=== PATIENT | male | born 1960 | race Caucasian/White ===

== ENCOUNTER 2019-06-11 17:33 | Inpatient (IN) | payer MEDICAID ==
[~2019-06-11] VITALS: Ht 170.2 cm; Wt 80.8 kg
[2019-06-11] MEDS ORDERED: QUET300T5 PO (18:08)
[2019-06-11] MEDS ORDERED: CITA-106 PO (18:08)
[2019-06-11 18:16] LABS: BASOPHILS % (AUTO) 1.3 % (0.0-2.0); EOSINOPHILS % (AUTO) 4.3 % (1.0-6.0); HEMATOCRIT 49.6 % (41-53); HEMOGLOBIN 17.2 g/dL (13.5-17.5); LYMPHOCYTES # (AUTO) 2.8 K/uL (1.0-4.8); LYMPHOCYTES % (AUTO) 39.8 % (22.0-44.0); MEAN CORPUSCULAR HEMOGLOBIN 33.8 pg (26.0-34.0); MEAN CORPUSCULAR HGB CONC 34.6 G/dL (31.0-37.0); MEAN CORPUSCULAR VOLUME 98 fL (80-100); MONOCYTES # (AUTO) 1.1 K/uL (0.1-1.0); MONOCYTES % (AUTO) 16.1 % (2.0-9.0); NEUTROPHILS # (AUTO) 2.7 K/uL (1.8-7.7); NEUTROPHILS % (AUTO) 38.5 % (40.0-70.0); RED BLOOD CELL COUNT(AUTO) 5.09 MIL/uL (4.50-5.90); RED CELL DISTRIBUTION WIDTH 14.5 % (11.5-14.5)
[2019-06-11 18:36] LABS: ANION GAP 10 mmol/L (8-16); CALCIUM, TOTAL 9.6 mg/dL (8.8-10.5); CARBON DIOXIDE 29 mmol/L (22-29); CHLORIDE 101 mmol/L (98-107); CREATININE 0.84 mg/dL (0.60-1.30); GLOMERULAR FILTR. RATE CALC > 60 mL/min (>60); GLUCOSE,RANDOM 118 mg/dL (70-110); POTASSIUM 3.7 mmol/L (3.5-5.1); SODIUM SERUM 140 mmol/L (136-145); UREA NITROGEN, BLOOD 9 mg/dL (7-18)
[2019-06-11 18:44] LABS: ALANINE AMINOTRANSFERASE 28 U/L (12-78); ALKALINE PHOSPHATASE 100 U/L (46-116); ASPARTATE AMINOTRANSFERASE 33 U/L (15-37); BILIRUBIN,TOTAL 0.5 mg/dL (0.1-1.0); TOTAL PROTEIN, SERUM 8.2 g/dL (6.4-8.2)
[2019-06-11 18:51] LABS: PLATELET COUNT (AUTO) 277 K/uL (150-450)
[2019-06-11] MEDS ORDERED: HALOPERIDOL 5 MG TABLET PO ONE (19:00)
[2019-06-11] MEDS ORDERED: LORazepam 2 MG TABLET PO ONE (19:00)
[2019-06-11] MEDS ORDERED: DiphenhydrAMINE HCL 50 MG CAPSULE PO ONE (19:00)
[2019-06-11 19:24] LABS: APPEARANCE,URINE CLEAR (CLEAR); BILIRUBIN,URINE NEGATIVE (NEGATIVE); GLUCOSE, URINE (UA) NEGATIVE (NEGATIVE); KETONES,URINE NEGATIVE (NEGATIVE); LEUKOCYTE ESTERASE ,URINE TRACE (NEGATIVE); NITRATE,URINE NEGATIVE (NEGATIVE); OCCULT BLOOD,URINE NEGATIVE (NEGATIVE); PROTEIN,URINE NEGATIVE (NEGATIVE); UROBILINOGEN,URINE 0.2 mg/dL (<=1.0)
[2019-06-11 19:27] LABS: AMPHET/METH SCREEN,URINE NEGATIVE (NEGATIVE); BARBITURATE SCREEN, URINE NEGATIVE (NEGATIVE); BENZODIAZEPINES SCREEN,URINE NEGATIVE (NEGATIVE); CANNABINOID SCREEN,URINE POSITIVE (NEGATIVE); COCAINE SCREEN,URINE NEGATIVE (NEGATIVE); METHADONE SCREEN, URINE NEGATIVE (NEGATIVE); OPIATE SCREEN,URINE NEGATIVE (NEGATIVE)
[2019-06-11 19:31] LABS: PHENCYCLIDINE SCREEN,URINE NEGATIVE (NEGATIVE)
[2019-06-11 19:35] LABS: RBC,URINE None Seen /HPF (0-2)
[2019-06-11 19:36] LABS: BACTERIA,URINE None Seen /HPF (None Seen); SQUAMOUS EPITHELIAL CELL,UR Moderate /LPF (None Seen); TRANSITIONAL EPI CELLS,URINE Rare /LPF (None Seen)
[2019-06-12 03:14] LABS: CHOL/HDL RATIO 2.8 (4.2-7.3)
[2019-06-12] MEDS ORDERED: GuaiFENesin/D-METHORPHAN [SUGAR-FREE] 200-20MG/10 ML SYRUP UDCUP PO PRN (06:15)
[2019-06-12] MEDS ORDERED: ACETAMINOPHEN 325 MG TABLET PO PRN (06:15)
[2019-06-12] MEDS ORDERED: MAGNESIUM HYDROXIDE SUSPENSION 30 ML UDCUP PO PRN (06:15)
[2019-06-12] MEDS ORDERED: ONDANSETRON HCL 4 MG TABLET PO PRN (06:15)
[2019-06-12] MEDS ORDERED: MAG HYDROX/AL HYDROX/SIMETH ES 30 ML SUSPENSION UDCUP PO PRN (06:15)
[2019-06-12] MEDS ORDERED: DOCUSATE SODIUM 100 MG CAPSULE PO PRN (06:15)
[2019-06-12] MEDS ORDERED: CloNIDine HCL 0.1 MG TABLET PO PRN (06:15)
[2019-06-12] MEDS ORDERED: NICOTINE 14 MG/24 HOUR PATCH TD PRN (06:15)
[2019-06-12] MEDS ORDERED: PETROLATUM,WHITE 28 GM JELLY TP PRN (06:15)
[2019-06-12] MEDS ORDERED: ALBUTEROL SULFATE HFA 90 MCG/PUFF 8 GM INHALER IH PRN (06:15)
[2019-06-12] MEDS ORDERED: IBUPROFEN 400 MG TABLET PO PRN (06:15)
[2019-06-12] MEDS: HALOPERIDOL 5 MG TABLET PO PRN ×3 (07:50→17:41)
[2019-06-12] MEDS: LORazepam 2 MG TABLET PO PRN ×3 (07:50→17:41)
[2019-06-12 21:29] VITALS: BP 148/99
[2019-06-13] MEDS: FOLIC ACID 1 MG TABLET PO SCH (08:51)
[2019-06-13] MEDS: THIAMINE HCL 100 MG TABLET PO SCH (08:51)
[2019-06-13] MEDS: ASPIRIN 81 MG CHEWABLE TABLET PO SCH (08:51)
[2019-06-13] MEDS ORDERED: DENTURE ADHESIVE 68 GM CREAM DT PRN (09:30)
[2019-06-13] MEDS: LOPERAMIDE HCL 2 MG CAPSULE PO PRN ×2 (11:00→17:10)
[2019-06-13] MEDS: HALOPERIDOL 5 MG TABLET PO PRN (11:10)
[2019-06-13] MEDS: LORazepam 2 MG TABLET PO SCH (11:10)
[2019-06-13] MEDS ORDERED: LORazepam 2 MG TABLET PO PRN (12:15)
[2019-06-13 12:45] VITALS: BP 139/90
[2019-06-13 12:46] VITALS: BP 139/90
[2019-06-13] MEDS: BuPROPion HCL XL 150 MG ER TABLET PO SCH (13:53)
[2019-06-13 16:45] VITALS: BP 145/87
[2019-06-13] MEDS: OLANZapine 5 MG TABLET PO SCH (17:10)
[2019-06-13 17:12] VITALS: BP 145/87
[2019-06-13] MEDS: ZOLPIDEM TARTRATE 10 MG TABLET PO PRN (20:24)
[2019-06-14] VITALS (8 sets, daily range): BP systolic 124–141; BP diastolic 72–87
[2019-06-14] MEDS: LORazepam 2 MG TABLET PO PRN ×2 (02:55→09:49)
[2019-06-14] MEDS ORDERED: LORazepam 2 MG TABLET PO PRN (07:00)
[2019-06-14] MEDS: BuPROPion HCL XL 150 MG ER TABLET PO SCH (09:48)
[2019-06-14] MEDS: FOLIC ACID 1 MG TABLET PO SCH (09:49)
[2019-06-14] MEDS: THIAMINE HCL 100 MG TABLET PO SCH (09:49)
[2019-06-14] MEDS: OLANZapine 5 MG TABLET PO SCH ×2 (09:50→16:28)
[2019-06-14] MEDS: ASPIRIN 81 MG CHEWABLE TABLET PO SCH (09:50)
[2019-06-14] MEDS: LORazepam 2 MG TABLET PO SCH ×3 (13:15→20:05)
[2019-06-14] MEDS: ZOLPIDEM TARTRATE 10 MG TABLET PO PRN (20:51)
[2019-06-14] MEDS: HALOPERIDOL 5 MG TABLET PO PRN (23:45)
[2019-06-15 00:04] VITALS: BP 146/99
[2019-06-15] MEDS: LORazepam 2 MG TABLET PO SCH ×4 (09:24→20:08)
[2019-06-15] MEDS: OLANZapine 5 MG TABLET PO SCH ×2 (09:25→16:56)
[2019-06-15] MEDS: BuPROPion HCL XL 150 MG ER TABLET PO SCH (09:25)
[2019-06-15] MEDS: ASPIRIN 81 MG CHEWABLE TABLET PO SCH (09:25)
[2019-06-15] MEDS: THIAMINE HCL 100 MG TABLET PO SCH (09:25)
[2019-06-15] MEDS: FOLIC ACID 1 MG TABLET PO SCH (09:25)
[2019-06-15 09:41] VITALS: BP 143/87
[2019-06-15 09:42] VITALS: BP 140/86
[2019-06-15 16:45] VITALS: BP 128/87
[2019-06-15 17:18] VITALS: BP 128/87
[2019-06-15 20:00] VITALS: BP 131/82
[2019-06-15] MEDS ORDERED: QUEtiapine FUMARATE 200 MG TABLET PO SCH (21:00)
[2019-06-16 05:50] VITALS: BP 98/59
[2019-06-16] MEDS ORDERED: LORazepam 1 MG TABLET PO PRN (07:00)
[2019-06-16] MEDS: LORazepam 1 MG TABLET PO SCH ×2 (08:14→12:17)
[2019-06-16] MEDS: ASPIRIN 81 MG CHEWABLE TABLET PO SCH (08:14)
[2019-06-16] MEDS: FOLIC ACID 1 MG TABLET PO SCH (08:14)
[2019-06-16] MEDS: BuPROPion HCL XL 150 MG ER TABLET PO SCH (08:14)
[2019-06-16] MEDS: OLANZapine 5 MG TABLET PO SCH ×2 (08:14→16:06)
[2019-06-16] MEDS: THIAMINE HCL 100 MG TABLET PO SCH (08:15)
[2019-06-16 09:20] VITALS: BP 137/100
[2019-06-16 12:36] VITALS: BP 130/79
[2019-06-16] MEDS ORDERED: QUET200T PO (13:30)
[2019-06-16] MEDS ORDERED: BUPR-93 PO (13:30)
[2019-06-16] MEDS ORDERED: OLAN5TAB2 PO (13:30)
[2019-06-16] MEDS ORDERED: ASPI81 PO (13:32)
[2019-06-17] MEDS ORDERED: LORazepam 1 MG TABLET PO PRN (07:00)
== END 2019-06-16 17:15 | disposition home or self-care (01) | DRG 751 ==
LOC: EMS 17:33 → 3EI 06-12 20:45
PROVIDERS: ADMIT Psychiatry & Neurology Psychiatry; ATTEND Psychiatry & Neurology Psychiatry
DX: F33.3 Major depressive disorder, recurrent, severe with psychotic symptoms (principal); R45.851 Suicidal ideations; E78.5 Hyperlipidemia, unspecified; F10.229 Alcohol dependence with intoxication, unspecified; F12.90 Cannabis use, unspecified, uncomplicated; F17.200 Nicotine dependence, unspecified, uncomplicated; I25.10 Atherosclerotic heart disease of native coronary artery without angina pectoris; Y90.8 Blood alcohol level of 240 mg/100 ml or more; F19.10 Other psychoactive substance abuse, uncomplicated; Z91.5 Personal history of self-harm; Z95.5 Presence of coronary angioplasty implant and graft; Z71.41 Alcohol abuse counseling and surveillance of alcoholic; Z71.51 Drug abuse counseling and surveillance of drug abuser; Z71.6 Tobacco abuse counseling
CPT/HCPCS: G0480

== ENCOUNTER 2019-07-31 16:48 | Inpatient (IN) | payer MEDICAID, OTHER ==
[~2019-07-31] VITALS: Ht 170.2 cm; Wt 79.3 kg
[~2019-07-31 16:48] MED LIST: ASPI81 PO; BUPR-93 PO; OLAN5TAB2 PO; QUET200T PO
[2019-07-31 17:59] LABS: BASOPHILS % (AUTO) 1.1 % (0.0-2.0); EOSINOPHILS % (AUTO) 0.5 % (1.0-6.0); HEMATOCRIT 45.6 % (41-53); HEMOGLOBIN 15.9 g/dL (13.5-17.5); LYMPHOCYTES # (AUTO) 1.7 K/uL (1.0-4.8); LYMPHOCYTES % (AUTO) 26.8 % (22.0-44.0); MEAN CORPUSCULAR HEMOGLOBIN 33.7 pg (26.0-34.0); MEAN CORPUSCULAR HGB CONC 34.8 G/dL (31.0-37.0); MEAN CORPUSCULAR VOLUME 97 fL (80-100); MONOCYTES # (AUTO) 0.8 K/uL (0.1-1.0); NEUTROPHILS # (AUTO) 3.8 K/uL (1.8-7.7); NEUTROPHILS % (AUTO) 59.6 % (40.0-70.0); PLATELET COUNT (AUTO) 219 K/uL (150-450); RED CELL DISTRIBUTION WIDTH 14.1 % (11.5-14.5)
[2019-07-31] MEDS ORDERED: ACETAMINOPHEN 325 MG TABLET PO PRN (18:15)
[2019-07-31] MEDS ORDERED: PROMETHAZINE HCL 25 MG TABLET PO PRN (18:15)
[2019-07-31] MEDS ORDERED: LOPERAMIDE HCL 2 MG CAPSULE PO PRN (18:15)
[2019-07-31] MEDS ORDERED: MAG HYDROX/AL HYDROX/SIMETH ES 30 ML SUSPENSION UDCUP PO PRN (18:15)
[2019-07-31] MEDS ORDERED: MAGNESIUM HYDROXIDE SUSPENSION 30 ML UDCUP PO PRN (18:15)
[2019-07-31] MEDS ORDERED: GuaiFENesin/D-METHORPHAN [SUGAR-FREE] 200-20MG/10 ML SYRUP UDCUP PO PRN (18:15)
[2019-07-31] MEDS ORDERED: HydrOXYzine PAMOATE 50 MG CAPSULE PO PRN (18:15)
[2019-07-31] MEDS ORDERED: OLANZapine 5 MG RAPDIS TABLET PO PRN (18:15)
[2019-07-31] MEDS ORDERED: TUBERCULIN, PURIFIED PROTEIN DERIVATIVE 5 TU/0.1 ML SYRINGE ID ONE (18:15)
[2019-07-31] MEDS ORDERED: CYANOCOBALAMIN 1,000 MCG/ML VIAL IM ONE (18:15)
[2019-07-31 18:27] LABS: ALANINE AMINOTRANSFERASE 24 U/L (12-78); ALBUMIN 4.1 g/dL (3.4-5.0); ALKALINE PHOSPHATASE 94 U/L (46-116); ANION GAP 15 mmol/L (8-16); ASPARTATE AMINOTRANSFERASE 30 U/L (15-37); BILIRUBIN,TOTAL 0.4 mg/dL (0.1-1.0); CALCIUM, TOTAL 8.7 mg/dL (8.8-10.5); CARBON DIOXIDE 25 mmol/L (22-29); CHLORIDE 100 mmol/L (98-107); GLOMERULAR FILTR. RATE CALC > 60 mL/min (>60); GLUCOSE,RANDOM 91 mg/dL (70-110); POTASSIUM 4.2 mmol/L (3.5-5.1); SODIUM SERUM 140 mmol/L (136-145); TOTAL PROTEIN, SERUM 8.3 g/dL (6.4-8.2); UREA NITROGEN, BLOOD 4 mg/dL (7-18)
[2019-07-31 18:39] LABS: AMPHET/METH SCREEN,URINE NEGATIVE (NEGATIVE); BARBITURATE SCREEN, URINE NEGATIVE (NEGATIVE); BENZODIAZEPINES SCREEN,URINE NEGATIVE (NEGATIVE); CANNABINOID SCREEN,URINE NEGATIVE (NEGATIVE); COCAINE SCREEN,URINE NEGATIVE (NEGATIVE); METHADONE SCREEN, URINE NEGATIVE (NEGATIVE); OPIATE SCREEN,URINE NEGATIVE (NEGATIVE)
[2019-07-31 18:40] LABS: PHENCYCLIDINE SCREEN,URINE NEGATIVE (NEGATIVE)
[2019-07-31] MEDS: THIAMINE HCL 100 MG TABLET PO SCH (19:49)
[2019-07-31] MEDS: OLANZapine 10 MG RAPDIS TABLET PO SCH (21:00)
[2019-07-31] MEDS: GABAPENTIN 300 MG CAPSULE PO SCH (21:00)
[2019-07-31 21:50] VITALS: BP 165/96
[2019-07-31 22:00] VITALS: BP 150/95
[2019-07-31] MEDS ORDERED: INFLUENZA VIRUS VACCINE QVS 2019-20 (3YR+)/PF 60 MCG/0.5 ML SYRINGE IM ONE (23:00)
[2019-07-31 23:11] VITALS: BP 149/80
[2019-07-31] MEDS: DIAZEPAM 10 MG TABLET PO PRN (23:52)
[2019-07-31] MEDS: ZOLPIDEM TARTRATE 10 MG TABLET PO PRN (23:52)
[2019-08-01] VITALS (11 sets, daily range): BP systolic 135–160; BP diastolic 76–100
[2019-08-01] MEDS: DIAZEPAM 10 MG TABLET PO PRN (06:41)
[2019-08-01] MEDS ORDERED: DIAZEPAM 10 MG TABLET PO PRN (07:00)
[2019-08-01 08:03] LABS: HEMOGLOBIN A1C 5.3 % (4.5-6.2)
[2019-08-01 08:26] LABS: CHOL/HDL RATIO 1.7 (4.2-7.3); FREE T4 (FREE THYROXINE) 0.62 ng/dL (0.76-1.46); THYROID STIMULATING HORMONE 2.4 uIU/mL (0.36-3.74)
[2019-08-01] MEDS: DIAZEPAM 10 MG TABLET PO SCH ×4 (09:17→20:17)
[2019-08-01] MEDS: THIAMINE HCL 100 MG TABLET PO SCH ×2 (09:17→16:14)
[2019-08-01] MEDS: ASPIRIN 81 MG CHEWABLE TABLET PO SCH (09:17)
[2019-08-01] MEDS: FOLIC ACID 1 MG TABLET PO SCH (09:17)
[2019-08-01] MEDS: MULTIVITAMINS WITH MINERALS, THERAPEUTIC TABLET PO SCH (09:18)
[2019-08-01] MEDS: NALTREXONE HCL 50 MG TABLET PO SCH (09:18)
[2019-08-01] MEDS: FLUoxetine HCL 10 MG CAPSULE PO SCH (09:18)
[2019-08-01] MEDS: GABAPENTIN 300 MG CAPSULE PO SCH ×4 (09:18→20:17)
[2019-08-01] MEDS: OLANZapine 10 MG RAPDIS TABLET PO SCH (20:18)
[2019-08-02] VITALS (7 sets, daily range): BP systolic 129–151; BP diastolic 57–99
[2019-08-02] MEDS: ZOLPIDEM TARTRATE 10 MG TABLET PO PRN ×2 (02:11→21:19)
[2019-08-02] MEDS: FLUoxetine HCL 10 MG CAPSULE PO SCH (09:12)
[2019-08-02] MEDS: DIAZEPAM 10 MG TABLET PO SCH ×4 (09:12→20:11)
[2019-08-02] MEDS: FOLIC ACID 1 MG TABLET PO SCH (09:13)
[2019-08-02] MEDS: GABAPENTIN 300 MG CAPSULE PO SCH ×4 (09:13→20:11)
[2019-08-02] MEDS: NALTREXONE HCL 50 MG TABLET PO SCH (09:13)
[2019-08-02] MEDS: MULTIVITAMINS WITH MINERALS, THERAPEUTIC TABLET PO SCH (09:13)
[2019-08-02] MEDS: ASPIRIN 81 MG CHEWABLE TABLET PO SCH (09:13)
[2019-08-02] MEDS: THIAMINE HCL 100 MG TABLET PO SCH ×2 (09:13→16:51)
[2019-08-02] MEDS ORDERED: DENTURE ADHESIVE 68 GM CREAM DT PRN (11:00)
[2019-08-02] MEDS: QUEtiapine FUMARATE 25 MG TABLET PO SCH (16:51)
[2019-08-02] MEDS: QUEtiapine FUMARATE 200 MG TABLET PO SCH (20:11)
[2019-08-02] MEDS: ATORVASTATIN CALCIUM 10 MG TABLET PO SCH (20:11)
[2019-08-03 05:38] VITALS: BP 126/69
[2019-08-03] MEDS ORDERED: DIAZEPAM 5 MG TABLET PO PRN (07:00)
[2019-08-03] MEDS ORDERED: FLUoxetine HCL 20 MG CAPSULE PO SCH (09:00)
[2019-08-03] MEDS: THIAMINE HCL 100 MG TABLET PO SCH ×2 (09:41→16:57)
[2019-08-03] MEDS: NALTREXONE HCL 50 MG TABLET PO SCH (09:41)
[2019-08-03] MEDS: GABAPENTIN 300 MG CAPSULE PO SCH ×3 (09:41→16:57)
[2019-08-03] MEDS: DIAZEPAM 5 MG TABLET PO SCH ×4 (09:41→20:13)
[2019-08-03] MEDS: MULTIVITAMINS WITH MINERALS, THERAPEUTIC TABLET PO SCH (09:42)
[2019-08-03] MEDS: QUEtiapine FUMARATE 25 MG TABLET PO SCH ×3 (09:42→16:57)
[2019-08-03] MEDS: ASPIRIN 81 MG CHEWABLE TABLET PO SCH (09:42)
[2019-08-03] MEDS: FOLIC ACID 1 MG TABLET PO SCH (09:42)
[2019-08-03 12:00] VITALS: BP 132/86
[2019-08-03 13:35] VITALS: BP 149/91
[2019-08-03 16:00] VITALS: BP 126/86
[2019-08-03 16:55] VITALS: BP 126/86
[2019-08-03] MEDS ORDERED: NALT50TA PO (18:00)
[2019-08-03] MEDS ORDERED: QUET25TA34 PO (18:00)
[2019-08-03] MEDS ORDERED: GABA-533 PO (18:00)
[2019-08-03] MEDS ORDERED: QUET200T29 PO (18:00)
[2019-08-03] MEDS ORDERED: DULO20CA30 PO (18:00)
[2019-08-03] MEDS ORDERED: LOPERAMIDE HCL 2 MG CAPSULE PO PRN (18:15)
[2019-08-03] MEDS: QUEtiapine FUMARATE 200 MG TABLET PO SCH (20:14)
[2019-08-03] MEDS: ATORVASTATIN CALCIUM 10 MG TABLET PO SCH (20:14)
[2019-08-03] MEDS: GABAPENTIN 400 MG CAPSULE PO SCH (20:16)
[2019-08-03] MEDS: ZOLPIDEM TARTRATE 10 MG TABLET PO PRN (23:13)
[2019-08-04 06:12] VITALS: BP 114/73
[2019-08-04] MEDS ORDERED: DIAZEPAM 5 MG TABLET PO PRN (07:00)
[2019-08-04 08:30] VITALS: BP 121/76
[2019-08-04] MEDS ORDERED: DULoxetine HCL 20 MG CAPSULE PO SCH (09:00)
[2019-08-04] MEDS: GABAPENTIN 400 MG CAPSULE PO SCH ×3 (09:32→16:45)
[2019-08-04] MEDS: ASPIRIN 81 MG CHEWABLE TABLET PO SCH (09:32)
[2019-08-04] MEDS: THIAMINE HCL 100 MG TABLET PO SCH ×2 (09:32→16:45)
[2019-08-04] MEDS: QUEtiapine FUMARATE 25 MG TABLET PO SCH ×3 (09:32→16:45)
[2019-08-04] MEDS: MULTIVITAMINS WITH MINERALS, THERAPEUTIC TABLET PO SCH (09:32)
[2019-08-04] MEDS: FOLIC ACID 1 MG TABLET PO SCH (09:33)
[2019-08-04] MEDS: NALTREXONE HCL 50 MG TABLET PO SCH (09:33)
[2019-08-04 13:01] VITALS: BP 103/67
[2019-08-04] MEDS ORDERED: ATOR10TA84 PO (13:14)
== END 2019-08-04 15:00 | disposition home or self-care (01) | DRG 885 ==
LOC: EMS 16:49 → 3EI 18:47
PROVIDERS: ADMIT Psychiatry & Neurology Psychiatry; ATTEND Psychiatry & Neurology Psychiatry
DX: F33.2 Major depressive disorder, recurrent severe without psychotic features (principal); F10.229 Alcohol dependence with intoxication, unspecified; R45.851 Suicidal ideations; F29 Unspecified psychosis not due to a substance or known physiological condition; E78.1 Pure hyperglyceridemia; E78.5 Hyperlipidemia, unspecified; F12.90 Cannabis use, unspecified, uncomplicated; F17.210 Nicotine dependence, cigarettes, uncomplicated; G40.909 Epilepsy, unspecified, not intractable, without status epilepticus; I10 Essential (primary) hypertension; I25.10 Atherosclerotic heart disease of native coronary artery without angina pectoris; Y90.8 Blood alcohol level of 240 mg/100 ml or more; Z82.49 Family history of ischemic heart disease and other diseases of the circulatory system; Z91.19 Patient's noncompliance with other medical treatment and regimen; Z91.5 Personal history of self-harm; Z95.5 Presence of coronary angioplasty implant and graft; Z79.899 Other long term (current) drug therapy; Z28.21 Immunization not carried out because of patient refusal
CPT/HCPCS: 80074; 83036; 84439; 84443; 86592; G0480; J3420

== ENCOUNTER 2019-08-24 19:09 | Inpatient (IN) | payer MEDICAID ==
[~2019-08-24] VITALS: Ht 170.2 cm; Wt 83.6 kg
[~2019-08-24 19:09] MED LIST changes: +ATOR10TA84 PO; -BUPR-93 PO; +DULO20CA30 PO; +GABA-533 PO; +NALT50TA PO; -OLAN5TAB2 PO; -QUET200T PO; +QUET200T29 PO; +QUET25TA34 PO
[2019-08-24 21:50] LABS: BASOPHILS % (AUTO) 1.4 % (0.0-2.0); EOSINOPHILS % (AUTO) 0.9 % (1.0-6.0); HEMATOCRIT 48.1 % (41-53); HEMOGLOBIN 16.6 g/dL (13.5-17.5); LYMPHOCYTES # (AUTO) 2.3 K/uL (1.0-4.8); LYMPHOCYTES % (AUTO) 31.5 % (22.0-44.0); MEAN CORPUSCULAR HEMOGLOBIN 33.1 pg (26.0-34.0); MEAN CORPUSCULAR HGB CONC 34.4 G/dL (31.0-37.0); MEAN CORPUSCULAR VOLUME 96 fL (80-100); MONOCYTES # (AUTO) 0.7 K/uL (0.1-1.0); NEUTROPHILS % (AUTO) 56.2 % (40.0-70.0); PLATELET COUNT (AUTO) 319 K/uL (150-450); RED CELL DISTRIBUTION WIDTH 14.2 % (11.5-14.5)
[2019-08-24 22:01] LABS: ANION GAP 13 mmol/L (8-16); CALCIUM, TOTAL 8.7 mg/dL (8.8-10.5); CARBON DIOXIDE 28 mmol/L (22-29); CHLORIDE 101 mmol/L (98-107); CREATININE 0.88 mg/dL (0.60-1.30); GLOMERULAR FILTR. RATE CALC > 60 mL/min (>60); GLUCOSE,RANDOM 116 mg/dL (70-110); SODIUM SERUM 142 mmol/L (136-145); UREA NITROGEN, BLOOD 5 mg/dL (7-18)
[2019-08-24 22:07] LABS: ALANINE AMINOTRANSFERASE 27 U/L (12-78); ALKALINE PHOSPHATASE 128 U/L (46-116); ASPARTATE AMINOTRANSFERASE 36 U/L (15-37); BILIRUBIN,TOTAL 0.3 mg/dL (0.1-1.0); TOTAL PROTEIN, SERUM 7.9 g/dL (6.4-8.2)
[2019-08-24 22:36] LABS: AMPHET/METH SCREEN,URINE NEGATIVE (NEGATIVE); BARBITURATE SCREEN, URINE NEGATIVE (NEGATIVE); BENZODIAZEPINES SCREEN,URINE POSITIVE (NEGATIVE); CANNABINOID SCREEN,URINE POSITIVE (NEGATIVE); COCAINE SCREEN,URINE NEGATIVE (NEGATIVE); METHADONE SCREEN, URINE NEGATIVE (NEGATIVE); OPIATE SCREEN,URINE NEGATIVE (NEGATIVE)
[2019-08-24 22:39] LABS: PHENCYCLIDINE SCREEN,URINE NEGATIVE (NEGATIVE)
[2019-08-25] VITALS (8 sets, daily range): BP systolic 146–166; BP diastolic 86–92
[2019-08-25] MEDS ORDERED: HALOPERIDOL 5 MG TABLET PO PRN (02:00)
[2019-08-25] MEDS ORDERED: LOPERAMIDE HCL 2 MG CAPSULE PO PRN ×2 (02:00→11:45)
[2019-08-25] MEDS ORDERED: GuaiFENesin/D-METHORPHAN [SUGAR-FREE] 200-20MG/10 ML SYRUP UDCUP PO PRN ×2 (02:00→11:45)
[2019-08-25] MEDS ORDERED: LORazepam 2 MG TABLET PO PRN (02:00)
[2019-08-25] MEDS ORDERED: ZOLPIDEM TARTRATE 10 MG TABLET PO PRN (02:00)
[2019-08-25] MEDS ORDERED: HydrOXYzine PAMOATE 50 MG CAPSULE PO PRN (02:00)
[2019-08-25 02:41] LABS: APPEARANCE,URINE CLOUDY (CLEAR); BILIRUBIN,URINE NEGATIVE (NEGATIVE); GLUCOSE, URINE (UA) NEGATIVE (NEGATIVE); KETONES,URINE NEGATIVE (NEGATIVE); LEUKOCYTE ESTERASE ,URINE NEGATIVE (NEGATIVE); NITRATE,URINE NEGATIVE (NEGATIVE); OCCULT BLOOD,URINE SMALL (NEGATIVE); PH,URINE 5.5 (5.0-8.0); PROTEIN,URINE POS 1+ (NEGATIVE); UROBILINOGEN,URINE 0.2 mg/dL (<=1.0)
[2019-08-25 02:55] LABS: BACTERIA,URINE None Seen /HPF (None Seen); MUCUS,URINE Moderate LPF (None Seen); RBC,URINE 0-2 /HPF (0-2); SQUAMOUS EPITHELIAL CELL,UR Moderate /LPF (None Seen)
[2019-08-25] MEDS ORDERED: CYANOCOBALAMIN 1,000 MCG/ML VIAL IM ONE ×2 (09:00→11:45)
[2019-08-25] MEDS ORDERED: FOLIC ACID 1 MG TABLET PO SCH (09:00)
[2019-08-25] MEDS ORDERED: MULTIVITAMINS WITH MINERALS, THERAPEUTIC TABLET PO SCH (09:00)
[2019-08-25] MEDS ORDERED: THIAMINE HCL 100 MG TABLET PO SCH (09:00)
[2019-08-25] MEDS ORDERED: MAG HYDROX/AL HYDROX/SIMETH ES 30 ML SUSPENSION UDCUP PO PRN (11:45)
[2019-08-25] MEDS ORDERED: MAGNESIUM HYDROXIDE SUSPENSION 30 ML UDCUP PO PRN (11:45)
[2019-08-25] MEDS ORDERED: ACETAMINOPHEN 325 MG TABLET PO PRN ×2 (11:45→12:30)
[2019-08-25] MEDS ORDERED: PROMETHAZINE HCL 25 MG TABLET PO PRN (11:45)
[2019-08-25] MEDS ORDERED: TUBERCULIN, PURIFIED PROTEIN DERIVATIVE 5 TU/0.1 ML SYRINGE ID ONE (11:45)
[2019-08-25] MEDS ORDERED: IBUPROFEN 600 MG TABLET PO PRN (12:30)
[2019-08-25] MEDS: GABAPENTIN 300 MG CAPSULE PO SCH ×3 (13:55→20:53)
[2019-08-25] MEDS: THIAMINE HCL 100 MG TABLET PO SCH (16:58)
[2019-08-25] MEDS: METOPROLOL TARTRATE 50 MG TABLET PO SCH (17:00)
[2019-08-25] MEDS: DIAZEPAM 10 MG TABLET PO PRN ×2 (18:17→20:53)
[2019-08-25] MEDS: QUEtiapine FUMARATE 200 MG TABLET PO SCH (20:53)
[2019-08-25] MEDS: ATORVASTATIN CALCIUM 10 MG TABLET PO SCH (20:53)
[2019-08-26] VITALS (8 sets, daily range): BP systolic 124–147; BP diastolic 75–86
[2019-08-26] MEDS: DIAZEPAM 10 MG TABLET PO PRN (04:42)
[2019-08-26] MEDS ORDERED: DIAZEPAM 10 MG TABLET PO PRN (07:00)
[2019-08-26] MEDS: THIAMINE HCL 100 MG TABLET PO SCH ×2 (09:42→16:10)
[2019-08-26] MEDS: METOPROLOL TARTRATE 50 MG TABLET PO SCH ×2 (09:43→16:10)
[2019-08-26] MEDS: MULTIVITAMINS WITH MINERALS, THERAPEUTIC TABLET PO SCH (09:43)
[2019-08-26] MEDS: ASPIRIN 81 MG CHEWABLE TABLET PO SCH (09:44)
[2019-08-26] MEDS: FOLIC ACID 1 MG TABLET PO SCH (09:44)
[2019-08-26] MEDS: DULoxetine HCL 20 MG CAPSULE PO SCH (09:44)
[2019-08-26] MEDS: GABAPENTIN 300 MG CAPSULE PO SCH ×4 (09:44→20:00)
[2019-08-26] MEDS: NALTREXONE HCL 50 MG TABLET PO SCH (09:45)
[2019-08-26] MEDS: DIAZEPAM 10 MG TABLET PO SCH ×4 (09:47→20:00)
[2019-08-26 13:14] LABS: HEMOGLOBIN A1C 5.6 % (4.5-6.2)
[2019-08-26 14:06] LABS: FREE T4 (FREE THYROXINE) 0.74 ng/dL (0.76-1.46); THYROID STIMULATING HORMONE 2.54 uIU/mL (0.36-3.74)
[2019-08-26] MEDS: ATORVASTATIN CALCIUM 10 MG TABLET PO SCH (20:00)
[2019-08-26] MEDS: QUEtiapine FUMARATE 200 MG TABLET PO SCH (20:01)
[2019-08-27 05:55] VITALS: BP 149/102
[2019-08-27 06:57] VITALS: BP 115/70
[2019-08-27] MEDS: ASPIRIN 81 MG CHEWABLE TABLET PO SCH (10:30)
[2019-08-27] MEDS: GABAPENTIN 300 MG CAPSULE PO SCH ×4 (10:30→20:16)
[2019-08-27] MEDS: THIAMINE HCL 100 MG TABLET PO SCH ×2 (10:30→16:01)
[2019-08-27] MEDS: FOLIC ACID 1 MG TABLET PO SCH (10:30)
[2019-08-27] MEDS: MULTIVITAMINS WITH MINERALS, THERAPEUTIC TABLET PO SCH (10:30)
[2019-08-27] MEDS: NALTREXONE HCL 50 MG TABLET PO SCH (10:30)
[2019-08-27] MEDS: DULoxetine HCL 20 MG CAPSULE PO SCH (10:30)
[2019-08-27] MEDS: DIAZEPAM 10 MG TABLET PO SCH ×4 (10:30→20:22)
[2019-08-27] MEDS: METOPROLOL TARTRATE 50 MG TABLET PO SCH ×2 (10:31→16:01)
[2019-08-27 11:01] VITALS: BP 145/96
[2019-08-27 11:04] VITALS: BP 145/96
[2019-08-27] MEDS ORDERED: DENTURE ADHESIVE 68 GM CREAM DT PRN (19:00)
[2019-08-27 20:10] VITALS: BP 147/83
[2019-08-27 20:11] VITALS: BP 147/83
[2019-08-27] MEDS: ATORVASTATIN CALCIUM 10 MG TABLET PO SCH (20:16)
[2019-08-27] MEDS: QUEtiapine FUMARATE 200 MG TABLET PO SCH (20:16)
[2019-08-28 06:48] VITALS: BP 131/80
[2019-08-28] MEDS ORDERED: DIAZEPAM 5 MG TABLET PO PRN (07:00)
[2019-08-28] MEDS: MULTIVITAMINS WITH MINERALS, THERAPEUTIC TABLET PO SCH (08:26)
[2019-08-28] MEDS: GABAPENTIN 300 MG CAPSULE PO SCH ×3 (08:27→16:17)
[2019-08-28] MEDS: ASPIRIN 81 MG CHEWABLE TABLET PO SCH (08:27)
[2019-08-28] MEDS: DIAZEPAM 5 MG TABLET PO SCH ×4 (08:27→20:45)
[2019-08-28] MEDS: NALTREXONE HCL 50 MG TABLET PO SCH (08:27)
[2019-08-28] MEDS: THIAMINE HCL 100 MG TABLET PO SCH ×2 (08:27→16:17)
[2019-08-28] MEDS: FOLIC ACID 1 MG TABLET PO SCH (08:27)
[2019-08-28] MEDS: METOPROLOL TARTRATE 50 MG TABLET PO SCH ×2 (08:28→16:17)
[2019-08-28 08:50] VITALS: BP 131/96
[2019-08-28 08:52] VITALS: BP 131/96
[2019-08-28] MEDS ORDERED: DULoxetine HCL 60 MG CAPSULE PO SCH (09:00)
[2019-08-28] MEDS ORDERED: LOPERAMIDE HCL 2 MG CAPSULE PO PRN (11:45)
[2019-08-28 17:09] VITALS: BP 118/81
[2019-08-28 17:10] VITALS: BP 118/81
[2019-08-28] MEDS: ATORVASTATIN CALCIUM 10 MG TABLET PO SCH (20:44)
[2019-08-28] MEDS: QUEtiapine FUMARATE 300 MG TABLET PO SCH (20:45)
[2019-08-28] MEDS: GABAPENTIN 400 MG CAPSULE PO SCH (20:45)
[2019-08-29 01:07] VITALS: BP 129/75
[2019-08-29 01:08] VITALS: BP 129/75
[2019-08-29] MEDS ORDERED: DIAZEPAM 5 MG TABLET PO PRN (07:00)
[2019-08-29 08:30] VITALS: BP 120/71
[2019-08-29] MEDS ORDERED: DULoxetine HCL 20 MG CAPSULE PO SCH (09:00)
[2019-08-29] MEDS: FOLIC ACID 1 MG TABLET PO SCH (09:58)
[2019-08-29] MEDS: MULTIVITAMINS WITH MINERALS, THERAPEUTIC TABLET PO SCH (09:58)
[2019-08-29] MEDS: GABAPENTIN 400 MG CAPSULE PO SCH ×4 (09:58→20:01)
[2019-08-29] MEDS: ASPIRIN 81 MG CHEWABLE TABLET PO SCH (09:58)
[2019-08-29] MEDS: METOPROLOL TARTRATE 50 MG TABLET PO SCH ×2 (09:58→16:19)
[2019-08-29] MEDS: NALTREXONE HCL 50 MG TABLET PO SCH (09:59)
[2019-08-29] MEDS: QUEtiapine FUMARATE 25 MG TABLET PO SCH ×3 (09:59→16:19)
[2019-08-29] MEDS: THIAMINE HCL 100 MG TABLET PO SCH ×2 (09:59→16:19)
[2019-08-29 10:30] VITALS: BP 120/71
[2019-08-29] MEDS: HydrOXYzine PAMOATE 50 MG CAPSULE PO PRN (12:39)
[2019-08-29 16:25] VITALS: BP 110/76
[2019-08-29] MEDS: ATORVASTATIN CALCIUM 10 MG TABLET PO SCH (20:01)
[2019-08-29] MEDS: QUEtiapine FUMARATE 300 MG TABLET PO SCH (20:01)
[2019-08-30 08:37] VITALS: BP 124/71
[2019-08-30] MEDS ORDERED: DULoxetine HCL 30 MG CAPSULE PO SCH (09:00)
[2019-08-30] MEDS: NALTREXONE HCL 50 MG TABLET PO SCH (10:12)
[2019-08-30] MEDS: MULTIVITAMINS WITH MINERALS, THERAPEUTIC TABLET PO SCH (10:13)
[2019-08-30] MEDS: METOPROLOL TARTRATE 50 MG TABLET PO SCH ×2 (10:13→16:33)
[2019-08-30] MEDS: ASPIRIN 81 MG CHEWABLE TABLET PO SCH (10:13)
[2019-08-30] MEDS: HydrOXYzine PAMOATE 50 MG CAPSULE PO PRN (10:13)
[2019-08-30] MEDS: QUEtiapine FUMARATE 25 MG TABLET PO SCH ×3 (10:14→16:33)
[2019-08-30] MEDS: THIAMINE HCL 100 MG TABLET PO SCH ×2 (10:14→16:33)
[2019-08-30] MEDS: GABAPENTIN 400 MG CAPSULE PO SCH ×3 (10:14→16:33)
[2019-08-30] MEDS: FOLIC ACID 1 MG TABLET PO SCH (10:14)
[2019-08-30 11:08] VITALS: BP 124/71
[2019-08-30] MEDS ORDERED: DULO30CA2 PO (12:13)
[2019-08-30] MEDS ORDERED: GABA-533 PO (12:14)
[2019-08-30] MEDS ORDERED: QUET300T18 PO (12:14)
[2019-08-30] MEDS ORDERED: QUET25TA34 PO (12:14)
[2019-08-30] MEDS ORDERED: NALT50TA PO (12:14)
[2019-08-30] MEDS ORDERED: ASPI81TA39 PO ×7 (15:31→15:52)
[2019-08-30] MEDS ORDERED: ATOR10TA84 PO ×3 (15:33→15:53)
[2019-08-30] MEDS ORDERED: METO25 PO ×2 (15:50→15:53)
== END 2019-08-30 17:45 | disposition home or self-care (01) | DRG 885 ==
LOC: EMS 19:10 → 3EI 08-25 05:30
PROVIDERS: ADMIT Psychiatry & Neurology Psychiatry; ATTEND Psychiatry & Neurology Psychiatry
DX: F33.3 Major depressive disorder, recurrent, severe with psychotic symptoms (principal); F10.229 Alcohol dependence with intoxication, unspecified; N39.0 Urinary tract infection, site not specified; R45.851 Suicidal ideations; E11.51 Type 2 diabetes mellitus with diabetic peripheral angiopathy without gangrene; E78.5 Hyperlipidemia, unspecified; F12.90 Cannabis use, unspecified, uncomplicated; F17.200 Nicotine dependence, unspecified, uncomplicated; I10 Essential (primary) hypertension; I25.10 Atherosclerotic heart disease of native coronary artery without angina pectoris; Z82.49 Family history of ischemic heart disease and other diseases of the circulatory system; Z91.19 Patient's noncompliance with other medical treatment and regimen; Z95.5 Presence of coronary angioplasty implant and graft
CPT/HCPCS: 83036; 84439; 84443; 86592; 87086; G0480; J3420

== ENCOUNTER 2019-09-13 15:40 | Inpatient (IN) | payer MEDICAID ==
[~2019-09-13] VITALS: Ht 170.2 cm; Wt 84.4 kg
[~2019-09-13 15:40] MED LIST changes: +ASPI-728 PO; -ASPI81 PO; -DULO20CA30 PO; +DULO30CA2 PO; +METO25 PO; -QUET200T29 PO; +QUET300T18 PO
[2019-09-13 18:16] LABS: EOSINOPHILS % (AUTO) 2.4 % (1.0-6.0); HEMATOCRIT 50.8 % (41-53); HEMOGLOBIN 17.2 g/dL (13.5-17.5); LYMPHOCYTES % (AUTO) 24.3 % (22.0-44.0); MEAN CORPUSCULAR HEMOGLOBIN 32.7 pg (26.0-34.0); MEAN CORPUSCULAR HGB CONC 33.8 G/dL (31.0-37.0); MEAN CORPUSCULAR VOLUME 97 fL (80-100); MONOCYTES % (AUTO) 12.4 % (2.0-9.0); NEUTROPHILS # (AUTO) 4.8 K/uL (1.8-7.7); NEUTROPHILS % (AUTO) 58.9 % (40.0-70.0); RED BLOOD CELL COUNT(AUTO) 5.25 MIL/uL (4.50-5.90); RED CELL DISTRIBUTION WIDTH 14.2 % (11.5-14.5)
[2019-09-13 18:26] LABS: ANION GAP 15 mmol/L (8-16); CALCIUM, TOTAL 8.4 mg/dL (8.8-10.5); CARBON DIOXIDE 25 mmol/L (22-29); CHLORIDE 105 mmol/L (98-107); CREATININE 0.92 mg/dL (0.60-1.30); GLOMERULAR FILTR. RATE CALC > 60 mL/min (>60); GLUCOSE,RANDOM 112 mg/dL (70-110); POTASSIUM 3.6 mmol/L (3.5-5.1); SODIUM SERUM 145 mmol/L (136-145); UREA NITROGEN, BLOOD 11 mg/dL (7-18)
[2019-09-13 18:32] LABS: ALANINE AMINOTRANSFERASE 31 U/L (12-78); ALBUMIN 3.5 g/dL (3.4-5.0); ALKALINE PHOSPHATASE 98 U/L (46-116); ASPARTATE AMINOTRANSFERASE 31 U/L (15-37); BILIRUBIN,TOTAL 0.4 mg/dL (0.1-1.0)
[2019-09-13 18:34] LABS: PLATELET COUNT (AUTO) 193 K/uL (150-450); PLATELET MORPHOLOGY COMMENT GIANT PLTS PRESENT
[2019-09-13] MEDS ORDERED: ZOLPIDEM TARTRATE 10 MG TABLET PO PRN (20:15)
[2019-09-13] MEDS ORDERED: LORazepam 2 MG TABLET PO PRN (20:15)
[2019-09-13] MEDS ORDERED: OLANZapine 5 MG RAPDIS TABLET PO PRN (20:15)
[2019-09-14] VITALS (7 sets, daily range): BP systolic 132–156; BP diastolic 75–98
[2019-09-14] MEDS ORDERED: PNEUMOCOCCAL VACCINE POLYVALENT 0.5 ML VIAL [PPSV23] IM ONE (02:00)
[2019-09-14] MEDS ORDERED: INFLUENZA VIRUS VACCINE QVS 2019-20 (3YR+)/PF 60 MCG/0.5 ML SYRINGE IM ONE (02:00)
[2019-09-14 05:13] LABS: APPEARANCE,URINE CLOUDY (CLEAR); BILIRUBIN,URINE NEGATIVE (NEGATIVE); GLUCOSE, URINE (UA) NEGATIVE (NEGATIVE); KETONES,URINE NEGATIVE (NEGATIVE); LEUKOCYTE ESTERASE ,URINE SMALL (NEGATIVE); NITRATE,URINE NEGATIVE (NEGATIVE); OCCULT BLOOD,URINE TRACE (NEGATIVE); PROTEIN,URINE POS 1+ (NEGATIVE); UROBILINOGEN,URINE 0.2 mg/dL (<=1.0)
[2019-09-14 05:19] LABS: AMPHET/METH SCREEN,URINE NEGATIVE (NEGATIVE); BARBITURATE SCREEN, URINE NEGATIVE (NEGATIVE); BENZODIAZEPINES SCREEN,URINE POSITIVE (NEGATIVE); CANNABINOID SCREEN,URINE POSITIVE (NEGATIVE); COCAINE SCREEN,URINE NEGATIVE (NEGATIVE); METHADONE SCREEN, URINE NEGATIVE (NEGATIVE); OPIATE SCREEN,URINE NEGATIVE (NEGATIVE)
[2019-09-14 05:21] LABS: BACTERIA,URINE Rare /HPF (None Seen); CALCIUM OXALATE CRYSTALS,UR Rare /LPF (None Seen); RBC,URINE 0-2 /HPF (0-2); SQUAMOUS EPITHELIAL CELL,UR Few /LPF (None Seen); WBC,URINE 51-100 /HPF (0-5)
[2019-09-14 05:24] LABS: CHOL/HDL RATIO 1.4 (4.2-7.3)
[2019-09-14 05:26] LABS: PHENCYCLIDINE SCREEN,URINE NEGATIVE (NEGATIVE)
[2019-09-14] MEDS ORDERED: LORazepam 2 MG TABLET PO PRN (07:00)
[2019-09-14] MEDS ORDERED: LORazepam 2 MG TABLET PO SCH (09:00)
[2019-09-14] MEDS ORDERED: ACETAMINOPHEN 325 MG TABLET PO PRN (11:00)
[2019-09-14] MEDS ORDERED: CYANOCOBALAMIN 1,000 MCG/ML VIAL IM ONE (11:00)
[2019-09-14] MEDS ORDERED: MAG HYDROX/AL HYDROX/SIMETH ES 30 ML SUSPENSION UDCUP PO PRN (11:00)
[2019-09-14] MEDS ORDERED: OLANZapine 5 MG RAPDIS TABLET PO PRN (11:00)
[2019-09-14] MEDS ORDERED: QUEtiapine FUMARATE 25 MG TABLET PO PRN (11:00)
[2019-09-14] MEDS ORDERED: GuaiFENesin/D-METHORPHAN [SUGAR-FREE] 200-20MG/10 ML SYRUP UDCUP PO PRN (11:00)
[2019-09-14] MEDS ORDERED: HydrOXYzine PAMOATE 50 MG CAPSULE PO PRN (11:00)
[2019-09-14] MEDS ORDERED: PROMETHAZINE HCL 25 MG TABLET PO PRN (11:00)
[2019-09-14] MEDS ORDERED: LOPERAMIDE HCL 2 MG CAPSULE PO PRN ×2 (11:00)
[2019-09-14] MEDS ORDERED: MAGNESIUM HYDROXIDE SUSPENSION 30 ML UDCUP PO PRN (11:00)
[2019-09-14] MEDS: DIAZEPAM 10 MG TABLET PO PRN (12:45)
[2019-09-14] MEDS: QUEtiapine FUMARATE 25 MG TABLET PO SCH ×3 (12:45→21:13)
[2019-09-14] MEDS: GABAPENTIN 300 MG CAPSULE PO SCH ×3 (12:46→21:12)
[2019-09-14] MEDS: THIAMINE HCL 100 MG TABLET PO SCH (16:27)
[2019-09-14] MEDS ORDERED: OLANZapine 10 MG RAPDIS TABLET PO SCH (21:00)
[2019-09-14] MEDS: ATORVASTATIN CALCIUM 10 MG TABLET PO SCH (21:12)
[2019-09-15 05:00] VITALS: BP 152/94
[2019-09-15] MEDS: DIAZEPAM 10 MG TABLET PO PRN (05:08)
[2019-09-15] MEDS ORDERED: DIAZEPAM 10 MG TABLET PO PRN (07:00)
[2019-09-15] MEDS: NALTREXONE HCL 50 MG TABLET PO SCH (08:48)
[2019-09-15] MEDS: ASPIRIN 81 MG CHEWABLE TABLET PO SCH (08:48)
[2019-09-15] MEDS: DIAZEPAM 10 MG TABLET PO SCH ×4 (08:48→20:10)
[2019-09-15] MEDS: METOPROLOL TARTRATE 25 MG TABLET PO SCH ×2 (08:48→16:15)
[2019-09-15] MEDS: QUEtiapine FUMARATE 25 MG TABLET PO SCH ×4 (08:48→20:10)
[2019-09-15] MEDS: FOLIC ACID 1 MG TABLET PO SCH (08:48)
[2019-09-15] MEDS: GABAPENTIN 300 MG CAPSULE PO SCH ×2 (08:48→12:02)
[2019-09-15] MEDS: THIAMINE HCL 100 MG TABLET PO SCH ×2 (08:48→16:14)
[2019-09-15] MEDS: MULTIVITAMINS WITH MINERALS, THERAPEUTIC TABLET PO SCH (08:48)
[2019-09-15] MEDS: LEVOFLOXACIN 500 MG TABLET PO SCH (08:50)
[2019-09-15] MEDS ORDERED: DULoxetine HCL 20 MG CAPSULE PO SCH (09:00)
[2019-09-15 09:42] VITALS: BP 155/84
[2019-09-15 11:00] VITALS: BP 124/84
[2019-09-15] MEDS: GABAPENTIN 400 MG CAPSULE PO SCH ×2 (16:15→20:09)
[2019-09-15 16:17] VITALS: BP 134/83
[2019-09-15 17:00] VITALS: BP 134/83
[2019-09-15] MEDS: ATORVASTATIN CALCIUM 10 MG TABLET PO SCH (20:09)
[2019-09-16 06:42] VITALS: BP 158/96
[2019-09-16] MEDS ORDERED: LORazepam 1 MG TABLET PO PRN (07:00)
[2019-09-16] MEDS ORDERED: LORazepam 1 MG TABLET PO SCH (09:00)
[2019-09-16] MEDS: FOLIC ACID 1 MG TABLET PO SCH (09:24)
[2019-09-16] MEDS: QUEtiapine FUMARATE 25 MG TABLET PO SCH ×4 (09:25→20:40)
[2019-09-16] MEDS: ASPIRIN 81 MG CHEWABLE TABLET PO SCH (09:26)
[2019-09-16] MEDS: METOPROLOL TARTRATE 25 MG TABLET PO SCH ×2 (09:26→16:59)
[2019-09-16] MEDS: DULoxetine HCL 30 MG CAPSULE PO SCH (09:26)
[2019-09-16] MEDS: DIAZEPAM 10 MG TABLET PO SCH ×4 (09:27→20:41)
[2019-09-16] MEDS: LEVOFLOXACIN 500 MG TABLET PO SCH (09:27)
[2019-09-16] MEDS: THIAMINE HCL 100 MG TABLET PO SCH ×2 (09:29→16:00)
[2019-09-16] MEDS: MULTIVITAMINS WITH MINERALS, THERAPEUTIC TABLET PO SCH (09:29)
[2019-09-16] MEDS: GABAPENTIN 400 MG CAPSULE PO SCH ×4 (09:30→20:40)
[2019-09-16] MEDS: NALTREXONE HCL 50 MG TABLET PO SCH (09:30)
[2019-09-16 10:40] VITALS: BP 141/76
[2019-09-16 10:48] VITALS: BP 141/76
[2019-09-16] MEDS ORDERED: DENTURE ADHESIVE 68 GM CREAM DT PRN (15:45)
[2019-09-16 16:57] VITALS: BP 142/84
[2019-09-16 17:00] VITALS: BP 142/84
[2019-09-16] MEDS: ATORVASTATIN CALCIUM 10 MG TABLET PO SCH (20:40)
[2019-09-17 06:42] VITALS: BP_SYST 150; BP_DIAS 76; BP_DIAS 78
[2019-09-17] MEDS ORDERED: DIAZEPAM 5 MG TABLET PO PRN (07:00)
[2019-09-17] MEDS ORDERED: LORazepam 1 MG TABLET PO PRN (07:00)
[2019-09-17 08:00] VITALS: BP 128/81
[2019-09-17] MEDS: DIAZEPAM 5 MG TABLET PO SCH ×4 (08:56→20:33)
[2019-09-17] MEDS: NALTREXONE HCL 50 MG TABLET PO SCH (08:56)
[2019-09-17] MEDS: THIAMINE HCL 100 MG TABLET PO SCH ×2 (08:56→16:36)
[2019-09-17] MEDS: ASPIRIN 81 MG CHEWABLE TABLET PO SCH (08:57)
[2019-09-17] MEDS: DULoxetine HCL 30 MG CAPSULE PO SCH (08:57)
[2019-09-17] MEDS: MULTIVITAMINS WITH MINERALS, THERAPEUTIC TABLET PO SCH (08:57)
[2019-09-17] MEDS: FOLIC ACID 1 MG TABLET PO SCH (08:57)
[2019-09-17] MEDS: GABAPENTIN 400 MG CAPSULE PO SCH ×4 (08:57→20:33)
[2019-09-17] MEDS: METOPROLOL TARTRATE 25 MG TABLET PO SCH ×2 (08:57→17:00)
[2019-09-17] MEDS: QUEtiapine FUMARATE 25 MG TABLET PO SCH ×4 (08:58→20:33)
[2019-09-17] MEDS: LEVOFLOXACIN 500 MG TABLET PO SCH (08:59)
[2019-09-17 09:30] VITALS: BP 128/81
[2019-09-17 16:00] VITALS: BP 103/67
[2019-09-17 17:25] VITALS: BP 103/67
[2019-09-17] MEDS: ATORVASTATIN CALCIUM 10 MG TABLET PO SCH (20:33)
[2019-09-18 06:17] VITALS: BP 117/71
[2019-09-18 08:00] VITALS: BP 131/72
[2019-09-18] MEDS: MULTIVITAMINS WITH MINERALS, THERAPEUTIC TABLET PO SCH (09:04)
[2019-09-18] MEDS: NALTREXONE HCL 50 MG TABLET PO SCH (09:05)
[2019-09-18] MEDS: DULoxetine HCL 30 MG CAPSULE PO SCH (09:05)
[2019-09-18] MEDS: THIAMINE HCL 100 MG TABLET PO SCH ×2 (09:05→16:36)
[2019-09-18] MEDS: GABAPENTIN 400 MG CAPSULE PO SCH ×2 (09:05→13:12)
[2019-09-18] MEDS: ASPIRIN 81 MG CHEWABLE TABLET PO SCH (09:06)
[2019-09-18] MEDS: METOPROLOL TARTRATE 25 MG TABLET PO SCH ×2 (09:06→16:35)
[2019-09-18] MEDS: QUEtiapine FUMARATE 25 MG TABLET PO SCH ×4 (09:06→20:54)
[2019-09-18] MEDS: FOLIC ACID 1 MG TABLET PO SCH (09:07)
[2019-09-18] MEDS: DIAZEPAM 5 MG TABLET PO PRN (16:32)
[2019-09-18 17:11] VITALS: BP 114/72
[2019-09-18 17:17] VITALS: BP 114/72
[2019-09-18] MEDS: GABAPENTIN 300 MG CAPSULE PO SCH ×2 (18:51→20:58)
[2019-09-18] MEDS ORDERED: QUEtiapine FUMARATE 100 MG TABLET PO PRN (19:00)
[2019-09-18] MEDS: ATORVASTATIN CALCIUM 10 MG TABLET PO SCH (20:53)
[2019-09-19] MEDS: DIAZEPAM 5 MG TABLET PO PRN ×3 (06:35→16:22)
[2019-09-19 08:46] VITALS: BP 143/69
[2019-09-19] MEDS ORDERED: DULoxetine HCL 20 MG CAPSULE PO SCH (09:00)
[2019-09-19] MEDS: METOPROLOL TARTRATE 25 MG TABLET PO SCH ×2 (09:51→16:20)
[2019-09-19] MEDS: MULTIVITAMINS WITH MINERALS, THERAPEUTIC TABLET PO SCH (09:51)
[2019-09-19] MEDS: NALTREXONE HCL 50 MG TABLET PO SCH (09:51)
[2019-09-19] MEDS: FOLIC ACID 1 MG TABLET PO SCH (09:51)
[2019-09-19] MEDS: THIAMINE HCL 100 MG TABLET PO SCH ×2 (09:51→16:19)
[2019-09-19] MEDS: GABAPENTIN 300 MG CAPSULE PO SCH ×2 (09:52→12:42)
[2019-09-19] MEDS: ASPIRIN 81 MG CHEWABLE TABLET PO SCH (09:52)
[2019-09-19] MEDS: QUEtiapine FUMARATE 25 MG TABLET PO SCH ×3 (09:56→16:24)
[2019-09-19] MEDS: GABAPENTIN 400 MG CAPSULE PO SCH ×2 (16:24→20:03)
[2019-09-19 17:06] VITALS: BP 110/72
[2019-09-19] MEDS: ATORVASTATIN CALCIUM 10 MG TABLET PO SCH (20:02)
[2019-09-19] MEDS ORDERED: QUEtiapine FUMARATE 100 MG TABLET PO SCH (21:00)
[2019-09-20 05:00] VITALS: BP 121/76
[2019-09-20 07:00] VITALS: BP 133/85
[2019-09-20] MEDS: DIAZEPAM 5 MG TABLET PO PRN ×2 (07:04→12:57)
[2019-09-20] MEDS: ASPIRIN 81 MG CHEWABLE TABLET PO SCH (08:49)
[2019-09-20] MEDS: FOLIC ACID 1 MG TABLET PO SCH (08:49)
[2019-09-20] MEDS: DULoxetine HCL 60 MG CAPSULE PO SCH (08:49)
[2019-09-20] MEDS: THIAMINE HCL 100 MG TABLET PO SCH ×2 (08:50→16:34)
[2019-09-20] MEDS: GABAPENTIN 400 MG CAPSULE PO SCH ×4 (08:50→20:33)
[2019-09-20] MEDS: METOPROLOL TARTRATE 25 MG TABLET PO SCH ×2 (08:50→16:34)
[2019-09-20] MEDS: QUEtiapine FUMARATE 25 MG TABLET PO SCH ×3 (08:50→16:36)
[2019-09-20] MEDS: MULTIVITAMINS WITH MINERALS, THERAPEUTIC TABLET PO SCH (08:50)
[2019-09-20] MEDS: NALTREXONE HCL 50 MG TABLET PO SCH (08:50)
[2019-09-20 10:26] VITALS: BP 124/67
[2019-09-20 20:11] VITALS: BP 116/60
[2019-09-20] MEDS: QUEtiapine FUMARATE 200 MG TABLET PO SCH (20:33)
[2019-09-20] MEDS: ATORVASTATIN CALCIUM 10 MG TABLET PO SCH (20:33)
[2019-09-21 06:18] VITALS: BP 122/72
[2019-09-21] MEDS: DIAZEPAM 5 MG TABLET PO PRN ×2 (06:20→12:09)
[2019-09-21] MEDS: FOLIC ACID 1 MG TABLET PO SCH (08:01)
[2019-09-21] MEDS: ASPIRIN 81 MG CHEWABLE TABLET PO SCH (08:01)
[2019-09-21] MEDS: METOPROLOL TARTRATE 25 MG TABLET PO SCH ×2 (08:01→17:00)
[2019-09-21] MEDS: GABAPENTIN 400 MG CAPSULE PO SCH ×4 (08:01→21:30)
[2019-09-21] MEDS: DULoxetine HCL 60 MG CAPSULE PO SCH (08:01)
[2019-09-21] MEDS: MULTIVITAMINS WITH MINERALS, THERAPEUTIC TABLET PO SCH (08:02)
[2019-09-21] MEDS: NALTREXONE HCL 50 MG TABLET PO SCH (08:02)
[2019-09-21] MEDS: QUEtiapine FUMARATE 25 MG TABLET PO SCH ×3 (08:02→17:01)
[2019-09-21] MEDS: THIAMINE HCL 100 MG TABLET PO SCH ×2 (08:02→17:00)
[2019-09-21 10:42] VITALS: BP 106/78
[2019-09-21 17:18] VITALS: BP 106/70
[2019-09-21] MEDS: ATORVASTATIN CALCIUM 10 MG TABLET PO SCH (21:30)
[2019-09-21] MEDS: QUEtiapine FUMARATE 200 MG TABLET PO SCH (21:30)
[2019-09-22 04:44] VITALS: BP 113/65
[2019-09-22 08:33] VITALS: BP 108/64
[2019-09-22] MEDS: ASPIRIN 81 MG CHEWABLE TABLET PO SCH (08:54)
[2019-09-22] MEDS: MULTIVITAMINS WITH MINERALS, THERAPEUTIC TABLET PO SCH (08:54)
[2019-09-22] MEDS: THIAMINE HCL 100 MG TABLET PO SCH ×2 (08:55→16:23)
[2019-09-22] MEDS: QUEtiapine FUMARATE 25 MG TABLET PO SCH ×3 (08:55→16:23)
[2019-09-22] MEDS: FOLIC ACID 1 MG TABLET PO SCH (08:55)
[2019-09-22] MEDS: GABAPENTIN 400 MG CAPSULE PO SCH ×4 (08:55→20:06)
[2019-09-22] MEDS: METOPROLOL TARTRATE 25 MG TABLET PO SCH ×2 (08:57→16:23)
[2019-09-22] MEDS: NALTREXONE HCL 50 MG TABLET PO SCH (08:57)
[2019-09-22] MEDS ORDERED: DULoxetine HCL 20 MG CAPSULE PO SCH (09:00)
[2019-09-22] MEDS: DIAZEPAM 5 MG TABLET PO PRN ×2 (09:13→16:23)
[2019-09-22 17:26] VITALS: BP 104/69
[2019-09-22] MEDS: ATORVASTATIN CALCIUM 10 MG TABLET PO SCH (20:06)
[2019-09-22] MEDS: QUEtiapine FUMARATE 300 MG TABLET PO SCH (20:06)
[2019-09-23 05:37] VITALS: BP 126/74
[2019-09-23] MEDS: DULoxetine HCL 30 MG CAPSULE PO SCH (08:09)
[2019-09-23] MEDS: THIAMINE HCL 100 MG TABLET PO SCH ×2 (08:09→16:36)
[2019-09-23] MEDS: MULTIVITAMINS WITH MINERALS, THERAPEUTIC TABLET PO SCH (08:10)
[2019-09-23] MEDS: NALTREXONE HCL 50 MG TABLET PO SCH (08:11)
[2019-09-23] MEDS: QUEtiapine FUMARATE 25 MG TABLET PO SCH ×3 (08:11→16:36)
[2019-09-23] MEDS: FOLIC ACID 1 MG TABLET PO SCH (08:11)
[2019-09-23] MEDS: ASPIRIN 81 MG CHEWABLE TABLET PO SCH (08:11)
[2019-09-23] MEDS: GABAPENTIN 400 MG CAPSULE PO SCH ×4 (08:11→21:02)
[2019-09-23] MEDS: METOPROLOL TARTRATE 25 MG TABLET PO SCH ×2 (08:11→16:36)
[2019-09-23] MEDS: DIAZEPAM 5 MG TABLET PO PRN ×3 (08:14→19:06)
[2019-09-23 08:48] VITALS: BP 100/68
[2019-09-23 17:09] VITALS: BP 103/68
[2019-09-23] MEDS: ATORVASTATIN CALCIUM 10 MG TABLET PO SCH (21:02)
[2019-09-23] MEDS: QUEtiapine FUMARATE 300 MG TABLET PO SCH (21:02)
[2019-09-24 04:56] VITALS: BP 94/70
[2019-09-24] MEDS: DULoxetine HCL 30 MG CAPSULE PO SCH (08:08)
[2019-09-24] MEDS: QUEtiapine FUMARATE 25 MG TABLET PO SCH ×3 (08:08→16:53)
[2019-09-24] MEDS: METOPROLOL TARTRATE 25 MG TABLET PO SCH ×2 (08:09→16:52)
[2019-09-24] MEDS: ASPIRIN 81 MG CHEWABLE TABLET PO SCH (08:09)
[2019-09-24] MEDS: NALTREXONE HCL 50 MG TABLET PO SCH (08:09)
[2019-09-24] MEDS: MULTIVITAMINS WITH MINERALS, THERAPEUTIC TABLET PO SCH (08:09)
[2019-09-24] MEDS: THIAMINE HCL 100 MG TABLET PO SCH (08:09)
[2019-09-24] MEDS: GABAPENTIN 400 MG CAPSULE PO SCH ×4 (08:09→20:31)
[2019-09-24] MEDS: FOLIC ACID 1 MG TABLET PO SCH (08:09)
[2019-09-24] MEDS: DIAZEPAM 5 MG TABLET PO PRN ×2 (08:18→16:52)
[2019-09-24 08:52] VITALS: BP 118/74
[2019-09-24 18:45] VITALS: BP 121/76
[2019-09-24] MEDS: QUEtiapine FUMARATE 300 MG TABLET PO SCH (20:31)
[2019-09-24] MEDS: ATORVASTATIN CALCIUM 10 MG TABLET PO SCH (20:31)
[2019-09-25 06:00] VITALS: BP 122/73
[2019-09-25] MEDS: DIAZEPAM 5 MG TABLET PO PRN ×2 (06:08→16:32)
[2019-09-25 08:00] VITALS: BP 111/63
[2019-09-25] MEDS: DULoxetine HCL 30 MG CAPSULE PO SCH (09:57)
[2019-09-25] MEDS: NALTREXONE HCL 50 MG TABLET PO SCH (09:57)
[2019-09-25] MEDS: ASPIRIN 81 MG CHEWABLE TABLET PO SCH (09:57)
[2019-09-25] MEDS: QUEtiapine FUMARATE 25 MG TABLET PO SCH ×3 (09:57→16:28)
[2019-09-25] MEDS: GABAPENTIN 400 MG CAPSULE PO SCH ×4 (09:57→20:30)
[2019-09-25] MEDS: METOPROLOL TARTRATE 25 MG TABLET PO SCH ×2 (09:58→16:27)
[2019-09-25] MEDS: MULTIVITAMINS WITH MINERALS, THERAPEUTIC TABLET PO SCH (09:58)
[2019-09-25 17:11] VITALS: BP 107/67
[2019-09-25] MEDS: ATORVASTATIN CALCIUM 10 MG TABLET PO SCH (20:30)
[2019-09-25] MEDS ORDERED: QUEtiapine FUMARATE 200 MG TABLET PO SCH (21:00)
[2019-09-26 08:49] VITALS: BP 118/73
[2019-09-26] MEDS ORDERED: DULoxetine HCL 60 MG CAPSULE PO SCH (09:00)
[2019-09-26] MEDS: METOPROLOL TARTRATE 25 MG TABLET PO SCH (09:07)
[2019-09-26] MEDS: ASPIRIN 81 MG CHEWABLE TABLET PO SCH (09:07)
[2019-09-26] MEDS: MULTIVITAMINS WITH MINERALS, THERAPEUTIC TABLET PO SCH (09:08)
[2019-09-26] MEDS: GABAPENTIN 400 MG CAPSULE PO SCH ×2 (09:08→13:14)
[2019-09-26] MEDS: NALTREXONE HCL 50 MG TABLET PO SCH (09:08)
[2019-09-26] MEDS: QUEtiapine FUMARATE 25 MG TABLET PO SCH ×2 (09:09→13:14)
[2019-09-26] MEDS: DIAZEPAM 5 MG TABLET PO PRN (09:10)
[2019-09-26] MEDS ORDERED: DULO60CA44 PO (13:24)
[2019-09-26] MEDS ORDERED: GABA-533 PO (13:24)
[2019-09-26] MEDS ORDERED: QUET25TA34 PO (13:24)
[2019-09-26] MEDS ORDERED: NALT50TA PO (13:24)
[2019-09-26] MEDS ORDERED: QUET200T29 PO (13:24)
[2019-09-26] MEDS ORDERED: ASPI-556 PO (13:56)
[2019-09-26] MEDS ORDERED: ATOR10TA84 PO (13:58)
[2019-09-26] MEDS ORDERED: METO25 PO (13:58)
[2019-09-26] MEDS ORDERED: MULT-1203 PO (13:59)
== END 2019-09-26 16:15 | disposition home or self-care (01) | DRG 885 ==
LOC: EMS 15:49 → 3EI 21:00
PROVIDERS: ADMIT Psychiatry & Neurology Psychiatry; ATTEND Psychiatry & Neurology Psychiatry
DX: F33.3 Major depressive disorder, recurrent, severe with psychotic symptoms (principal); R45.851 Suicidal ideations; E78.5 Hyperlipidemia, unspecified; F12.90 Cannabis use, unspecified, uncomplicated; F17.200 Nicotine dependence, unspecified, uncomplicated; G40.909 Epilepsy, unspecified, not intractable, without status epilepticus; I10 Essential (primary) hypertension; I25.10 Atherosclerotic heart disease of native coronary artery without angina pectoris; I73.9 Peripheral vascular disease, unspecified; Z91.19 Patient's noncompliance with other medical treatment and regimen; Z82.49 Family history of ischemic heart disease and other diseases of the circulatory system; Z79.82 Long term (current) use of aspirin; Z28.21 Immunization not carried out because of patient refusal
CPT/HCPCS: 80307; 87081; 87086; G0480; J3420

== ENCOUNTER 2019-10-29 09:27 | Inpatient (IN) | payer MEDICAID ==
[~2019-10-29] VITALS: Ht 170.2 cm; Wt 89.8 kg
[~2019-10-29 09:27] MED LIST changes: -DULO30CA2 PO; +DULO60CA44 PO; +MULT-1203 PO; +QUET200T29 PO; -QUET300T18 PO
[2019-10-29 10:02] LABS: BASOPHILS % (AUTO) 0.8 % (0.0-2.0); EOSINOPHILS % (AUTO) 0.5 % (1.0-6.0); LYMPHOCYTES # (AUTO) 1.5 K/uL (1.0-4.8); LYMPHOCYTES % (AUTO) 13.6 % (22.0-44.0); MEAN CORPUSCULAR HEMOGLOBIN 32.8 pg (26.0-34.0); MEAN CORPUSCULAR HGB CONC 33.9 G/dL (31.0-37.0); MEAN CORPUSCULAR VOLUME 97 fL (80-100); MONOCYTES # (AUTO) 1.1 K/uL (0.1-1.0); MONOCYTES % (AUTO) 9.7 % (2.0-9.0); NEUTROPHILS # (AUTO) 8.2 K/uL (1.8-7.7); NEUTROPHILS % (AUTO) 75.4 % (40.0-70.0); PLATELET COUNT (AUTO) 247 K/uL (150-450); RED BLOOD CELL COUNT(AUTO) 5.18 MIL/uL (4.50-5.90); RED CELL DISTRIBUTION WIDTH 15.1 % (11.5-14.5)
[2019-10-29 10:12] LABS: ANION GAP 12 mmol/L (8-16); CALCIUM, TOTAL 9.4 mg/dL (8.8-10.5); CARBON DIOXIDE 24 mmol/L (22-29); CHLORIDE 103 mmol/L (98-107); CREATININE 0.99 mg/dL (0.60-1.30); GLOMERULAR FILTR. RATE CALC > 60 mL/min (>60); GLUCOSE,RANDOM 101 mg/dL (70-110); POTASSIUM 3.9 mmol/L (3.5-5.1); SODIUM SERUM 139 mmol/L (136-145); UREA NITROGEN, BLOOD 11 mg/dL (7-18)
[2019-10-29] MEDS ORDERED: PB/HYOSCY/ATR/SCOP/LIDO/MAALOX 55 ML BOTTLE PO ONE (10:15)
[2019-10-29] MEDS ORDERED: LORazepam 1 MG TABLET PO ONE (10:15)
[2019-10-29 10:17] LABS: ALANINE AMINOTRANSFERASE 24 U/L (12-78); ALBUMIN 4.3 g/dL (3.4-5.0); ALKALINE PHOSPHATASE 109 U/L (46-116); ASPARTATE AMINOTRANSFERASE 32 U/L (15-37); LIPASE 83 U/L (73-393); TOTAL PROTEIN, SERUM 8.3 g/dL (6.4-8.2)
[2019-10-29 11:24] LABS: AMPHET/METH SCREEN,URINE NEGATIVE (NEGATIVE); BARBITURATE SCREEN, URINE NEGATIVE (NEGATIVE); BENZODIAZEPINES SCREEN,URINE POSITIVE (NEGATIVE); CANNABINOID SCREEN,URINE POSITIVE (NEGATIVE); COCAINE SCREEN,URINE NEGATIVE (NEGATIVE); METHADONE SCREEN, URINE NEGATIVE (NEGATIVE); OPIATE SCREEN,URINE NEGATIVE (NEGATIVE)
[2019-10-29 11:32] LABS: PHENCYCLIDINE SCREEN,URINE NEGATIVE (NEGATIVE)
[2019-10-29] MEDS ORDERED: MAGNESIUM OXIDE 400 MG TABLET PO ONE (11:45)
[2019-10-29] MEDS ORDERED: HALOPERIDOL 5 MG TABLET PO PRN (15:00)
[2019-10-29] MEDS ORDERED: ZOLPIDEM TARTRATE 10 MG TABLET PO PRN (15:00)
[2019-10-29] MEDS ORDERED: LORazepam 2 MG TABLET PO PRN (15:00)
[2019-10-29 20:03] VITALS: BP 163/92
[2019-10-29 20:33] VITALS: BP 163/92
[2019-10-29] MEDS: LORazepam 2 MG TABLET PO PRN (20:40)
[2019-10-29 20:48] VITALS: BP 163/92
[2019-10-29] MEDS ORDERED: INFLUENZA VIRUS VACCINE QVS 2019-20 (3YR+)/PF 60 MCG/0.5 ML SYRINGE IM ONE (23:15)
[2019-10-29 23:45] VITALS: BP 140/86
[2019-10-30] VITALS (14 sets, daily range): BP systolic 121–152; BP diastolic 70–109
[2019-10-30] MEDS: LORazepam 2 MG TABLET PO PRN (02:34)
[2019-10-30] MEDS ORDERED: LORazepam 2 MG TABLET PO PRN (07:00)
[2019-10-30] MEDS: ASPIRIN 81 MG CHEWABLE TABLET PO SCH (09:45)
[2019-10-30] MEDS: METOPROLOL TARTRATE 25 MG TABLET PO SCH ×2 (09:45→16:22)
[2019-10-30] MEDS: LORazepam 2 MG TABLET PO SCH ×3 (09:45→16:07)
[2019-10-30] MEDS ORDERED: DIAZEPAM 10 MG TABLET PO ONE (17:15)
[2019-10-30] MEDS ORDERED: LOPERAMIDE HCL 2 MG CAPSULE PO PRN (17:15)
[2019-10-30] MEDS ORDERED: GABAPENTIN 400 MG CAPSULE PO ONE (17:15)
[2019-10-30] MEDS ORDERED: HydrOXYzine PAMOATE 50 MG CAPSULE PO PRN (17:15)
[2019-10-30] MEDS ORDERED: PROMETHAZINE HCL 25 MG TABLET PO PRN (17:15)
[2019-10-30] MEDS ORDERED: ACETAMINOPHEN 325 MG TABLET PO PRN ×2 (17:15→20:15)
[2019-10-30] MEDS ORDERED: GuaiFENesin/D-METHORPHAN [SUGAR-FREE] 200-20MG/10 ML SYRUP UDCUP PO PRN (17:15)
[2019-10-30] MEDS ORDERED: MAG HYDROX/AL HYDROX/SIMETH ES 30 ML SUSPENSION UDCUP PO PRN (17:15)
[2019-10-30] MEDS ORDERED: QUEtiapine FUMARATE 100 MG TABLET PO PRN (17:15)
[2019-10-30] MEDS ORDERED: DIAZEPAM 10 MG TABLET PO PRN (17:15)
[2019-10-30] MEDS ORDERED: CYANOCOBALAMIN 1,000 MCG/ML VIAL IM ONE (17:15)
[2019-10-30] MEDS ORDERED: MAGNESIUM HYDROXIDE SUSPENSION 30 ML UDCUP PO PRN (17:15)
[2019-10-30] MEDS ORDERED: CloNIDine HCL 0.1 MG TABLET PO PRN (20:15)
[2019-10-30] MEDS ORDERED: IBUPROFEN 600 MG TABLET PO PRN (20:15)
[2019-10-30] MEDS ORDERED: CALCIUM CARBONATE 500 MG CHEWABLE TABLET CHEW PRN (20:15)
[2019-10-30] MEDS: ATORVASTATIN CALCIUM 10 MG TABLET PO SCH (20:46)
[2019-10-30] MEDS ORDERED: QUEtiapine FUMARATE 200 MG TABLET PO SCH (21:00)
[2019-10-31] VITALS (8 sets, daily range): BP systolic 108–150; BP diastolic 68–96
[2019-10-31 00:24] LABS: GLUCOMETER DEV NAME(LOC) 3E.I 2; GLUCOSE,POINT OF CARE 106 MG/DL (70-110)
[2019-10-31] MEDS ORDERED: DIAZEPAM 10 MG TABLET PO PRN (07:00)
[2019-10-31] MEDS: NALTREXONE HCL 50 MG TABLET PO SCH (08:38)
[2019-10-31] MEDS: DIAZEPAM 10 MG TABLET PO SCH ×4 (08:38→20:27)
[2019-10-31] MEDS: FOLIC ACID 1 MG TABLET PO SCH (08:38)
[2019-10-31] MEDS: GABAPENTIN 300 MG CAPSULE PO SCH ×3 (08:38→16:55)
[2019-10-31] MEDS: THIAMINE HCL 100 MG TABLET PO SCH ×2 (08:38→16:55)
[2019-10-31] MEDS: MULTIVITAMINS WITH MINERALS, THERAPEUTIC TABLET PO SCH (08:38)
[2019-10-31] MEDS: METOPROLOL TARTRATE 25 MG TABLET PO SCH ×2 (08:39→17:12)
[2019-10-31] MEDS: ASPIRIN 81 MG CHEWABLE TABLET PO SCH (08:39)
[2019-10-31] MEDS ORDERED: DULoxetine HCL 20 MG CAPSULE PO SCH (09:00)
[2019-10-31] MEDS ORDERED: MORPHINE SULFATE 4 MG/ML SYRINGE ONE (10:39)
[2019-10-31] MEDS: ATORVASTATIN CALCIUM 10 MG TABLET PO SCH (20:27)
[2019-10-31] MEDS: QUEtiapine FUMARATE 300 MG TABLET PO SCH (20:27)
[2019-11-01] MEDS ORDERED: LORazepam 1 MG TABLET PO PRN (07:00)
[2019-11-01] MEDS: MULTIVITAMINS WITH MINERALS, THERAPEUTIC TABLET PO SCH (08:18)
[2019-11-01] MEDS: GABAPENTIN 400 MG CAPSULE PO SCH ×2 (08:19→12:49)
[2019-11-01] MEDS: DIAZEPAM 10 MG TABLET PO SCH ×4 (08:19→20:20)
[2019-11-01] MEDS: FOLIC ACID 1 MG TABLET PO SCH (08:19)
[2019-11-01] MEDS: METOPROLOL TARTRATE 25 MG TABLET PO SCH ×2 (08:19→16:16)
[2019-11-01] MEDS: ASPIRIN 81 MG CHEWABLE TABLET PO SCH (08:19)
[2019-11-01] MEDS: NALTREXONE HCL 50 MG TABLET PO SCH (08:19)
[2019-11-01] MEDS: THIAMINE HCL 100 MG TABLET PO SCH ×2 (08:19→16:17)
[2019-11-01 08:30] VITALS: BP 119/71
[2019-11-01] MEDS ORDERED: DULoxetine HCL 30 MG CAPSULE PO SCH (09:00)
[2019-11-01] MEDS ORDERED: LORazepam 1 MG TABLET PO SCH (09:00)
[2019-11-01] MEDS: GABAPENTIN 300 MG CAPSULE PO SCH (16:16)
[2019-11-01] MEDS: QUEtiapine FUMARATE 25 MG TABLET PO SCH (16:17)
[2019-11-01 16:20] VITALS: BP 137/82
[2019-11-01 16:21] VITALS: BP 137/82
[2019-11-01] MEDS: QUEtiapine FUMARATE 300 MG TABLET PO SCH (20:20)
[2019-11-01] MEDS: ATORVASTATIN CALCIUM 10 MG TABLET PO SCH (20:21)
[2019-11-02] MEDS ORDERED: LORazepam 1 MG TABLET PO PRN (07:00)
[2019-11-02] MEDS ORDERED: DIAZEPAM 5 MG TABLET PO PRN (07:00)
[2019-11-02] MEDS: METOPROLOL TARTRATE 25 MG TABLET PO SCH ×2 (08:31→16:35)
[2019-11-02] MEDS: MULTIVITAMINS WITH MINERALS, THERAPEUTIC TABLET PO SCH (08:31)
[2019-11-02] MEDS: THIAMINE HCL 100 MG TABLET PO SCH ×2 (08:32→16:35)
[2019-11-02] MEDS: ASPIRIN 81 MG CHEWABLE TABLET PO SCH (08:32)
[2019-11-02] MEDS: FOLIC ACID 1 MG TABLET PO SCH (08:32)
[2019-11-02] MEDS: NALTREXONE HCL 50 MG TABLET PO SCH (08:32)
[2019-11-02] MEDS: QUEtiapine FUMARATE 25 MG TABLET PO SCH ×3 (08:32→16:35)
[2019-11-02] MEDS: GABAPENTIN 300 MG CAPSULE PO SCH ×3 (08:33→16:35)
[2019-11-02] MEDS: DIAZEPAM 5 MG TABLET PO SCH ×4 (08:36→20:30)
[2019-11-02] MEDS ORDERED: DULoxetine HCL 20 MG CAPSULE PO SCH (09:00)
[2019-11-02 13:23] VITALS: BP 129/69
[2019-11-02 13:26] VITALS: BP 136/88
[2019-11-02 16:00] VITALS: BP 137/76
[2019-11-02] MEDS ORDERED: NALT50TA PO (16:46)
[2019-11-02] MEDS ORDERED: DULO60CA44 PO (16:46)
[2019-11-02] MEDS ORDERED: QUET200T29 PO (16:46)
[2019-11-02] MEDS ORDERED: GABA-533 PO (16:46)
[2019-11-02] MEDS ORDERED: QUET25TA34 PO (16:46)
[2019-11-02] MEDS ORDERED: GABAPENTIN 400 MG CAPSULE PO SCH (17:00)
[2019-11-02] MEDS ORDERED: LOPERAMIDE HCL 2 MG CAPSULE PO PRN (17:15)
[2019-11-02] MEDS: ATORVASTATIN CALCIUM 10 MG TABLET PO SCH (20:30)
[2019-11-02] MEDS ORDERED: QUEtiapine FUMARATE 200 MG TABLET PO SCH (21:00)
[2019-11-03] MEDS ORDERED: DIAZEPAM 5 MG TABLET PO PRN (07:00)
[2019-11-03] MEDS: GABAPENTIN 400 MG CAPSULE PO SCH ×2 (08:02→11:43)
[2019-11-03] MEDS: METOPROLOL TARTRATE 25 MG TABLET PO SCH (08:03)
[2019-11-03] MEDS: ASPIRIN 81 MG CHEWABLE TABLET PO SCH (08:03)
[2019-11-03] MEDS: NALTREXONE HCL 50 MG TABLET PO SCH (08:03)
[2019-11-03] MEDS: MULTIVITAMINS WITH MINERALS, THERAPEUTIC TABLET PO SCH (08:03)
[2019-11-03] MEDS: QUEtiapine FUMARATE 25 MG TABLET PO SCH ×2 (08:03→11:42)
[2019-11-03] MEDS: FOLIC ACID 1 MG TABLET PO SCH (08:03)
[2019-11-03] MEDS: THIAMINE HCL 100 MG TABLET PO SCH (08:04)
[2019-11-03 08:35] VITALS: BP 120/75
[2019-11-03 08:36] VITALS: BP 120/75
[2019-11-03] MEDS ORDERED: DULoxetine HCL 60 MG CAPSULE PO SCH (09:00)
== END 2019-11-03 12:30 | disposition home or self-care (01) | DRG 885 ==
LOC: EMS 09:29 → 3EI 17:49 → 3EC 10-31 12:16
PROVIDERS: ADMIT Psychiatry & Neurology Psychiatry; ATTEND Psychiatry & Neurology Psychiatry
DX: F33.3 Major depressive disorder, recurrent, severe with psychotic symptoms (principal); R45.851 Suicidal ideations; E78.5 Hyperlipidemia, unspecified; F12.90 Cannabis use, unspecified, uncomplicated; F17.210 Nicotine dependence, cigarettes, uncomplicated; G40.909 Epilepsy, unspecified, not intractable, without status epilepticus; I10 Essential (primary) hypertension; I25.10 Atherosclerotic heart disease of native coronary artery without angina pectoris; Z88.8 Allergy status to other drugs, medicaments and biological substances; Z91.19 Patient's noncompliance with other medical treatment and regimen; Z82.49 Family history of ischemic heart disease and other diseases of the circulatory system
CPT/HCPCS: 83735; 93005; G0480; J2270; J3420

== ENCOUNTER 2019-11-12 12:28 | Inpatient (IN) | payer MEDICAID ==
[~2019-11-12] VITALS: Ht 170.2 cm; Wt 91.0 kg
[~2019-11-12 12:28] MED LIST changes: -MULT-1203 PO
[2019-11-12 14:54] LABS: APPEARANCE,URINE CLEAR (CLEAR); BILIRUBIN,URINE NEGATIVE (NEGATIVE); GLUCOSE, URINE (UA) NEGATIVE (NEGATIVE); KETONES,URINE NEGATIVE (NEGATIVE); LEUKOCYTE ESTERASE ,URINE TRACE (NEGATIVE); NITRATE,URINE NEGATIVE (NEGATIVE); OCCULT BLOOD,URINE NEGATIVE (NEGATIVE); PROTEIN,URINE NEGATIVE (NEGATIVE); UROBILINOGEN,URINE 0.2 mg/dL (<=1.0)
[2019-11-12 14:59] LABS: AMPHET/METH SCREEN,URINE NEGATIVE (NEGATIVE); BARBITURATE SCREEN, URINE NEGATIVE (NEGATIVE); BENZODIAZEPINES SCREEN,URINE POSITIVE (NEGATIVE); CANNABINOID SCREEN,URINE NEGATIVE (NEGATIVE); COCAINE SCREEN,URINE NEGATIVE (NEGATIVE); METHADONE SCREEN, URINE NEGATIVE (NEGATIVE); OPIATE SCREEN,URINE NEGATIVE (NEGATIVE)
[2019-11-12 15:00] LABS: PHENCYCLIDINE SCREEN,URINE NEGATIVE (NEGATIVE)
[2019-11-12 15:11] LABS: RBC,URINE None Seen /HPF (0-2)
[2019-11-12 15:12] LABS: EOSINOPHILS % (AUTO) 3.1 % (1.0-6.0); HEMATOCRIT 48.8 % (41-53); HEMOGLOBIN 16.4 g/dL (13.5-17.5); LYMPHOCYTES # (AUTO) 2.6 K/uL (1.0-4.8); LYMPHOCYTES % (AUTO) 33.8 % (22.0-44.0); MEAN CORPUSCULAR HEMOGLOBIN 32.7 pg (26.0-34.0); MEAN CORPUSCULAR HGB CONC 33.6 G/dL (31.0-37.0); MEAN CORPUSCULAR VOLUME 98 fL (80-100); MONOCYTES # (AUTO) 0.8 K/uL (0.1-1.0); MONOCYTES % (AUTO) 10.4 % (2.0-9.0); NEUTROPHILS % (AUTO) 51.7 % (40.0-70.0); PLATELET COUNT (AUTO) 232 K/uL (150-450); RED BLOOD CELL COUNT(AUTO) 5.01 MIL/uL (4.50-5.90)
[2019-11-12 15:12] LABS: BACTERIA,URINE None Seen /HPF (None Seen); SQUAMOUS EPITHELIAL CELL,UR Moderate /LPF (None Seen)
[2019-11-12 15:22] LABS: ANION GAP 14 mmol/L (8-16); CALCIUM, TOTAL 8.5 mg/dL (8.8-10.5); CARBON DIOXIDE 25 mmol/L (22-29); CHLORIDE 104 mmol/L (98-107); CREATININE 0.93 mg/dL (0.60-1.30); GLOMERULAR FILTR. RATE CALC > 60 mL/min (>60); GLUCOSE,RANDOM 90 mg/dL (70-110); POTASSIUM 4.4 mmol/L (3.5-5.1); SODIUM SERUM 143 mmol/L (136-145); UREA NITROGEN, BLOOD 8 mg/dL (7-18)
[2019-11-12 15:30] LABS: ALANINE AMINOTRANSFERASE 33 U/L (12-78); ALBUMIN 3.8 g/dL (3.4-5.0); ALKALINE PHOSPHATASE 127 U/L (46-116); ASPARTATE AMINOTRANSFERASE 39 U/L (15-37); BILIRUBIN,TOTAL 0.6 mg/dL (0.1-1.0); TOTAL PROTEIN, SERUM 7.7 g/dL (6.4-8.2)
[2019-11-12] MEDS ORDERED: HALOPERIDOL 5 MG TABLET PO PRN ×2 (20:00→20:30)
[2019-11-12] MEDS ORDERED: LORazepam 2 MG TABLET PO PRN (20:00)
[2019-11-12] MEDS ORDERED: ZOLPIDEM TARTRATE 10 MG TABLET PO PRN (20:00)
[2019-11-12 23:45] VITALS: BP 138/72
[2019-11-13] VITALS (10 sets, daily range): BP systolic 120–143; BP diastolic 61–83
[2019-11-13] MEDS: LORazepam 2 MG TABLET PO PRN ×3 (00:01→16:46)
[2019-11-13] MEDS: ZOLPIDEM TARTRATE 10 MG TABLET PO PRN (00:01)
[2019-11-13] MEDS ORDERED: INFLUENZA VIRUS VACCINE QVS 2019-20 (3YR+)/PF 60 MCG/0.5 ML SYRINGE IM ONE (01:00)
[2019-11-13] MEDS ORDERED: PNEUMOCOCCAL VACCINE POLYVALENT 0.5 ML VIAL [PPSV23] IM ONE (01:00)
[2019-11-13 07:55] LABS: CHOL/HDL RATIO 3.2 (4.2-7.3)
[2019-11-13] MEDS: METOPROLOL TARTRATE 25 MG TABLET PO SCH ×2 (09:27→16:45)
[2019-11-13] MEDS: ASPIRIN 81 MG CHEWABLE TABLET PO SCH (09:27)
[2019-11-13] MEDS ORDERED: ACETAMINOPHEN 325 MG TABLET PO PRN (09:45)
[2019-11-13] MEDS ORDERED: IBUPROFEN 600 MG TABLET PO PRN (09:45)
[2019-11-13] MEDS: GABAPENTIN 400 MG CAPSULE PO SCH ×2 (13:03→16:45)
[2019-11-13] MEDS: QUEtiapine FUMARATE 25 MG TABLET PO SCH ×2 (13:03→16:45)
[2019-11-13] MEDS ORDERED: LORazepam 2 MG TABLET PO PRN (14:30)
[2019-11-13] MEDS: QUEtiapine FUMARATE 200 MG TABLET PO SCH (20:35)
[2019-11-13] MEDS: ATORVASTATIN CALCIUM 10 MG TABLET PO SCH (20:35)
[2019-11-14] VITALS (9 sets, daily range): BP systolic 104–138; BP diastolic 67–79
[2019-11-14] MEDS ORDERED: LORazepam 2 MG TABLET PO PRN (07:00)
[2019-11-14] MEDS: METOPROLOL TARTRATE 25 MG TABLET PO SCH ×2 (09:00→16:55)
[2019-11-14] MEDS: GABAPENTIN 400 MG CAPSULE PO SCH ×3 (09:00→16:56)
[2019-11-14] MEDS: QUEtiapine FUMARATE 25 MG TABLET PO SCH ×3 (09:00→16:55)
[2019-11-14] MEDS: DULoxetine HCL 60 MG CAPSULE PO SCH (09:00)
[2019-11-14] MEDS: LORazepam 2 MG TABLET PO SCH ×4 (09:00→21:36)
[2019-11-14] MEDS: ASPIRIN 81 MG CHEWABLE TABLET PO SCH (09:01)
[2019-11-14] MEDS: DENTURE ADHESIVE 68 GM CREAM DT PRN (21:35)
[2019-11-14] MEDS: ATORVASTATIN CALCIUM 10 MG TABLET PO SCH (21:36)
[2019-11-14] MEDS: QUEtiapine FUMARATE 200 MG TABLET PO SCH (21:36)
[2019-11-15] VITALS (11 sets, daily range): BP systolic 101–131; BP diastolic 63–77
[2019-11-15] MEDS: DULoxetine HCL 60 MG CAPSULE PO SCH (08:42)
[2019-11-15] MEDS: ASPIRIN 81 MG CHEWABLE TABLET PO SCH (08:42)
[2019-11-15] MEDS: LORazepam 2 MG TABLET PO SCH ×4 (08:42→20:09)
[2019-11-15] MEDS: METOPROLOL TARTRATE 25 MG TABLET PO SCH ×2 (08:42→16:47)
[2019-11-15] MEDS: GABAPENTIN 400 MG CAPSULE PO SCH ×3 (08:43→16:46)
[2019-11-15] MEDS: QUEtiapine FUMARATE 25 MG TABLET PO SCH ×3 (08:43→16:46)
[2019-11-15] MEDS: QUEtiapine FUMARATE 200 MG TABLET PO SCH (20:09)
[2019-11-15] MEDS: ATORVASTATIN CALCIUM 10 MG TABLET PO SCH (20:09)
[2019-11-16] MEDS: LORazepam 2 MG TABLET PO PRN (03:16)
[2019-11-16] MEDS ORDERED: LORazepam 1 MG TABLET PO PRN (07:00)
[2019-11-16 07:03] VITALS: BP 121/78
[2019-11-16 08:44] VITALS: BP 102/65
[2019-11-16] MEDS: GABAPENTIN 400 MG CAPSULE PO SCH ×3 (09:17→17:02)
[2019-11-16] MEDS: QUEtiapine FUMARATE 25 MG TABLET PO SCH ×3 (09:17→17:02)
[2019-11-16] MEDS: ASPIRIN 81 MG CHEWABLE TABLET PO SCH (09:17)
[2019-11-16] MEDS: DULoxetine HCL 60 MG CAPSULE PO SCH (09:17)
[2019-11-16] MEDS: METOPROLOL TARTRATE 25 MG TABLET PO SCH ×2 (09:17→17:02)
[2019-11-16] MEDS: LORazepam 1 MG TABLET PO SCH ×4 (09:18→20:33)
[2019-11-16 16:00] VITALS: BP 112/67
[2019-11-16] MEDS: ATORVASTATIN CALCIUM 10 MG TABLET PO SCH (20:32)
[2019-11-16] MEDS: QUEtiapine FUMARATE 200 MG TABLET PO SCH (20:32)
[2019-11-17] MEDS ORDERED: LORazepam 1 MG TABLET PO PRN (07:00)
[2019-11-17] MEDS: GABAPENTIN 400 MG CAPSULE PO SCH ×3 (09:50→16:36)
[2019-11-17] MEDS: QUEtiapine FUMARATE 25 MG TABLET PO SCH ×3 (09:50→16:36)
[2019-11-17] MEDS: METOPROLOL TARTRATE 25 MG TABLET PO SCH ×2 (09:50→16:36)
[2019-11-17] MEDS: DULoxetine HCL 60 MG CAPSULE PO SCH (09:50)
[2019-11-17] MEDS: ASPIRIN 81 MG CHEWABLE TABLET PO SCH (09:50)
[2019-11-17 10:29] VITALS: BP 113/71
[2019-11-17 16:00] VITALS: BP 121/69
[2019-11-17] MEDS: LORazepam 2 MG TABLET PO PRN (16:36)
[2019-11-17] MEDS: QUEtiapine FUMARATE 200 MG TABLET PO SCH (21:17)
[2019-11-17] MEDS: ATORVASTATIN CALCIUM 10 MG TABLET PO SCH (21:17)
[2019-11-18 05:48] VITALS: BP 115/71
[2019-11-18 08:43] VITALS: BP 107/69
[2019-11-18] MEDS: GABAPENTIN 400 MG CAPSULE PO SCH ×3 (08:49→16:45)
[2019-11-18] MEDS: METOPROLOL TARTRATE 25 MG TABLET PO SCH ×2 (08:50→16:45)
[2019-11-18] MEDS: FOLIC ACID 1 MG TABLET PO SCH (08:50)
[2019-11-18] MEDS: THIAMINE HCL 100 MG TABLET PO SCH (08:50)
[2019-11-18] MEDS: MULTIVITAMINS WITH MINERALS, THERAPEUTIC TABLET PO SCH (08:50)
[2019-11-18] MEDS: ASPIRIN 81 MG CHEWABLE TABLET PO SCH (08:50)
[2019-11-18] MEDS: DULoxetine HCL 60 MG CAPSULE PO SCH (08:50)
[2019-11-18] MEDS: QUEtiapine FUMARATE 25 MG TABLET PO SCH ×3 (08:50→16:45)
[2019-11-18] MEDS: LORazepam 2 MG TABLET PO PRN (14:41)
[2019-11-18 16:24] VITALS: BP 111/70
[2019-11-18 16:27] VITALS: BP 113/70
[2019-11-18] MEDS: QUEtiapine FUMARATE 200 MG TABLET PO SCH (20:09)
[2019-11-18] MEDS: ATORVASTATIN CALCIUM 10 MG TABLET PO SCH (20:09)
[2019-11-18] MEDS: ZOLPIDEM TARTRATE 10 MG TABLET PO PRN (20:45)
[2019-11-19 05:19] VITALS: BP 100/67
[2019-11-19 05:26] VITALS: BP 100/67
[2019-11-19 08:08] VITALS: BP 116/65
[2019-11-19] MEDS: ASPIRIN 81 MG CHEWABLE TABLET PO SCH (08:56)
[2019-11-19] MEDS: METOPROLOL TARTRATE 25 MG TABLET PO SCH ×2 (08:56→16:40)
[2019-11-19] MEDS: THIAMINE HCL 100 MG TABLET PO SCH (08:56)
[2019-11-19] MEDS: MULTIVITAMINS WITH MINERALS, THERAPEUTIC TABLET PO SCH (08:56)
[2019-11-19] MEDS: FOLIC ACID 1 MG TABLET PO SCH (08:56)
[2019-11-19] MEDS: QUEtiapine FUMARATE 25 MG TABLET PO SCH ×3 (08:56→16:40)
[2019-11-19] MEDS: GABAPENTIN 400 MG CAPSULE PO SCH ×3 (08:56→16:40)
[2019-11-19] MEDS: DULoxetine HCL 60 MG CAPSULE PO SCH (08:56)
[2019-11-19] MEDS: LORazepam 2 MG TABLET PO PRN ×2 (10:46→16:45)
[2019-11-19 16:20] VITALS: BP 119/75
[2019-11-19] MEDS: ATORVASTATIN CALCIUM 10 MG TABLET PO SCH (20:22)
[2019-11-19] MEDS: QUEtiapine FUMARATE 200 MG TABLET PO SCH (20:22)
[2019-11-19] MEDS: ZOLPIDEM TARTRATE 10 MG TABLET PO PRN (20:56)
[2019-11-20 06:51] VITALS: BP 118/68
[2019-11-20] MEDS: METOPROLOL TARTRATE 25 MG TABLET PO SCH ×2 (09:04→17:22)
[2019-11-20] MEDS: THIAMINE HCL 100 MG TABLET PO SCH (09:04)
[2019-11-20] MEDS: DULoxetine HCL 60 MG CAPSULE PO SCH (09:04)
[2019-11-20] MEDS: FOLIC ACID 1 MG TABLET PO SCH (09:04)
[2019-11-20] MEDS: MULTIVITAMINS WITH MINERALS, THERAPEUTIC TABLET PO SCH (09:04)
[2019-11-20] MEDS: ASPIRIN 81 MG CHEWABLE TABLET PO SCH (09:04)
[2019-11-20] MEDS: GABAPENTIN 400 MG CAPSULE PO SCH ×3 (09:05→17:22)
[2019-11-20] MEDS: QUEtiapine FUMARATE 25 MG TABLET PO SCH ×3 (09:09→17:22)
[2019-11-20] MEDS: LORazepam 2 MG TABLET PO PRN ×2 (10:01→17:21)
[2019-11-20 12:13] VITALS: BP 139/70
[2019-11-20 16:23] VITALS: BP 107/70
[2019-11-20] MEDS: QUEtiapine FUMARATE 200 MG TABLET PO SCH (20:08)
[2019-11-20] MEDS: ATORVASTATIN CALCIUM 10 MG TABLET PO SCH (20:08)
[2019-11-21] MEDS: DENTURE ADHESIVE 68 GM CREAM DT PRN (05:51)
[2019-11-21 06:01] VITALS: BP 108/60
[2019-11-21 08:08] VITALS: BP 121/60
[2019-11-21] MEDS: DULoxetine HCL 60 MG CAPSULE PO SCH (08:12)
[2019-11-21] MEDS: LORazepam 2 MG TABLET PO PRN ×4 (08:12→22:19)
[2019-11-21] MEDS: QUEtiapine FUMARATE 25 MG TABLET PO SCH ×3 (08:12→16:15)
[2019-11-21] MEDS: ASPIRIN 81 MG CHEWABLE TABLET PO SCH (08:12)
[2019-11-21] MEDS: METOPROLOL TARTRATE 25 MG TABLET PO SCH ×2 (08:12→16:15)
[2019-11-21] MEDS: FOLIC ACID 1 MG TABLET PO SCH (08:12)
[2019-11-21] MEDS: MULTIVITAMINS WITH MINERALS, THERAPEUTIC TABLET PO SCH (08:12)
[2019-11-21] MEDS: THIAMINE HCL 100 MG TABLET PO SCH (08:12)
[2019-11-21] MEDS: GABAPENTIN 400 MG CAPSULE PO SCH ×3 (08:12→16:15)
[2019-11-21 16:10] VITALS: BP 130/83
[2019-11-21] MEDS: ATORVASTATIN CALCIUM 10 MG TABLET PO SCH (20:14)
[2019-11-21] MEDS: QUEtiapine FUMARATE 200 MG TABLET PO SCH (20:14)
[2019-11-21] MEDS: ZOLPIDEM TARTRATE 10 MG TABLET PO PRN (22:19)
[2019-11-22 00:23] VITALS: BP 106/68
[2019-11-22 08:41] VITALS: BP 103/63
[2019-11-22] MEDS: DULoxetine HCL 60 MG CAPSULE PO SCH (08:42)
[2019-11-22] MEDS: GABAPENTIN 400 MG CAPSULE PO SCH ×2 (08:42→12:45)
[2019-11-22] MEDS: ASPIRIN 81 MG CHEWABLE TABLET PO SCH (08:42)
[2019-11-22] MEDS: FOLIC ACID 1 MG TABLET PO SCH (08:42)
[2019-11-22] MEDS: QUEtiapine FUMARATE 25 MG TABLET PO SCH ×2 (08:42→12:44)
[2019-11-22] MEDS: THIAMINE HCL 100 MG TABLET PO SCH (08:42)
[2019-11-22] MEDS: MULTIVITAMINS WITH MINERALS, THERAPEUTIC TABLET PO SCH (08:42)
[2019-11-22] MEDS: METOPROLOL TARTRATE 25 MG TABLET PO SCH (08:43)
[2019-11-22] MEDS ORDERED: NALT50TA PO (09:59)
[2019-11-22] MEDS ORDERED: QUET25TA34 PO (09:59)
[2019-11-22] MEDS ORDERED: DULO60CA44 PO (09:59)
[2019-11-22] MEDS ORDERED: GABA-533 PO (09:59)
[2019-11-22] MEDS ORDERED: QUET200T29 PO (09:59)
== END 2019-11-22 13:47 | disposition home or self-care (01) | DRG 751 ==
LOC: EMS 12:28 → B3A 20:53 → UNDOADMIN 21:04 → B2S 11-18 14:15
PROVIDERS: ADMIT Psychiatry & Neurology Psychiatry; ATTEND Psychiatry & Neurology Psychiatry
DX: F33.2 Major depressive disorder, recurrent severe without psychotic features (principal); R45.851 Suicidal ideations; E78.5 Hyperlipidemia, unspecified; F12.90 Cannabis use, unspecified, uncomplicated; F17.200 Nicotine dependence, unspecified, uncomplicated; I10 Essential (primary) hypertension; I25.10 Atherosclerotic heart disease of native coronary artery without angina pectoris; I73.9 Peripheral vascular disease, unspecified; Z79.899 Other long term (current) drug therapy; Z82.49 Family history of ischemic heart disease and other diseases of the circulatory system; Z95.5 Presence of coronary angioplasty implant and graft; Z91.5 Personal history of self-harm; F10.20 Alcohol dependence, uncomplicated; Z28.21 Immunization not carried out because of patient refusal
CPT/HCPCS: 70450; 87081; G0480

== ENCOUNTER 2019-12-09 22:54 | Inpatient (IN) | payer MEDICAID ==
[~2019-12-09] VITALS: Ht 170.2 cm; Wt 89.9 kg
[2019-12-09 23:44] LABS: BASOPHILS % (AUTO) 0.9 % (0.0-2.0); EOSINOPHILS % (AUTO) 0.6 % (1.0-6.0); HEMATOCRIT 43.9 % (41-53); HEMOGLOBIN 15.1 g/dL (13.5-17.5); LYMPHOCYTES # (AUTO) 1.5 K/uL (1.0-4.8); MEAN CORPUSCULAR HEMOGLOBIN 32.9 pg (26.0-34.0); MEAN CORPUSCULAR HGB CONC 34.3 G/dL (31.0-37.0); MEAN CORPUSCULAR VOLUME 96 fL (80-100); MONOCYTES # (AUTO) 1.4 K/uL (0.1-1.0); MONOCYTES % (AUTO) 13.2 % (2.0-9.0); NEUTROPHILS # (AUTO) 7.9 K/uL (1.8-7.7); NEUTROPHILS % (AUTO) 71.3 % (40.0-70.0); PLATELET COUNT (AUTO) 239 K/uL (150-450); RED BLOOD CELL COUNT(AUTO) 4.58 MIL/uL (4.50-5.90); RED CELL DISTRIBUTION WIDTH 14.6 % (11.5-14.5)
[2019-12-09 23:55] LABS: AMPHET/METH SCREEN,URINE NEGATIVE (NEGATIVE); BARBITURATE SCREEN, URINE NEGATIVE (NEGATIVE); BENZODIAZEPINES SCREEN,URINE POSITIVE (NEGATIVE); CANNABINOID SCREEN,URINE NEGATIVE (NEGATIVE); COCAINE SCREEN,URINE NEGATIVE (NEGATIVE); METHADONE SCREEN, URINE NEGATIVE (NEGATIVE); OPIATE SCREEN,URINE NEGATIVE (NEGATIVE); PHENCYCLIDINE SCREEN,URINE NEGATIVE (NEGATIVE)
[2019-12-10] VITALS (7 sets, daily range): BP systolic 125–150; BP diastolic 70–87
[2019-12-10 00:05] LABS: ANION GAP 11 mmol/L (8-16); CALCIUM, TOTAL 9.3 mg/dL (8.8-10.5); CARBON DIOXIDE 27 mmol/L (22-29); CHLORIDE 101 mmol/L (98-107); CREATININE 0.77 mg/dL (0.60-1.30); GLOMERULAR FILTR. RATE CALC > 60 mL/min (>60); GLUCOSE,RANDOM 115 mg/dL (70-110); POTASSIUM 3.9 mmol/L (3.5-5.1); SODIUM SERUM 139 mmol/L (136-145); UREA NITROGEN, BLOOD 13 mg/dL (7-18)
[2019-12-10 00:11] LABS: ALANINE AMINOTRANSFERASE 31 U/L (12-78); ALBUMIN 4.3 g/dL (3.4-5.0); ALKALINE PHOSPHATASE 94 U/L (46-116); ASPARTATE AMINOTRANSFERASE 38 U/L (15-37); BILIRUBIN,TOTAL 0.7 mg/dL (0.1-1.0)
[2019-12-10] MEDS ORDERED: OLANZapine 5 MG RAPDIS TABLET PO PRN (01:00)
[2019-12-10] MEDS ORDERED: QUEtiapine FUMARATE 100 MG TABLET PO ONE (01:00)
[2019-12-10] MEDS ORDERED: ZOLPIDEM TARTRATE 10 MG TABLET PO PRN (01:00)
[2019-12-10] MEDS ORDERED: LORazepam 2 MG TABLET PO ONE (01:00)
[2019-12-10] MEDS: LORazepam 2 MG TABLET PO PRN ×2 (10:57→15:03)
[2019-12-10] MEDS ORDERED: HydrOXYzine PAMOATE 50 MG CAPSULE PO PRN (20:30)
[2019-12-10] MEDS ORDERED: GuaiFENesin/D-METHORPHAN [SUGAR-FREE] 200-20MG/10 ML SYRUP UDCUP PO PRN (20:30)
[2019-12-10] MEDS ORDERED: ACETAMINOPHEN 325 MG TABLET PO PRN (20:30)
[2019-12-10] MEDS ORDERED: MAG HYDROX/AL HYDROX/SIMETH ES 30 ML SUSPENSION UDCUP PO PRN (20:30)
[2019-12-10] MEDS ORDERED: PROMETHAZINE HCL 25 MG TABLET PO PRN (20:30)
[2019-12-10] MEDS ORDERED: MAGNESIUM HYDROXIDE SUSPENSION 30 ML UDCUP PO PRN (20:30)
[2019-12-10] MEDS ORDERED: LOPERAMIDE HCL 2 MG CAPSULE PO PRN (20:30)
[2019-12-10] MEDS ORDERED: CYANOCOBALAMIN 1,000 MCG/ML VIAL IM ONE (20:30)
[2019-12-10] MEDS ORDERED: PALIPERIDONE PALMITATE 234 MG/1.5 ML SYRINGE IM ONE (20:30)
[2019-12-10] MEDS ORDERED: QUEtiapine FUMARATE 100 MG TABLET PO PRN (20:30)
[2019-12-10] MEDS: QUEtiapine FUMARATE 200 MG TABLET PO SCH (20:49)
[2019-12-11] VITALS (8 sets, daily range): BP systolic 113–160; BP diastolic 64–90
[2019-12-11 08:05] LABS: CHOL/HDL RATIO 3.2 (4.2-7.3)
[2019-12-11] MEDS ORDERED: DULoxetine HCL 20 MG CAPSULE PO SCH (09:00)
[2019-12-11] MEDS: PREGABALIN 25 MG CAPSULE PO SCH ×3 (09:25→16:37)
[2019-12-11] MEDS: NALTREXONE HCL 50 MG TABLET PO SCH (09:25)
[2019-12-11] MEDS: MULTIVITAMINS WITH MINERALS, THERAPEUTIC TABLET PO SCH (09:26)
[2019-12-11] MEDS: FOLIC ACID 1 MG TABLET PO SCH (09:26)
[2019-12-11] MEDS: THIAMINE HCL 100 MG TABLET PO SCH ×2 (09:27→16:37)
[2019-12-11] MEDS: QUEtiapine FUMARATE 200 MG TABLET PO SCH (20:21)
[2019-12-12 05:53] VITALS: BP 134/75
[2019-12-12 06:20] VITALS: BP 134/75
[2019-12-12 08:01] VITALS: BP 158/89
[2019-12-12] MEDS: PARoxetine HCL 10 MG TABLET PO SCH (08:42)
[2019-12-12] MEDS: THIAMINE HCL 100 MG TABLET PO SCH ×2 (08:42→17:00)
[2019-12-12] MEDS: NALTREXONE HCL 50 MG TABLET PO SCH (08:42)
[2019-12-12] MEDS: LamoTRIgine 25 MG TABLET PO SCH (08:42)
[2019-12-12] MEDS: PREGABALIN 25 MG CAPSULE PO SCH ×3 (08:42→16:04)
[2019-12-12] MEDS: FOLIC ACID 1 MG TABLET PO SCH (08:42)
[2019-12-12] MEDS: QUEtiapine FUMARATE 25 MG TABLET PO SCH ×3 (08:42→16:04)
[2019-12-12] MEDS: MULTIVITAMINS WITH MINERALS, THERAPEUTIC TABLET PO SCH (08:42)
[2019-12-12 16:26] VITALS: BP 132/96
[2019-12-12] MEDS: QUEtiapine FUMARATE 200 MG TABLET PO SCH (20:09)
[2019-12-12 20:21] VITALS: BP 132/96
[2019-12-13 03:02] VITALS: BP 153/91
[2019-12-13 08:00] VITALS: BP 152/75
[2019-12-13 09:00] VITALS: BP 152/75
[2019-12-13] MEDS: PREGABALIN 25 MG CAPSULE PO SCH ×2 (09:15→12:47)
[2019-12-13] MEDS: FOLIC ACID 1 MG TABLET PO SCH (09:15)
[2019-12-13] MEDS: PARoxetine HCL 10 MG TABLET PO SCH (09:15)
[2019-12-13] MEDS: QUEtiapine FUMARATE 25 MG TABLET PO SCH ×2 (09:15→12:46)
[2019-12-13] MEDS: NALTREXONE HCL 50 MG TABLET PO SCH (09:15)
[2019-12-13] MEDS: THIAMINE HCL 100 MG TABLET PO SCH ×2 (09:15→17:44)
[2019-12-13] MEDS: MULTIVITAMINS WITH MINERALS, THERAPEUTIC TABLET PO SCH (09:15)
[2019-12-13] MEDS: LamoTRIgine 25 MG TABLET PO SCH (09:15)
[2019-12-13] MEDS ORDERED: DENTURE ADHESIVE 68 GM CREAM DT PRN (11:30)
[2019-12-13] MEDS ORDERED: PARoxetine HCL 10 MG TABLET PO SCH (17:00)
[2019-12-13] MEDS ORDERED: QUEtiapine FUMARATE 25 MG TABLET PO SCH (17:00)
[2019-12-13] MEDS: PREGABALIN 50 MG CAPSULE PO SCH (17:44)
[2019-12-13 18:56] VITALS: BP 100/60
[2019-12-13 18:57] VITALS: BP 100/60
[2019-12-13] MEDS: QUEtiapine FUMARATE 200 MG TABLET PO SCH (20:21)
[2019-12-13] MEDS ORDERED: LOPERAMIDE HCL 2 MG CAPSULE PO PRN (20:30)
[2019-12-13] MEDS ORDERED: QUEtiapine FUMARATE 300 MG TABLET PO SCH (21:00)
[2019-12-14 06:06] VITALS: BP 106/50
[2019-12-14] MEDS: QUEtiapine FUMARATE 25 MG TABLET PO SCH ×2 (08:42→12:23)
[2019-12-14] MEDS: PREGABALIN 50 MG CAPSULE PO SCH ×2 (08:42→12:22)
[2019-12-14] MEDS: LamoTRIgine 25 MG TABLET PO SCH (08:43)
[2019-12-14] MEDS: FOLIC ACID 1 MG TABLET PO SCH (08:43)
[2019-12-14] MEDS: MULTIVITAMINS WITH MINERALS, THERAPEUTIC TABLET PO SCH (08:43)
[2019-12-14] MEDS: NALTREXONE HCL 50 MG TABLET PO SCH (08:43)
[2019-12-14] MEDS: THIAMINE HCL 100 MG TABLET PO SCH ×2 (08:43→16:40)
[2019-12-14] MEDS ORDERED: PALIPERIDONE PALMITATE 156 MG/ML SYRINGE IM ONE (09:00)
[2019-12-14 09:33] VITALS: BP 138/69
[2019-12-14 09:36] VITALS: BP 138/69
[2019-12-14] MEDS ORDERED: NALT50TA PO (16:22)
[2019-12-14] MEDS ORDERED: QUET25TA34 PO (16:22)
[2019-12-14] MEDS ORDERED: LAMO25TA66 PO (16:22)
[2019-12-14] MEDS ORDERED: PREG50 PO (16:22)
[2019-12-14] MEDS ORDERED: QUET200T29 PO (16:22)
[2019-12-14] MEDS: PREGABALIN 75 MG CAPSULE PO SCH (16:41)
[2019-12-14] MEDS: QUEtiapine FUMARATE 100 MG TABLET PO SCH (16:41)
[2019-12-14 18:23] VITALS: BP 133/80
[2019-12-14 18:26] VITALS: BP 133/80
[2019-12-14] MEDS: QUEtiapine FUMARATE 200 MG TABLET PO SCH (21:19)
[2019-12-15 06:07] VITALS: BP 132/63
[2019-12-15] MEDS: NALTREXONE HCL 50 MG TABLET PO SCH (09:35)
[2019-12-15] MEDS: PREGABALIN 75 MG CAPSULE PO SCH ×2 (09:35→12:05)
[2019-12-15] MEDS: FOLIC ACID 1 MG TABLET PO SCH (09:36)
[2019-12-15] MEDS: MULTIVITAMINS WITH MINERALS, THERAPEUTIC TABLET PO SCH (09:36)
[2019-12-15] MEDS: THIAMINE HCL 100 MG TABLET PO SCH (09:36)
[2019-12-15] MEDS: QUEtiapine FUMARATE 100 MG TABLET PO SCH ×2 (09:36→12:05)
[2019-12-15] MEDS: LamoTRIgine 25 MG TABLET PO SCH (09:36)
== END 2019-12-15 14:45 | disposition home or self-care (01) | DRG 885 ==
LOC: EMS 23:03 → 3EI 12-10 02:00
PROVIDERS: ADMIT Psychiatry & Neurology Psychiatry; ATTEND Psychiatry & Neurology Psychiatry
DX: F25.1 Schizoaffective disorder, depressive type (principal); R45.851 Suicidal ideations; I10 Essential (primary) hypertension; I73.9 Peripheral vascular disease, unspecified; E78.5 Hyperlipidemia, unspecified; I25.10 Atherosclerotic heart disease of native coronary artery without angina pectoris; K21.9 Gastro-esophageal reflux disease without esophagitis; R41.843 Psychomotor deficit; F17.210 Nicotine dependence, cigarettes, uncomplicated; F10.20 Alcohol dependence, uncomplicated; G62.9 Polyneuropathy, unspecified; Z91.14 Patient's other noncompliance with medication regimen; Z59.0 Homelessness; Z91.19 Patient's noncompliance with other medical treatment and regimen; Z88.8 Allergy status to other drugs, medicaments and biological substances
CPT/HCPCS: 87081; G0480; J3420

== ENCOUNTER 2020-01-09 09:36 | Inpatient (IN) | payer MEDICAID ==
[~2020-01-09] VITALS: Ht 170.2 cm; Wt 96.7 kg
[~2020-01-09 09:36] MED LIST changes: -ASPI-728 PO; -ATOR10TA84 PO; -DULO60CA44 PO; -GABA-533 PO; +LAMO25TA66 PO; -METO25 PO; +PREG50 PO
[2020-01-09 10:14] LABS: BASOPHILS % (AUTO) 0.7 % (0.0-2.0); EOSINOPHILS % (AUTO) 0.1 % (1.0-6.0); HEMATOCRIT 45.1 % (41-53); HEMOGLOBIN 15.7 g/dL (13.5-17.5); LYMPHOCYTES # (AUTO) 0.8 K/uL (1.0-4.8); LYMPHOCYTES % (AUTO) 7.6 % (22.0-44.0); MEAN CORPUSCULAR HEMOGLOBIN 33.9 pg (26.0-34.0); MEAN CORPUSCULAR HGB CONC 34.8 G/dL (31.0-37.0); MEAN CORPUSCULAR VOLUME 97 fL (80-100); MONOCYTES # (AUTO) 1.1 K/uL (0.1-1.0); MONOCYTES % (AUTO) 10.9 % (2.0-9.0); NEUTROPHILS # (AUTO) 8.5 K/uL (1.8-7.7); NEUTROPHILS % (AUTO) 80.7 % (40.0-70.0); PLATELET COUNT (AUTO) 196 K/uL (150-450); RED BLOOD CELL COUNT(AUTO) 4.63 MIL/uL (4.50-5.90); RED CELL DISTRIBUTION WIDTH 15.5 % (11.5-14.5)
[2020-01-09 10:22] LABS: ANION GAP 20 mmol/L (8-16); CALCIUM, TOTAL 8.8 mg/dL (8.8-10.5); CARBON DIOXIDE 19 mmol/L (22-29); CHLORIDE 92 mmol/L (98-107); CREATININE 0.96 mg/dL (0.60-1.30); GLOMERULAR FILTR. RATE CALC > 60 mL/min (>60); GLUCOSE,RANDOM 100 mg/dL (70-110); POTASSIUM 3.6 mmol/L (3.5-5.1); SODIUM SERUM 131 mmol/L (136-145); UREA NITROGEN, BLOOD 10 mg/dL (7-18)
[2020-01-09 10:28] LABS: ALANINE AMINOTRANSFERASE 33 U/L (12-78); ALKALINE PHOSPHATASE 104 U/L (46-116); ASPARTATE AMINOTRANSFERASE 44 U/L (15-37); TOTAL PROTEIN, SERUM 7.8 g/dL (6.4-8.2)
[2020-01-09] MEDS ORDERED: MAGNESIUM HYDROXIDE SUSPENSION 30 ML UDCUP PO PRN (11:00)
[2020-01-09] MEDS ORDERED: GuaiFENesin/D-METHORPHAN [SUGAR-FREE] 200-20MG/10 ML SYRUP UDCUP PO PRN (11:00)
[2020-01-09] MEDS ORDERED: MAG HYDROX/AL HYDROX/SIMETH ES 30 ML SUSPENSION UDCUP PO PRN (11:00)
[2020-01-09] MEDS ORDERED: LORazepam 2 MG TABLET PO PRN (11:00)
[2020-01-09] MEDS ORDERED: PROMETHAZINE HCL 25 MG TABLET PO PRN (11:00)
[2020-01-09] MEDS ORDERED: ZOLPIDEM TARTRATE 10 MG TABLET PO PRN (11:00)
[2020-01-09] MEDS ORDERED: QUEtiapine FUMARATE 100 MG TABLET PO PRN (11:00)
[2020-01-09] MEDS ORDERED: HydrOXYzine PAMOATE 50 MG CAPSULE PO PRN (11:00)
[2020-01-09] MEDS ORDERED: LOPERAMIDE HCL 2 MG CAPSULE PO PRN ×2 (11:00)
[2020-01-09] MEDS ORDERED: CYANOCOBALAMIN 1,000 MCG/ML VIAL IM ONE (11:00)
[2020-01-09] MEDS ORDERED: PREG75 PO (11:08)
[2020-01-09] MEDS ORDERED: QUET100T PO (11:08)
[2020-01-09] MEDS: DIAZEPAM 10 MG TABLET PO PRN ×3 (11:42→20:01)
[2020-01-09 11:50] LABS: AMPHET/METH SCREEN,URINE NEGATIVE (NEGATIVE); BARBITURATE SCREEN, URINE NEGATIVE (NEGATIVE); BENZODIAZEPINES SCREEN,URINE NEGATIVE (NEGATIVE); CANNABINOID SCREEN,URINE POSITIVE (NEGATIVE); COCAINE SCREEN,URINE NEGATIVE (NEGATIVE); METHADONE SCREEN, URINE NEGATIVE (NEGATIVE); OPIATE SCREEN,URINE NEGATIVE (NEGATIVE)
[2020-01-09 11:53] LABS: PHENCYCLIDINE SCREEN,URINE NEGATIVE (NEGATIVE)
[2020-01-09] MEDS: QUEtiapine FUMARATE 25 MG TABLET PO SCH ×2 (13:16→16:38)
[2020-01-09] MEDS: PREGABALIN 25 MG CAPSULE PO SCH ×2 (13:16→16:29)
[2020-01-09] MEDS: ACETAMINOPHEN 325 MG TABLET PO PRN (13:54)
[2020-01-09 16:00] VITALS: BP 126/82
[2020-01-09 16:21] VITALS: BP 126/82
[2020-01-09] MEDS: THIAMINE 100 MG TABLET PO SCH (16:28)
[2020-01-09] MEDS ORDERED: PNEUMOCOCCAL VACCINE POLYVALENT 0.5 ML VIAL [PPSV23] IM ONE (16:30)
[2020-01-09 17:00] VITALS: BP 129/76
[2020-01-09 18:00] VITALS: BP 153/83
[2020-01-09 19:00] VITALS: BP 150/90
[2020-01-09] MEDS ORDERED: QUEtiapine FUMARATE 100 MG TABLET PO SCH (21:00)
[2020-01-09 23:00] VITALS: BP 145/92
[2020-01-10] VITALS (11 sets, daily range): BP systolic 119–157; BP diastolic 78–97
[2020-01-10] MEDS: DIAZEPAM 10 MG TABLET PO PRN ×2 (00:48→06:50)
[2020-01-10] MEDS: ACETAMINOPHEN 325 MG TABLET PO PRN ×2 (00:49→06:50)
[2020-01-10] MEDS ORDERED: LORazepam 2 MG TABLET PO PRN (07:00)
[2020-01-10] MEDS ORDERED: DIAZEPAM 10 MG TABLET PO PRN (07:00)
[2020-01-10] MEDS: THIAMINE 100 MG TABLET PO SCH ×2 (08:53→16:03)
[2020-01-10] MEDS: FOLIC ACID 1 MG TABLET PO SCH (08:53)
[2020-01-10] MEDS: MULTIVITAMINS WITH MINERALS, THERAPEUTIC TABLET PO SCH (08:53)
[2020-01-10] MEDS: CloNIDine HCL 0.1 MG TABLET PO SCH ×2 (08:53→16:03)
[2020-01-10] MEDS: LamoTRIgine 25 MG TABLET PO SCH (08:53)
[2020-01-10] MEDS: PREGABALIN 25 MG CAPSULE PO SCH ×3 (08:53→16:02)
[2020-01-10] MEDS: DIAZEPAM 10 MG TABLET PO SCH ×4 (08:53→20:06)
[2020-01-10] MEDS: NALTREXONE HCL 50 MG TABLET PO SCH (08:53)
[2020-01-10] MEDS: QUEtiapine FUMARATE 25 MG TABLET PO SCH ×3 (08:53→16:03)
[2020-01-10 08:56] LABS: ANION GAP 13 mmol/L (8-16); CALCIUM, TOTAL 9.4 mg/dL (8.8-10.5); CARBON DIOXIDE 28 mmol/L (22-29); CHLORIDE 101 mmol/L (98-107); CHOL/HDL RATIO 2.3 (4.2-7.3); CHOLESTEROL 201 mg/dL (131-200); CREATININE 0.81 mg/dL (0.60-1.30); GLOMERULAR FILTR. RATE CALC > 60 mL/min (>60); GLUCOSE,RANDOM 81 mg/dL (70-110); HDL CHOLESTEROL 86 mg/dL (40-60); LDL CHOL (CALC.) 95 mg/dL (0-130); POTASSIUM 3.2 mmol/L (3.5-5.1); SODIUM SERUM 142 mmol/L (136-145); TRIGLYCERIDES 100 mg/dL (15-150); UREA NITROGEN, BLOOD 8 mg/dL (7-18)
[2020-01-10] MEDS ORDERED: LORazepam 2 MG TABLET PO SCH (09:00)
[2020-01-10] MEDS ORDERED: QUEtiapine FUMARATE 200 MG TABLET PO SCH (21:00)
[2020-01-11 00:43] VITALS: BP 104/68
[2020-01-11 06:21] VITALS: BP 129/83
[2020-01-11] MEDS: ACETAMINOPHEN 325 MG TABLET PO PRN ×2 (06:34→16:21)
[2020-01-11 08:02] VITALS: BP 107/62
[2020-01-11 08:40] VITALS: BP 113/85
[2020-01-11] MEDS: DIAZEPAM 10 MG TABLET PO SCH ×4 (08:43→20:16)
[2020-01-11] MEDS: LamoTRIgine 25 MG TABLET PO SCH (08:43)
[2020-01-11] MEDS: NALTREXONE HCL 50 MG TABLET PO SCH (08:43)
[2020-01-11] MEDS: FOLIC ACID 1 MG TABLET PO SCH (08:43)
[2020-01-11] MEDS: QUEtiapine FUMARATE 25 MG TABLET PO SCH ×3 (08:43→16:20)
[2020-01-11] MEDS: CloNIDine HCL 0.1 MG TABLET PO SCH ×2 (08:44→16:20)
[2020-01-11] MEDS: PREGABALIN 25 MG CAPSULE PO SCH ×3 (08:44→16:21)
[2020-01-11] MEDS: THIAMINE 100 MG TABLET PO SCH ×2 (08:44→16:20)
[2020-01-11] MEDS: MULTIVITAMINS WITH MINERALS, THERAPEUTIC TABLET PO SCH (08:44)
[2020-01-11] MEDS ORDERED: POTASSIUM CHLORIDE 20 MEQ ER TABLET PO ONE ×2 (10:00→17:00)
[2020-01-11 16:02] VITALS: BP 130/83
[2020-01-11 16:04] VITALS: BP 130/83
[2020-01-11] MEDS: QUEtiapine FUMARATE 300 MG TABLET PO SCH (20:16)
[2020-01-12] VITALS: BP 116/68
[2020-01-12] MEDS ORDERED: LORazepam 1 MG TABLET PO PRN (07:00)
[2020-01-12] MEDS ORDERED: DIAZEPAM 5 MG TABLET PO PRN (07:00)
[2020-01-12] MEDS: NALTREXONE HCL 50 MG TABLET PO SCH (08:00)
[2020-01-12] MEDS: QUEtiapine FUMARATE 25 MG TABLET PO SCH ×3 (08:00→16:17)
[2020-01-12] MEDS: THIAMINE 100 MG TABLET PO SCH ×2 (08:00→16:17)
[2020-01-12] MEDS: FOLIC ACID 1 MG TABLET PO SCH (08:00)
[2020-01-12] MEDS: CloNIDine HCL 0.1 MG TABLET PO SCH ×2 (08:00→16:17)
[2020-01-12] MEDS: PREGABALIN 25 MG CAPSULE PO SCH ×3 (08:00→16:17)
[2020-01-12] MEDS: MULTIVITAMINS WITH MINERALS, THERAPEUTIC TABLET PO SCH (08:00)
[2020-01-12] MEDS: DIAZEPAM 5 MG TABLET PO SCH ×4 (08:00→20:03)
[2020-01-12] MEDS: LamoTRIgine 25 MG TABLET PO SCH (08:00)
[2020-01-12 08:01] VITALS: BP 137/76
[2020-01-12] MEDS ORDERED: LORazepam 1 MG TABLET PO SCH (09:00)
[2020-01-12 18:00] VITALS: BP 142/90
[2020-01-12] MEDS: QUEtiapine FUMARATE 300 MG TABLET PO SCH (20:03)
[2020-01-13 05:53] VITALS: BP 134/86
[2020-01-13 06:36] VITALS: BP 134/86
[2020-01-13] MEDS ORDERED: LORazepam 1 MG TABLET PO PRN (07:00)
[2020-01-13] MEDS ORDERED: DIAZEPAM 5 MG TABLET PO PRN (07:00)
[2020-01-13 08:11] VITALS: BP 128/77
[2020-01-13] MEDS: FOLIC ACID 1 MG TABLET PO SCH (08:26)
[2020-01-13] MEDS: MULTIVITAMINS WITH MINERALS, THERAPEUTIC TABLET PO SCH (08:26)
[2020-01-13] MEDS: THIAMINE 100 MG TABLET PO SCH ×2 (08:26→16:06)
[2020-01-13] MEDS: NALTREXONE HCL 50 MG TABLET PO SCH (08:26)
[2020-01-13] MEDS: PREGABALIN 25 MG CAPSULE PO SCH ×3 (08:26→16:06)
[2020-01-13] MEDS: LamoTRIgine 25 MG TABLET PO SCH (08:26)
[2020-01-13] MEDS: CloNIDine HCL 0.1 MG TABLET PO SCH ×2 (08:26→16:06)
[2020-01-13] MEDS: QUEtiapine FUMARATE 25 MG TABLET PO SCH ×3 (08:26→16:06)
[2020-01-13 16:05] VITALS: BP 128/84
[2020-01-13] MEDS: QUEtiapine FUMARATE 300 MG TABLET PO SCH (20:04)
[2020-01-14 02:00] VITALS: BP 129/82
[2020-01-14 02:25] VITALS: BP 129/82
[2020-01-14] MEDS: ACETAMINOPHEN 325 MG TABLET PO PRN (02:26)
[2020-01-14 08:00] VITALS: BP 138/66
[2020-01-14] MEDS: LamoTRIgine 25 MG TABLET PO SCH (08:11)
[2020-01-14] MEDS: MULTIVITAMINS WITH MINERALS, THERAPEUTIC TABLET PO SCH (08:11)
[2020-01-14] MEDS: QUEtiapine FUMARATE 25 MG TABLET PO SCH ×3 (08:11→16:39)
[2020-01-14] MEDS: THIAMINE 100 MG TABLET PO SCH ×2 (08:11→16:39)
[2020-01-14] MEDS: FOLIC ACID 1 MG TABLET PO SCH (08:11)
[2020-01-14] MEDS: CloNIDine HCL 0.1 MG TABLET PO SCH ×2 (08:11→16:39)
[2020-01-14] MEDS: PREGABALIN 25 MG CAPSULE PO SCH ×3 (08:11→16:39)
[2020-01-14] MEDS: NALTREXONE HCL 50 MG TABLET PO SCH (08:11)
[2020-01-14 16:16] VITALS: BP 113/81
[2020-01-14] MEDS: QUEtiapine FUMARATE 300 MG TABLET PO SCH (20:03)
[2020-01-15 00:44] VITALS: BP 128/79
[2020-01-15] MEDS: LamoTRIgine 25 MG TABLET PO SCH (08:14)
[2020-01-15] MEDS: FOLIC ACID 1 MG TABLET PO SCH (08:14)
[2020-01-15] MEDS: CloNIDine HCL 0.1 MG TABLET PO SCH ×2 (08:14→16:21)
[2020-01-15] MEDS: NALTREXONE HCL 50 MG TABLET PO SCH (08:14)
[2020-01-15] MEDS: PREGABALIN 25 MG CAPSULE PO SCH ×3 (08:14→16:21)
[2020-01-15] MEDS: MULTIVITAMINS WITH MINERALS, THERAPEUTIC TABLET PO SCH (08:15)
[2020-01-15] MEDS: THIAMINE 100 MG TABLET PO SCH ×2 (08:15→16:21)
[2020-01-15] MEDS: QUEtiapine FUMARATE 25 MG TABLET PO SCH ×3 (08:21→16:21)
[2020-01-15 08:50] VITALS: BP 117/78
[2020-01-15 16:21] VITALS: BP 121/80
[2020-01-15] MEDS: ACETAMINOPHEN 325 MG TABLET PO PRN (16:22)
[2020-01-15] MEDS: IBUPROFEN 600 MG TABLET PO SCH (18:34)
[2020-01-15] MEDS: QUEtiapine FUMARATE 200 MG TABLET PO SCH (20:20)
[2020-01-16] MEDS: IBUPROFEN 600 MG TABLET PO SCH ×4 (00:11→17:29)
[2020-01-16 00:35] VITALS: BP 144/72
[2020-01-16] MEDS: MULTIVITAMINS WITH MINERALS, THERAPEUTIC TABLET PO SCH (07:58)
[2020-01-16] MEDS: THIAMINE 100 MG TABLET PO SCH ×2 (07:59→16:42)
[2020-01-16] MEDS: CloNIDine HCL 0.1 MG TABLET PO SCH ×2 (07:59→16:42)
[2020-01-16] MEDS: LamoTRIgine 25 MG TABLET PO SCH (07:59)
[2020-01-16] MEDS: FOLIC ACID 1 MG TABLET PO SCH (07:59)
[2020-01-16] MEDS: NALTREXONE HCL 50 MG TABLET PO SCH (07:59)
[2020-01-16] MEDS: PREGABALIN 25 MG CAPSULE PO SCH ×3 (08:00→16:42)
[2020-01-16] MEDS: QUEtiapine FUMARATE 25 MG TABLET PO SCH ×4 (08:01→20:33)
[2020-01-16 08:41] VITALS: BP 128/78
[2020-01-16 11:18] VITALS: BP 106/65
[2020-01-16 16:11] VITALS: BP 110/72
[2020-01-16] MEDS: QUEtiapine FUMARATE 100 MG TABLET PO SCH (20:32)
[2020-01-16] MEDS: QUEtiapine FUMARATE 200 MG TABLET PO SCH (20:32)
[2020-01-17] MEDS: IBUPROFEN 600 MG TABLET PO SCH ×4 (00:25→18:05)
[2020-01-17 00:36] VITALS: BP 100/56
[2020-01-17] MEDS: LamoTRIgine 25 MG TABLET PO SCH (08:12)
[2020-01-17] MEDS: MULTIVITAMINS WITH MINERALS, THERAPEUTIC TABLET PO SCH (08:12)
[2020-01-17] MEDS: THIAMINE 100 MG TABLET PO SCH ×2 (08:12→16:53)
[2020-01-17] MEDS: CloNIDine HCL 0.1 MG TABLET PO SCH ×2 (08:12→16:53)
[2020-01-17] MEDS: QUEtiapine FUMARATE 25 MG TABLET PO SCH ×4 (08:12→20:29)
[2020-01-17] MEDS: NALTREXONE HCL 50 MG TABLET PO SCH (08:12)
[2020-01-17] MEDS: FOLIC ACID 1 MG TABLET PO SCH (08:12)
[2020-01-17] MEDS: PREGABALIN 25 MG CAPSULE PO SCH ×3 (08:12→16:53)
[2020-01-17 08:13] VITALS: BP 127/78
[2020-01-17 16:00] VITALS: BP 133/79
[2020-01-17] MEDS: QUEtiapine FUMARATE 100 MG TABLET PO SCH (20:29)
[2020-01-17] MEDS: QUEtiapine FUMARATE 200 MG TABLET PO SCH (20:29)
[2020-01-18] MEDS: IBUPROFEN 600 MG TABLET PO SCH ×5 (00:33→23:54)
[2020-01-18 01:00] VITALS: BP 116/73
[2020-01-18] MEDS: NALTREXONE HCL 50 MG TABLET PO SCH (08:12)
[2020-01-18] MEDS: PREGABALIN 25 MG CAPSULE PO SCH ×3 (08:12→16:43)
[2020-01-18] MEDS: LamoTRIgine 25 MG TABLET PO SCH (08:12)
[2020-01-18] MEDS: THIAMINE 100 MG TABLET PO SCH ×2 (08:12→16:43)
[2020-01-18] MEDS: QUEtiapine FUMARATE 25 MG TABLET PO SCH ×4 (08:12→20:24)
[2020-01-18] MEDS: MULTIVITAMINS WITH MINERALS, THERAPEUTIC TABLET PO SCH (08:12)
[2020-01-18] MEDS: CloNIDine HCL 0.1 MG TABLET PO SCH ×2 (08:12→16:43)
[2020-01-18] MEDS: FOLIC ACID 1 MG TABLET PO SCH (08:12)
[2020-01-18 08:18] VITALS: BP 124/74
[2020-01-18 16:03] VITALS: BP 132/80
[2020-01-18] MEDS: QUEtiapine FUMARATE 200 MG TABLET PO SCH (20:24)
[2020-01-18] MEDS: QUEtiapine FUMARATE 100 MG TABLET PO SCH (20:24)
[2020-01-19 00:42] VITALS: BP 127/78
[2020-01-19] MEDS: IBUPROFEN 600 MG TABLET PO SCH ×3 (05:37→18:21)
[2020-01-19 08:16] VITALS: BP 120/79
[2020-01-19] MEDS: PREGABALIN 25 MG CAPSULE PO SCH (08:16)
[2020-01-19] MEDS: FOLIC ACID 1 MG TABLET PO SCH (08:16)
[2020-01-19] MEDS: MULTIVITAMINS WITH MINERALS, THERAPEUTIC TABLET PO SCH (08:16)
[2020-01-19] MEDS: NALTREXONE HCL 50 MG TABLET PO SCH (08:16)
[2020-01-19] MEDS: LamoTRIgine 25 MG TABLET PO SCH (08:16)
[2020-01-19] MEDS: CloNIDine HCL 0.1 MG TABLET PO SCH ×2 (08:16→16:30)
[2020-01-19] MEDS: QUEtiapine FUMARATE 25 MG TABLET PO SCH ×4 (08:16→20:06)
[2020-01-19] MEDS: THIAMINE 100 MG TABLET PO SCH (08:16)
[2020-01-19] MEDS ORDERED: DENTURE ADHESIVE 68 GM CREAM DT PRN (08:45)
[2020-01-19] MEDS: PREGABALIN 75 MG CAPSULE PO SCH ×2 (12:55→16:31)
[2020-01-19 16:00] VITALS: BP 131/73
[2020-01-19] MEDS: QUEtiapine FUMARATE 200 MG TABLET PO SCH (20:06)
[2020-01-19] MEDS: QUEtiapine FUMARATE 100 MG TABLET PO SCH (20:06)
[2020-01-20] MEDS: IBUPROFEN 600 MG TABLET PO SCH ×4 (05:04→18:06)
[2020-01-20 05:16] VITALS: BP 123/81
[2020-01-20] MEDS: QUEtiapine FUMARATE 25 MG TABLET PO SCH ×4 (08:41→20:15)
[2020-01-20] MEDS: PREGABALIN 75 MG CAPSULE PO SCH ×3 (08:41→16:31)
[2020-01-20] MEDS: MULTIVITAMINS WITH MINERALS, THERAPEUTIC TABLET PO SCH (08:41)
[2020-01-20] MEDS: CloNIDine HCL 0.1 MG TABLET PO SCH ×2 (08:41→16:31)
[2020-01-20] MEDS: NALTREXONE HCL 50 MG TABLET PO SCH (08:41)
[2020-01-20] MEDS: LamoTRIgine 25 MG TABLET PO SCH (08:41)
[2020-01-20 09:29] VITALS: BP 144/76
[2020-01-20 16:40] VITALS: BP 132/77
[2020-01-20] MEDS: QUEtiapine FUMARATE 200 MG TABLET PO SCH (20:15)
[2020-01-20] MEDS: QUEtiapine FUMARATE 100 MG TABLET PO SCH (20:15)
[2020-01-21 00:29] VITALS: BP 103/59
[2020-01-21] MEDS: IBUPROFEN 600 MG TABLET PO SCH ×4 (05:33→17:41)
[2020-01-21 09:07] VITALS: BP 122/83
[2020-01-21] MEDS: CloNIDine HCL 0.1 MG TABLET PO SCH ×2 (09:13→16:19)
[2020-01-21] MEDS: PREGABALIN 75 MG CAPSULE PO SCH ×3 (09:13→16:19)
[2020-01-21] MEDS: MULTIVITAMINS WITH MINERALS, THERAPEUTIC TABLET PO SCH (09:13)
[2020-01-21] MEDS: LamoTRIgine 25 MG TABLET PO SCH (09:13)
[2020-01-21] MEDS: NALTREXONE HCL 50 MG TABLET PO SCH (09:13)
[2020-01-21] MEDS: QUEtiapine FUMARATE 25 MG TABLET PO SCH ×4 (09:13→20:00)
[2020-01-21 16:08] VITALS: BP 130/84
[2020-01-21] MEDS: QUEtiapine FUMARATE 100 MG TABLET PO SCH (20:00)
[2020-01-21] MEDS: QUEtiapine FUMARATE 200 MG TABLET PO SCH (20:00)
[2020-01-22] MEDS: IBUPROFEN 600 MG TABLET PO SCH ×4 (06:02→17:40)
[2020-01-22 06:18] VITALS: BP 113/72
[2020-01-22] MEDS: LamoTRIgine 25 MG TABLET PO SCH (08:18)
[2020-01-22] MEDS: QUEtiapine FUMARATE 25 MG TABLET PO SCH ×4 (08:18→21:01)
[2020-01-22] MEDS: MULTIVITAMINS WITH MINERALS, THERAPEUTIC TABLET PO SCH (08:18)
[2020-01-22] MEDS: CloNIDine HCL 0.1 MG TABLET PO SCH ×2 (08:19→17:04)
[2020-01-22] MEDS: PREGABALIN 75 MG CAPSULE PO SCH ×3 (08:19→17:04)
[2020-01-22] MEDS: NALTREXONE HCL 50 MG TABLET PO SCH (08:19)
[2020-01-22 08:26] VITALS: BP 125/75
[2020-01-22 16:02] VITALS: BP 121/67
[2020-01-22] MEDS: QUEtiapine FUMARATE 100 MG TABLET PO SCH (21:00)
[2020-01-22] MEDS: QUEtiapine FUMARATE 200 MG TABLET PO SCH (21:01)
[2020-01-23 03:35] VITALS: BP 122/78
[2020-01-23] MEDS: IBUPROFEN 600 MG TABLET PO SCH ×4 (06:13→16:12)
[2020-01-23 08:10] VITALS: BP 129/83
[2020-01-23] MEDS: MULTIVITAMINS WITH MINERALS, THERAPEUTIC TABLET PO SCH (08:26)
[2020-01-23] MEDS: NALTREXONE HCL 50 MG TABLET PO SCH (08:26)
[2020-01-23] MEDS: CloNIDine HCL 0.1 MG TABLET PO SCH ×2 (08:26→16:13)
[2020-01-23] MEDS: QUEtiapine FUMARATE 25 MG TABLET PO SCH ×4 (08:26→20:42)
[2020-01-23] MEDS: PREGABALIN 75 MG CAPSULE PO SCH ×3 (08:26→16:14)
[2020-01-23] MEDS: LamoTRIgine 25 MG TABLET PO SCH (08:26)
[2020-01-23 16:17] VITALS: BP 111/73
[2020-01-23] MEDS: QUEtiapine FUMARATE 200 MG TABLET PO SCH (20:41)
[2020-01-23] MEDS: QUEtiapine FUMARATE 100 MG TABLET PO SCH (20:42)
[2020-01-24 01:56] VITALS: BP 106/67
[2020-01-24] MEDS: IBUPROFEN 600 MG TABLET PO SCH ×4 (06:00→18:05)
[2020-01-24] MEDS: LamoTRIgine 25 MG TABLET PO SCH (08:11)
[2020-01-24] MEDS: NALTREXONE HCL 50 MG TABLET PO SCH (08:11)
[2020-01-24] MEDS: CloNIDine HCL 0.1 MG TABLET PO SCH ×2 (08:12→16:20)
[2020-01-24] MEDS: QUEtiapine FUMARATE 25 MG TABLET PO SCH ×4 (08:12→20:19)
[2020-01-24] MEDS: PREGABALIN 75 MG CAPSULE PO SCH ×3 (08:12→16:20)
[2020-01-24] MEDS: MULTIVITAMINS WITH MINERALS, THERAPEUTIC TABLET PO SCH (08:12)
[2020-01-24 08:59] VITALS: BP 129/76
[2020-01-24 16:23] VITALS: BP 128/64
[2020-01-24] MEDS: QUEtiapine FUMARATE 100 MG TABLET PO SCH (20:19)
[2020-01-24] MEDS: QUEtiapine FUMARATE 200 MG TABLET PO SCH (20:19)
[2020-01-24] MEDS ORDERED: NALT50TA PO (20:36)
[2020-01-24] MEDS ORDERED: LAMO25TA66 PO (20:36)
[2020-01-24] MEDS ORDERED: QUET200T29 PO (20:36)
[2020-01-24] MEDS ORDERED: QUET25TA34 PO ×2 (20:36)
[2020-01-24] MEDS ORDERED: PREG75 PO (20:36)
[2020-01-25 06:17] VITALS: BP 122/83
[2020-01-25] MEDS: IBUPROFEN 600 MG TABLET PO SCH ×2 (06:26)
[2020-01-25 08:02] VITALS: BP 102/75
[2020-01-25] MEDS ORDERED: CLON0.1T83 PO (08:10)
[2020-01-25] MEDS ORDERED: IBUP-2070 PO (08:10)
[2020-01-25] MEDS: MULTIVITAMINS WITH MINERALS, THERAPEUTIC TABLET PO SCH (08:24)
[2020-01-25] MEDS: LamoTRIgine 25 MG TABLET PO SCH (08:24)
[2020-01-25] MEDS: NALTREXONE HCL 50 MG TABLET PO SCH (08:25)
[2020-01-25] MEDS: PREGABALIN 75 MG CAPSULE PO SCH (08:25)
[2020-01-25] MEDS: CloNIDine HCL 0.1 MG TABLET PO SCH (08:26)
[2020-01-25] MEDS: QUEtiapine FUMARATE 25 MG TABLET PO SCH (08:30)
== END 2020-01-25 11:20 | disposition home or self-care (01) | DRG 751 ==
LOC: EMS 09:43 → B2S 12:39
PROVIDERS: ADMIT Psychiatry & Neurology Psychiatry; ATTEND Psychiatry & Neurology Psychiatry
PROC: 3E0234Z Introduction of Serum, Toxoid and Vaccine into Muscle, Percutaneous Approach (ICD-10-PCS; principal; 2020-01-09)
DX: F33.3 Major depressive disorder, recurrent, severe with psychotic symptoms (principal); R45.851 Suicidal ideations; G40.909 Epilepsy, unspecified, not intractable, without status epilepticus; E78.5 Hyperlipidemia, unspecified; I25.10 Atherosclerotic heart disease of native coronary artery without angina pectoris; I10 Essential (primary) hypertension; K21.9 Gastro-esophageal reflux disease without esophagitis; I73.9 Peripheral vascular disease, unspecified; F17.210 Nicotine dependence, cigarettes, uncomplicated; F10.229 Alcohol dependence with intoxication, unspecified; S86.911A Strain of unspecified muscle(s) and tendon(s) at lower leg level, right leg, initial encounter; E66.9 Obesity, unspecified; Z59.0 Homelessness; Z91.19 Patient's noncompliance with other medical treatment and regimen; Z91.5 Personal history of self-harm; Z88.8 Allergy status to other drugs, medicaments and biological substances; Z03.818 Encounter for observation for suspected exposure to other biological agents ruled out; Z68.33 Body mass index [BMI] 33.0-33.9, adult; Z23 Encounter for immunization
CPT/HCPCS: 83036; 84132; 87081; 90732; G0480; J3420

== ENCOUNTER 2020-03-13 06:00 | Inpatient (IN) | payer MEDICAID ==
[~2020-03-13] VITALS: Ht 170.2 cm; Wt 88.1 kg
[~2020-03-13 06:00] MED LIST changes: +CLON0.1T83 PO; +IBUP-2070 PO; -PREG50 PO; +PREG75 PO
[2020-03-13] MEDS ORDERED: TRAZ-252 PO (06:18)
[2020-03-13] MEDS ORDERED: BUSP10TA23 PO (06:18)
[2020-03-13] MEDS ORDERED: PRAZ2CAP2 PO (06:18)
[2020-03-13] MEDS ORDERED: FOLI-130 PO (06:18)
[2020-03-13] MEDS ORDERED: ATOR40TA71 PO (06:18)
[2020-03-13] MEDS ORDERED: HYD50 PO (06:18)
[2020-03-13] MEDS ORDERED: ASPI-1198 PO (06:18)
[2020-03-13] MEDS ORDERED: PANT40TA25 PO (06:18)
[2020-03-13] MEDS ORDERED: CARV12.530 PO (06:18)
[2020-03-13] MEDS ORDERED: ESCI10TA61 PO (06:18)
[2020-03-13 06:42] LABS: BASOPHILS % (AUTO) 0.8 % (0.0-2.0); EOSINOPHILS % (AUTO) 0.9 % (1.0-6.0); HEMATOCRIT 42.6 % (41-53); HEMOGLOBIN 14.8 g/dL (13.5-17.5); LYMPHOCYTES # (AUTO) 1.7 K/uL (1.0-4.8); LYMPHOCYTES % (AUTO) 15.5 % (22.0-44.0); MEAN CORPUSCULAR HEMOGLOBIN 33.1 pg (26.0-34.0); MEAN CORPUSCULAR HGB CONC 34.7 G/dL (31.0-37.0); MEAN CORPUSCULAR VOLUME 96 fL (80-100); MONOCYTES # (AUTO) 1.2 K/uL (0.1-1.0); MONOCYTES % (AUTO) 11.1 % (2.0-9.0); NEUTROPHILS # (AUTO) 7.9 K/uL (1.8-7.7); NEUTROPHILS % (AUTO) 71.7 % (40.0-70.0); PLATELET COUNT (AUTO) 331 K/uL (150-450); RED BLOOD CELL COUNT(AUTO) 4.46 MIL/uL (4.50-5.90); RED CELL DISTRIBUTION WIDTH 13.4 % (11.5-14.5)
[2020-03-13 06:58] LABS: ANION GAP 9 mmol/L (8-16); CARBON DIOXIDE 31 mmol/L (22-29); CHLORIDE 98 mmol/L (98-107); CREATININE 1.21 mg/dL (0.60-1.30); GLOMERULAR FILTR. RATE CALC > 60 mL/min (>60); GLUCOSE,RANDOM 109 mg/dL (70-110); POTASSIUM 3.4 mmol/L (3.5-5.1); SODIUM SERUM 138 mmol/L (136-145); UREA NITROGEN, BLOOD 20 mg/dL (7-18)
[2020-03-13 07:04] LABS: ALANINE AMINOTRANSFERASE 33 U/L (12-78); ALBUMIN 3.9 g/dL (3.4-5.0); ALKALINE PHOSPHATASE 105 U/L (46-116); ASPARTATE AMINOTRANSFERASE 47 U/L (15-37); BILIRUBIN,TOTAL 1.2 mg/dL (0.1-1.0); TOTAL PROTEIN, SERUM 8.3 g/dL (6.4-8.2)
[2020-03-13 07:05] LABS: AMPHET/METH SCREEN,URINE NEGATIVE (NEGATIVE); BARBITURATE SCREEN, URINE NEGATIVE (NEGATIVE); BENZODIAZEPINES SCREEN,URINE NEGATIVE (NEGATIVE); CANNABINOID SCREEN,URINE NEGATIVE (NEGATIVE); COCAINE SCREEN,URINE NEGATIVE (NEGATIVE); METHADONE SCREEN, URINE NEGATIVE (NEGATIVE); OPIATE SCREEN,URINE NEGATIVE (NEGATIVE)
[2020-03-13 07:06] LABS: PHENCYCLIDINE SCREEN,URINE NEGATIVE (NEGATIVE)
[2020-03-13] MEDS ORDERED: MAG HYDROX/AL HYDROX/SIMETH ES 30 ML SUSPENSION UDCUP PO PRN (09:30)
[2020-03-13] MEDS ORDERED: PROMETHAZINE HCL 25 MG TABLET PO PRN (09:30)
[2020-03-13] MEDS ORDERED: HydrOXYzine PAMOATE 50 MG CAPSULE PO PRN (09:30)
[2020-03-13] MEDS ORDERED: ACETAMINOPHEN 325 MG TABLET PO PRN (09:30)
[2020-03-13] MEDS ORDERED: GuaiFENesin/D-METHORPHAN [SUGAR-FREE] 200-20MG/10 ML SYRUP UDCUP PO PRN (09:30)
[2020-03-13] MEDS ORDERED: ZOLPIDEM TARTRATE 10 MG TABLET PO PRN (09:30)
[2020-03-13] MEDS ORDERED: MAGNESIUM HYDROXIDE SUSPENSION 30 ML UDCUP PO PRN (09:30)
[2020-03-13] MEDS ORDERED: QUEtiapine FUMARATE 100 MG TABLET PO PRN (09:30)
[2020-03-13] MEDS ORDERED: LOPERAMIDE HCL 2 MG CAPSULE PO PRN (09:30)
[2020-03-13] MEDS: PREGABALIN 25 MG CAPSULE PO SCH ×2 (13:19→17:05)
[2020-03-13] MEDS: QUEtiapine FUMARATE 25 MG TABLET PO SCH ×2 (13:19→17:05)
[2020-03-13 13:24] VITALS: BP 133/74
[2020-03-13 16:24] VITALS: BP 135/71
[2020-03-13] MEDS: THIAMINE 100 MG TABLET PO SCH (17:05)
[2020-03-13] MEDS ORDERED: POTASSIUM CHLORIDE 20 MEQ ER TABLET PO ONE (17:30)
[2020-03-13] MEDS: QUEtiapine FUMARATE 200 MG TABLET PO SCH (20:15)
[2020-03-14 00:23] VITALS: BP 136/75
[2020-03-14] MEDS: FOLIC ACID 1 MG TABLET PO SCH (08:14)
[2020-03-14] MEDS: QUEtiapine FUMARATE 25 MG TABLET PO SCH ×3 (08:14→16:35)
[2020-03-14] MEDS: THIAMINE 100 MG TABLET PO SCH ×2 (08:14→16:35)
[2020-03-14] MEDS: MULTIVITAMINS WITH MINERALS, THERAPEUTIC TABLET PO SCH (08:14)
[2020-03-14] MEDS: PREGABALIN 25 MG CAPSULE PO SCH ×3 (08:14→16:35)
[2020-03-14] MEDS: LamoTRIgine 25 MG TABLET PO SCH (08:14)
[2020-03-14] MEDS: NALTREXONE HCL 50 MG TABLET PO SCH (08:14)
[2020-03-14 08:29] LABS: BASOPHILS % (AUTO) 1.4 % (0.0-2.0); EOSINOPHILS % (AUTO) 3.1 % (1.0-6.0); HEMATOCRIT 41.7 % (41-53); HEMOGLOBIN 14.4 g/dL (13.5-17.5); MEAN CORPUSCULAR HEMOGLOBIN 33.4 pg (26.0-34.0); MEAN CORPUSCULAR HGB CONC 34.6 G/dL (31.0-37.0); MEAN CORPUSCULAR VOLUME 96 fL (80-100); MONOCYTES # (AUTO) 0.9 K/uL (0.1-1.0); MONOCYTES % (AUTO) 11.8 % (2.0-9.0); NEUTROPHILS % (AUTO) 55.7 % (40.0-70.0); PLATELET COUNT (AUTO) 331 K/uL (150-450); RED BLOOD CELL COUNT(AUTO) 4.33 MIL/uL (4.50-5.90)
[2020-03-14 08:34] VITALS: BP 133/80
[2020-03-14 08:47] LABS: CHOL/HDL RATIO 3.2 (4.2-7.3); POTASSIUM 3.3 mmol/L (3.5-5.1)
[2020-03-14 09:11] LABS: HEMOGLOBIN A1C 5.4 % (3.8-5.6)
[2020-03-14 16:12] VITALS: BP 116/84
[2020-03-14] MEDS: QUEtiapine FUMARATE 200 MG TABLET PO SCH (20:29)
[2020-03-15 06:13] VITALS: BP 140/84
[2020-03-15] MEDS: FOLIC ACID 1 MG TABLET PO SCH (08:35)
[2020-03-15] MEDS: THIAMINE 100 MG TABLET PO SCH ×2 (08:36→16:23)
[2020-03-15] MEDS: MULTIVITAMINS WITH MINERALS, THERAPEUTIC TABLET PO SCH (08:36)
[2020-03-15] MEDS: PREGABALIN 25 MG CAPSULE PO SCH ×3 (08:36→16:23)
[2020-03-15] MEDS: QUEtiapine FUMARATE 25 MG TABLET PO SCH ×3 (08:36→16:23)
[2020-03-15] MEDS: LamoTRIgine 25 MG TABLET PO SCH (08:36)
[2020-03-15] MEDS: NALTREXONE HCL 50 MG TABLET PO SCH (08:36)
[2020-03-15 08:45] VITALS: BP 115/68
[2020-03-15] MEDS ORDERED: POTASSIUM CHLORIDE 20 MEQ ER TABLET PO ONE (08:45)
[2020-03-15 16:00] VITALS: BP 121/72
[2020-03-15] MEDS: QUEtiapine FUMARATE 200 MG TABLET PO SCH (20:10)
[2020-03-16 06:10] VITALS: BP 118/68
[2020-03-16] MEDS: THIAMINE 100 MG TABLET PO SCH ×2 (08:13→16:37)
[2020-03-16] MEDS: PREGABALIN 25 MG CAPSULE PO SCH ×3 (08:13→16:36)
[2020-03-16] MEDS: FOLIC ACID 1 MG TABLET PO SCH (08:13)
[2020-03-16] MEDS: LamoTRIgine 25 MG TABLET PO SCH (08:13)
[2020-03-16] MEDS: QUEtiapine FUMARATE 25 MG TABLET PO SCH ×3 (08:13→16:37)
[2020-03-16] MEDS: NALTREXONE HCL 50 MG TABLET PO SCH (08:13)
[2020-03-16] MEDS: MULTIVITAMINS WITH MINERALS, THERAPEUTIC TABLET PO SCH (08:13)
[2020-03-16 08:53] VITALS: BP 101/40
[2020-03-16 16:40] VITALS: BP 142/83
[2020-03-16] MEDS: LORazepam 2 MG TABLET PO PRN (17:52)
[2020-03-16] MEDS: QUEtiapine FUMARATE 200 MG TABLET PO SCH (20:52)
[2020-03-17 00:58] VITALS: BP 119/73
[2020-03-17] MEDS: MULTIVITAMINS WITH MINERALS, THERAPEUTIC TABLET PO SCH (08:19)
[2020-03-17] MEDS: FOLIC ACID 1 MG TABLET PO SCH (08:19)
[2020-03-17] MEDS: PREGABALIN 25 MG CAPSULE PO SCH ×3 (08:19→16:21)
[2020-03-17] MEDS: NALTREXONE HCL 50 MG TABLET PO SCH (08:19)
[2020-03-17] MEDS: QUEtiapine FUMARATE 25 MG TABLET PO SCH ×3 (08:20→16:22)
[2020-03-17] MEDS: LamoTRIgine 25 MG TABLET PO SCH (08:20)
[2020-03-17] MEDS: THIAMINE 100 MG TABLET PO SCH ×2 (08:20→16:22)
[2020-03-17 08:26] VITALS: BP 125/73
[2020-03-17] MEDS: LORazepam 2 MG TABLET PO PRN ×3 (09:15→18:38)
[2020-03-17 16:08] VITALS: BP 111/61
[2020-03-17] MEDS: QUEtiapine FUMARATE 200 MG TABLET PO SCH (20:35)
[2020-03-18 09:29] VITALS: BP 113/70
[2020-03-18] MEDS: NALTREXONE HCL 50 MG TABLET PO SCH (09:48)
[2020-03-18] MEDS: THIAMINE 100 MG TABLET PO SCH ×2 (09:49→16:33)
[2020-03-18] MEDS: FOLIC ACID 1 MG TABLET PO SCH (09:49)
[2020-03-18] MEDS: PREGABALIN 25 MG CAPSULE PO SCH ×3 (09:49→16:33)
[2020-03-18] MEDS: MULTIVITAMINS WITH MINERALS, THERAPEUTIC TABLET PO SCH (09:49)
[2020-03-18] MEDS: LamoTRIgine 25 MG TABLET PO SCH (09:49)
[2020-03-18] MEDS: LORazepam 2 MG TABLET PO PRN ×3 (09:49→21:06)
[2020-03-18] MEDS: QUEtiapine FUMARATE 25 MG TABLET PO SCH ×3 (10:25→16:33)
[2020-03-18 16:04] VITALS: BP 128/85
[2020-03-18] MEDS: QUEtiapine FUMARATE 200 MG TABLET PO SCH (20:36)
[2020-03-19 05:49] VITALS: BP 115/78
[2020-03-19 08:57] VITALS: BP 120/75
[2020-03-19] MEDS: NALTREXONE HCL 50 MG TABLET PO SCH (09:19)
[2020-03-19] MEDS: THIAMINE 100 MG TABLET PO SCH ×2 (09:19→16:24)
[2020-03-19] MEDS: LamoTRIgine 25 MG TABLET PO SCH (09:19)
[2020-03-19] MEDS: QUEtiapine FUMARATE 25 MG TABLET PO SCH ×3 (09:19→16:28)
[2020-03-19] MEDS: PREGABALIN 25 MG CAPSULE PO SCH ×4 (09:19→15:14)
[2020-03-19] MEDS: MULTIVITAMINS WITH MINERALS, THERAPEUTIC TABLET PO SCH (09:19)
[2020-03-19] MEDS: FOLIC ACID 1 MG TABLET PO SCH (09:19)
[2020-03-19] MEDS: LORazepam 2 MG TABLET PO PRN ×2 (11:29→17:57)
[2020-03-19 16:01] VITALS: BP 124/83
[2020-03-19] MEDS: PREGABALIN 50 MG CAPSULE PO SCH (16:40)
[2020-03-19] MEDS: QUEtiapine FUMARATE 200 MG TABLET PO SCH (19:57)
[2020-03-20 02:22] VITALS: BP 115/70
[2020-03-20 08:16] VITALS: BP 114/67
[2020-03-20] MEDS: LamoTRIgine 25 MG TABLET PO SCH (08:25)
[2020-03-20] MEDS: PREGABALIN 50 MG CAPSULE PO SCH ×3 (08:25→16:16)
[2020-03-20] MEDS: THIAMINE 100 MG TABLET PO SCH ×2 (08:25→16:16)
[2020-03-20] MEDS: QUEtiapine FUMARATE 25 MG TABLET PO SCH ×3 (08:25→16:17)
[2020-03-20] MEDS: MULTIVITAMINS WITH MINERALS, THERAPEUTIC TABLET PO SCH (08:25)
[2020-03-20] MEDS: NALTREXONE HCL 50 MG TABLET PO SCH (08:25)
[2020-03-20] MEDS: FOLIC ACID 1 MG TABLET PO SCH (08:26)
[2020-03-20] MEDS: LORazepam 2 MG TABLET PO PRN ×2 (09:08→17:22)
[2020-03-20 16:00] VITALS: BP 129/73
[2020-03-20] MEDS: QUEtiapine FUMARATE 200 MG TABLET PO SCH (20:10)
[2020-03-21 01:04] VITALS: BP 130/75
[2020-03-21] MEDS: MULTIVITAMINS WITH MINERALS, THERAPEUTIC TABLET PO SCH (08:49)
[2020-03-21] MEDS: QUEtiapine FUMARATE 25 MG TABLET PO SCH ×3 (08:49→16:31)
[2020-03-21] MEDS: THIAMINE 100 MG TABLET PO SCH ×2 (08:49→16:31)
[2020-03-21] MEDS: LamoTRIgine 25 MG TABLET PO SCH (08:49)
[2020-03-21] MEDS: FOLIC ACID 1 MG TABLET PO SCH (08:49)
[2020-03-21] MEDS: NALTREXONE HCL 50 MG TABLET PO SCH (08:49)
[2020-03-21] MEDS: PREGABALIN 50 MG CAPSULE PO SCH ×3 (08:49→16:31)
[2020-03-21 09:23] VITALS: BP 141/80
[2020-03-21] MEDS: LORazepam 2 MG TABLET PO PRN ×2 (14:18→18:32)
[2020-03-21 16:04] VITALS: BP 110/73
[2020-03-21] MEDS: QUEtiapine FUMARATE 200 MG TABLET PO SCH (20:08)
[2020-03-22 06:03] VITALS: BP 121/83
[2020-03-22 08:06] VITALS: BP 138/84
[2020-03-22] MEDS: QUEtiapine FUMARATE 25 MG TABLET PO SCH ×3 (08:18→16:14)
[2020-03-22] MEDS: FOLIC ACID 1 MG TABLET PO SCH (08:18)
[2020-03-22] MEDS: THIAMINE 100 MG TABLET PO SCH ×2 (08:18→16:14)
[2020-03-22] MEDS: NALTREXONE HCL 50 MG TABLET PO SCH (08:18)
[2020-03-22] MEDS: PREGABALIN 50 MG CAPSULE PO SCH ×3 (08:18→16:14)
[2020-03-22] MEDS: MULTIVITAMINS WITH MINERALS, THERAPEUTIC TABLET PO SCH (08:18)
[2020-03-22] MEDS: LamoTRIgine 25 MG TABLET PO SCH (08:18)
[2020-03-22] MEDS: LORazepam 2 MG TABLET PO PRN ×2 (10:41→17:04)
[2020-03-22 16:05] VITALS: BP_SYST 108; BP_SYST 138; BP_DIAS 73; BP_DIAS 84
[2020-03-22] MEDS: QUEtiapine FUMARATE 200 MG TABLET PO SCH (20:12)
[2020-03-23 01:07] VITALS: BP 100/60
[2020-03-23] MEDS: NALTREXONE HCL 50 MG TABLET PO SCH (08:05)
[2020-03-23] MEDS: PREGABALIN 50 MG CAPSULE PO SCH ×3 (08:05→16:10)
[2020-03-23] MEDS: LamoTRIgine 25 MG TABLET PO SCH (08:05)
[2020-03-23] MEDS: FOLIC ACID 1 MG TABLET PO SCH (08:06)
[2020-03-23] MEDS: QUEtiapine FUMARATE 25 MG TABLET PO SCH ×3 (08:06→16:10)
[2020-03-23] MEDS: MULTIVITAMINS WITH MINERALS, THERAPEUTIC TABLET PO SCH (08:06)
[2020-03-23 08:08] VITALS: BP 128/78
[2020-03-23] MEDS: LORazepam 2 MG TABLET PO PRN ×2 (10:43→15:00)
[2020-03-23 16:49] VITALS: BP 121/61
[2020-03-23] MEDS: QUEtiapine FUMARATE 200 MG TABLET PO SCH (20:19)
[2020-03-24 02:01] VITALS: BP 124/67
[2020-03-24] MEDS: QUEtiapine FUMARATE 25 MG TABLET PO SCH ×3 (08:38→16:29)
[2020-03-24] MEDS: MULTIVITAMINS WITH MINERALS, THERAPEUTIC TABLET PO SCH (08:38)
[2020-03-24] MEDS: LamoTRIgine 25 MG TABLET PO SCH (08:38)
[2020-03-24] MEDS: NALTREXONE HCL 50 MG TABLET PO SCH (08:38)
[2020-03-24] MEDS: PREGABALIN 50 MG CAPSULE PO SCH ×3 (08:38→16:29)
[2020-03-24 08:57] VITALS: BP 101/57
[2020-03-24 10:15] VITALS: BP 111/68
[2020-03-24] MEDS: LORazepam 2 MG TABLET PO PRN ×2 (10:19→15:03)
[2020-03-24 16:21] VITALS: BP 99/65
[2020-03-24] MEDS: QUEtiapine FUMARATE 200 MG TABLET PO SCH (20:05)
[2020-03-25] MEDS ORDERED: LAMO25TA25 PO (00:07)
[2020-03-25] MEDS ORDERED: NALT50TA6 PO (00:07)
[2020-03-25] MEDS ORDERED: QUET25TA PO (00:08)
[2020-03-25] MEDS ORDERED: QUET200T PO (00:08)
[2020-03-25] MEDS ORDERED: MULT-1203 PO (00:10)
[2020-03-25] MEDS ORDERED: PREG25 PO (00:10)
[2020-03-25 06:17] VITALS: BP 116/60
== END 2020-03-25 07:30 | disposition home or self-care (01) | DRG 885 ==
LOC: EMS 06:00 → B2S 11:03
PROVIDERS: ADMIT Psychiatry & Neurology Psychiatry; ATTEND Psychiatry & Neurology Psychiatry
DX: F25.0 Schizoaffective disorder, bipolar type (principal); R45.851 Suicidal ideations; I73.9 Peripheral vascular disease, unspecified; I25.10 Atherosclerotic heart disease of native coronary artery without angina pectoris; I10 Essential (primary) hypertension; E78.5 Hyperlipidemia, unspecified; F10.20 Alcohol dependence, uncomplicated; F17.210 Nicotine dependence, cigarettes, uncomplicated; Z20.828 Contact with and (suspected) exposure to other viral communicable diseases; G40.409 Other generalized epilepsy and epileptic syndromes, not intractable, without status epilepticus; Z79.899 Other long term (current) drug therapy; Z91.14 Patient's other noncompliance with medication regimen; Z91.19 Patient's noncompliance with other medical treatment and regimen; Z91.5 Personal history of self-harm
CPT/HCPCS: 83036; 84132; G0480

== ENCOUNTER 2020-05-02 13:49 | Emergency (ER) | payer MEDICAID ==
[~2020-05-02] VITALS: Ht 170.2 cm; Wt 86.4 kg
[~2020-05-02 13:49] MED LIST changes: -CLON0.1T83 PO; -IBUP-2070 PO; +LAMO25TA25 PO; -LAMO25TA66 PO; +MULT-1203 PO; -NALT50TA PO; +NALT50TA6 PO; +PREG25 PO; -PREG75 PO; +QUET200T PO; -QUET200T29 PO; +QUET25TA PO; -QUET25TA34 PO
[2020-05-02] MEDS ORDERED: LORazepam 2 MG TABLET PO ONE (15:00)
[2020-05-02 16:24] LABS: BASOPHILS % (AUTO) 0.4 % (0.0-2.0); EOSINOPHILS % (AUTO) 0.6 % (1.0-6.0); HEMOGLOBIN 16.3 g/dL (13.5-17.5); LYMPHOCYTES # (AUTO) 2.1 K/uL (1.0-4.8); LYMPHOCYTES % (AUTO) 29.3 % (22.0-44.0); MEAN CORPUSCULAR HEMOGLOBIN 32.2 pg (26.0-34.0); MEAN CORPUSCULAR HGB CONC 33.9 G/dL (31.0-37.0); MEAN CORPUSCULAR VOLUME 95 fL (80-100); MONOCYTES # (AUTO) 0.7 K/uL (0.1-1.0); MONOCYTES % (AUTO) 9.5 % (2.0-9.0); NEUTROPHILS # (AUTO) 4.3 K/uL (1.8-7.7); NEUTROPHILS % (AUTO) 60.2 % (40.0-70.0); PLATELET COUNT (AUTO) 168 K/uL (150-450); RED BLOOD CELL COUNT(AUTO) 5.06 MIL/uL (4.50-5.90); RED CELL DISTRIBUTION WIDTH 13.3 % (11.5-14.5)
[2020-05-02 16:40] LABS: ALANINE AMINOTRANSFERASE 186 U/L (12-78); ALKALINE PHOSPHATASE 115 U/L (46-116); ANION GAP 14 mmol/L (8-16); ASPARTATE AMINOTRANSFERASE 130 U/L (15-37); BILIRUBIN,TOTAL 1.4 mg/dL (0.1-1.0); CALCIUM, TOTAL 8.1 mg/dL (8.8-10.5); CARBON DIOXIDE 23 mmol/L (22-29); CHLORIDE 97 mmol/L (98-107); GLUCOSE,RANDOM 150 mg/dL (70-110); POTASSIUM 3.5 mmol/L (3.5-5.1); SODIUM SERUM 134 mmol/L (136-145); TOTAL PROTEIN, SERUM 7.8 g/dL (6.4-8.2); UREA NITROGEN, BLOOD 11 mg/dL (7-18)
[2020-05-02 16:51] LABS: CREATININE 0.87 mg/dL (0.60-1.30); GLOMERULAR FILTR. RATE CALC > 60 mL/min (>60)
[2020-05-02 19:30] VITALS: BP 172/96
[2020-05-02] MEDS ORDERED: LORazepam 1 MG TABLET PO ONE (19:30)
[2020-05-02] MEDS ORDERED: FAMOTIDINE 20 MG TABLET PO ONE (19:45)
== END 2020-05-02 21:19 | disposition home or self-care (01) ==
LOC: EMS 13:50
DX: F33.9 Major depressive disorder, recurrent, unspecified (principal); Z20.828 Contact with and (suspected) exposure to other viral communicable diseases; F10.129 Alcohol abuse with intoxication, unspecified; R79.89 Other specified abnormal findings of blood chemistry; Y90.8 Blood alcohol level of 240 mg/100 ml or more
CPT/HCPCS: 36415; 80053; 85025; 87426; 99284; G0480

== ENCOUNTER 2021-12-03 16:23 | Inpatient (IN) | payer MEDICAID ==
[~2021-12-03] VITALS: Ht 170.2 cm; Wt 83.3 kg
[~2021-12-03 16:23] MED LIST changes: -LAMO25TA25 PO; -MULT-1203 PO; -PREG25 PO
[2021-12-03] MEDS ORDERED: CHOL25TA4 PO (16:43)
[2021-12-03] MEDS ORDERED: ASPI-1450 PO (16:43)
[2021-12-03] MEDS ORDERED: ATOR40TA71 PO (16:43)
[2021-12-03] MEDS ORDERED: THIA100T80 PO (16:43)
[2021-12-03 17:26] LABS: BASOPHILS % (AUTO) 1.1 % (0.0-2.0); EOSINOPHILS % (AUTO) 3.8 % (1.0-6.0); HEMATOCRIT 45.7 % (41-53); HEMOGLOBIN 15.7 g/dL (13.5-17.5); LYMPHOCYTES # (AUTO) 1.4 K/uL (1.0-4.8); LYMPHOCYTES % (AUTO) 30.8 % (22.0-44.0); MEAN CORPUSCULAR HGB CONC 34.4 G/dL (31.0-37.0); MEAN CORPUSCULAR VOLUME 102 fL (80-100); MONOCYTES # (AUTO) 0.7 K/uL (0.1-1.0); MONOCYTES % (AUTO) 14.4 % (2.0-9.0); NEUTROPHILS # (AUTO) 2.3 K/uL (1.8-7.7); NEUTROPHILS % (AUTO) 49.9 % (40.0-70.0); PLATELET COUNT (AUTO) 225 K/uL (150-450); RED CELL DISTRIBUTION WIDTH 14.8 % (11.5-14.5)
[2021-12-03 17:28] LABS: ANION GAP 14 mmol/L (8-16); CALCIUM, TOTAL 9.3 mg/dL (8.8-10.5); CARBON DIOXIDE 23 mmol/L (22-29); CHLORIDE 98 mmol/L (98-107); CREATININE 1.18 mg/dL (0.60-1.30); GLOMERULAR FILTR. RATE CALC > 60 mL/min (>60); GLUCOSE,RANDOM 100 mg/dL (70-110); POTASSIUM 3.8 mmol/L (3.5-5.1); SODIUM SERUM 135 mmol/L (136-145); UREA NITROGEN, BLOOD 6 mg/dL (7-18)
[2021-12-03 17:34] LABS: ALANINE AMINOTRANSFERASE 30 U/L (12-78); ALBUMIN 3.2 g/dL (3.4-5.0); ALKALINE PHOSPHATASE 152 U/L (46-116); ASPARTATE AMINOTRANSFERASE 46 U/L (15-37); BILIRUBIN,TOTAL 0.5 mg/dL (0.1-1.0); LIPASE 258 U/L (73-393); TOTAL PROTEIN, SERUM 7.7 g/dL (6.4-8.2)
[2021-12-03 18:32] LABS: APPEARANCE,URINE CLEAR (CLEAR); BILIRUBIN,URINE NEGATIVE (NEGATIVE); GLUCOSE, URINE (UA) NEGATIVE (NEGATIVE); KETONES,URINE NEGATIVE (NEGATIVE); LEUKOCYTE ESTERASE ,URINE NEGATIVE (NEGATIVE); NITRATE,URINE NEGATIVE (NEGATIVE); OCCULT BLOOD,URINE MODERATE (NEGATIVE); PH,URINE 5.5 (5.0-8.0); PROTEIN,URINE NEGATIVE (NEGATIVE); SPECIFIC GRAVITIY, URINE 1.004 (1.003-1.030); UROBILINOGEN,URINE <=1.0 mg/dL (<=1.0)
[2021-12-03 18:38] LABS: AMPHET/METH SCREEN,URINE NEGATIVE (NEGATIVE); BARBITURATE SCREEN, URINE NEGATIVE (NEGATIVE); BENZODIAZEPINES SCREEN,URINE NEGATIVE (NEGATIVE); CANNABINOID SCREEN,URINE POSITIVE (NEGATIVE); COCAINE SCREEN,URINE NEGATIVE (NEGATIVE); METHADONE SCREEN, URINE NEGATIVE (NEGATIVE); OPIATE SCREEN,URINE NEGATIVE (NEGATIVE); PHENCYCLIDINE SCREEN,URINE NEGATIVE (NEGATIVE)
[2021-12-03] MEDS ORDERED: MAGNESIUM SULFATE 2 GM, MVI, ADULT NO.1 WITH VIT K 10 ML, THIAMINE 100 MG, FOLIC ACID 1... IV ONE ×5 (18:45)
[2021-12-03 18:55] LABS: BACTERIA,URINE Rare /HPF (None Seen); SQUAMOUS EPITHELIAL CELL,UR Rare /LPF (None Seen); WBC,URINE 0-2 /HPF (0-5)
[2021-12-03 19:34] LABS: COVID AG,FIA SOURCE NASOPHARYNGEAL
[2021-12-03] MEDS ORDERED: LORazepam 2 MG TABLET PO PRN (20:30)
[2021-12-03] MEDS ORDERED: ONDANSETRON HCL 4 MG/2 ML VIAL IVP PRN (20:30)
[2021-12-03] MEDS ORDERED: ACETAMINOPHEN 325 MG TABLET PO PRN (20:30)
[2021-12-03 21:00] VITALS: BP 139/75
[2021-12-03 21:19] VITALS: BP 139/75
[2021-12-03 23:32] VITALS: BP 118/67
[2021-12-04] VITALS (7 sets, daily range): BP systolic 98–118; BP diastolic 64–86
[2021-12-04] MEDS ORDERED: QUEtiapine FUMARATE 100 MG TABLET PO ONE (00:30)
[2021-12-04] MEDS: HEPARIN SODIUM,PORCINE 5,000 UNITS/ML VIAL SQ SCH ×4 (00:40→22:51)
[2021-12-04] MEDS: 1: MAGNESIUM SULFATE 2 GM, MVI, ADULT NO.1 WITH VIT K 10 ML, THIAMINE 100 MG, FOLIC ACID IV SCH ×15 (04:45→22:50)
[2021-12-04] MEDS ORDERED: LORazepam 2 MG TABLET PO PRN (07:00)
[2021-12-04] MEDS: LORazepam 2 MG TABLET PO SCH ×4 (08:45→21:20)
[2021-12-04] MEDS: MULTIVITAMINS, THERAPEUTIC 15 ML UDCUP PO SCH (08:45)
[2021-12-04] MEDS ORDERED: QUEtiapine FUMARATE 100 MG TABLET PO SCH (21:00)
[2021-12-04] MEDS ORDERED: QUEtiapine FUMARATE 300 MG TABLET PO SCH (21:00)
[2021-12-04] MEDS ORDERED: SODIUM CHLORIDE 0.9% 1,000 ML ONE (22:47)
[2021-12-05 00:02] VITALS: BP 107/69
[2021-12-05 04:00] VITALS: BP 129/90
[2021-12-05 07:40] VITALS: BP 145/67
[2021-12-05] MEDS: HEPARIN SODIUM,PORCINE 5,000 UNITS/ML VIAL SQ SCH ×2 (08:20→16:48)
[2021-12-05] MEDS: MULTIVITAMINS, THERAPEUTIC 15 ML UDCUP PO SCH (08:21)
[2021-12-05] MEDS: LORazepam 2 MG TABLET PO SCH ×3 (08:21→16:48)
[2021-12-05 12:17] VITALS: BP 123/74
[2021-12-05 12:35] VITALS: BP 118/66
[2021-12-05 16:11] VITALS: BP 112/62
[2021-12-06] MEDS ORDERED: LORazepam 1 MG TABLET PO PRN (07:00)
[2021-12-06] MEDS ORDERED: LORazepam 1 MG TABLET PO SCH (09:00)
[2021-12-07] MEDS ORDERED: LORazepam 1 MG TABLET PO PRN (07:00)
== END 2021-12-05 19:10 | disposition home or self-care (01) | DRG 204 ==
LOC: EMS 16:24 → 5N 20:22
PROVIDERS: ADMIT Internal Medicine; ATTEND Internal Medicine
DX: R55 Syncope and collapse (principal); K70.30 Alcoholic cirrhosis of liver without ascites; F10.239 Alcohol dependence with withdrawal, unspecified; I10 Essential (primary) hypertension; F32.A Depression, unspecified; I73.9 Peripheral vascular disease, unspecified; F17.210 Nicotine dependence, cigarettes, uncomplicated; Z20.822 Contact with and (suspected) exposure to COVID-19; F99 Mental disorder, not otherwise specified; F41.9 Anxiety disorder, unspecified; S00.83XA Contusion of other part of head, initial encounter; W18.39XA Other fall on same level, initial encounter; Y93.89 Activity, other specified; Z82.49 Family history of ischemic heart disease and other diseases of the circulatory system; Z88.8 Allergy status to other drugs, medicaments and biological substances; Y92.89 Other specified places as the place of occurrence of the external cause; Y99.8 Other external cause status
CPT/HCPCS: 70450; 71045; 80053; 81001; 83690; 83735; 84484; 85025; 93005; 93306; 93880; 97116; 97161; 99285; G0480; J1644; J3411; J3475; J3490; J7030; 36415-L1; 36415-TC

== ENCOUNTER 2021-12-13 17:57 | Inpatient (IN) | payer MEDICAID ==
[~2021-12-13] VITALS: Ht 170.2 cm; Wt 78.5 kg
[~2021-12-13 17:57] MED LIST changes: +ASPI-1450 PO; +ATOR40TA71 PO; +CHOL25TA4 PO; -NALT50TA6 PO; -QUET25TA PO; +THIA100T80 PO
[2021-12-13 18:29] LABS: COVID AG,FIA SOURCE NASAL SWAB
[2021-12-13 18:50] LABS: BASOPHILS % (AUTO) 0.7 % (0.0-2.0); EOSINOPHILS % (AUTO) 0.3 % (1.0-6.0); HEMATOCRIT 43.8 % (41-53); HEMOGLOBIN 15.1 g/dL (13.5-17.5); LYMPHOCYTES # (AUTO) 0.7 K/uL (1.0-4.8); LYMPHOCYTES % (AUTO) 9.9 % (22.0-44.0); MEAN CORPUSCULAR HEMOGLOBIN 34.7 pg (26.0-34.0); MEAN CORPUSCULAR HGB CONC 34.5 G/dL (31.0-37.0); MEAN CORPUSCULAR VOLUME 101 fL (80-100); MONOCYTES # (AUTO) 0.4 K/uL (0.1-1.0); MONOCYTES % (AUTO) 6.2 % (2.0-9.0); NEUTROPHILS # (AUTO) 5.8 K/uL (1.8-7.7); NEUTROPHILS % (AUTO) 82.9 % (40.0-70.0); PLATELET COUNT (AUTO) 241 K/uL (150-450); RED BLOOD CELL COUNT(AUTO) 4.35 MIL/uL (4.50-5.90); RED CELL DISTRIBUTION WIDTH 14.3 % (11.5-14.5)
[2021-12-13 18:53] LABS: CALCIUM, TOTAL 9.5 mg/dL (8.8-10.5); CREATININE 1.33 mg/dL (0.60-1.30); POTASSIUM 4.6 mmol/L (3.5-5.1)
[2021-12-13 18:59] LABS: ALBUMIN 3.5 g/dL (3.4-5.0); BILIRUBIN,TOTAL 0.5 mg/dL (0.1-1.0); TOTAL PROTEIN, SERUM 8.2 g/dL (6.4-8.2)
[2021-12-13] MEDS ORDERED: ZOLPIDEM TARTRATE 10 MG TABLET PO PRN (21:00)
[2021-12-13] MEDS ORDERED: HALOPERIDOL 5 MG TABLET PO PRN (21:00)
[2021-12-14] MEDS: LORazepam 2 MG TABLET PO PRN ×2 (10:15→18:32)
[2021-12-14 13:06] VITALS: BP 133/77
[2021-12-14] MEDS ORDERED: -PHARMACY VACCINE NOTE- MISC ONE (13:45)
[2021-12-14 14:00] VITALS: BP 104/73
[2021-12-14 15:04] VITALS: BP 130/68
[2021-12-14 16:19] VITALS: BP 128/72
[2021-12-14 20:22] VITALS: BP 101/77
[2021-12-15] VITALS (8 sets, daily range): BP systolic 121–138; BP diastolic 67–83
[2021-12-15 08:02] LABS: HEMOGLOBIN A1C 5.8 % (3.8-5.6)
[2021-12-15 08:20] LABS: FREE T4 (FREE THYROXINE) 0.66 ng/dL (0.76-1.46); THYROID STIMULATING HORMONE 4.22 uIU/mL (0.36-3.74)
[2021-12-15] MEDS: LORazepam 2 MG TABLET PO PRN (08:21)
[2021-12-15] MEDS: NALTREXONE HCL 50 MG TABLET PO SCH (11:04)
[2021-12-15] MEDS: ESCITALOPRAM OXALATE 10 MG TABLET PO SCH (11:04)
[2021-12-15] MEDS ORDERED: LOPERAMIDE HCL 2 MG CAPSULE PO PRN (12:45)
[2021-12-15] MEDS ORDERED: CloNIDine HCL 0.1 MG TABLET PO PRN (12:45)
[2021-12-15] MEDS ORDERED: GuaiFENesin/D-METHORPHAN [SUGAR-FREE] 200-20MG/10 ML SYRUP UDCUP PO PRN (12:45)
[2021-12-15] MEDS ORDERED: ACETAMINOPHEN 325 MG TABLET PO PRN (12:45)
[2021-12-15] MEDS ORDERED: NICOTINE 14 MG/24 HOUR PATCH TD PRN (12:45)
[2021-12-15] MEDS ORDERED: ALBUTEROL SULFATE HFA 90 MCG/PUFF 8 GM INHALER IH PRN (12:45)
[2021-12-15] MEDS ORDERED: IBUPROFEN 400 MG TABLET PO PRN (12:45)
[2021-12-15] MEDS ORDERED: PETROLATUM,WHITE 28 GM JELLY TP PRN (12:45)
[2021-12-15] MEDS ORDERED: MAGNESIUM HYDROXIDE SUSPENSION 30 ML UDCUP PO PRN (12:45)
[2021-12-15] MEDS ORDERED: DOCUSATE SODIUM 100 MG CAPSULE PO PRN (12:45)
[2021-12-15] MEDS ORDERED: ONDANSETRON HCL 4 MG TABLET PO PRN (12:45)
[2021-12-15] MEDS ORDERED: MAG HYDROX/AL HYDROX/SIMETH ES 30 ML SUSPENSION UDCUP PO PRN (12:45)
[2021-12-15] MEDS: QUEtiapine FUMARATE 200 MG TABLET PO SCH (20:33)
[2021-12-15] MEDS: ATORVASTATIN CALCIUM 40 MG TABLET PO SCH (20:33)
[2021-12-16 00:16] VITALS: BP 116/74
[2021-12-16 02:39] VITALS: BP 116/74
[2021-12-16 07:23] LABS: CHOL/HDL RATIO 2.2 (4.2-7.3)
[2021-12-16 08:01] VITALS: BP 140/90
[2021-12-16] MEDS: ASPIRIN 81 MG CHEWABLE TABLET PO SCH (08:06)
[2021-12-16] MEDS: THIAMINE 100 MG TABLET PO SCH (08:06)
[2021-12-16] MEDS: ESCITALOPRAM OXALATE 10 MG TABLET PO SCH (08:06)
[2021-12-16] MEDS: CHOLECALCIFEROL (VIT D3) 1,000 UNITS [25 MCG] TABLET PO SCH (08:07)
[2021-12-16] MEDS: NALTREXONE HCL 50 MG TABLET PO SCH (08:07)
[2021-12-16 08:17] VITALS: BP 140/90
[2021-12-16 16:02] VITALS: BP 116/76
[2021-12-16] MEDS: LORazepam 2 MG TABLET PO PRN (16:29)
[2021-12-16 16:38] VITALS: BP 116/76
[2021-12-16] MEDS: QUEtiapine FUMARATE 200 MG TABLET PO SCH (20:46)
[2021-12-16] MEDS: ATORVASTATIN CALCIUM 40 MG TABLET PO SCH (20:46)
[2021-12-17 01:40] VITALS: BP 120/74
[2021-12-17 06:47] VITALS: BP 118/70
[2021-12-17 08:18] VITALS: BP 116/71
[2021-12-17] MEDS: ASPIRIN 81 MG CHEWABLE TABLET PO SCH (08:25)
[2021-12-17] MEDS: THIAMINE 100 MG TABLET PO SCH (08:25)
[2021-12-17] MEDS: CHOLECALCIFEROL (VIT D3) 1,000 UNITS [25 MCG] TABLET PO SCH (08:25)
[2021-12-17] MEDS: ESCITALOPRAM OXALATE 10 MG TABLET PO SCH (08:26)
[2021-12-17] MEDS: NALTREXONE HCL 50 MG TABLET PO SCH (08:26)
[2021-12-17 10:11] VITALS: BP 116/71
[2021-12-17 16:16] VITALS: BP 132/81
[2021-12-17 20:18] VITALS: BP 132/81
[2021-12-17] MEDS: ATORVASTATIN CALCIUM 40 MG TABLET PO SCH (20:54)
[2021-12-17] MEDS: QUEtiapine FUMARATE 200 MG TABLET PO SCH (20:54)
[2021-12-18] VITALS (7 sets, daily range): BP systolic 100–140; BP diastolic 63–78
[2021-12-18] MEDS: NALTREXONE HCL 50 MG TABLET PO SCH (09:12)
[2021-12-18] MEDS: THIAMINE 100 MG TABLET PO SCH (09:12)
[2021-12-18] MEDS: CHOLECALCIFEROL (VIT D3) 1,000 UNITS [25 MCG] TABLET PO SCH (09:12)
[2021-12-18] MEDS: ASPIRIN 81 MG CHEWABLE TABLET PO SCH (09:12)
[2021-12-18] MEDS: ESCITALOPRAM OXALATE 10 MG TABLET PO SCH (09:12)
[2021-12-18] MEDS: ATORVASTATIN CALCIUM 40 MG TABLET PO SCH (21:08)
[2021-12-18] MEDS: QUEtiapine FUMARATE 200 MG TABLET PO SCH (21:08)
[2021-12-19] MEDS: ESCITALOPRAM OXALATE 10 MG TABLET PO SCH (08:08)
[2021-12-19] MEDS: CHOLECALCIFEROL (VIT D3) 1,000 UNITS [25 MCG] TABLET PO SCH (08:08)
[2021-12-19] MEDS: THIAMINE 100 MG TABLET PO SCH (08:08)
[2021-12-19] MEDS: ASPIRIN 81 MG CHEWABLE TABLET PO SCH (08:08)
[2021-12-19] MEDS: NALTREXONE HCL 50 MG TABLET PO SCH (08:08)
[2021-12-19 08:15] VITALS: BP 102/59
[2021-12-19 16:19] VITALS: BP 121/85
[2021-12-19] MEDS: QUEtiapine FUMARATE 200 MG TABLET PO SCH (20:46)
[2021-12-19] MEDS: ATORVASTATIN CALCIUM 40 MG TABLET PO SCH (20:46)
[2021-12-20 01:07] VITALS: BP 116/75
[2021-12-20] MEDS: FOLIC ACID 1 MG TABLET PO SCH (08:20)
[2021-12-20] MEDS: NALTREXONE HCL 50 MG TABLET PO SCH (08:20)
[2021-12-20] MEDS: ESCITALOPRAM OXALATE 10 MG TABLET PO SCH (08:20)
[2021-12-20] MEDS: CHOLECALCIFEROL (VIT D3) 1,000 UNITS [25 MCG] TABLET PO SCH (08:20)
[2021-12-20] MEDS: MULTIVITAMINS WITH MINERALS, THERAPEUTIC TABLET PO SCH (08:20)
[2021-12-20] MEDS: THIAMINE 100 MG TABLET PO SCH (08:20)
[2021-12-20] MEDS: ASPIRIN 81 MG CHEWABLE TABLET PO SCH (08:20)
[2021-12-20 08:32] VITALS: BP 112/71
[2021-12-20 16:15] VITALS: BP 100/69
[2021-12-20] MEDS: QUEtiapine FUMARATE 200 MG TABLET PO SCH (20:50)
[2021-12-20] MEDS: ATORVASTATIN CALCIUM 40 MG TABLET PO SCH (20:50)
[2021-12-21 00:15] VITALS: BP 116/70
[2021-12-21] MEDS: CHOLECALCIFEROL (VIT D3) 1,000 UNITS [25 MCG] TABLET PO SCH (08:45)
[2021-12-21] MEDS: NALTREXONE HCL 50 MG TABLET PO SCH (08:45)
[2021-12-21] MEDS: ESCITALOPRAM OXALATE 10 MG TABLET PO SCH (08:45)
[2021-12-21] MEDS: FOLIC ACID 1 MG TABLET PO SCH (08:45)
[2021-12-21] MEDS: THIAMINE 100 MG TABLET PO SCH (08:45)
[2021-12-21] MEDS: MULTIVITAMINS WITH MINERALS, THERAPEUTIC TABLET PO SCH (08:45)
[2021-12-21] MEDS: ASPIRIN 81 MG CHEWABLE TABLET PO SCH (08:46)
[2021-12-21 09:36] VITALS: BP 98/62
[2021-12-21 16:27] VITALS: BP 117/76
[2021-12-21] MEDS: QUEtiapine FUMARATE 200 MG TABLET PO SCH (20:46)
[2021-12-21] MEDS: ATORVASTATIN CALCIUM 40 MG TABLET PO SCH (20:46)
[2021-12-22 00:59] VITALS: BP 119/79
[2021-12-22 08:15] VITALS: BP 109/66
[2021-12-22] MEDS: FOLIC ACID 1 MG TABLET PO SCH (08:56)
[2021-12-22] MEDS: ASPIRIN 81 MG CHEWABLE TABLET PO SCH (08:56)
[2021-12-22] MEDS: ESCITALOPRAM OXALATE 10 MG TABLET PO SCH (08:56)
[2021-12-22] MEDS: THIAMINE 100 MG TABLET PO SCH (08:56)
[2021-12-22] MEDS: NALTREXONE HCL 50 MG TABLET PO SCH (08:56)
[2021-12-22] MEDS: CHOLECALCIFEROL (VIT D3) 1,000 UNITS [25 MCG] TABLET PO SCH (08:56)
[2021-12-22] MEDS: MULTIVITAMINS WITH MINERALS, THERAPEUTIC TABLET PO SCH (08:56)
[2021-12-22] MEDS ORDERED: ESCITALOPRAM OXALATE 10 MG TABLET PO ONE (10:00)
[2021-12-22 16:32] VITALS: BP 114/74
[2021-12-22] MEDS: QUEtiapine FUMARATE 200 MG TABLET PO SCH (20:31)
[2021-12-22] MEDS: ATORVASTATIN CALCIUM 40 MG TABLET PO SCH (20:31)
[2021-12-23 00:28] VITALS: BP 116/68
[2021-12-23 08:26] LABS: GLUCOMETER DEV NAME(LOC) POC.BV
[2021-12-23 08:38] VITALS: BP 102/59
[2021-12-23] MEDS ORDERED: ESCITALOPRAM OXALATE 10 MG TABLET PO SCH (09:00)
[2021-12-23] MEDS: MULTIVITAMINS WITH MINERALS, THERAPEUTIC TABLET PO SCH (09:52)
[2021-12-23] MEDS: CHOLECALCIFEROL (VIT D3) 1,000 UNITS [25 MCG] TABLET PO SCH (09:52)
[2021-12-23] MEDS: ASPIRIN 81 MG CHEWABLE TABLET PO SCH (09:52)
[2021-12-23] MEDS: THIAMINE 100 MG TABLET PO SCH (09:53)
[2021-12-23] MEDS: FOLIC ACID 1 MG TABLET PO SCH (09:53)
[2021-12-23] MEDS: NALTREXONE HCL 50 MG TABLET PO SCH (09:53)
[2021-12-23] MEDS ORDERED: NALT50TA PO (11:34)
[2021-12-23] MEDS ORDERED: ESCI10 PO (11:34)
[2021-12-23] MEDS ORDERED: QUET200T30 PO (11:34)
[2021-12-23 16:25] VITALS: BP 121/68
== END 2021-12-23 17:15 | disposition home or self-care (01) | DRG 750 ==
LOC: EMS 18:01 → B2S 12-14 11:21
PROVIDERS: ADMIT Psychiatry & Neurology Child & Adolescent Psychiatry; ATTEND Psychiatry & Neurology Child & Adolescent Psychiatry
DX: F25.1 Schizoaffective disorder, depressive type (principal); R45.851 Suicidal ideations; E55.9 Vitamin D deficiency, unspecified; E78.5 Hyperlipidemia, unspecified; F17.200 Nicotine dependence, unspecified, uncomplicated; I10 Essential (primary) hypertension; I25.10 Atherosclerotic heart disease of native coronary artery without angina pectoris; I73.9 Peripheral vascular disease, unspecified; Y90.6 Blood alcohol level of 120-199 mg/100 ml; F10.20 Alcohol dependence, uncomplicated; F41.9 Anxiety disorder, unspecified; Z20.822 Contact with and (suspected) exposure to COVID-19; Z91.048 Other nonmedicinal substance allergy status; Z90.49 Acquired absence of other specified parts of digestive tract; Z71.41 Alcohol abuse counseling and surveillance of alcoholic; Z71.6 Tobacco abuse counseling
CPT/HCPCS: 80053; 80061; 83036; 84439; 84443; 85025; 99285; G0480

== ENCOUNTER 2022-02-03 13:48 | Inpatient (IN) | payer MEDICAID ==
[~2022-02-03] VITALS: Ht 170.2 cm; Wt 83.0 kg
[~2022-02-03 13:48] MED LIST changes: -CHOL25TA4 PO; +ESCI10 PO; +NALT50TA PO; +QUET200T30 PO; -THIA100T80 PO
[2022-02-03 14:33] LABS: BASOPHILS % (AUTO) 0.9 % (0.0-2.0); EOSINOPHILS % (AUTO) 2.3 % (1.0-6.0); HEMATOCRIT 40.5 % (41-53); HEMOGLOBIN 13.8 g/dL (13.5-17.5); LYMPHOCYTES # (AUTO) 1.3 K/uL (1.0-4.8); LYMPHOCYTES % (AUTO) 19.8 % (22.0-44.0); MEAN CORPUSCULAR HEMOGLOBIN 33.6 pg (26.0-34.0); MEAN CORPUSCULAR HGB CONC 33.9 G/dL (31.0-37.0); MEAN CORPUSCULAR VOLUME 99 fL (80-100); MONOCYTES # (AUTO) 1.4 K/uL (0.1-1.0); MONOCYTES % (AUTO) 21.3 % (2.0-9.0); NEUTROPHILS # (AUTO) 3.8 K/uL (1.8-7.7); NEUTROPHILS % (AUTO) 55.7 % (40.0-70.0); PLATELET COUNT (AUTO) 252 K/uL (150-450); RED BLOOD CELL COUNT(AUTO) 4.09 MIL/uL (4.50-5.90)
[2022-02-03 14:51] LABS: ANION GAP 12 mmol/L (8-16); CALCIUM, TOTAL 9.3 mg/dL (8.8-10.5); CARBON DIOXIDE 23 mmol/L (22-29); CHLORIDE 98 mmol/L (98-107); CREATININE 0.88 mg/dL (0.60-1.30); GLOMERULAR FILTR. RATE CALC > 60 mL/min (>60); GLUCOSE,RANDOM 100 mg/dL (70-110); POTASSIUM 4.2 mmol/L (3.5-5.1); SODIUM SERUM 133 mmol/L (136-145); UREA NITROGEN, BLOOD 16 mg/dL (7-18)
[2022-02-03 14:58] LABS: ALANINE AMINOTRANSFERASE 157 U/L (12-78); ALBUMIN 3.1 g/dL (3.4-5.0); ALKALINE PHOSPHATASE 84 U/L (46-116); ASPARTATE AMINOTRANSFERASE 140 U/L (15-37); BILIRUBIN,TOTAL 0.3 mg/dL (0.1-1.0); TOTAL PROTEIN, SERUM 6.7 g/dL (6.4-8.2)
[2022-02-03 14:59] LABS: ACETAMINOPHEN < 2 mcg/mL (10-30)
[2022-02-03 15:04] LABS: COVID AG,FIA SOURCE NASOPHARYNGEAL
[2022-02-03 15:12] LABS: SALICYLATE 3.1 mg/dL (2.8-20.0)
[2022-02-03 15:12] LABS: APPEARANCE,URINE CLEAR (CLEAR); BILIRUBIN,URINE NEGATIVE (NEGATIVE); GLUCOSE, URINE (UA) NEGATIVE (NEGATIVE); KETONES,URINE NEGATIVE (NEGATIVE); LEUKOCYTE ESTERASE ,URINE NEGATIVE (NEGATIVE); NITRATE,URINE NEGATIVE (NEGATIVE); OCCULT BLOOD,URINE SMALL (NEGATIVE); PROTEIN,URINE NEGATIVE (NEGATIVE); SPECIFIC GRAVITIY, URINE 1.008 (1.003-1.030); UROBILINOGEN,URINE <=1.0 mg/dL (<=1.0)
[2022-02-03 15:19] LABS: AMPHET/METH SCREEN,URINE NEGATIVE (NEGATIVE); BARBITURATE SCREEN, URINE POSITIVE (NEGATIVE); BENZODIAZEPINES SCREEN,URINE NEGATIVE (NEGATIVE); CANNABINOID SCREEN,URINE NEGATIVE (NEGATIVE); COCAINE SCREEN,URINE NEGATIVE (NEGATIVE); METHADONE SCREEN, URINE NEGATIVE (NEGATIVE); OPIATE SCREEN,URINE NEGATIVE (NEGATIVE)
[2022-02-03 15:22] LABS: PHENCYCLIDINE SCREEN,URINE NEGATIVE (NEGATIVE)
[2022-02-03 15:24] LABS: BACTERIA,URINE Rare /HPF (None Seen); SQUAMOUS EPITHELIAL CELL,UR Rare /LPF (None Seen); WBC,URINE 0-2 /HPF (0-5)
[2022-02-03] MEDS ORDERED: LORazepam 1 MG TABLET PO ONE (19:00)
[2022-02-03] MEDS ORDERED: HALOPERIDOL 5 MG TABLET PO PRN (19:15)
[2022-02-03 21:17] VITALS: BP 131/65
[2022-02-03] MEDS ORDERED: NICOTINE 14 MG/24 HOUR PATCH TD PRN (23:15)
[2022-02-04 08:00] VITALS: BP 144/100
[2022-02-04] MEDS ORDERED: DOCUSATE SODIUM 100 MG CAPSULE PO PRN (09:45)
[2022-02-04] MEDS ORDERED: IBUPROFEN 400 MG TABLET PO PRN (09:45)
[2022-02-04] MEDS ORDERED: ONDANSETRON HCL 4 MG TABLET PO PRN (09:45)
[2022-02-04] MEDS ORDERED: ALBUTEROL SULFATE HFA 90 MCG/PUFF 8 GM INHALER IH PRN (09:45)
[2022-02-04] MEDS ORDERED: MAGNESIUM HYDROXIDE SUSPENSION 30 ML UDCUP PO PRN (09:45)
[2022-02-04] MEDS ORDERED: MAG HYDROX/AL HYDROX/SIMETH ES 30 ML SUSPENSION UDCUP PO PRN (09:45)
[2022-02-04] MEDS ORDERED: GuaiFENesin/D-METHORPHAN [SUGAR-FREE] 200-20MG/10 ML SYRUP UDCUP PO PRN (09:45)
[2022-02-04] MEDS ORDERED: ACETAMINOPHEN 325 MG TABLET PO PRN (09:45)
[2022-02-04] MEDS ORDERED: NICOTINE 14 MG/24 HOUR PATCH TD PRN (09:45)
[2022-02-04] MEDS ORDERED: PETROLATUM,WHITE 28 GM JELLY TP PRN (09:45)
[2022-02-04] MEDS ORDERED: CloNIDine HCL 0.1 MG TABLET PO PRN (09:45)
[2022-02-04] MEDS ORDERED: LOPERAMIDE HCL 2 MG CAPSULE PO PRN (09:45)
[2022-02-04] MEDS: LORazepam 2 MG TABLET PO PRN (13:38)
[2022-02-04 16:00] VITALS: BP 113/69
[2022-02-04] MEDS: ATORVASTATIN CALCIUM 40 MG TABLET PO SCH (20:22)
[2022-02-04] MEDS: ESCITALOPRAM OXALATE 10 MG TABLET PO SCH (20:22)
[2022-02-04] MEDS: QUEtiapine FUMARATE 300 MG TABLET PO SCH (20:23)
[2022-02-05] MEDS: FOLIC ACID 1 MG TABLET PO SCH (08:35)
[2022-02-05] MEDS: MULTIVITAMINS WITH MINERALS, THERAPEUTIC TABLET PO SCH (08:35)
[2022-02-05] MEDS: ASPIRIN 81 MG CHEWABLE TABLET PO SCH (08:35)
[2022-02-05] MEDS: THIAMINE 100 MG TABLET PO SCH (08:35)
[2022-02-05 09:27] VITALS: BP 103/65
[2022-02-05 13:02] VITALS: BP 112/82
[2022-02-05] MEDS: QUEtiapine FUMARATE 300 MG TABLET PO SCH (20:13)
[2022-02-05] MEDS: ATORVASTATIN CALCIUM 40 MG TABLET PO SCH (20:13)
[2022-02-05] MEDS: ESCITALOPRAM OXALATE 10 MG TABLET PO SCH (20:13)
[2022-02-06 08:00] VITALS: BP 92/73
[2022-02-06] MEDS: MULTIVITAMINS WITH MINERALS, THERAPEUTIC TABLET PO SCH (08:14)
[2022-02-06] MEDS: FOLIC ACID 1 MG TABLET PO SCH (08:14)
[2022-02-06] MEDS: THIAMINE 100 MG TABLET PO SCH (08:14)
[2022-02-06] MEDS: ASPIRIN 81 MG CHEWABLE TABLET PO SCH (08:15)
[2022-02-06 16:06] VITALS: BP 110/79
[2022-02-06] MEDS: ESCITALOPRAM OXALATE 10 MG TABLET PO SCH (20:30)
[2022-02-06] MEDS: QUEtiapine FUMARATE 300 MG TABLET PO SCH (20:30)
[2022-02-06] MEDS: ATORVASTATIN CALCIUM 40 MG TABLET PO SCH (20:30)
[2022-02-07 08:00] VITALS: BP 101/60
[2022-02-07] MEDS: ASPIRIN 81 MG CHEWABLE TABLET PO SCH (08:19)
[2022-02-07] MEDS: THIAMINE 100 MG TABLET PO SCH (08:19)
[2022-02-07] MEDS: MULTIVITAMINS WITH MINERALS, THERAPEUTIC TABLET PO SCH (08:20)
[2022-02-07] MEDS: FOLIC ACID 1 MG TABLET PO SCH (08:20)
[2022-02-07 16:13] VITALS: BP 120/87
[2022-02-07] MEDS: LORazepam 2 MG TABLET PO PRN (16:13)
[2022-02-07 16:18] VITALS: BP 120/70
[2022-02-07] MEDS: QUEtiapine FUMARATE 300 MG TABLET PO SCH (20:22)
[2022-02-07] MEDS: ATORVASTATIN CALCIUM 40 MG TABLET PO SCH (20:22)
[2022-02-07] MEDS: ESCITALOPRAM OXALATE 10 MG TABLET PO SCH (20:22)
[2022-02-08 08:00] VITALS: BP 135/99
[2022-02-08] MEDS: THIAMINE 100 MG TABLET PO SCH (08:36)
[2022-02-08] MEDS: FOLIC ACID 1 MG TABLET PO SCH (08:36)
[2022-02-08] MEDS: MULTIVITAMINS WITH MINERALS, THERAPEUTIC TABLET PO SCH (08:36)
[2022-02-08] MEDS: ASPIRIN 81 MG CHEWABLE TABLET PO SCH (08:36)
[2022-02-08 16:16] VITALS: BP 132/69
[2022-02-08] MEDS: LORazepam 2 MG TABLET PO PRN (18:25)
[2022-02-08] MEDS: ESCITALOPRAM OXALATE 10 MG TABLET PO SCH (20:33)
[2022-02-08] MEDS: QUEtiapine FUMARATE 300 MG TABLET PO SCH (20:33)
[2022-02-08] MEDS: ATORVASTATIN CALCIUM 40 MG TABLET PO SCH (20:33)
[2022-02-09] MEDS: ASPIRIN 81 MG CHEWABLE TABLET PO SCH (08:39)
[2022-02-09] MEDS: MULTIVITAMINS WITH MINERALS, THERAPEUTIC TABLET PO SCH (08:40)
[2022-02-09] MEDS: FOLIC ACID 1 MG TABLET PO SCH (09:05)
[2022-02-09] MEDS: THIAMINE 100 MG TABLET PO SCH (09:05)
[2022-02-09 09:18] VITALS: BP 155/81
[2022-02-09 10:10] LABS: COVID AG,FIA SOURCE NASOPHARYNGEAL
[2022-02-09] MEDS: DIVALPROEX SODIUM 500 MG ER TABLET PO SCH (11:30)
[2022-02-09 16:40] VITALS: BP 121/69
[2022-02-09] MEDS: ESCITALOPRAM OXALATE 10 MG TABLET PO SCH (20:18)
[2022-02-09] MEDS: QUEtiapine FUMARATE 300 MG TABLET PO SCH (20:18)
[2022-02-09] MEDS: ATORVASTATIN CALCIUM 40 MG TABLET PO SCH (20:19)
[2022-02-10] MEDS: MULTIVITAMINS WITH MINERALS, THERAPEUTIC TABLET PO SCH (08:15)
[2022-02-10] MEDS: DIVALPROEX SODIUM 500 MG ER TABLET PO SCH (08:15)
[2022-02-10] MEDS: ASPIRIN 81 MG CHEWABLE TABLET PO SCH (08:15)
[2022-02-10] MEDS: FOLIC ACID 1 MG TABLET PO SCH (08:15)
[2022-02-10] MEDS: THIAMINE 100 MG TABLET PO SCH (08:15)
[2022-02-10 09:40] VITALS: BP 94/58
[2022-02-10 16:00] VITALS: BP 105/64
[2022-02-10] MEDS: ATORVASTATIN CALCIUM 40 MG TABLET PO SCH (20:01)
[2022-02-10] MEDS: ESCITALOPRAM OXALATE 10 MG TABLET PO SCH (20:01)
[2022-02-10] MEDS: QUEtiapine FUMARATE 300 MG TABLET PO SCH (20:01)
[2022-02-11] MEDS: DIVALPROEX SODIUM 500 MG ER TABLET PO SCH (08:18)
[2022-02-11] MEDS: THIAMINE 100 MG TABLET PO SCH (08:19)
[2022-02-11] MEDS: FOLIC ACID 1 MG TABLET PO SCH (08:19)
[2022-02-11] MEDS: ASPIRIN 81 MG CHEWABLE TABLET PO SCH (08:19)
[2022-02-11] MEDS: MULTIVITAMINS WITH MINERALS, THERAPEUTIC TABLET PO SCH (08:19)
[2022-02-11 08:39] VITALS: BP 117/61
[2022-02-11 16:49] VITALS: BP 144/73
[2022-02-11] MEDS: ESCITALOPRAM OXALATE 10 MG TABLET PO SCH (20:22)
[2022-02-11] MEDS: QUEtiapine FUMARATE 300 MG TABLET PO SCH (20:23)
[2022-02-11] MEDS: ATORVASTATIN CALCIUM 40 MG TABLET PO SCH (20:23)
[2022-02-12 08:30] VITALS: BP 122/77
[2022-02-12] MEDS: ASPIRIN 81 MG CHEWABLE TABLET PO SCH (09:04)
[2022-02-12] MEDS: THIAMINE 100 MG TABLET PO SCH (09:05)
[2022-02-12] MEDS: DIVALPROEX SODIUM 500 MG ER TABLET PO SCH (09:05)
[2022-02-12] MEDS: MULTIVITAMINS WITH MINERALS, THERAPEUTIC TABLET PO SCH (09:05)
[2022-02-12] MEDS: FOLIC ACID 1 MG TABLET PO SCH (09:06)
[2022-02-12 16:00] VITALS: BP 117/68
[2022-02-12] MEDS: ESCITALOPRAM OXALATE 10 MG TABLET PO SCH (20:15)
[2022-02-12] MEDS: ATORVASTATIN CALCIUM 40 MG TABLET PO SCH (20:15)
[2022-02-12] MEDS: QUEtiapine FUMARATE 300 MG TABLET PO SCH (20:16)
[2022-02-13 08:16] VITALS: BP 118/67
[2022-02-13] MEDS: ASPIRIN 81 MG CHEWABLE TABLET PO SCH (08:28)
[2022-02-13] MEDS: FOLIC ACID 1 MG TABLET PO SCH (08:28)
[2022-02-13] MEDS: MULTIVITAMINS WITH MINERALS, THERAPEUTIC TABLET PO SCH (08:28)
[2022-02-13] MEDS: DIVALPROEX SODIUM 500 MG ER TABLET PO SCH (08:28)
[2022-02-13] MEDS: THIAMINE 100 MG TABLET PO SCH (08:28)
[2022-02-13 16:34] VITALS: BP 116/69
[2022-02-13] MEDS: QUEtiapine FUMARATE 300 MG TABLET PO SCH (20:12)
[2022-02-13] MEDS: ATORVASTATIN CALCIUM 40 MG TABLET PO SCH (20:12)
[2022-02-13] MEDS: ESCITALOPRAM OXALATE 10 MG TABLET PO SCH (20:12)
[2022-02-14] MEDS: FOLIC ACID 1 MG TABLET PO SCH (08:34)
[2022-02-14] MEDS: THIAMINE 100 MG TABLET PO SCH (08:34)
[2022-02-14] MEDS: DIVALPROEX SODIUM 500 MG ER TABLET PO SCH (08:34)
[2022-02-14] MEDS: MULTIVITAMINS WITH MINERALS, THERAPEUTIC TABLET PO SCH (08:34)
[2022-02-14] MEDS: ASPIRIN 81 MG CHEWABLE TABLET PO SCH (08:35)
[2022-02-14 09:00] VITALS: BP 97/61
[2022-02-14 16:28] VITALS: BP 142/77
[2022-02-14] MEDS: QUEtiapine FUMARATE 300 MG TABLET PO SCH (20:02)
[2022-02-14] MEDS: ATORVASTATIN CALCIUM 40 MG TABLET PO SCH (20:02)
[2022-02-14] MEDS: ESCITALOPRAM OXALATE 10 MG TABLET PO SCH (20:02)
[2022-02-15 08:00] VITALS: BP 107/60
[2022-02-15] MEDS: ASPIRIN 81 MG CHEWABLE TABLET PO SCH (09:54)
[2022-02-15] MEDS: DIVALPROEX SODIUM 500 MG ER TABLET PO SCH (09:54)
[2022-02-15] MEDS: FOLIC ACID 1 MG TABLET PO SCH (09:54)
[2022-02-15] MEDS: THIAMINE 100 MG TABLET PO SCH (09:54)
[2022-02-15] MEDS: MULTIVITAMINS WITH MINERALS, THERAPEUTIC TABLET PO SCH (09:54)
[2022-02-15 16:19] VITALS: BP 109/61
[2022-02-15] MEDS: QUEtiapine FUMARATE 300 MG TABLET PO SCH (20:16)
[2022-02-15] MEDS: ESCITALOPRAM OXALATE 10 MG TABLET PO SCH (20:16)
[2022-02-15] MEDS: ATORVASTATIN CALCIUM 40 MG TABLET PO SCH (20:16)
[2022-02-16 05:08] VITALS: BP 121/65
[2022-02-16] MEDS: THIAMINE 100 MG TABLET PO SCH (08:24)
[2022-02-16] MEDS: DIVALPROEX SODIUM 500 MG ER TABLET PO SCH (08:24)
[2022-02-16] MEDS: ASPIRIN 81 MG CHEWABLE TABLET PO SCH (08:24)
[2022-02-16] MEDS: FOLIC ACID 1 MG TABLET PO SCH (08:24)
[2022-02-16] MEDS: MULTIVITAMINS WITH MINERALS, THERAPEUTIC TABLET PO SCH (08:24)
[2022-02-16 09:32] VITALS: BP 99/60
[2022-02-16 10:30] LABS: COVID AG,FIA SOURCE NASAL SWAB
[2022-02-16 16:46] VITALS: BP 117/79
[2022-02-16] MEDS: QUEtiapine FUMARATE 300 MG TABLET PO SCH (20:06)
[2022-02-16] MEDS: ATORVASTATIN CALCIUM 40 MG TABLET PO SCH (20:06)
[2022-02-16] MEDS: ESCITALOPRAM OXALATE 10 MG TABLET PO SCH (20:06)
[2022-02-17 08:14] VITALS: BP 124/75
[2022-02-17] MEDS: THIAMINE 100 MG TABLET PO SCH (08:38)
[2022-02-17] MEDS: DIVALPROEX SODIUM 500 MG ER TABLET PO SCH (08:38)
[2022-02-17] MEDS: MULTIVITAMINS WITH MINERALS, THERAPEUTIC TABLET PO SCH (08:38)
[2022-02-17] MEDS: FOLIC ACID 1 MG TABLET PO SCH (08:38)
[2022-02-17] MEDS: ASPIRIN 81 MG CHEWABLE TABLET PO SCH (08:38)
[2022-02-17] MEDS: QUEtiapine FUMARATE 300 MG TABLET PO SCH (20:05)
[2022-02-17] MEDS: ESCITALOPRAM OXALATE 10 MG TABLET PO SCH (20:05)
[2022-02-17] MEDS: ATORVASTATIN CALCIUM 40 MG TABLET PO SCH (20:05)
[2022-02-17 20:25] VITALS: BP 130/81
[2022-02-18 08:37] VITALS: BP 98/60
[2022-02-18] MEDS: DIVALPROEX SODIUM 500 MG ER TABLET PO SCH (09:19)
[2022-02-18] MEDS: ASPIRIN 81 MG CHEWABLE TABLET PO SCH (09:20)
[2022-02-18] MEDS: MULTIVITAMINS WITH MINERALS, THERAPEUTIC TABLET PO SCH (09:20)
[2022-02-18] MEDS: FOLIC ACID 1 MG TABLET PO SCH (09:20)
[2022-02-18] MEDS: THIAMINE 100 MG TABLET PO SCH (09:20)
[2022-02-18 16:04] VITALS: BP 118/71
[2022-02-18] MEDS: ATORVASTATIN CALCIUM 40 MG TABLET PO SCH (20:54)
[2022-02-18] MEDS: ESCITALOPRAM OXALATE 10 MG TABLET PO SCH (20:54)
[2022-02-18] MEDS: QUEtiapine FUMARATE 300 MG TABLET PO SCH (20:54)
[2022-02-19 09:00] VITALS: BP 117/78
[2022-02-19] MEDS: THIAMINE 100 MG TABLET PO SCH (09:35)
[2022-02-19] MEDS: DIVALPROEX SODIUM 500 MG ER TABLET PO SCH (09:35)
[2022-02-19] MEDS: FOLIC ACID 1 MG TABLET PO SCH (09:36)
[2022-02-19] MEDS: ASPIRIN 81 MG CHEWABLE TABLET PO SCH (09:36)
[2022-02-19] MEDS: MULTIVITAMINS WITH MINERALS, THERAPEUTIC TABLET PO SCH (09:36)
[2022-02-19 16:00] VITALS: BP 130/84
[2022-02-19] MEDS: ATORVASTATIN CALCIUM 40 MG TABLET PO SCH (22:17)
[2022-02-19] MEDS: QUEtiapine FUMARATE 300 MG TABLET PO SCH (22:17)
[2022-02-19] MEDS: ESCITALOPRAM OXALATE 10 MG TABLET PO SCH (22:22)
[2022-02-20 08:51] VITALS: BP 98/64
[2022-02-20] MEDS: MULTIVITAMINS WITH MINERALS, THERAPEUTIC TABLET PO SCH (09:12)
[2022-02-20] MEDS: DIVALPROEX SODIUM 500 MG ER TABLET PO SCH (09:12)
[2022-02-20] MEDS: FOLIC ACID 1 MG TABLET PO SCH (09:12)
[2022-02-20] MEDS: ASPIRIN 81 MG CHEWABLE TABLET PO SCH (09:12)
[2022-02-20] MEDS: THIAMINE 100 MG TABLET PO SCH (09:13)
[2022-02-20 16:55] VITALS: BP 117/71
[2022-02-20] MEDS: QUEtiapine FUMARATE 300 MG TABLET PO SCH (20:01)
[2022-02-20] MEDS: ESCITALOPRAM OXALATE 10 MG TABLET PO SCH (20:02)
[2022-02-20] MEDS: ATORVASTATIN CALCIUM 40 MG TABLET PO SCH (20:02)
[2022-02-20] MEDS: ZOLPIDEM TARTRATE 10 MG TABLET PO PRN (21:52)
[2022-02-21] MEDS: THIAMINE 100 MG TABLET PO SCH (08:43)
[2022-02-21] MEDS: MULTIVITAMINS WITH MINERALS, THERAPEUTIC TABLET PO SCH (08:43)
[2022-02-21] MEDS: FOLIC ACID 1 MG TABLET PO SCH (08:43)
[2022-02-21] MEDS: ASPIRIN 81 MG CHEWABLE TABLET PO SCH (08:43)
[2022-02-21] MEDS: DIVALPROEX SODIUM 500 MG ER TABLET PO SCH (08:43)
[2022-02-21 08:52] VITALS: BP 125/72
[2022-02-21 16:14] VITALS: BP 116/71
[2022-02-21] MEDS: ATORVASTATIN CALCIUM 40 MG TABLET PO SCH (20:22)
[2022-02-21] MEDS: QUEtiapine FUMARATE 300 MG TABLET PO SCH (20:22)
[2022-02-21] MEDS: ESCITALOPRAM OXALATE 10 MG TABLET PO SCH (20:22)
[2022-02-21] MEDS: ZOLPIDEM TARTRATE 10 MG TABLET PO PRN (20:51)
[2022-02-22] MEDS: THIAMINE 100 MG TABLET PO SCH (08:47)
[2022-02-22] MEDS: ASPIRIN 81 MG CHEWABLE TABLET PO SCH (08:48)
[2022-02-22] MEDS: FOLIC ACID 1 MG TABLET PO SCH (08:48)
[2022-02-22] MEDS: MULTIVITAMINS WITH MINERALS, THERAPEUTIC TABLET PO SCH (08:48)
[2022-02-22] MEDS: DIVALPROEX SODIUM 500 MG ER TABLET PO SCH (08:48)
[2022-02-22 09:29] VITALS: BP 105/65
[2022-02-22 16:36] VITALS: BP 112/69
[2022-02-22] MEDS: ATORVASTATIN CALCIUM 40 MG TABLET PO SCH (20:11)
[2022-02-22] MEDS: QUEtiapine FUMARATE 300 MG TABLET PO SCH (20:11)
[2022-02-22] MEDS: ESCITALOPRAM OXALATE 10 MG TABLET PO SCH (20:11)
[2022-02-22] MEDS: ZOLPIDEM TARTRATE 10 MG TABLET PO PRN (20:46)
[2022-02-23 07:08] LABS: COVID AG,FIA SOURCE NASAL SWAB
[2022-02-23 08:00] VITALS: BP 117/79
[2022-02-23] MEDS: ASPIRIN 81 MG CHEWABLE TABLET PO SCH (08:49)
[2022-02-23] MEDS: MULTIVITAMINS WITH MINERALS, THERAPEUTIC TABLET PO SCH (08:49)
[2022-02-23] MEDS: DIVALPROEX SODIUM 500 MG ER TABLET PO SCH (08:49)
[2022-02-23] MEDS: THIAMINE 100 MG TABLET PO SCH (09:12)
[2022-02-23] MEDS: FOLIC ACID 1 MG TABLET PO SCH (09:12)
[2022-02-23 16:07] VITALS: BP 127/70
[2022-02-23] MEDS: ATORVASTATIN CALCIUM 40 MG TABLET PO SCH (20:43)
[2022-02-23] MEDS: ESCITALOPRAM OXALATE 10 MG TABLET PO SCH (20:43)
[2022-02-23] MEDS: QUEtiapine FUMARATE 300 MG TABLET PO SCH (20:43)
[2022-02-23] MEDS: ZOLPIDEM TARTRATE 10 MG TABLET PO PRN (21:24)
[2022-02-24 08:00] VITALS: BP 100/66
[2022-02-24] MEDS: THIAMINE 100 MG TABLET PO SCH (08:18)
[2022-02-24] MEDS: DIVALPROEX SODIUM 500 MG ER TABLET PO SCH (08:19)
[2022-02-24] MEDS: MULTIVITAMINS WITH MINERALS, THERAPEUTIC TABLET PO SCH (08:19)
[2022-02-24] MEDS: ASPIRIN 81 MG CHEWABLE TABLET PO SCH (08:19)
[2022-02-24] MEDS: FOLIC ACID 1 MG TABLET PO SCH (08:19)
[2022-02-24 16:00] VITALS: BP 127/81
[2022-02-24] MEDS: ESCITALOPRAM OXALATE 10 MG TABLET PO SCH (21:00)
[2022-02-24] MEDS: ATORVASTATIN CALCIUM 40 MG TABLET PO SCH (21:00)
[2022-02-24] MEDS: QUEtiapine FUMARATE 300 MG TABLET PO SCH (21:01)
[2022-02-24] MEDS: ZOLPIDEM TARTRATE 10 MG TABLET PO PRN (23:36)
[2022-02-25 08:30] VITALS: BP 102/62
[2022-02-25] MEDS: MULTIVITAMINS WITH MINERALS, THERAPEUTIC TABLET PO SCH (08:32)
[2022-02-25] MEDS: THIAMINE 100 MG TABLET PO SCH (08:32)
[2022-02-25] MEDS: ASPIRIN 81 MG CHEWABLE TABLET PO SCH (08:32)
[2022-02-25] MEDS: DIVALPROEX SODIUM 500 MG ER TABLET PO SCH (08:32)
[2022-02-25] MEDS: FOLIC ACID 1 MG TABLET PO SCH (08:33)
[2022-02-25] MEDS ORDERED: DIVA-80 PO (10:40)
[2022-02-25] MEDS ORDERED: ESCI10 PO (10:40)
[2022-02-25] MEDS ORDERED: QUET300T19 PO (10:40)
[2022-02-25] MEDS ORDERED: ATOR40TA28 PO (11:13)
[2022-02-25] MEDS ORDERED: ASPI81 PO (11:13)
== END 2022-02-25 12:30 | disposition home or self-care (01) | DRG 750 ==
LOC: EMS 13:48 → 3EI 19:54
PROVIDERS: ADMIT Psychiatry & Neurology Child & Adolescent Psychiatry; ATTEND Psychiatry & Neurology Child & Adolescent Psychiatry
DX: F25.1 Schizoaffective disorder, depressive type (principal); E87.1 Hypo-osmolality and hyponatremia; G40.909 Epilepsy, unspecified, not intractable, without status epilepticus; E55.9 Vitamin D deficiency, unspecified; E78.5 Hyperlipidemia, unspecified; I10 Essential (primary) hypertension; Z20.822 Contact with and (suspected) exposure to COVID-19; I25.10 Atherosclerotic heart disease of native coronary artery without angina pectoris; Z88.8 Allergy status to other drugs, medicaments and biological substances
CPT/HCPCS: 80053; 81001; 85025; 87081; 99285; G0480; G0481

== ENCOUNTER 2022-04-17 16:55 | Inpatient (IN) | payer MEDICAID ==
[~2022-04-17] VITALS: Ht 170.2 cm; Wt 87.5 kg
[~2022-04-17 16:55] MED LIST changes: +ASPI81 PO; +ATOR40TA28 PO; +DIVA-80 PO; -NALT50TA PO; -QUET200T PO; -QUET200T30 PO; +QUET300T19 PO
[2022-04-17] MEDS ORDERED: ZOLPIDEM TARTRATE 10 MG TABLET PO PRN (18:45)
[2022-04-17 18:58] LABS: EOSINOPHILS % (AUTO) 0.9 % (1.0-6.0); LYMPHOCYTES # (AUTO) 2.2 K/uL (1.0-4.8); MONOCYTES # (AUTO) 0.8 K/uL (0.1-1.0)
[2022-04-17 19:05] LABS: BASOPHILS % (AUTO) 0.6 % (0.0-2.0); HEMATOCRIT 42.2 % (41-53); HEMOGLOBIN 14.7 g/dL (13.5-17.5); LYMPHOCYTES % (AUTO) 28.3 % (22.0-44.0); MEAN CORPUSCULAR HEMOGLOBIN 33.6 pg (26.0-34.0); MEAN CORPUSCULAR HGB CONC 34.8 G/dL (31.0-37.0); MEAN CORPUSCULAR VOLUME 97 fL (80-100); MONOCYTES % (AUTO) 10.9 % (2.0-9.0); NEUTROPHILS # (AUTO) 4.5 K/uL (1.8-7.7); NEUTROPHILS % (AUTO) 59.3 % (40.0-70.0); PLATELET COUNT (AUTO) 267 K/uL (150-450); RED BLOOD CELL COUNT(AUTO) 4.37 MIL/uL (4.50-5.90); RED CELL DISTRIBUTION WIDTH 14.2 % (11.5-14.5)
[2022-04-17 19:18] LABS: ANION GAP 10 mmol/L (8-16); CALCIUM, TOTAL 8.6 mg/dL (8.8-10.5); CARBON DIOXIDE 30 mmol/L (22-29); CHLORIDE 100 mmol/L (98-107); CREATININE 1.08 mg/dL (0.60-1.30); GLOMERULAR FILTR. RATE CALC > 60 mL/min (>60); GLUCOSE,RANDOM 128 mg/dL (70-110); POTASSIUM 3.5 mmol/L (3.5-5.1); SODIUM SERUM 140 mmol/L (136-145); UREA NITROGEN, BLOOD 10 mg/dL (7-18)
[2022-04-17 19:24] LABS: ALANINE AMINOTRANSFERASE 27 U/L (12-78); ALBUMIN 3.6 g/dL (3.4-5.0); ALKALINE PHOSPHATASE 100 U/L (46-116); ASPARTATE AMINOTRANSFERASE 35 U/L (15-37); BILIRUBIN,TOTAL 0.4 mg/dL (0.1-1.0); TOTAL PROTEIN, SERUM 7.5 g/dL (6.4-8.2)
[2022-04-17] MEDS ORDERED: LORazepam 2 MG TABLET PO ONE (20:45)
[2022-04-17] MEDS ORDERED: DiphenhydrAMINE HCL 25 MG CAPSULE PO ONE (20:45)
[2022-04-17 22:02] LABS: COVID AG,FIA SOURCE NASOPHARYNGEAL
[2022-04-17 22:18] LABS: APPEARANCE,URINE CLEAR (CLEAR); BILIRUBIN,URINE NEGATIVE (NEGATIVE); GLUCOSE, URINE (UA) NEGATIVE (NEGATIVE); KETONES,URINE NEGATIVE (NEGATIVE); LEUKOCYTE ESTERASE ,URINE NEGATIVE (NEGATIVE); NITRATE,URINE NEGATIVE (NEGATIVE); OCCULT BLOOD,URINE MODERATE (NEGATIVE); PROTEIN,URINE TRACE mg/dL (NEGATIVE); SPECIFIC GRAVITIY, URINE 1.011 (1.003-1.030); UROBILINOGEN,URINE <=1.0 mg/dL (<=1.0)
[2022-04-17 22:24] LABS: AMPHET/METH SCREEN,URINE NEGATIVE (NEGATIVE); BARBITURATE SCREEN, URINE NEGATIVE (NEGATIVE); BENZODIAZEPINES SCREEN,URINE NEGATIVE (NEGATIVE); CANNABINOID SCREEN,URINE NEGATIVE (NEGATIVE); COCAINE SCREEN,URINE NEGATIVE (NEGATIVE); METHADONE SCREEN, URINE NEGATIVE (NEGATIVE); OPIATE SCREEN,URINE NEGATIVE (NEGATIVE)
[2022-04-17 22:25] LABS: PHENCYCLIDINE SCREEN,URINE NEGATIVE (NEGATIVE)
[2022-04-17 23:02] LABS: BACTERIA,URINE None Seen /HPF (None Seen); RBC,URINE 0-2 /HPF (0-2); WBC,URINE None Seen /HPF (0-5)
[2022-04-18] VITALS (10 sets, daily range): BP systolic 112–188; BP diastolic 76–99
[2022-04-18] MEDS: LORazepam 2 MG TABLET PO PRN ×3 (02:10→14:18)
[2022-04-18] MEDS ORDERED: GuaiFENesin/D-METHORPHAN [SUGAR-FREE] 200-20MG/10 ML SYRUP UDCUP PO PRN (08:00)
[2022-04-18] MEDS ORDERED: PETROLATUM,WHITE 28 GM JELLY TP PRN (08:00)
[2022-04-18] MEDS ORDERED: DOCUSATE SODIUM 100 MG CAPSULE PO PRN (08:00)
[2022-04-18] MEDS ORDERED: MAG HYDROX/AL HYDROX/SIMETH ES 30 ML SUSPENSION UDCUP PO PRN (08:00)
[2022-04-18] MEDS ORDERED: MAGNESIUM HYDROXIDE SUSPENSION 30 ML UDCUP PO PRN (08:00)
[2022-04-18] MEDS ORDERED: CloNIDine HCL 0.1 MG TABLET PO PRN (08:00)
[2022-04-18] MEDS ORDERED: LOPERAMIDE HCL 2 MG CAPSULE PO PRN (08:00)
[2022-04-18] MEDS ORDERED: ACETAMINOPHEN 325 MG TABLET PO PRN (08:00)
[2022-04-18] MEDS ORDERED: ONDANSETRON HCL 4 MG TABLET PO PRN (08:00)
[2022-04-18] MEDS ORDERED: ALBUTEROL SULFATE HFA 90 MCG/PUFF 8 GM INHALER IH PRN (08:00)
[2022-04-18] MEDS ORDERED: IBUPROFEN 400 MG TABLET PO PRN (08:00)
[2022-04-18] MEDS ORDERED: NICOTINE 14 MG/24 HOUR PATCH TD PRN (08:00)
[2022-04-18] MEDS ORDERED: ASPIRIN 81 MG CHEWABLE TABLET PO SCH (09:00)
[2022-04-18] MEDS: ASPIRIN 81 MG CHEWABLE TABLET PO SCH (09:34)
[2022-04-18] MEDS: ATORVASTATIN CALCIUM 40 MG TABLET PO SCH (09:34)
[2022-04-18] MEDS: HALOPERIDOL 5 MG TABLET PO PRN (09:34)
[2022-04-18] MEDS ORDERED: CYANOCOBALAMIN 1,000 MCG/ML VIAL IM ONE (10:45)
[2022-04-18] MEDS ORDERED: ESCI20TA87 PO (10:51)
[2022-04-18] MEDS: FOLIC ACID 1 MG TABLET PO SCH (11:12)
[2022-04-18] MEDS: THIAMINE 100 MG TABLET PO SCH ×2 (11:12→16:24)
[2022-04-18] MEDS: MULTIVITAMINS WITH MINERALS, THERAPEUTIC TABLET PO SCH (11:12)
[2022-04-18] MEDS: QUEtiapine FUMARATE 300 MG TABLET PO SCH (20:48)
[2022-04-18] MEDS: ESCITALOPRAM OXALATE 10 MG TABLET PO SCH (20:48)
[2022-04-18] MEDS: DIVALPROEX SODIUM 500 MG ER TABLET PO SCH (20:48)
[2022-04-18] MEDS ORDERED: ATORVASTATIN CALCIUM 40 MG TABLET PO SCH (21:00)
[2022-04-19] MEDS: LORazepam 2 MG TABLET PO PRN ×2 (06:10→11:18)
[2022-04-19] MEDS: MULTIVITAMINS WITH MINERALS, THERAPEUTIC TABLET PO SCH (09:05)
[2022-04-19] MEDS: THIAMINE 100 MG TABLET PO SCH ×2 (09:06→16:38)
[2022-04-19] MEDS: LORazepam 2 MG TABLET PO SCH ×4 (09:06→20:37)
[2022-04-19] MEDS: ASPIRIN 81 MG CHEWABLE TABLET PO SCH (09:06)
[2022-04-19] MEDS: FOLIC ACID 1 MG TABLET PO SCH (09:06)
[2022-04-19] MEDS: ATORVASTATIN CALCIUM 40 MG TABLET PO SCH (09:06)
[2022-04-19 10:41] VITALS: BP 134/82
[2022-04-19 14:41] VITALS: BP 140/78
[2022-04-19 16:10] VITALS: BP 140/89
[2022-04-19] MEDS: ESCITALOPRAM OXALATE 10 MG TABLET PO SCH (20:36)
[2022-04-19] MEDS: DIVALPROEX SODIUM 500 MG ER TABLET PO SCH (20:36)
[2022-04-19] MEDS: QUEtiapine FUMARATE 300 MG TABLET PO SCH (20:36)
[2022-04-19 22:59] VITALS: BP 126/66
[2022-04-20] MEDS: LORazepam 2 MG TABLET PO PRN (00:18)
[2022-04-20] MEDS: LORazepam 2 MG TABLET PO SCH ×4 (08:28→20:18)
[2022-04-20] MEDS: THIAMINE 100 MG TABLET PO SCH ×2 (08:28→17:06)
[2022-04-20] MEDS: ATORVASTATIN CALCIUM 40 MG TABLET PO SCH (08:28)
[2022-04-20] MEDS: MULTIVITAMINS WITH MINERALS, THERAPEUTIC TABLET PO SCH (08:28)
[2022-04-20] MEDS: ASPIRIN 81 MG CHEWABLE TABLET PO SCH (08:28)
[2022-04-20] MEDS: FOLIC ACID 1 MG TABLET PO SCH (08:28)
[2022-04-20 12:56] VITALS: BP 150/86
[2022-04-20 16:37] VITALS: BP 150/81
[2022-04-20] MEDS: QUEtiapine FUMARATE 300 MG TABLET PO SCH (20:18)
[2022-04-20] MEDS: DIVALPROEX SODIUM 500 MG ER TABLET PO SCH (20:18)
[2022-04-20] MEDS: ESCITALOPRAM OXALATE 10 MG TABLET PO SCH (20:18)
[2022-04-21] MEDS ORDERED: LORazepam 1 MG TABLET PO PRN (07:00)
[2022-04-21 08:30] VITALS: BP 122/75
[2022-04-21] MEDS: FOLIC ACID 1 MG TABLET PO SCH (08:46)
[2022-04-21] MEDS: ATORVASTATIN CALCIUM 40 MG TABLET PO SCH (08:46)
[2022-04-21] MEDS: LORazepam 1 MG TABLET PO SCH ×4 (08:46→20:35)
[2022-04-21] MEDS: THIAMINE 100 MG TABLET PO SCH ×2 (08:46→16:53)
[2022-04-21] MEDS: ASPIRIN 81 MG CHEWABLE TABLET PO SCH (08:46)
[2022-04-21] MEDS: MULTIVITAMINS WITH MINERALS, THERAPEUTIC TABLET PO SCH (08:46)
[2022-04-21 16:35] VITALS: BP 100/65
[2022-04-21 16:50] VITALS: BP 134/82
[2022-04-21] MEDS: QUEtiapine FUMARATE 300 MG TABLET PO SCH (20:35)
[2022-04-21] MEDS: ESCITALOPRAM OXALATE 10 MG TABLET PO SCH (20:35)
[2022-04-21] MEDS: DIVALPROEX SODIUM 500 MG ER TABLET PO SCH (20:35)
[2022-04-22 08:30] VITALS: BP 104/60
[2022-04-22] MEDS: ATORVASTATIN CALCIUM 40 MG TABLET PO SCH (08:34)
[2022-04-22] MEDS: THIAMINE 100 MG TABLET PO SCH ×2 (08:35→15:58)
[2022-04-22] MEDS: MULTIVITAMINS WITH MINERALS, THERAPEUTIC TABLET PO SCH (08:35)
[2022-04-22] MEDS: ASPIRIN 81 MG CHEWABLE TABLET PO SCH (08:35)
[2022-04-22] MEDS: FOLIC ACID 1 MG TABLET PO SCH (08:35)
[2022-04-22] MEDS: LORazepam 1 MG TABLET PO PRN ×2 (12:01→15:58)
[2022-04-22 16:37] VITALS: BP 130/76
[2022-04-22] MEDS: QUEtiapine FUMARATE 300 MG TABLET PO SCH (20:42)
[2022-04-22] MEDS: DIVALPROEX SODIUM 500 MG ER TABLET PO SCH (20:42)
[2022-04-22] MEDS: ESCITALOPRAM OXALATE 10 MG TABLET PO SCH (20:43)
[2022-04-23 07:46] LABS: COVID AG,FIA SOURCE NASAL SWAB
[2022-04-23 08:00] VITALS: BP 124/74
[2022-04-23] MEDS: FOLIC ACID 1 MG TABLET PO SCH (08:37)
[2022-04-23] MEDS: ATORVASTATIN CALCIUM 40 MG TABLET PO SCH (08:37)
[2022-04-23] MEDS: THIAMINE 100 MG TABLET PO SCH ×2 (08:37→16:13)
[2022-04-23] MEDS: ASPIRIN 81 MG CHEWABLE TABLET PO SCH (08:37)
[2022-04-23] MEDS: MULTIVITAMINS WITH MINERALS, THERAPEUTIC TABLET PO SCH (08:38)
[2022-04-23 16:01] VITALS: BP 125/81
[2022-04-23] MEDS: HydrOXYzine PAMOATE 25 MG CAPSULE PO PRN (16:33)
[2022-04-23] MEDS: ESCITALOPRAM OXALATE 10 MG TABLET PO SCH (20:22)
[2022-04-23] MEDS: DIVALPROEX SODIUM 500 MG ER TABLET PO SCH (20:22)
[2022-04-23] MEDS: QUEtiapine FUMARATE 300 MG TABLET PO SCH (20:23)
[2022-04-23] MEDS: TraZODone HCL 50 MG TABLET PO PRN (20:25)
[2022-04-24 08:48] VITALS: BP 114/72
[2022-04-24] MEDS: MULTIVITAMINS WITH MINERALS, THERAPEUTIC TABLET PO SCH (08:56)
[2022-04-24] MEDS: THIAMINE 100 MG TABLET PO SCH ×2 (08:56→17:26)
[2022-04-24] MEDS: FOLIC ACID 1 MG TABLET PO SCH (08:56)
[2022-04-24] MEDS: ATORVASTATIN CALCIUM 40 MG TABLET PO SCH (08:56)
[2022-04-24] MEDS: ASPIRIN 81 MG CHEWABLE TABLET PO SCH (08:56)
[2022-04-24] MEDS: HALOPERIDOL 5 MG TABLET PO PRN (11:15)
[2022-04-24] MEDS: HydrOXYzine PAMOATE 25 MG CAPSULE PO PRN ×2 (11:15→19:39)
[2022-04-24 16:13] VITALS: BP 112/66
[2022-04-24] MEDS: DIVALPROEX SODIUM 500 MG ER TABLET PO SCH (20:31)
[2022-04-24] MEDS: QUEtiapine FUMARATE 300 MG TABLET PO SCH (20:31)
[2022-04-24] MEDS: ESCITALOPRAM OXALATE 10 MG TABLET PO SCH (20:31)
[2022-04-25 08:33] VITALS: BP 110/59
[2022-04-25] MEDS: FOLIC ACID 1 MG TABLET PO SCH (08:45)
[2022-04-25] MEDS: MULTIVITAMINS WITH MINERALS, THERAPEUTIC TABLET PO SCH (08:45)
[2022-04-25] MEDS: ATORVASTATIN CALCIUM 40 MG TABLET PO SCH (08:45)
[2022-04-25] MEDS: THIAMINE 100 MG TABLET PO SCH ×2 (08:45→17:05)
[2022-04-25] MEDS: ASPIRIN 81 MG CHEWABLE TABLET PO SCH (08:45)
[2022-04-25 16:44] VITALS: BP 125/67
[2022-04-25] MEDS: QUEtiapine FUMARATE 300 MG TABLET PO SCH (20:01)
[2022-04-25] MEDS: ESCITALOPRAM OXALATE 10 MG TABLET PO SCH (20:01)
[2022-04-25] MEDS: DIVALPROEX SODIUM 500 MG ER TABLET PO SCH (20:01)
[2022-04-25] MEDS: TraZODone HCL 50 MG TABLET PO PRN (20:01)
[2022-04-26 08:30] VITALS: BP 122/71
[2022-04-26] MEDS: ATORVASTATIN CALCIUM 40 MG TABLET PO SCH (09:11)
[2022-04-26] MEDS: FOLIC ACID 1 MG TABLET PO SCH (09:11)
[2022-04-26] MEDS: ASPIRIN 81 MG CHEWABLE TABLET PO SCH (09:11)
[2022-04-26] MEDS: MULTIVITAMINS WITH MINERALS, THERAPEUTIC TABLET PO SCH (09:11)
[2022-04-26] MEDS: THIAMINE 100 MG TABLET PO SCH ×2 (09:11→16:31)
[2022-04-26 16:56] VITALS: BP 137/75
[2022-04-26] MEDS: QUEtiapine FUMARATE 300 MG TABLET PO SCH (20:12)
[2022-04-26] MEDS: DIVALPROEX SODIUM 500 MG ER TABLET PO SCH (20:12)
[2022-04-26] MEDS: ESCITALOPRAM OXALATE 10 MG TABLET PO SCH (20:12)
[2022-04-26] MEDS: TraZODone HCL 50 MG TABLET PO PRN (20:12)
[2022-04-27 09:34] VITALS: BP 127/81
[2022-04-27] MEDS: THIAMINE 100 MG TABLET PO SCH ×2 (09:37→16:15)
[2022-04-27] MEDS: ATORVASTATIN CALCIUM 40 MG TABLET PO SCH (09:37)
[2022-04-27] MEDS: ASPIRIN 81 MG CHEWABLE TABLET PO SCH (09:37)
[2022-04-27] MEDS: MULTIVITAMINS WITH MINERALS, THERAPEUTIC TABLET PO SCH (09:37)
[2022-04-27] MEDS: FOLIC ACID 1 MG TABLET PO SCH (09:37)
[2022-04-27 16:00] VITALS: BP 136/82
[2022-04-27] MEDS: QUEtiapine FUMARATE 300 MG TABLET PO SCH (20:10)
[2022-04-27] MEDS: DIVALPROEX SODIUM 500 MG ER TABLET PO SCH (20:10)
[2022-04-27] MEDS: ESCITALOPRAM OXALATE 10 MG TABLET PO SCH (20:10)
[2022-04-27] MEDS: TraZODone HCL 50 MG TABLET PO PRN (20:54)
[2022-04-28 08:52] VITALS: BP 118/77
[2022-04-28] MEDS: ATORVASTATIN CALCIUM 40 MG TABLET PO SCH (08:53)
[2022-04-28] MEDS: ASPIRIN 81 MG CHEWABLE TABLET PO SCH (08:53)
[2022-04-28] MEDS: MULTIVITAMINS WITH MINERALS, THERAPEUTIC TABLET PO SCH (08:53)
[2022-04-28 16:13] VITALS: BP 140/80
[2022-04-28] MEDS: DIVALPROEX SODIUM 500 MG ER TABLET PO SCH (21:23)
[2022-04-28] MEDS: ESCITALOPRAM OXALATE 10 MG TABLET PO SCH (21:23)
[2022-04-28] MEDS: QUEtiapine FUMARATE 300 MG TABLET PO SCH (21:23)
[2022-04-28 22:44] VITALS: BP 128/81
[2022-04-29 08:00] VITALS: BP 109/62
[2022-04-29] MEDS: MULTIVITAMINS WITH MINERALS, THERAPEUTIC TABLET PO SCH (09:13)
[2022-04-29] MEDS: ASPIRIN 81 MG CHEWABLE TABLET PO SCH (09:13)
[2022-04-29] MEDS: ATORVASTATIN CALCIUM 40 MG TABLET PO SCH (09:13)
[2022-04-29 16:00] VITALS: BP 115/70
[2022-04-29] MEDS: QUEtiapine FUMARATE 300 MG TABLET PO SCH (21:43)
[2022-04-29] MEDS: ESCITALOPRAM OXALATE 10 MG TABLET PO SCH (21:43)
[2022-04-29] MEDS: DIVALPROEX SODIUM 500 MG ER TABLET PO SCH (21:43)
[2022-04-30] MEDS: ASPIRIN 81 MG CHEWABLE TABLET PO SCH (08:56)
[2022-04-30] MEDS: ATORVASTATIN CALCIUM 40 MG TABLET PO SCH (08:56)
[2022-04-30] MEDS: MULTIVITAMINS WITH MINERALS, THERAPEUTIC TABLET PO SCH (08:56)
[2022-04-30 09:59] VITALS: BP 107/63
[2022-04-30 16:05] VITALS: BP 140/81
[2022-04-30] MEDS: QUEtiapine FUMARATE 300 MG TABLET PO SCH (20:42)
[2022-04-30] MEDS: DIVALPROEX SODIUM 500 MG ER TABLET PO SCH (20:42)
[2022-04-30] MEDS: ESCITALOPRAM OXALATE 10 MG TABLET PO SCH (20:50)
[2022-05-01 06:24] LABS: COVID AG,FIA SOURCE NASAL SWAB
[2022-05-01 08:00] VITALS: BP 147/82
[2022-05-01] MEDS: ASPIRIN 81 MG CHEWABLE TABLET PO SCH (09:12)
[2022-05-01] MEDS: MULTIVITAMINS WITH MINERALS, THERAPEUTIC TABLET PO SCH (09:12)
[2022-05-01] MEDS: ATORVASTATIN CALCIUM 40 MG TABLET PO SCH (09:12)
[2022-05-01 16:00] VITALS: BP 118/70
[2022-05-01] MEDS: ESCITALOPRAM OXALATE 10 MG TABLET PO SCH (21:06)
[2022-05-01] MEDS: DIVALPROEX SODIUM 500 MG ER TABLET PO SCH (21:06)
[2022-05-01] MEDS: QUEtiapine FUMARATE 300 MG TABLET PO SCH (21:06)
[2022-05-02] MEDS: ATORVASTATIN CALCIUM 40 MG TABLET PO SCH (09:14)
[2022-05-02] MEDS: ASPIRIN 81 MG CHEWABLE TABLET PO SCH (09:14)
[2022-05-02] MEDS: MULTIVITAMINS WITH MINERALS, THERAPEUTIC TABLET PO SCH (09:14)
[2022-05-02 09:17] VITALS: BP 120/76
[2022-05-02 16:18] VITALS: BP 130/69
[2022-05-02] MEDS: DIVALPROEX SODIUM 500 MG ER TABLET PO SCH (21:20)
[2022-05-02] MEDS: QUEtiapine FUMARATE 300 MG TABLET PO SCH (21:20)
[2022-05-02] MEDS: ESCITALOPRAM OXALATE 10 MG TABLET PO SCH (21:20)
[2022-05-03 09:00] VITALS: BP 117/66
[2022-05-03] MEDS: ASPIRIN 81 MG CHEWABLE TABLET PO SCH (09:23)
[2022-05-03] MEDS: ATORVASTATIN CALCIUM 40 MG TABLET PO SCH (09:23)
[2022-05-03] MEDS: MULTIVITAMINS WITH MINERALS, THERAPEUTIC TABLET PO SCH (09:23)
[2022-05-03 16:11] VITALS: BP 127/74
[2022-05-03] MEDS: DIVALPROEX SODIUM 500 MG ER TABLET PO SCH (20:01)
[2022-05-03] MEDS: ESCITALOPRAM OXALATE 10 MG TABLET PO SCH (20:01)
[2022-05-03] MEDS: QUEtiapine FUMARATE 300 MG TABLET PO SCH (20:02)
[2022-05-04 09:17] VITALS: BP 121/77
[2022-05-04] MEDS: ASPIRIN 81 MG CHEWABLE TABLET PO SCH (09:38)
[2022-05-04] MEDS: MULTIVITAMINS WITH MINERALS, THERAPEUTIC TABLET PO SCH (09:38)
[2022-05-04] MEDS: ATORVASTATIN CALCIUM 40 MG TABLET PO SCH (09:38)
[2022-05-04] MEDS ORDERED: ESCI20TA87 PO (11:15)
[2022-05-04] MEDS ORDERED: ASPI81 PO (11:15)
[2022-05-04] MEDS ORDERED: ATOR40TA28 PO (11:15)
[2022-05-04] MEDS ORDERED: QUET300T19 PO (11:15)
[2022-05-04] MEDS ORDERED: DIVA-80 PO (11:15)
== END 2022-05-04 12:15 | disposition home or self-care (01) | DRG 750 ==
LOC: EMS 16:55 → 3EI 04-18 01:20
PROVIDERS: ADMIT Psychiatry & Neurology Psychiatry; ATTEND Psychiatry & Neurology Psychiatry
DX: F25.1 Schizoaffective disorder, depressive type (principal); G40.909 Epilepsy, unspecified, not intractable, without status epilepticus; R45.851 Suicidal ideations; E78.5 Hyperlipidemia, unspecified; F31.9 Bipolar disorder, unspecified; I10 Essential (primary) hypertension; I25.10 Atherosclerotic heart disease of native coronary artery without angina pectoris; F17.200 Nicotine dependence, unspecified, uncomplicated; F41.9 Anxiety disorder, unspecified; Z20.822 Contact with and (suspected) exposure to COVID-19; F10.129 Alcohol abuse with intoxication, unspecified; I73.9 Peripheral vascular disease, unspecified; Z59.00 Homelessness unspecified; Z79.899 Other long term (current) drug therapy; Z91.51 Personal history of suicidal behavior; Z95.5 Presence of coronary angioplasty implant and graft; Z79.82 Long term (current) use of aspirin
CPT/HCPCS: 80053; 81001; 85025; 87081; 99285; G0480; J3420

== ENCOUNTER 2022-06-12 18:24 | Inpatient (IN) | payer MEDICAID ==
[~2022-06-12] VITALS: Ht 170.2 cm; Wt 88.5 kg
[~2022-06-12 18:24] MED LIST changes: -ASPI-1450 PO; -ATOR40TA71 PO; -ESCI10 PO; +ESCI20TA87 PO
[2022-06-12 19:39] LABS: BASOPHILS % (AUTO) 1.5 % (0.0-2.0); EOSINOPHILS % (AUTO) 2.9 % (1.0-6.0); HEMATOCRIT 44.8 % (41-53); HEMOGLOBIN 14.7 g/dL (13.5-17.5); LYMPHOCYTES # (AUTO) 1.4 K/uL (1.0-4.8); MEAN CORPUSCULAR HEMOGLOBIN 32.8 pg (26.0-34.0); MEAN CORPUSCULAR HGB CONC 32.9 G/dL (31.0-37.0); MEAN CORPUSCULAR VOLUME 100 fL (80-100); MONOCYTES % (AUTO) 17.1 % (2.0-9.0); NEUTROPHILS # (AUTO) 3.1 K/uL (1.8-7.7); NEUTROPHILS % (AUTO) 53.5 % (40.0-70.0); PLATELET COUNT (AUTO) 257 K/uL (150-450); RED CELL DISTRIBUTION WIDTH 14.5 % (11.5-14.5)
[2022-06-12 19:49] LABS: CREATININE 1.25 mg/dL (0.60-1.30)
[2022-06-12 19:54] LABS: ALBUMIN 3.6 g/dL (3.4-5.0); BILIRUBIN,TOTAL 0.3 mg/dL (0.1-1.0); TOTAL PROTEIN, SERUM 7.6 g/dL (6.4-8.2)
[2022-06-12 20:29] LABS: AMPHET/METH SCREEN,URINE NEGATIVE (NEGATIVE); BARBITURATE SCREEN, URINE NEGATIVE (NEGATIVE); BENZODIAZEPINES SCREEN,URINE NEGATIVE (NEGATIVE); CANNABINOID SCREEN,URINE POSITIVE (NEGATIVE); COCAINE SCREEN,URINE NEGATIVE (NEGATIVE); METHADONE SCREEN, URINE NEGATIVE (NEGATIVE); OPIATE SCREEN,URINE NEGATIVE (NEGATIVE)
[2022-06-12 20:30] LABS: PHENCYCLIDINE SCREEN,URINE NEGATIVE (NEGATIVE)
[2022-06-12 20:44] LABS: COVID AG,FIA SOURCE NASAL SWAB
[2022-06-12] MEDS ORDERED: LORazepam 2 MG TABLET PO ONE (21:15)
[2022-06-12] MEDS ORDERED: ZOLPIDEM TARTRATE 10 MG TABLET PO PRN (21:30)
[2022-06-12] MEDS ORDERED: HALOPERIDOL 5 MG TABLET PO PRN (21:30)
[2022-06-12 21:53] LABS: APPEARANCE,URINE CLEAR (CLEAR); BILIRUBIN,URINE NEGATIVE (NEGATIVE); GLUCOSE, URINE (UA) NEGATIVE (NEGATIVE); KETONES,URINE TRACE mg/dL (NEGATIVE); LEUKOCYTE ESTERASE ,URINE NEGATIVE (NEGATIVE); NITRATE,URINE NEGATIVE (NEGATIVE); OCCULT BLOOD,URINE LARGE (NEGATIVE); PH,URINE 5.5 (5.0-8.0); PROTEIN,URINE 30-70 mg/dL (NEGATIVE); SPECIFIC GRAVITIY, URINE 1.009 (1.003-1.030); UROBILINOGEN,URINE <=1.0 mg/dL (<=1.0)
[2022-06-12 22:06] LABS: BACTERIA,URINE None Seen /HPF (None Seen); RBC,URINE 0-2 /HPF (0-2); SQUAMOUS EPITHELIAL CELL,UR Rare /LPF (None Seen); WBC,URINE None Seen /HPF (0-5)
[2022-06-13 02:47] VITALS: BP 146/85
[2022-06-13] MEDS ORDERED: INFLUENZA VIRUS VACCINE QVS 2022-23 (6MO+)/PF 60 MCG/0.5 ML SYRINGE IM. ONE (03:45)
[2022-06-13 08:10] VITALS: BP 120/63
[2022-06-13] MEDS: ATORVASTATIN CALCIUM 40 MG TABLET PO SCH (08:19)
[2022-06-13] MEDS: ASPIRIN 81 MG CHEWABLE TABLET PO SCH (08:19)
[2022-06-13] MEDS: LORazepam 2 MG TABLET PO PRN (08:22)
[2022-06-13] MEDS: DIVALPROEX SODIUM 500 MG DR TABLET PO SCH (12:43)
[2022-06-13] MEDS: FLUoxetine HCL 20 MG CAPSULE PO SCH (12:43)
[2022-06-13 20:30] VITALS: BP 140/89
[2022-06-13] MEDS: QUEtiapine FUMARATE 300 MG TABLET PO SCH (20:43)
[2022-06-14 08:34] VITALS: BP 142/62
[2022-06-14] MEDS: FLUoxetine HCL 20 MG CAPSULE PO SCH (08:35)
[2022-06-14] MEDS: ASPIRIN 81 MG CHEWABLE TABLET PO SCH (08:35)
[2022-06-14] MEDS: ATORVASTATIN CALCIUM 40 MG TABLET PO SCH (08:35)
[2022-06-14] MEDS: DIVALPROEX SODIUM 500 MG DR TABLET PO SCH (08:35)
[2022-06-14] MEDS: LORazepam 2 MG TABLET PO PRN (08:38)
[2022-06-14] MEDS: QUEtiapine FUMARATE 300 MG TABLET PO SCH (22:13)
[2022-06-15 06:56] VITALS: BP 140/88
[2022-06-15] MEDS: FLUoxetine HCL 20 MG CAPSULE PO SCH (08:13)
[2022-06-15] MEDS: ASPIRIN 81 MG CHEWABLE TABLET PO SCH (08:13)
[2022-06-15] MEDS: DIVALPROEX SODIUM 500 MG DR TABLET PO SCH (08:13)
[2022-06-15] MEDS: ATORVASTATIN CALCIUM 40 MG TABLET PO SCH (08:13)
[2022-06-15 08:40] VITALS: BP 105/60
[2022-06-15] MEDS: QUEtiapine FUMARATE 300 MG TABLET PO SCH (20:34)
[2022-06-16] MEDS: FLUoxetine HCL 20 MG CAPSULE PO SCH (08:22)
[2022-06-16] MEDS: ASPIRIN 81 MG CHEWABLE TABLET PO SCH (08:22)
[2022-06-16] MEDS: ATORVASTATIN CALCIUM 40 MG TABLET PO SCH (08:22)
[2022-06-16] MEDS: DIVALPROEX SODIUM 500 MG DR TABLET PO SCH (08:22)
[2022-06-16 08:50] VITALS: BP 119/55
[2022-06-16] MEDS: QUEtiapine FUMARATE 300 MG TABLET PO SCH (20:08)
[2022-06-16 20:18] VITALS: BP 142/80
[2022-06-17 08:40] VITALS: BP 164/90
[2022-06-17] MEDS: DIVALPROEX SODIUM 500 MG DR TABLET PO SCH (08:57)
[2022-06-17] MEDS: FLUoxetine HCL 20 MG CAPSULE PO SCH (08:57)
[2022-06-17] MEDS: ATORVASTATIN CALCIUM 40 MG TABLET PO SCH (08:57)
[2022-06-17] MEDS: ASPIRIN 81 MG CHEWABLE TABLET PO SCH (08:57)
[2022-06-17 20:22] VITALS: BP 142/82
[2022-06-17] MEDS: QUEtiapine FUMARATE 300 MG TABLET PO SCH (20:59)
[2022-06-18 08:29] VITALS: BP 124/73
[2022-06-18] MEDS: FLUoxetine HCL 20 MG CAPSULE PO SCH (10:21)
[2022-06-18] MEDS: ATORVASTATIN CALCIUM 40 MG TABLET PO SCH (10:21)
[2022-06-18] MEDS: ASPIRIN 81 MG CHEWABLE TABLET PO SCH (10:21)
[2022-06-18] MEDS: DIVALPROEX SODIUM 500 MG DR TABLET PO SCH (10:21)
[2022-06-18] MEDS: LORazepam 2 MG TABLET PO PRN (16:49)
[2022-06-18] MEDS: QUEtiapine FUMARATE 300 MG TABLET PO SCH (20:42)
[2022-06-18 21:36] VITALS: BP 124/76
[2022-06-19] MEDS ORDERED: FLUO20CA36 PO (08:48)
[2022-06-19] MEDS: ASPIRIN 81 MG CHEWABLE TABLET PO SCH (09:13)
[2022-06-19] MEDS: FLUoxetine HCL 20 MG CAPSULE PO SCH (09:13)
[2022-06-19] MEDS: DIVALPROEX SODIUM 500 MG DR TABLET PO SCH (09:14)
[2022-06-19] MEDS: ATORVASTATIN CALCIUM 40 MG TABLET PO SCH (09:14)
[2022-06-19 09:26] LABS: GLUCOMETER DEV NAME(LOC) POC.BV
[2022-06-19 09:37] VITALS: BP 123/62
[2022-06-19] MEDS ORDERED: DIVA-112 PO (13:17)
[2022-06-19] MEDS ORDERED: ATOR40TA71 PO (13:17)
[2022-06-19] MEDS ORDERED: PROZ20 PO (13:17)
[2022-06-19] MEDS ORDERED: QUET300T19 PO (13:17)
== END 2022-06-19 13:45 | disposition home or self-care (01) | DRG 750 ==
LOC: EMS 18:25 → B3A 06-13 00:50 → B2S 06-17 23:28
PROVIDERS: ADMIT Psychiatry & Neurology Child & Adolescent Psychiatry; ATTEND Psychiatry & Neurology Child & Adolescent Psychiatry
DX: F25.1 Schizoaffective disorder, depressive type (principal); G40.909 Epilepsy, unspecified, not intractable, without status epilepticus; R45.851 Suicidal ideations; E78.5 Hyperlipidemia, unspecified; Z20.822 Contact with and (suspected) exposure to COVID-19; F10.10 Alcohol abuse, uncomplicated; F12.10 Cannabis abuse, uncomplicated; F17.200 Nicotine dependence, unspecified, uncomplicated; F31.9 Bipolar disorder, unspecified; F41.1 Generalized anxiety disorder; I10 Essential (primary) hypertension; I25.10 Atherosclerotic heart disease of native coronary artery without angina pectoris; F19.10 Other psychoactive substance abuse, uncomplicated; I73.9 Peripheral vascular disease, unspecified; J44.9 Chronic obstructive pulmonary disease, unspecified; Z59.00 Homelessness unspecified; Z91.199 Patient's noncompliance with other medical treatment and regimen due to unspecified reason; Z95.5 Presence of coronary angioplasty implant and graft; Z79.899 Other long term (current) drug therapy; Z88.8 Allergy status to other drugs, medicaments and biological substances
CPT/HCPCS: 80053; 81001; 85025; 99285; G0480

== ENCOUNTER 2022-06-24 12:48 | Emergency (ER) | payer MEDICAID ==
[~2022-06-24] VITALS: Ht 170.2 cm; Wt 86.4 kg
[~2022-06-24 12:48] MED LIST changes: +ATOR40TA71 PO; +DIVA-112 PO; -ESCI20TA87 PO; +FLUO20CA36 PO; +PROZ20 PO
[2022-06-24 13:50] LABS: BASOPHILS % (AUTO) 1.4 % (0.0-2.0); EOSINOPHILS % (AUTO) 0.5 % (1.0-6.0); HEMATOCRIT 45.9 % (41-53); HEMOGLOBIN 15.4 g/dL (13.5-17.5); LYMPHOCYTES # (AUTO) 1.6 K/uL (1.0-4.8); MEAN CORPUSCULAR HGB CONC 33.6 G/dL (31.0-37.0); MEAN CORPUSCULAR VOLUME 98 fL (80-100); MONOCYTES # (AUTO) 1.4 K/uL (0.1-1.0); MONOCYTES % (AUTO) 14.9 % (2.0-9.0); NEUTROPHILS # (AUTO) 6.3 K/uL (1.8-7.7); NEUTROPHILS % (AUTO) 66.2 % (40.0-70.0); PLATELET COUNT (AUTO) 279 K/uL (150-450); RED BLOOD CELL COUNT(AUTO) 4.68 MIL/uL (4.50-5.90)
[2022-06-24 13:55] LABS: COVID AG,FIA SOURCE NASOPHARYNGEAL
[2022-06-24 14:00] LABS: CALCIUM, TOTAL 9.4 mg/dL (8.8-10.5); CREATININE 1.24 mg/dL (0.60-1.30); POTASSIUM 3.9 mmol/L (3.5-5.1)
[2022-06-24 14:06] LABS: ALBUMIN 3.7 g/dL (3.4-5.0); BILIRUBIN,TOTAL 0.5 mg/dL (0.1-1.0); TOTAL PROTEIN, SERUM 7.7 g/dL (6.4-8.2)
[2022-06-24 15:50] LABS: AMPHET/METH SCREEN,URINE NEGATIVE (NEGATIVE); BARBITURATE SCREEN, URINE NEGATIVE (NEGATIVE); BENZODIAZEPINES SCREEN,URINE NEGATIVE (NEGATIVE); CANNABINOID SCREEN,URINE POSITIVE (NEGATIVE); COCAINE SCREEN,URINE NEGATIVE (NEGATIVE); METHADONE SCREEN, URINE NEGATIVE (NEGATIVE); OPIATE SCREEN,URINE NEGATIVE (NEGATIVE); PHENCYCLIDINE SCREEN,URINE NEGATIVE (NEGATIVE)
[2022-06-24 16:35] VITALS: BP 150/82
== END 2022-06-24 19:02 | disposition home or self-care (01) ==
LOC: EMS 12:54
DX: R45.851 Suicidal ideations (principal); F17.210 Nicotine dependence, cigarettes, uncomplicated; Z91.048 Other nonmedicinal substance allergy status; Z79.899 Other long term (current) drug therapy; Z20.822 Contact with and (suspected) exposure to COVID-19
CPT/HCPCS: 99284; 87426; 80053; 85025; 36415; 80307; G0480

== ENCOUNTER 2022-08-19 15:39 | Inpatient (IN) | payer MEDICAID ==
[~2022-08-19] VITALS: Ht 172.7 cm; Wt 58.1 kg
[2022-08-19 17:22] LABS: BASOPHILS % (AUTO) 0.6 % (0.0-2.0); EOSINOPHILS % (AUTO) 5.1 % (1.0-6.0); HEMATOCRIT 40.5 % (41-53); LYMPHOCYTES # (AUTO) 2.3 K/uL (1.0-4.8); LYMPHOCYTES % (AUTO) 33.7 % (22.0-44.0); MEAN CORPUSCULAR HEMOGLOBIN 30.5 pg (26.0-34.0); MEAN CORPUSCULAR HGB CONC 32.2 G/dL (31.0-37.0); MEAN CORPUSCULAR VOLUME 95 fL (80-100); MONOCYTES # (AUTO) 0.8 K/uL (0.1-1.0); MONOCYTES % (AUTO) 10.8 % (2.0-9.0); NEUTROPHILS # (AUTO) 3.5 K/uL (1.8-7.7); NEUTROPHILS % (AUTO) 49.8 % (40.0-70.0); PLATELET COUNT (AUTO) 324 K/uL (150-450); RED BLOOD CELL COUNT(AUTO) 4.28 MIL/uL (4.50-5.90); RED CELL DISTRIBUTION WIDTH 14.6 % (11.5-14.5)
[2022-08-19 17:28] LABS: CALCIUM, TOTAL 9.6 mg/dL (8.8-10.5); CREATININE 1.23 mg/dL (0.60-1.30); POTASSIUM 4.3 mmol/L (3.5-5.1)
[2022-08-19 17:33] LABS: ALBUMIN 3.8 g/dL (3.4-5.0); BILIRUBIN,TOTAL 0.1 mg/dL (0.1-1.0); TOTAL PROTEIN, SERUM 8.3 g/dL (6.4-8.2)
[2022-08-19 17:53] LABS: PLATELET MORPHOLOGY COMMENT LARGE PLTS PRESENT
[2022-08-19 18:20] LABS: AMPHET/METH SCREEN,URINE NEGATIVE (NEGATIVE); BARBITURATE SCREEN, URINE NEGATIVE (NEGATIVE); BENZODIAZEPINES SCREEN,URINE POSITIVE (NEGATIVE); CANNABINOID SCREEN,URINE NEGATIVE (NEGATIVE); COCAINE SCREEN,URINE NEGATIVE (NEGATIVE); METHADONE SCREEN, URINE NEGATIVE (NEGATIVE); OPIATE SCREEN,URINE NEGATIVE (NEGATIVE)
[2022-08-19 18:27] LABS: PHENCYCLIDINE SCREEN,URINE NEGATIVE (NEGATIVE)
[2022-08-19 18:36] LABS: COVID AG,FIA SOURCE NASAL SWAB
[2022-08-19] MEDS ORDERED: HALOPERIDOL 5 MG TABLET PO PRN (21:15)
[2022-08-19] MEDS ORDERED: LORazepam 2 MG TABLET PO PRN (21:15)
[2022-08-20] VITALS (11 sets, daily range): BP systolic 111–152; BP diastolic 61–90
[2022-08-20] MEDS: ZOLPIDEM TARTRATE 10 MG TABLET PO PRN ×2 (01:59→22:12)
[2022-08-20] MEDS ORDERED: ONDANSETRON HCL 4 MG TABLET PO PRN (05:30)
[2022-08-20] MEDS ORDERED: LOPERAMIDE HCL 2 MG CAPSULE PO PRN (05:30)
[2022-08-20] MEDS ORDERED: BACITRACIN 28 GM OINTMENT TP PRN (05:30)
[2022-08-20] MEDS ORDERED: DOCUSATE SODIUM 100 MG CAPSULE PO PRN (05:30)
[2022-08-20] MEDS ORDERED: IBUPROFEN 600 MG TABLET PO PRN (05:30)
[2022-08-20] MEDS ORDERED: ACETAMINOPHEN 325 MG TABLET PO PRN (05:30)
[2022-08-20] MEDS ORDERED: ALBUTEROL SULFATE HFA 90 MCG/PUFF 8 GM INHALER IH PRN (05:30)
[2022-08-20] MEDS ORDERED: CloNIDine HCL 0.1 MG TABLET PO PRN (05:30)
[2022-08-20] MEDS ORDERED: OMEPRAZOLE 20 MG CAPSULE PO PRN (05:30)
[2022-08-20] MEDS ORDERED: BENZOCAINE/MENTHOL LOZENGE PO PRN (05:30)
[2022-08-20] MEDS ORDERED: MAGNESIUM HYDROXIDE SUSPENSION 30 ML UDCUP PO PRN (05:30)
[2022-08-20] MEDS ORDERED: MAG HYDROX/AL HYDROX/SIMETH ES 30 ML SUSPENSION UDCUP PO PRN (05:30)
[2022-08-20] MEDS ORDERED: PETROLATUM,WHITE 28 GM JELLY TP PRN (05:30)
[2022-08-20] MEDS: LEVOTHYROXINE SODIUM 25 MCG TABLET PO SCH (06:34)
[2022-08-20] MEDS: FINASTERIDE 5 MG TABLET PO SCH (08:40)
[2022-08-20] MEDS: APIXABAN 5 MG TABLET PO SCH ×2 (08:40→17:01)
[2022-08-20] MEDS: ATORVASTATIN CALCIUM 40 MG TABLET PO SCH (08:40)
[2022-08-20] MEDS: DIVALPROEX SODIUM 500 MG DR TABLET PO SCH (08:40)
[2022-08-20] MEDS ORDERED: ATORVASTATIN CALCIUM 40 MG TABLET PO SCH (09:00)
[2022-08-20] MEDS ORDERED: ASPIRIN 81 MG CHEWABLE TABLET PO SCH (09:00)
[2022-08-20] MEDS ORDERED: DIVALPROEX SODIUM 500 MG ER TABLET PO SCH (21:00)
[2022-08-21 01:45] VITALS: BP 139/90
[2022-08-21 02:29] VITALS: BP 139/90
[2022-08-21 05:45] VITALS: BP 135/82
[2022-08-21] MEDS: LEVOTHYROXINE SODIUM 25 MCG TABLET PO SCH (06:39)
[2022-08-21 08:18] VITALS: BP 119/83
[2022-08-21] MEDS: ATORVASTATIN CALCIUM 40 MG TABLET PO SCH (08:19)
[2022-08-21] MEDS: DIVALPROEX SODIUM 500 MG DR TABLET PO SCH (08:19)
[2022-08-21] MEDS: APIXABAN 5 MG TABLET PO SCH ×2 (08:19→17:04)
[2022-08-21] MEDS: FINASTERIDE 5 MG TABLET PO SCH (08:19)
[2022-08-21 13:37] VITALS: BP 144/83
[2022-08-21 20:07] VITALS: BP 148/83
[2022-08-21] MEDS: ZOLPIDEM TARTRATE 10 MG TABLET PO PRN (21:41)
[2022-08-22 01:45] VITALS: BP 138/87
[2022-08-22] MEDS: LEVOTHYROXINE SODIUM 25 MCG TABLET PO SCH (06:49)
[2022-08-22 08:11] VITALS: BP 130/87
[2022-08-22] MEDS: DIVALPROEX SODIUM 500 MG DR TABLET PO SCH ×2 (08:20→16:07)
[2022-08-22] MEDS: APIXABAN 5 MG TABLET PO SCH ×2 (08:20→16:07)
[2022-08-22] MEDS: FINASTERIDE 5 MG TABLET PO SCH (08:20)
[2022-08-22] MEDS: THIAMINE 100 MG TABLET PO SCH (08:20)
[2022-08-22] MEDS: ATORVASTATIN CALCIUM 40 MG TABLET PO SCH (08:20)
[2022-08-22] MEDS: FOLIC ACID 1 MG TABLET PO SCH (08:20)
[2022-08-22 20:03] VITALS: BP 148/80
[2022-08-22] MEDS: QUEtiapine FUMARATE 300 MG TABLET PO SCH (21:05)
[2022-08-23 06:07] VITALS: BP 104/65
[2022-08-23] MEDS: LEVOTHYROXINE SODIUM 25 MCG TABLET PO SCH (06:42)
[2022-08-23 08:07] VITALS: BP 141/79
[2022-08-23 08:08] VITALS: BP 141/79
[2022-08-23] MEDS: THIAMINE 100 MG TABLET PO SCH (08:33)
[2022-08-23] MEDS: ATORVASTATIN CALCIUM 40 MG TABLET PO SCH (08:33)
[2022-08-23] MEDS: FINASTERIDE 5 MG TABLET PO SCH (08:33)
[2022-08-23] MEDS: DIVALPROEX SODIUM 500 MG DR TABLET PO SCH ×2 (08:35→16:31)
[2022-08-23] MEDS: APIXABAN 5 MG TABLET PO SCH ×2 (08:35→16:31)
[2022-08-23] MEDS: FOLIC ACID 1 MG TABLET PO SCH (08:35)
[2022-08-23 20:09] VITALS: BP 136/77
[2022-08-23] MEDS: QUEtiapine FUMARATE 300 MG TABLET PO SCH (20:37)
[2022-08-24] MEDS: LEVOTHYROXINE SODIUM 25 MCG TABLET PO SCH (06:35)
[2022-08-24 08:09] VITALS: BP 110/58
[2022-08-24 08:41] LABS: GLUCOMETER DEV NAME(LOC) POC.BV
[2022-08-24] MEDS: FOLIC ACID 1 MG TABLET PO SCH (08:44)
[2022-08-24] MEDS: THIAMINE 100 MG TABLET PO SCH (08:44)
[2022-08-24] MEDS: FINASTERIDE 5 MG TABLET PO SCH (08:44)
[2022-08-24] MEDS: ATORVASTATIN CALCIUM 40 MG TABLET PO SCH (08:44)
[2022-08-24] MEDS: DIVALPROEX SODIUM 500 MG DR TABLET PO SCH ×2 (08:44→16:31)
[2022-08-24] MEDS: APIXABAN 5 MG TABLET PO SCH ×2 (08:44→16:31)
[2022-08-24 11:25] VITALS: BP 110/58
[2022-08-24] MEDS ORDERED: QUET300T19 PO (19:25)
[2022-08-24] MEDS ORDERED: DIVA-112 PO (19:25)
[2022-08-24 20:13] VITALS: BP 135/76
[2022-08-24] MEDS: QUEtiapine FUMARATE 300 MG TABLET PO SCH (20:31)
[2022-08-25] MEDS: LEVOTHYROXINE SODIUM 25 MCG TABLET PO SCH (06:57)
[2022-08-25 08:16] VITALS: BP 111/66
[2022-08-25] MEDS: FOLIC ACID 1 MG TABLET PO SCH (08:34)
[2022-08-25] MEDS: FINASTERIDE 5 MG TABLET PO SCH (08:34)
[2022-08-25] MEDS: APIXABAN 5 MG TABLET PO SCH (08:34)
[2022-08-25] MEDS: THIAMINE 100 MG TABLET PO SCH (08:34)
[2022-08-25] MEDS: ATORVASTATIN CALCIUM 40 MG TABLET PO SCH (08:34)
[2022-08-25] MEDS: DIVALPROEX SODIUM 500 MG DR TABLET PO SCH (08:35)
[2022-08-25 08:59] VITALS: BP 111/66
[2022-08-25] MEDS ORDERED: DIVA-112 PO ×2 (10:10→10:11)
[2022-08-25] MEDS ORDERED: FINA-27 PO (10:14)
[2022-08-25] MEDS ORDERED: LEVO25TA9 PO (10:14)
[2022-08-25] MEDS ORDERED: APIX5TAB PO (10:15)
== END 2022-08-25 14:02 | disposition home or self-care (01) | DRG 750 ==
LOC: EMS 16:24 → B2S 21:00
PROVIDERS: ADMIT Psychiatry & Neurology Psychiatry; ATTEND Psychiatry & Neurology Psychiatry
DX: F25.1 Schizoaffective disorder, depressive type (principal); E03.9 Hypothyroidism, unspecified; E78.5 Hyperlipidemia, unspecified; F10.20 Alcohol dependence, uncomplicated; F41.9 Anxiety disorder, unspecified; G47.00 Insomnia, unspecified; I10 Essential (primary) hypertension; I73.9 Peripheral vascular disease, unspecified; K21.9 Gastro-esophageal reflux disease without esophagitis; N40.0 Benign prostatic hyperplasia without lower urinary tract symptoms; F17.210 Nicotine dependence, cigarettes, uncomplicated; Z20.822 Contact with and (suspected) exposure to COVID-19
CPT/HCPCS: 80053; 80307; 85025; 87081; 99285; G0480

== ENCOUNTER 2022-08-31 12:42 | Inpatient (IN) | payer MEDICAID ==
[~2022-08-31] VITALS: Ht 167.6 cm; Wt 91.2 kg
[~2022-08-31 12:42] MED LIST changes: +APIX5TAB PO; -ASPI81 PO; -ATOR40TA71 PO; -DIVA-80 PO; +FINA-27 PO; -FLUO20CA36 PO; +LEVO25TA9 PO; -PROZ20 PO
[2022-08-31 13:14] LABS: BASOPHILS % (AUTO) 0.7 % (0.0-2.0); EOSINOPHILS % (AUTO) 0.3 % (1.0-6.0); HEMOGLOBIN 12.1 g/dL (13.5-17.5); LYMPHOCYTES # (AUTO) 1.6 K/uL (1.0-4.8); LYMPHOCYTES % (AUTO) 12.5 % (22.0-44.0); MEAN CORPUSCULAR HEMOGLOBIN 29.8 pg (26.0-34.0); MEAN CORPUSCULAR HGB CONC 32.6 G/dL (31.0-37.0); MEAN CORPUSCULAR VOLUME 92 fL (80-100); MONOCYTES # (AUTO) 1.8 K/uL (0.1-1.0); MONOCYTES % (AUTO) 14.6 % (2.0-9.0); NEUTROPHILS % (AUTO) 71.9 % (40.0-70.0); PLATELET COUNT (AUTO) 365 K/uL (150-450); RED BLOOD CELL COUNT(AUTO) 4.05 MIL/uL (4.50-5.90); RED CELL DISTRIBUTION WIDTH 14.9 % (11.5-14.5)
[2022-08-31 13:29] LABS: CALCIUM, TOTAL 8.6 mg/dL (8.8-10.5); CREATININE 1.45 mg/dL (0.60-1.30); POTASSIUM 3.8 mmol/L (3.5-5.1)
[2022-08-31 13:35] LABS: BILIRUBIN,TOTAL 0.4 mg/dL (0.1-1.0); TOTAL PROTEIN, SERUM 8.5 g/dL (6.4-8.2)
[2022-08-31 13:48] LABS: COVID AG,FIA SOURCE NASAL SWAB
[2022-08-31] MEDS ORDERED: ZOLPIDEM TARTRATE 10 MG TABLET PO PRN (14:45)
[2022-08-31 15:26] LABS: APPEARANCE,URINE CLEAR (CLEAR); BILIRUBIN,URINE NEGATIVE (NEGATIVE); GLUCOSE, URINE (UA) 70-100 mg/dL (NEGATIVE); KETONES,URINE NEGATIVE (NEGATIVE); LEUKOCYTE ESTERASE ,URINE NEGATIVE (NEGATIVE); NITRATE,URINE NEGATIVE (NEGATIVE); OCCULT BLOOD,URINE LARGE (NEGATIVE); PH,URINE 5.5 (5.0-8.0); PROTEIN,URINE 30-70 mg/dL (NEGATIVE); SPECIFIC GRAVITIY, URINE 1.007 (1.003-1.030); UROBILINOGEN,URINE <=1.0 mg/dL (<=1.0)
[2022-08-31 15:33] LABS: AMPHET/METH SCREEN,URINE NEGATIVE (NEGATIVE); BARBITURATE SCREEN, URINE NEGATIVE (NEGATIVE); BENZODIAZEPINES SCREEN,URINE POSITIVE (NEGATIVE); CANNABINOID SCREEN,URINE NEGATIVE (NEGATIVE); COCAINE SCREEN,URINE NEGATIVE (NEGATIVE); METHADONE SCREEN, URINE NEGATIVE (NEGATIVE); OPIATE SCREEN,URINE NEGATIVE (NEGATIVE)
[2022-08-31 15:42] LABS: PHENCYCLIDINE SCREEN,URINE NEGATIVE (NEGATIVE)
[2022-08-31 15:54] LABS: BACTERIA,URINE None Seen /HPF (None Seen); RBC,URINE 0-2 /HPF (0-2); SQUAMOUS EPITHELIAL CELL,UR Few /LPF (None Seen); WBC,URINE 0-2 /HPF (0-5)
[2022-08-31 19:48] VITALS: BP 148/82
[2022-08-31] MEDS: LORazepam 2 MG TABLET PO PRN (20:34)
[2022-09-01] VITALS (7 sets, daily range): BP systolic 130–160; BP diastolic 65–81
[2022-09-01] MEDS: LORazepam 2 MG TABLET PO PRN ×2 (02:28→17:43)
[2022-09-01 04:04] LABS: COVID AG,FIA SOURCE NASAL SWAB
[2022-09-01] MEDS ORDERED: BACITRACIN 28 GM OINTMENT TP PRN (05:45)
[2022-09-01] MEDS ORDERED: MAG HYDROX/AL HYDROX/SIMETH ES 30 ML SUSPENSION UDCUP PO PRN (05:45)
[2022-09-01] MEDS ORDERED: PETROLATUM,WHITE 28 GM JELLY TP PRN (05:45)
[2022-09-01] MEDS ORDERED: IBUPROFEN 600 MG TABLET PO PRN (05:45)
[2022-09-01] MEDS ORDERED: LOPERAMIDE HCL 2 MG CAPSULE PO PRN (05:45)
[2022-09-01] MEDS ORDERED: CloNIDine HCL 0.1 MG TABLET PO PRN (05:45)
[2022-09-01] MEDS ORDERED: BENZOCAINE/MENTHOL LOZENGE PO PRN (05:45)
[2022-09-01] MEDS ORDERED: OMEPRAZOLE 20 MG CAPSULE PO PRN (05:45)
[2022-09-01] MEDS ORDERED: DOCUSATE SODIUM 100 MG CAPSULE PO PRN (05:45)
[2022-09-01] MEDS ORDERED: ONDANSETRON HCL 4 MG TABLET PO PRN (05:45)
[2022-09-01] MEDS ORDERED: ALBUTEROL SULFATE HFA 90 MCG/PUFF 8 GM INHALER IH PRN (05:45)
[2022-09-01] MEDS ORDERED: MAGNESIUM HYDROXIDE SUSPENSION 30 ML UDCUP PO PRN (05:45)
[2022-09-01] MEDS: ACETAMINOPHEN 325 MG TABLET PO PRN ×2 (06:20→20:06)
[2022-09-01] MEDS: LEVOTHYROXINE SODIUM 25 MCG TABLET PO SCH (06:20)
[2022-09-01] MEDS ORDERED: LEVOTHYROXINE SODIUM 25 MCG TABLET PO SCH (07:00)
[2022-09-01] MEDS: FINASTERIDE 5 MG TABLET PO SCH (08:57)
[2022-09-01] MEDS: ATORVASTATIN CALCIUM 40 MG TABLET PO SCH (08:57)
[2022-09-01] MEDS: APIXABAN 5 MG TABLET PO SCH ×2 (08:58→16:29)
[2022-09-01] MEDS ORDERED: FINASTERIDE 5 MG TABLET PO SCH (09:00)
[2022-09-01] MEDS ORDERED: ATORVASTATIN CALCIUM 40 MG TABLET PO SCH (09:00)
[2022-09-01] MEDS ORDERED: DIVALPROEX SODIUM 500 MG DR TABLET PO SCH (09:00)
[2022-09-01] MEDS ORDERED: APIXABAN 5 MG TABLET PO SCH (09:00)
[2022-09-01] MEDS: DIVALPROEX SODIUM 500 MG DR TABLET PO SCH (20:41)
[2022-09-01] MEDS: QUEtiapine FUMARATE 300 MG TABLET PO SCH (20:41)
[2022-09-02] MEDS: LEVOTHYROXINE SODIUM 25 MCG TABLET PO SCH (06:23)
[2022-09-02 08:36] LABS: BASOPHILS % (AUTO) 0.3 % (0.0-2.0); HEMATOCRIT 34.6 % (41-53); HEMOGLOBIN 11.6 g/dL (13.5-17.5); LYMPHOCYTES % (AUTO) 7.1 % (22.0-44.0); MEAN CORPUSCULAR HEMOGLOBIN 30.6 pg (26.0-34.0); MEAN CORPUSCULAR HGB CONC 33.4 G/dL (31.0-37.0); MEAN CORPUSCULAR VOLUME 92 fL (80-100); MONOCYTES # (AUTO) 1.4 K/uL (0.1-1.0); MONOCYTES % (AUTO) 10.4 % (2.0-9.0); NEUTROPHILS # (AUTO) 10.7 K/uL (1.8-7.7); NEUTROPHILS % (AUTO) 79.2 % (40.0-70.0); PLATELET COUNT (AUTO) 240 K/uL (150-450); RED BLOOD CELL COUNT(AUTO) 3.78 MIL/uL (4.50-5.90); RED CELL DISTRIBUTION WIDTH 14.7 % (11.5-14.5)
[2022-09-02 08:42] LABS: HEMOGLOBIN A1C 5.5 % (3.8-5.6)
[2022-09-02 09:08] LABS: CREATININE 1.52 mg/dL (0.60-1.30); POTASSIUM 3.3 mmol/L (3.5-5.1)
[2022-09-02 09:09] LABS: ALBUMIN 2.8 g/dL (3.4-5.0); BILIRUBIN,TOTAL 0.4 mg/dL (0.1-1.0); CALCIUM, TOTAL 8.9 mg/dL (8.8-10.5); MAGNESIUM 1.8 mg/dL (1.80-2.40); PHOSPHORUS 2.5 mg/dL (2.5-4.9); TOTAL PROTEIN, SERUM 7.1 g/dL (6.4-8.2)
[2022-09-02] MEDS: APIXABAN 5 MG TABLET PO SCH ×2 (09:19→16:03)
[2022-09-02] MEDS: ATORVASTATIN CALCIUM 40 MG TABLET PO SCH (09:19)
[2022-09-02] MEDS: DIVALPROEX SODIUM 500 MG DR TABLET PO SCH ×2 (09:19→20:47)
[2022-09-02] MEDS: FINASTERIDE 5 MG TABLET PO SCH (09:19)
[2022-09-02 09:54] VITALS: BP 146/75
[2022-09-02] MEDS: ACETAMINOPHEN 325 MG TABLET PO PRN ×2 (09:54→15:30)
[2022-09-02 15:30] VITALS: BP 145/75
[2022-09-02] MEDS: AMOX TR/POT CLAV 875 MG/125 MG TABLET PO SCH (17:24)
[2022-09-02] MEDS: CIPROFLOXACIN HCL 0.3% 2.5 ML OPHTHALMIC SOLUTION AS SCH (17:31)
[2022-09-02 19:45] VITALS: BP 127/64
[2022-09-02] MEDS: QUEtiapine FUMARATE 300 MG TABLET PO SCH (20:47)
[2022-09-03] MEDS: LEVOTHYROXINE SODIUM 25 MCG TABLET PO SCH (06:28)
[2022-09-03 08:43] VITALS: BP 107/54
[2022-09-03] MEDS: CIPROFLOXACIN HCL 0.3% 2.5 ML OPHTHALMIC SOLUTION AS SCH ×2 (09:39→16:14)
[2022-09-03] MEDS: AMOX TR/POT CLAV 875 MG/125 MG TABLET PO SCH ×2 (09:39→16:14)
[2022-09-03] MEDS: DIVALPROEX SODIUM 500 MG DR TABLET PO SCH ×2 (09:40→20:49)
[2022-09-03] MEDS: APIXABAN 5 MG TABLET PO SCH ×2 (09:40→16:15)
[2022-09-03] MEDS: ATORVASTATIN CALCIUM 40 MG TABLET PO SCH (09:40)
[2022-09-03] MEDS: FINASTERIDE 5 MG TABLET PO SCH (09:40)
[2022-09-03 16:25] VITALS: BP 156/75
[2022-09-03] MEDS: QUEtiapine FUMARATE 300 MG TABLET PO SCH (20:49)
[2022-09-04] MEDS: LEVOTHYROXINE SODIUM 25 MCG TABLET PO SCH (06:40)
[2022-09-04 09:05] VITALS: BP 127/68
[2022-09-04] MEDS: CIPROFLOXACIN HCL 0.3% 2.5 ML OPHTHALMIC SOLUTION AS SCH ×2 (09:06→17:22)
[2022-09-04] MEDS: FINASTERIDE 5 MG TABLET PO SCH (09:06)
[2022-09-04] MEDS: AMOX TR/POT CLAV 875 MG/125 MG TABLET PO SCH ×2 (09:06→17:22)
[2022-09-04] MEDS: APIXABAN 5 MG TABLET PO SCH ×2 (09:07→17:22)
[2022-09-04] MEDS: DIVALPROEX SODIUM 500 MG DR TABLET PO SCH ×2 (09:08→20:34)
[2022-09-04] MEDS: ATORVASTATIN CALCIUM 40 MG TABLET PO SCH (09:08)
[2022-09-04 16:46] VITALS: BP 124/73
[2022-09-04] MEDS: HALOPERIDOL 5 MG TABLET PO PRN (17:37)
[2022-09-04] MEDS: QUEtiapine FUMARATE 300 MG TABLET PO SCH (20:34)
[2022-09-05] MEDS: LEVOTHYROXINE SODIUM 25 MCG TABLET PO SCH (06:35)
[2022-09-05] MEDS: APIXABAN 5 MG TABLET PO SCH ×2 (08:33→16:02)
[2022-09-05] MEDS: CIPROFLOXACIN HCL 0.3% 2.5 ML OPHTHALMIC SOLUTION AS SCH ×2 (08:33→16:04)
[2022-09-05] MEDS: AMOX TR/POT CLAV 875 MG/125 MG TABLET PO SCH ×2 (08:34→16:02)
[2022-09-05] MEDS: DIVALPROEX SODIUM 500 MG DR TABLET PO SCH ×2 (08:35→20:15)
[2022-09-05] MEDS: ATORVASTATIN CALCIUM 40 MG TABLET PO SCH (08:35)
[2022-09-05] MEDS: FINASTERIDE 5 MG TABLET PO SCH (08:35)
[2022-09-05 08:58] VITALS: BP 135/66
[2022-09-05 16:28] VITALS: BP 142/84
[2022-09-05] MEDS: QUEtiapine FUMARATE 300 MG TABLET PO SCH (20:15)
[2022-09-06] MEDS: LEVOTHYROXINE SODIUM 25 MCG TABLET PO SCH (06:45)
[2022-09-06] MEDS: AMOX TR/POT CLAV 875 MG/125 MG TABLET PO SCH ×2 (08:24→16:05)
[2022-09-06] MEDS: DIVALPROEX SODIUM 500 MG DR TABLET PO SCH ×2 (08:24→20:55)
[2022-09-06] MEDS: ATORVASTATIN CALCIUM 40 MG TABLET PO SCH (08:24)
[2022-09-06] MEDS: FINASTERIDE 5 MG TABLET PO SCH (08:25)
[2022-09-06] MEDS: APIXABAN 5 MG TABLET PO SCH ×2 (08:25→16:05)
[2022-09-06] MEDS: CIPROFLOXACIN HCL 0.3% 2.5 ML OPHTHALMIC SOLUTION AS SCH ×2 (08:26→16:05)
[2022-09-06 08:57] VITALS: BP 139/69
[2022-09-06 16:16] VITALS: BP 168/98
[2022-09-06] MEDS: HALOPERIDOL 5 MG TABLET PO PRN (20:55)
[2022-09-06] MEDS: QUEtiapine FUMARATE 300 MG TABLET PO SCH (20:55)
[2022-09-06] MEDS: LORazepam 2 MG TABLET PO PRN (20:55)
[2022-09-07] MEDS: LEVOTHYROXINE SODIUM 25 MCG TABLET PO SCH (06:00)
[2022-09-07 06:38] LABS: COVID AG,FIA SOURCE NASAL SWAB
[2022-09-07] MEDS: APIXABAN 5 MG TABLET PO SCH ×2 (08:10→16:07)
[2022-09-07] MEDS: DIVALPROEX SODIUM 500 MG DR TABLET PO SCH ×2 (08:10→20:15)
[2022-09-07] MEDS: ATORVASTATIN CALCIUM 40 MG TABLET PO SCH (08:10)
[2022-09-07] MEDS: FINASTERIDE 5 MG TABLET PO SCH (08:10)
[2022-09-07] MEDS: AMOX TR/POT CLAV 875 MG/125 MG TABLET PO SCH ×2 (08:10→16:07)
[2022-09-07] MEDS: CIPROFLOXACIN HCL 0.3% 2.5 ML OPHTHALMIC SOLUTION AS SCH ×2 (08:11→16:08)
[2022-09-07 09:03] VITALS: BP 118/63
[2022-09-07 16:36] VITALS: BP 118/70
[2022-09-07] MEDS: QUEtiapine FUMARATE 300 MG TABLET PO SCH (20:14)
[2022-09-08] MEDS: LEVOTHYROXINE SODIUM 25 MCG TABLET PO SCH (07:05)
[2022-09-08] MEDS: DIVALPROEX SODIUM 500 MG DR TABLET PO SCH ×2 (08:39→20:48)
[2022-09-08] MEDS: APIXABAN 5 MG TABLET PO SCH ×2 (08:40→16:10)
[2022-09-08] MEDS: AMOX TR/POT CLAV 875 MG/125 MG TABLET PO SCH ×2 (08:40→16:10)
[2022-09-08] MEDS: ATORVASTATIN CALCIUM 40 MG TABLET PO SCH (08:40)
[2022-09-08] MEDS: FINASTERIDE 5 MG TABLET PO SCH (08:40)
[2022-09-08] MEDS: CIPROFLOXACIN HCL 0.3% 2.5 ML OPHTHALMIC SOLUTION AS SCH ×2 (08:42→16:10)
[2022-09-08 09:07] VITALS: BP 155/94
[2022-09-08 17:08] VITALS: BP 137/87
[2022-09-08] MEDS: QUEtiapine FUMARATE 300 MG TABLET PO SCH (20:48)
[2022-09-09] MEDS: LEVOTHYROXINE SODIUM 25 MCG TABLET PO SCH (06:42)
[2022-09-09 09:00] VITALS: BP 140/87
[2022-09-09] MEDS: DIVALPROEX SODIUM 500 MG DR TABLET PO SCH ×2 (09:16→21:28)
[2022-09-09] MEDS: FINASTERIDE 5 MG TABLET PO SCH (09:16)
[2022-09-09] MEDS: APIXABAN 5 MG TABLET PO SCH ×2 (09:16→16:09)
[2022-09-09] MEDS: AMOX TR/POT CLAV 875 MG/125 MG TABLET PO SCH ×2 (09:16→16:09)
[2022-09-09] MEDS: ATORVASTATIN CALCIUM 40 MG TABLET PO SCH (09:16)
[2022-09-09] MEDS: CIPROFLOXACIN HCL 0.3% 2.5 ML OPHTHALMIC SOLUTION AS SCH ×2 (09:17→16:08)
[2022-09-09 16:15] VITALS: BP 157/77
[2022-09-09] MEDS: LORazepam 2 MG TABLET PO PRN (19:45)
[2022-09-09] MEDS: QUEtiapine FUMARATE 300 MG TABLET PO SCH (21:28)
[2022-09-10] MEDS: LEVOTHYROXINE SODIUM 25 MCG TABLET PO SCH (06:16)
[2022-09-10 08:30] VITALS: BP 126/77
[2022-09-10] MEDS: AMOX TR/POT CLAV 875 MG/125 MG TABLET PO SCH (08:59)
[2022-09-10] MEDS: APIXABAN 5 MG TABLET PO SCH (08:59)
[2022-09-10] MEDS: ATORVASTATIN CALCIUM 40 MG TABLET PO SCH (09:00)
[2022-09-10] MEDS: FINASTERIDE 5 MG TABLET PO SCH (09:00)
[2022-09-10] MEDS: CIPROFLOXACIN HCL 0.3% 2.5 ML OPHTHALMIC SOLUTION AS SCH (09:00)
[2022-09-10] MEDS: DIVALPROEX SODIUM 500 MG DR TABLET PO SCH (09:00)
[2022-09-10] MEDS ORDERED: DIVA-112 PO (11:18)
[2022-09-10] MEDS ORDERED: QUET300T19 PO (11:18)
[2022-09-10] MEDS ORDERED: CIPR2.5D17 AS (12:58)
[2022-09-10] MEDS ORDERED: AMOX1TAB16 PO (12:58)
== END 2022-09-10 14:10 | disposition home or self-care (01) | DRG 750 ==
LOC: EMS 12:42 → 3EI 18:25
PROVIDERS: ADMIT Psychiatry & Neurology Psychiatry; ATTEND Psychiatry & Neurology Psychiatry
DX: F25.1 Schizoaffective disorder, depressive type (principal); R45.851 Suicidal ideations; E03.9 Hypothyroidism, unspecified; Z20.822 Contact with and (suspected) exposure to COVID-19; E78.5 Hyperlipidemia, unspecified; F10.20 Alcohol dependence, uncomplicated; F41.9 Anxiety disorder, unspecified; G47.00 Insomnia, unspecified; I10 Essential (primary) hypertension; I73.9 Peripheral vascular disease, unspecified; K21.9 Gastro-esophageal reflux disease without esophagitis; N40.0 Benign prostatic hyperplasia without lower urinary tract symptoms; F17.210 Nicotine dependence, cigarettes, uncomplicated; Z91.51 Personal history of suicidal behavior
CPT/HCPCS: 71046; 80053; 80307; 81001; 82140; 82550; 83036; 83735; 84100; 85025; 87081; 99285; G0480; 36415-L1; 36415-TC

== ENCOUNTER 2022-10-16 15:56 | Inpatient (IN) | payer MEDICAID ==
[~2022-10-16] VITALS: Ht 170.2 cm; Wt 82.6 kg
[~2022-10-16 15:56] MED LIST changes: +AMOX1TAB16 PO; +CIPR2.5D17 AS
[2022-10-16] MEDS ORDERED: CARV6.2534 PO (16:46)
[2022-10-16] MEDS ORDERED: PANT40TA54 PO (16:46)
[2022-10-16] MEDS ORDERED: NALT380S2 IM (16:46)
[2022-10-16] MEDS ORDERED: BUSP10TA23 PO (16:46)
[2022-10-16] MEDS ORDERED: MIRT-93 PO (16:46)
[2022-10-16] MEDS ORDERED: FINA5TAB41 PO (16:46)
[2022-10-16 16:57] LABS: COVID AG,FIA SOURCE NASOPHARYNGEAL
[2022-10-16] MEDS ORDERED: ZOLPIDEM TARTRATE 10 MG TABLET PO PRN (17:30)
[2022-10-16] MEDS ORDERED: HALOPERIDOL 5 MG TABLET PO PRN (17:30)
[2022-10-16 17:50] LABS: BASOPHILS % (AUTO) 0.7 % (0.0-2.0); EOSINOPHILS % (AUTO) 4.5 % (1.0-6.0); HEMATOCRIT 33.1 % (41-53); HEMOGLOBIN 11.2 g/dL (13.5-17.5); LYMPHOCYTES # (AUTO) 2.3 K/uL (1.0-4.8); LYMPHOCYTES % (AUTO) 21.5 % (22.0-44.0); MEAN CORPUSCULAR HGB CONC 33.9 G/dL (31.0-37.0); MEAN CORPUSCULAR VOLUME 89 fL (80-100); MONOCYTES # (AUTO) 1.4 K/uL (0.1-1.0); MONOCYTES % (AUTO) 12.9 % (2.0-9.0); NEUTROPHILS # (AUTO) 6.5 K/uL (1.8-7.7); NEUTROPHILS % (AUTO) 60.4 % (40.0-70.0); PLATELET COUNT (AUTO) 473 K/uL (150-450); RED BLOOD CELL COUNT(AUTO) 3.73 MIL/uL (4.50-5.90)
[2022-10-16 18:10] LABS: ANION GAP 18 mmol/L (8-16); CALCIUM, TOTAL 9.1 mg/dL (8.8-10.5); CARBON DIOXIDE 18 mmol/L (22-29); CHLORIDE 99 mmol/L (98-107); CREATININE 2.36 mg/dL (0.60-1.30); GLOMERULAR FILTR. RATE CALC 28 mL/min (>60); GLUCOSE,RANDOM 107 mg/dL (70-110); POTASSIUM 3.8 mmol/L (3.5-5.1); SODIUM SERUM 135 mmol/L (136-145); UREA NITROGEN, BLOOD 23 mg/dL (7-18)
[2022-10-16 18:16] LABS: ALANINE AMINOTRANSFERASE 30 U/L (12-78); ALBUMIN 2.8 g/dL (3.4-5.0); ALKALINE PHOSPHATASE 135 U/L (46-116); ASPARTATE AMINOTRANSFERASE 18 U/L (15-37); BILIRUBIN,TOTAL 0.2 mg/dL (0.1-1.0); TOTAL PROTEIN, SERUM 8.6 g/dL (6.4-8.2); VALPROIC ACID < 3 mcg/mL (50-100)
[2022-10-16] MEDS ORDERED: SODIUM CHLORIDE 0.9% 1,000 ML IV ONE (18:30)
[2022-10-16 20:10] LABS: APPEARANCE,URINE CLEAR (CLEAR); BILIRUBIN,URINE NEGATIVE (NEGATIVE); GLUCOSE, URINE (UA) NEGATIVE (NEGATIVE); KETONES,URINE NEGATIVE (NEGATIVE); LEUKOCYTE ESTERASE ,URINE MODERATE (NEGATIVE); NITRATE,URINE NEGATIVE (NEGATIVE); OCCULT BLOOD,URINE LARGE (NEGATIVE); PH,URINE 5.5 (5.0-8.0); PROTEIN,URINE 30-70 mg/dL (NEGATIVE); SPECIFIC GRAVITIY, URINE 1.006 (1.003-1.030); UROBILINOGEN,URINE <=1.0 mg/dL (<=1.0)
[2022-10-16 20:16] LABS: AMPHET/METH SCREEN,URINE NEGATIVE (NEGATIVE); BARBITURATE SCREEN, URINE NEGATIVE (NEGATIVE); BENZODIAZEPINES SCREEN,URINE NEGATIVE (NEGATIVE); CANNABINOID SCREEN,URINE NEGATIVE (NEGATIVE); COCAINE SCREEN,URINE NEGATIVE (NEGATIVE); METHADONE SCREEN, URINE NEGATIVE (NEGATIVE); OPIATE SCREEN,URINE NEGATIVE (NEGATIVE); PHENCYCLIDINE SCREEN,URINE NEGATIVE (NEGATIVE)
[2022-10-16 20:34] LABS: BACTERIA,URINE None Seen /HPF (None Seen); SQUAMOUS EPITHELIAL CELL,UR None Seen /LPF (None Seen)
[2022-10-17 00:29] VITALS: BP 131/95
[2022-10-17] MEDS: LORazepam 2 MG TABLET PO PRN ×2 (00:29→13:57)
[2022-10-17] MEDS ORDERED: INFLUENZA VIRUS VACCINE QVS 2022-23 (6MO+)/PF 60 MCG/0.5 ML SYRINGE IM. ONE (01:30)
[2022-10-17] MEDS ORDERED: IBUPROFEN 600 MG TABLET PO PRN (06:30)
[2022-10-17] MEDS ORDERED: MAG HYDROX/AL HYDROX/SIMETH ES 30 ML SUSPENSION UDCUP PO PRN (06:30)
[2022-10-17] MEDS ORDERED: ONDANSETRON HCL 4 MG TABLET PO PRN (06:30)
[2022-10-17] MEDS ORDERED: PETROLATUM,WHITE 28 GM JELLY TP PRN (06:30)
[2022-10-17] MEDS ORDERED: LOPERAMIDE HCL 2 MG CAPSULE PO PRN (06:30)
[2022-10-17] MEDS ORDERED: CloNIDine HCL 0.1 MG TABLET PO PRN (06:30)
[2022-10-17] MEDS ORDERED: ACETAMINOPHEN 325 MG TABLET PO PRN (06:30)
[2022-10-17] MEDS ORDERED: BACITRACIN 28 GM OINTMENT TP PRN (06:30)
[2022-10-17] MEDS ORDERED: BENZOCAINE/MENTHOL LOZENGE PO PRN (06:30)
[2022-10-17] MEDS ORDERED: OMEPRAZOLE 20 MG CAPSULE PO PRN (06:30)
[2022-10-17] MEDS ORDERED: MAGNESIUM HYDROXIDE SUSPENSION 30 ML UDCUP PO PRN (06:30)
[2022-10-17] MEDS ORDERED: DOCUSATE SODIUM 100 MG CAPSULE PO PRN (06:30)
[2022-10-17] MEDS ORDERED: ALBUTEROL SULFATE HFA 90 MCG/PUFF 8 GM INHALER IH PRN (06:30)
[2022-10-17 06:40] VITALS: BP 124/84
[2022-10-17] MEDS: LEVOTHYROXINE SODIUM 25 MCG TABLET PO SCH (06:52)
[2022-10-17] MEDS: ATORVASTATIN CALCIUM 40 MG TABLET PO SCH (08:39)
[2022-10-17] MEDS: PANTOPRAZOLE SODIUM 40 MG DR TABLET PO SCH (08:39)
[2022-10-17] MEDS: NICOTINE 21 MG/24 HOUR PATCH TD SCH (08:39)
[2022-10-17] MEDS: APIXABAN 5 MG TABLET PO SCH ×2 (08:40→16:47)
[2022-10-17] MEDS: CARVEDILOL 6.25 MG TABLET PO SCH ×2 (08:40→16:47)
[2022-10-17] MEDS: FINASTERIDE 5 MG TABLET PO SCH (08:40)
[2022-10-17] MEDS ORDERED: PERMETHRIN 5% 60 GM CREAM TP ONE (08:45)
[2022-10-17 10:02] VITALS: BP 108/55
[2022-10-17 16:39] VITALS: BP 122/75
[2022-10-17 20:30] VITALS: BP 134/83
[2022-10-17] MEDS: DIVALPROEX SODIUM 500 MG DR TABLET PO SCH (20:37)
[2022-10-17] MEDS: QUEtiapine FUMARATE 300 MG TABLET PO SCH (20:38)
[2022-10-18] MEDS: LEVOTHYROXINE SODIUM 25 MCG TABLET PO SCH (06:34)
[2022-10-18 08:29] VITALS: BP 121/55
[2022-10-18] MEDS: FINASTERIDE 5 MG TABLET PO SCH (08:49)
[2022-10-18] MEDS: APIXABAN 5 MG TABLET PO SCH ×2 (08:49→16:01)
[2022-10-18] MEDS: DIVALPROEX SODIUM 500 MG DR TABLET PO SCH ×2 (08:49→20:21)
[2022-10-18] MEDS: PANTOPRAZOLE SODIUM 40 MG DR TABLET PO SCH (08:49)
[2022-10-18] MEDS: CARVEDILOL 6.25 MG TABLET PO SCH ×2 (08:49→16:01)
[2022-10-18] MEDS: ATORVASTATIN CALCIUM 40 MG TABLET PO SCH (08:49)
[2022-10-18] MEDS: NICOTINE 21 MG/24 HOUR PATCH TD SCH (08:55)
[2022-10-18 16:08] VITALS: BP 141/70
[2022-10-18] MEDS: QUEtiapine FUMARATE 300 MG TABLET PO SCH (20:21)
[2022-10-18 21:02] VITALS: BP 111/65
[2022-10-19] MEDS: LEVOTHYROXINE SODIUM 25 MCG TABLET PO SCH (06:29)
[2022-10-19 09:09] VITALS: BP 141/90
[2022-10-19] MEDS: ATORVASTATIN CALCIUM 40 MG TABLET PO SCH (09:46)
[2022-10-19] MEDS: APIXABAN 5 MG TABLET PO SCH ×2 (09:46→16:41)
[2022-10-19] MEDS: PANTOPRAZOLE SODIUM 40 MG DR TABLET PO SCH (09:46)
[2022-10-19] MEDS: DIVALPROEX SODIUM 500 MG DR TABLET PO SCH ×2 (09:46→20:03)
[2022-10-19] MEDS: NICOTINE 21 MG/24 HOUR PATCH TD SCH (09:47)
[2022-10-19] MEDS: FINASTERIDE 5 MG TABLET PO SCH (09:47)
[2022-10-19] MEDS: CARVEDILOL 6.25 MG TABLET PO SCH ×2 (09:48→16:41)
[2022-10-19 16:46] VITALS: BP 140/85
[2022-10-19] MEDS: QUEtiapine FUMARATE 300 MG TABLET PO SCH (20:03)
[2022-10-19 20:22] VITALS: BP 118/62
[2022-10-20] MEDS: LEVOTHYROXINE SODIUM 25 MCG TABLET PO SCH (06:20)
[2022-10-20] MEDS: NICOTINE 21 MG/24 HOUR PATCH TD SCH (08:36)
[2022-10-20] MEDS: DIVALPROEX SODIUM 500 MG DR TABLET PO SCH ×2 (08:36→20:40)
[2022-10-20] MEDS: ATORVASTATIN CALCIUM 40 MG TABLET PO SCH (08:36)
[2022-10-20] MEDS: CARVEDILOL 6.25 MG TABLET PO SCH ×2 (08:36→16:45)
[2022-10-20] MEDS: APIXABAN 5 MG TABLET PO SCH ×2 (08:36→16:45)
[2022-10-20] MEDS: FINASTERIDE 5 MG TABLET PO SCH (08:36)
[2022-10-20] MEDS: PANTOPRAZOLE SODIUM 40 MG DR TABLET PO SCH (08:36)
[2022-10-20 09:00] VITALS: BP 120/60
[2022-10-20 16:00] VITALS: BP 128/76
[2022-10-20] MEDS: QUEtiapine FUMARATE 300 MG TABLET PO SCH (20:40)
[2022-10-21] MEDS: LEVOTHYROXINE SODIUM 25 MCG TABLET PO SCH (07:07)
[2022-10-21] MEDS: CARVEDILOL 6.25 MG TABLET PO SCH ×2 (08:16→16:41)
[2022-10-21] MEDS: PANTOPRAZOLE SODIUM 40 MG DR TABLET PO SCH (08:16)
[2022-10-21] MEDS: ATORVASTATIN CALCIUM 40 MG TABLET PO SCH (08:16)
[2022-10-21] MEDS: NICOTINE 21 MG/24 HOUR PATCH TD SCH (08:16)
[2022-10-21] MEDS: FINASTERIDE 5 MG TABLET PO SCH (08:16)
[2022-10-21] MEDS: DIVALPROEX SODIUM 500 MG DR TABLET PO SCH ×2 (08:16→20:40)
[2022-10-21] MEDS: APIXABAN 5 MG TABLET PO SCH (08:16)
[2022-10-21 09:12] VITALS: BP 118/65
[2022-10-21 16:56] VITALS: BP 111/68
[2022-10-21 16:56] LABS: COVID AG,FIA SOURCE NASAL SWAB
[2022-10-21] MEDS: QUEtiapine FUMARATE 300 MG TABLET PO SCH (20:40)
[2022-10-21] MEDS ORDERED: DIVA-112 PO (21:48)
[2022-10-21] MEDS ORDERED: QUET300T19 PO (21:48)
[2022-10-22] MEDS: LEVOTHYROXINE SODIUM 25 MCG TABLET PO SCH (06:42)
[2022-10-22] MEDS: DIVALPROEX SODIUM 500 MG DR TABLET PO SCH (08:43)
[2022-10-22] MEDS: FINASTERIDE 5 MG TABLET PO SCH (08:43)
[2022-10-22] MEDS: PANTOPRAZOLE SODIUM 40 MG DR TABLET PO SCH (08:43)
[2022-10-22] MEDS: ATORVASTATIN CALCIUM 40 MG TABLET PO SCH (08:43)
[2022-10-22] MEDS: NICOTINE 21 MG/24 HOUR PATCH TD SCH (08:43)
[2022-10-22] MEDS: CARVEDILOL 6.25 MG TABLET PO SCH (08:43)
[2022-10-22 08:59] VITALS: BP 129/69
[2022-10-24] MEDS ORDERED: PERMETHRIN 5% 60 GM CREAM TP ONE (09:30)
== END 2022-10-22 10:25 | disposition home or self-care (01) | DRG 750 ==
LOC: EMS 16:11 → 3EI 18:08
PROVIDERS: ADMIT Psychiatry & Neurology Psychiatry; ATTEND Psychiatry & Neurology Psychiatry
DX: F25.1 Schizoaffective disorder, depressive type (principal); N17.9 Acute kidney failure, unspecified; E86.9 Volume depletion, unspecified; E03.9 Hypothyroidism, unspecified; F41.0 Panic disorder [episodic paroxysmal anxiety]; E78.5 Hyperlipidemia, unspecified; F10.229 Alcohol dependence with intoxication, unspecified; G47.00 Insomnia, unspecified; I10 Essential (primary) hypertension; Y90.8 Blood alcohol level of 240 mg/100 ml or more; N40.0 Benign prostatic hyperplasia without lower urinary tract symptoms; R45.851 Suicidal ideations; K21.9 Gastro-esophageal reflux disease without esophagitis; I73.9 Peripheral vascular disease, unspecified; Z87.891 Personal history of nicotine dependence; Z79.899 Other long term (current) drug therapy; Z20.822 Contact with and (suspected) exposure to COVID-19
CPT/HCPCS: 80053; 80164; 80307; 81001; 85025; 87086; 87186; 99285; G0480; J7030

== ENCOUNTER 2022-12-21 12:42 | Inpatient (IN) | payer MEDICAID ==
[~2022-12-21] VITALS: Ht 170.2 cm; Wt 79.8 kg
[~2022-12-21 12:42] MED LIST changes: -AMOX1TAB16 PO; +CARV6.2534 PO; -CIPR2.5D17 AS; +PANT40TA54 PO
[2022-12-21] MEDS ORDERED: LORazepam 1 MG TABLET PO ONE (14:30)
[2022-12-21 15:20] LABS: BASOPHILS % (AUTO) 0.5 % (0.0-2.0); EOSINOPHILS % (AUTO) 3.1 % (1.0-6.0); HEMATOCRIT 33.6 % (41-53); HEMOGLOBIN 11.1 g/dL (13.5-17.5); LYMPHOCYTES # (AUTO) 1.9 K/uL (1.0-4.8); LYMPHOCYTES % (AUTO) 16.9 % (22.0-44.0); MEAN CORPUSCULAR HEMOGLOBIN 31.4 pg (26.0-34.0); MEAN CORPUSCULAR HGB CONC 33.1 G/dL (31.0-37.0); MEAN CORPUSCULAR VOLUME 95 fL (80-100); MONOCYTES # (AUTO) 1.2 K/uL (0.1-1.0); NEUTROPHILS # (AUTO) 7.6 K/uL (1.8-7.7); NEUTROPHILS % (AUTO) 68.5 % (40.0-70.0); PLATELET COUNT (AUTO) 381 K/uL (150-450); RED BLOOD CELL COUNT(AUTO) 3.55 MIL/uL (4.50-5.90); RED CELL DISTRIBUTION WIDTH 16.8 % (11.5-14.5)
[2022-12-21 15:29] LABS: ANION GAP 8 mmol/L (8-16); CALCIUM, TOTAL 9.7 mg/dL (8.8-10.5); CARBON DIOXIDE 27 mmol/L (22-29); CHLORIDE 102 mmol/L (98-107); CREATININE 1.61 mg/dL (0.60-1.30); GLOMERULAR FILTR. RATE CALC 44 mL/min (>60); GLUCOSE,RANDOM 111 mg/dL (70-110); POTASSIUM 4.4 mmol/L (3.5-5.1); SODIUM SERUM 137 mmol/L (136-145)
[2022-12-21 15:35] LABS: ALANINE AMINOTRANSFERASE 15 U/L (12-78); ALBUMIN 3.4 g/dL (3.4-5.0); ALKALINE PHOSPHATASE 111 U/L (46-116); ASPARTATE AMINOTRANSFERASE 20 U/L (15-37); BILIRUBIN,TOTAL 0.3 mg/dL (0.1-1.0); VALPROIC ACID 3 mcg/mL (50-100)
[2022-12-21 16:05] LABS: COVID AG,FIA SOURCE NASOPHARYNGEAL
[2022-12-21] MEDS ORDERED: OLANZapine 5 MG RAPDIS TABLET PO PRN (16:30)
[2022-12-21 17:31] LABS: AMPHET/METH SCREEN,URINE NEGATIVE (NEGATIVE); BARBITURATE SCREEN, URINE NEGATIVE (NEGATIVE); BENZODIAZEPINES SCREEN,URINE NEGATIVE (NEGATIVE); CANNABINOID SCREEN,URINE NEGATIVE (NEGATIVE); COCAINE SCREEN,URINE NEGATIVE (NEGATIVE); METHADONE SCREEN, URINE NEGATIVE (NEGATIVE); OPIATE SCREEN,URINE NEGATIVE (NEGATIVE); PHENCYCLIDINE SCREEN,URINE NEGATIVE (NEGATIVE)
[2022-12-21] MEDS: LORazepam 2 MG TABLET PO PRN (21:57)
[2022-12-21] MEDS ORDERED: GuaiFENesin/D-METHORPHAN [SUGAR-FREE] 200-20MG/10 ML SYRUP UDCUP PO PRN (22:15)
[2022-12-21] MEDS ORDERED: HydrOXYzine PAMOATE 50 MG CAPSULE PO PRN (22:15)
[2022-12-21] MEDS ORDERED: MAGNESIUM HYDROXIDE SUSPENSION 30 ML UDCUP PO PRN (22:15)
[2022-12-21] MEDS ORDERED: ACETAMINOPHEN 325 MG TABLET PO PRN (22:15)
[2022-12-21] MEDS ORDERED: TUBERCULIN, PURIFIED PROTEIN DERIVATIVE 5 TU/0.1 ML SYRINGE ID ONE (22:15)
[2022-12-21] MEDS ORDERED: PROMETHAZINE HCL 25 MG TABLET PO PRN (22:15)
[2022-12-21] MEDS ORDERED: MAG HYDROX/AL HYDROX/SIMETH ES 30 ML SUSPENSION UDCUP PO PRN (22:15)
[2022-12-21] MEDS ORDERED: LOPERAMIDE HCL 2 MG CAPSULE PO PRN (22:15)
[2022-12-21 22:28] VITALS: BP 147/77
[2022-12-21] MEDS: ZOLPIDEM TARTRATE 10 MG TABLET PO PRN (23:14)
[2022-12-22 07:42] LABS: HEMOGLOBIN A1C 4.8 % (3.8-5.6)
[2022-12-22 08:43] VITALS: BP 143/90
[2022-12-22 08:44] LABS: CHOL/HDL RATIO 6.1 (4.2-7.3); FREE T4 (FREE THYROXINE) 0.66 ng/dL (0.76-1.46); THYROID STIMULATING HORMONE 3.46 uIU/mL (0.36-3.74)
[2022-12-22] MEDS: HYDROCORTISONE 1% 30 GM OINTMENT TP SCH ×2 (09:00→19:05)
[2022-12-22] MEDS: THIAMINE 100 MG TABLET PO SCH ×2 (09:12→16:12)
[2022-12-22] MEDS: MULTIVITAMINS WITH MINERALS, THERAPEUTIC TABLET PO SCH (09:13)
[2022-12-22] MEDS: OMEGA-3/DHA/EPA/FISH OIL 1,000 MG CAPSULE PO SCH (09:13)
[2022-12-22] MEDS: DIVALPROEX SODIUM 500 MG ER TABLET PO SCH ×3 (09:13→16:11)
[2022-12-22] MEDS: FOLIC ACID 1 MG TABLET PO SCH (09:13)
[2022-12-22] MEDS: DULoxetine HCL 20 MG CAPSULE PO SCH (09:13)
[2022-12-22] MEDS: NALTREXONE HCL 50 MG TABLET PO SCH (09:13)
[2022-12-22] MEDS: BACITRACIN 28 GM OINTMENT TP SCH ×2 (09:14→16:52)
[2022-12-22] MEDS ORDERED: PERMETHRIN 5% 60 GM CREAM TP ONE (10:15)
[2022-12-22] MEDS: OMEPRAZOLE 20 MG CAPSULE PO SCH (16:11)
[2022-12-22] MEDS: AMOX TR/POT CLAV 875 MG/125 MG TABLET PO SCH (16:12)
[2022-12-22 20:36] VITALS: BP 135/72
[2022-12-22] MEDS: MELATONIN 5 MG TABLET PO SCH (20:41)
[2022-12-22] MEDS: QUEtiapine FUMARATE 200 MG TABLET PO SCH (20:41)
[2022-12-22] MEDS ORDERED: QUEtiapine FUMARATE 200 MG TABLET PO SCH (21:00)
[2022-12-23 00:16] VITALS: BP 125/81
[2022-12-23 08:30] VITALS: BP 114/67
[2022-12-23] MEDS: MULTIVITAMINS WITH MINERALS, THERAPEUTIC TABLET PO SCH (08:38)
[2022-12-23] MEDS: AMOX TR/POT CLAV 875 MG/125 MG TABLET PO SCH ×2 (08:38→16:19)
[2022-12-23] MEDS: FOLIC ACID 1 MG TABLET PO SCH (08:38)
[2022-12-23] MEDS: OMEPRAZOLE 20 MG CAPSULE PO SCH ×2 (08:39→16:19)
[2022-12-23] MEDS: DULoxetine HCL 20 MG CAPSULE PO SCH (08:39)
[2022-12-23] MEDS: THIAMINE 100 MG TABLET PO SCH ×2 (08:39→16:19)
[2022-12-23] MEDS: NALTREXONE HCL 50 MG TABLET PO SCH (08:39)
[2022-12-23] MEDS: OMEGA-3/DHA/EPA/FISH OIL 1,000 MG CAPSULE PO SCH (08:39)
[2022-12-23] MEDS: DIVALPROEX SODIUM 500 MG ER TABLET PO SCH ×3 (08:39→16:19)
[2022-12-23] MEDS: BACITRACIN 28 GM OINTMENT TP SCH ×2 (08:40→16:20)
[2022-12-23] MEDS: HYDROCORTISONE 1% 30 GM OINTMENT TP SCH ×2 (08:43→16:25)
[2022-12-23] MEDS: MELATONIN 5 MG TABLET PO SCH (20:25)
[2022-12-23] MEDS: QUEtiapine FUMARATE 200 MG TABLET PO SCH (20:25)
[2022-12-23] MEDS: ZOLPIDEM TARTRATE 10 MG TABLET PO PRN (21:32)
[2022-12-24] MEDS: MULTIVITAMINS WITH MINERALS, THERAPEUTIC TABLET PO SCH (09:15)
[2022-12-24] MEDS: DULoxetine HCL 30 MG CAPSULE PO SCH (09:15)
[2022-12-24] MEDS: NALTREXONE HCL 50 MG TABLET PO SCH (09:15)
[2022-12-24] MEDS: OMEGA-3/DHA/EPA/FISH OIL 1,000 MG CAPSULE PO SCH (09:17)
[2022-12-24 09:28] VITALS: BP 128/72
[2022-12-24] MEDS: OMEPRAZOLE 20 MG CAPSULE PO SCH ×2 (09:43→17:37)
[2022-12-24] MEDS: DIVALPROEX SODIUM 500 MG ER TABLET PO SCH ×3 (09:43→17:37)
[2022-12-24] MEDS: FOLIC ACID 1 MG TABLET PO SCH (09:43)
[2022-12-24] MEDS: AMOX TR/POT CLAV 875 MG/125 MG TABLET PO SCH ×2 (09:44→17:37)
[2022-12-24] MEDS: APIXABAN 5 MG TABLET PO SCH ×2 (09:44→17:37)
[2022-12-24] MEDS: FINASTERIDE 5 MG TABLET PO SCH ×2 (09:44→17:37)
[2022-12-24] MEDS: THIAMINE 100 MG TABLET PO SCH ×2 (09:45→17:37)
[2022-12-24] MEDS: BACITRACIN 28 GM OINTMENT TP SCH ×2 (09:45→17:37)
[2022-12-24] MEDS: HYDROCORTISONE 1% 30 GM OINTMENT TP SCH ×2 (09:45→17:38)
[2022-12-24] MEDS: QUEtiapine FUMARATE 100 MG TABLET PO PRN (15:35)
[2022-12-24] MEDS: LORazepam 2 MG TABLET PO PRN (15:35)
[2022-12-24 16:52] VITALS: BP 139/78
[2022-12-24] MEDS: QUEtiapine FUMARATE 200 MG TABLET PO SCH (20:05)
[2022-12-24] MEDS: MELATONIN 5 MG TABLET PO SCH (20:05)
[2022-12-24] MEDS: ZOLPIDEM TARTRATE 10 MG TABLET PO PRN (21:29)
[2022-12-24 21:31] VITALS: BP 110/57
[2022-12-25 08:05] VITALS: BP 124/67
[2022-12-25] MEDS: OMEPRAZOLE 20 MG CAPSULE PO SCH ×2 (08:45→16:52)
[2022-12-25] MEDS: OMEGA-3/DHA/EPA/FISH OIL 1,000 MG CAPSULE PO SCH (08:45)
[2022-12-25] MEDS: FOLIC ACID 1 MG TABLET PO SCH (08:45)
[2022-12-25] MEDS: DULoxetine HCL 30 MG CAPSULE PO SCH (08:45)
[2022-12-25] MEDS: MULTIVITAMINS WITH MINERALS, THERAPEUTIC TABLET PO SCH (08:45)
[2022-12-25] MEDS: DIVALPROEX SODIUM 500 MG ER TABLET PO SCH ×3 (08:45→16:52)
[2022-12-25] MEDS: HYDROCORTISONE 1% 30 GM OINTMENT TP SCH ×2 (08:46→17:09)
[2022-12-25] MEDS: MUPIROCIN CALCIUM 2% 22 GM OINTMENT NASAL SCH ×2 (08:46→16:53)
[2022-12-25] MEDS: THIAMINE 100 MG TABLET PO SCH ×2 (08:46→16:52)
[2022-12-25] MEDS: AMOX TR/POT CLAV 875 MG/125 MG TABLET PO SCH ×2 (08:46→16:53)
[2022-12-25] MEDS: FINASTERIDE 5 MG TABLET PO SCH ×2 (08:46→16:52)
[2022-12-25] MEDS: BACITRACIN 28 GM OINTMENT TP SCH ×2 (08:46→16:52)
[2022-12-25] MEDS: APIXABAN 5 MG TABLET PO SCH ×2 (08:46→17:09)
[2022-12-25] MEDS: NALTREXONE HCL 50 MG TABLET PO SCH (08:46)
[2022-12-25 16:07] VITALS: BP 141/68
[2022-12-25] MEDS: QUEtiapine FUMARATE 200 MG TABLET PO SCH (20:13)
[2022-12-25] MEDS: MELATONIN 5 MG TABLET PO SCH (20:14)
[2022-12-25 21:07] VITALS: BP 143/74
[2022-12-26 08:02] VITALS: BP 125/72
[2022-12-26] MEDS: MUPIROCIN CALCIUM 2% 22 GM OINTMENT NASAL SCH ×2 (08:19→16:01)
[2022-12-26] MEDS: DIVALPROEX SODIUM 500 MG ER TABLET PO SCH ×3 (08:20→16:01)
[2022-12-26] MEDS: NALTREXONE HCL 50 MG TABLET PO SCH (08:20)
[2022-12-26] MEDS: BACITRACIN 28 GM OINTMENT TP SCH ×2 (08:20→16:02)
[2022-12-26] MEDS: OMEGA-3/DHA/EPA/FISH OIL 1,000 MG CAPSULE PO SCH (08:20)
[2022-12-26] MEDS: MULTIVITAMINS WITH MINERALS, THERAPEUTIC TABLET PO SCH (08:20)
[2022-12-26] MEDS: DULoxetine HCL 20 MG CAPSULE PO SCH (08:20)
[2022-12-26] MEDS: OMEPRAZOLE 20 MG CAPSULE PO SCH ×2 (08:20→16:01)
[2022-12-26] MEDS: HYDROCORTISONE 1% 30 GM OINTMENT TP SCH ×2 (08:20→16:02)
[2022-12-26] MEDS: AMOX TR/POT CLAV 875 MG/125 MG TABLET PO SCH ×2 (08:20→16:01)
[2022-12-26] MEDS: FOLIC ACID 1 MG TABLET PO SCH (08:20)
[2022-12-26] MEDS: APIXABAN 5 MG TABLET PO SCH ×2 (08:21→16:01)
[2022-12-26] MEDS: FINASTERIDE 5 MG TABLET PO SCH ×2 (08:21→16:01)
[2022-12-26] MEDS: THIAMINE 100 MG TABLET PO SCH ×2 (08:22→16:01)
[2022-12-26 16:04] VITALS: BP 139/80
[2022-12-26 20:30] VITALS: BP 145/77
[2022-12-26] MEDS: QUEtiapine FUMARATE 200 MG TABLET PO SCH (20:50)
[2022-12-26] MEDS: QUEtiapine FUMARATE 100 MG TABLET PO PRN (20:50)
[2022-12-26] MEDS: MELATONIN 5 MG TABLET PO SCH (20:50)
[2022-12-26] MEDS: ZOLPIDEM TARTRATE 10 MG TABLET PO PRN (21:26)
[2022-12-27 06:50] LABS: COVID AG,FIA SOURCE NASAL SWAB
[2022-12-27 09:04] VITALS: BP 101/64
[2022-12-27] MEDS: DIVALPROEX SODIUM 500 MG ER TABLET PO SCH ×3 (11:05→17:46)
[2022-12-27] MEDS: AMOX TR/POT CLAV 875 MG/125 MG TABLET PO SCH ×2 (11:05→17:46)
[2022-12-27] MEDS: DULoxetine HCL 20 MG CAPSULE PO SCH (11:05)
[2022-12-27] MEDS: NALTREXONE HCL 50 MG TABLET PO SCH (11:05)
[2022-12-27] MEDS: MULTIVITAMINS WITH MINERALS, THERAPEUTIC TABLET PO SCH (11:05)
[2022-12-27] MEDS: OMEGA-3/DHA/EPA/FISH OIL 1,000 MG CAPSULE PO SCH (11:05)
[2022-12-27] MEDS: APIXABAN 5 MG TABLET PO SCH ×2 (11:06→17:46)
[2022-12-27] MEDS: FINASTERIDE 5 MG TABLET PO SCH ×2 (11:06→17:59)
[2022-12-27] MEDS: FOLIC ACID 1 MG TABLET PO SCH (11:06)
[2022-12-27] MEDS: THIAMINE 100 MG TABLET PO SCH ×2 (11:06→17:46)
[2022-12-27] MEDS: HYDROCORTISONE 1% 30 GM OINTMENT TP SCH ×2 (11:07→17:46)
[2022-12-27] MEDS: BACITRACIN 28 GM OINTMENT TP SCH ×2 (11:07→17:46)
[2022-12-27] MEDS: MUPIROCIN CALCIUM 2% 22 GM OINTMENT NASAL SCH ×2 (11:07→18:02)
[2022-12-27] MEDS: OMEPRAZOLE 20 MG CAPSULE PO SCH ×2 (11:08→17:46)
[2022-12-27] MEDS: LORazepam 2 MG TABLET PO PRN (18:22)
[2022-12-27] MEDS: QUEtiapine FUMARATE 200 MG TABLET PO SCH (20:54)
[2022-12-27] MEDS: MELATONIN 5 MG TABLET PO SCH (20:54)
[2022-12-27 23:30] VITALS: BP 112/57
[2022-12-28] MEDS: DIVALPROEX SODIUM 500 MG ER TABLET PO SCH ×3 (09:44→17:09)
[2022-12-28] MEDS: THIAMINE 100 MG TABLET PO SCH ×2 (09:44→17:11)
[2022-12-28] MEDS: FOLIC ACID 1 MG TABLET PO SCH (09:44)
[2022-12-28] MEDS: DULoxetine HCL 20 MG CAPSULE PO SCH (09:44)
[2022-12-28] MEDS: OMEPRAZOLE 20 MG CAPSULE PO SCH ×2 (09:44→17:10)
[2022-12-28] MEDS: LORazepam 2 MG TABLET PO PRN (09:45)
[2022-12-28] MEDS: FINASTERIDE 5 MG TABLET PO SCH ×2 (09:45→17:09)
[2022-12-28] MEDS: AMOX TR/POT CLAV 875 MG/125 MG TABLET PO SCH ×2 (09:45→17:09)
[2022-12-28] MEDS: MULTIVITAMINS WITH MINERALS, THERAPEUTIC TABLET PO SCH (09:45)
[2022-12-28] MEDS: APIXABAN 5 MG TABLET PO SCH ×2 (09:45→17:09)
[2022-12-28] MEDS: OMEGA-3/DHA/EPA/FISH OIL 1,000 MG CAPSULE PO SCH (09:45)
[2022-12-28] MEDS: NALTREXONE HCL 50 MG TABLET PO SCH (09:46)
[2022-12-28] MEDS: MUPIROCIN CALCIUM 2% 22 GM OINTMENT NASAL SCH ×2 (09:46→17:10)
[2022-12-28] MEDS: BACITRACIN 28 GM OINTMENT TP SCH ×2 (09:46→17:10)
[2022-12-28] MEDS: HYDROCORTISONE 1% 30 GM OINTMENT TP SCH ×2 (09:46→17:10)
[2022-12-28 18:00] VITALS: BP 120/62
[2022-12-28] MEDS: MELATONIN 5 MG TABLET PO SCH (20:30)
[2022-12-28] MEDS: QUEtiapine FUMARATE 200 MG TABLET PO SCH (20:30)
[2022-12-28 21:26] VITALS: BP 122/65
[2022-12-28] MEDS ORDERED: ESZOPICLONE 3 MG TABLET PO PRN (22:00)
[2022-12-28] MEDS ORDERED: GABAPENTIN 300 MG CAPSULE PO PRN (22:00)
[2022-12-29] MEDS ORDERED: DULoxetine HCL 60 MG CAPSULE PO SCH (09:00)
[2022-12-29 09:53] VITALS: BP 98/60
[2022-12-29] MEDS: MULTIVITAMINS WITH MINERALS, THERAPEUTIC TABLET PO SCH (10:23)
[2022-12-29] MEDS: NALTREXONE HCL 50 MG TABLET PO SCH (10:23)
[2022-12-29] MEDS: THIAMINE 100 MG TABLET PO SCH ×2 (10:23→17:15)
[2022-12-29] MEDS: FOLIC ACID 1 MG TABLET PO SCH (10:24)
[2022-12-29] MEDS: OMEPRAZOLE 20 MG CAPSULE PO SCH ×2 (10:24→17:15)
[2022-12-29] MEDS: OMEGA-3/DHA/EPA/FISH OIL 1,000 MG CAPSULE PO SCH (10:25)
[2022-12-29] MEDS: APIXABAN 5 MG TABLET PO SCH ×2 (10:26→17:15)
[2022-12-29] MEDS: FINASTERIDE 5 MG TABLET PO SCH ×2 (10:27→17:16)
[2022-12-29] MEDS: AMOX TR/POT CLAV 875 MG/125 MG TABLET PO SCH (10:27)
[2022-12-29] MEDS: MUPIROCIN CALCIUM 2% 22 GM OINTMENT NASAL SCH ×2 (10:27→17:16)
[2022-12-29] MEDS: DIVALPROEX SODIUM 500 MG ER TABLET PO SCH ×3 (10:27→17:15)
[2022-12-29] MEDS: HYDROCORTISONE 1% 30 GM OINTMENT TP SCH ×2 (10:28→17:16)
[2022-12-29] MEDS: BACITRACIN 28 GM OINTMENT TP SCH ×2 (10:28→17:16)
[2022-12-29 16:31] VITALS: BP 109/61
[2022-12-29 16:32] VITALS: BP 109/61
[2022-12-29] MEDS: MELATONIN 5 MG TABLET PO SCH (20:41)
[2022-12-29] MEDS: QUEtiapine FUMARATE 200 MG TABLET PO SCH (20:41)
[2022-12-29 20:48] VITALS: BP 109/65
[2022-12-30] MEDS: OMEPRAZOLE 20 MG CAPSULE PO SCH ×2 (08:39→16:57)
[2022-12-30] MEDS: OMEGA-3/DHA/EPA/FISH OIL 1,000 MG CAPSULE PO SCH (08:39)
[2022-12-30] MEDS: THIAMINE 100 MG TABLET PO SCH ×2 (08:39→16:57)
[2022-12-30] MEDS: FINASTERIDE 5 MG TABLET PO SCH ×2 (08:40→16:58)
[2022-12-30] MEDS: APIXABAN 5 MG TABLET PO SCH ×2 (08:40→16:58)
[2022-12-30] MEDS: FOLIC ACID 1 MG TABLET PO SCH (08:40)
[2022-12-30] MEDS: NALTREXONE HCL 50 MG TABLET PO SCH (08:40)
[2022-12-30] MEDS: MULTIVITAMINS WITH MINERALS, THERAPEUTIC TABLET PO SCH (08:40)
[2022-12-30] MEDS: BACITRACIN 28 GM OINTMENT TP SCH ×2 (08:41→16:59)
[2022-12-30] MEDS: HYDROCORTISONE 1% 30 GM OINTMENT TP SCH ×2 (08:41→16:59)
[2022-12-30] MEDS: DIVALPROEX SODIUM 500 MG ER TABLET PO SCH ×3 (08:42→16:57)
[2022-12-30] MEDS ORDERED: DULoxetine HCL 20 MG CAPSULE PO SCH (09:00)
[2022-12-30 11:16] VITALS: BP 125/64
[2022-12-30] MEDS: QUEtiapine FUMARATE 200 MG TABLET PO SCH (21:20)
[2022-12-30] MEDS: MELATONIN 5 MG TABLET PO SCH (21:20)
[2022-12-31] MEDS: FINASTERIDE 5 MG TABLET PO SCH ×2 (08:40→16:24)
[2022-12-31] MEDS: APIXABAN 5 MG TABLET PO SCH ×2 (08:40→16:24)
[2022-12-31] MEDS: OMEGA-3/DHA/EPA/FISH OIL 1,000 MG CAPSULE PO SCH (08:40)
[2022-12-31] MEDS: OMEPRAZOLE 20 MG CAPSULE PO SCH ×2 (08:41→16:23)
[2022-12-31] MEDS: MULTIVITAMINS WITH MINERALS, THERAPEUTIC TABLET PO SCH (08:41)
[2022-12-31] MEDS: THIAMINE 100 MG TABLET PO SCH ×2 (08:41→16:23)
[2022-12-31] MEDS: NALTREXONE HCL 50 MG TABLET PO SCH (08:41)
[2022-12-31] MEDS: FOLIC ACID 1 MG TABLET PO SCH (08:41)
[2022-12-31] MEDS: DULoxetine HCL 30 MG CAPSULE PO SCH (08:41)
[2022-12-31] MEDS: DIVALPROEX SODIUM 500 MG ER TABLET PO SCH ×3 (08:41→16:23)
[2022-12-31] MEDS: BACITRACIN 28 GM OINTMENT TP SCH ×2 (08:42→16:24)
[2022-12-31] MEDS: HYDROCORTISONE 1% 30 GM OINTMENT TP SCH ×2 (08:42→16:24)
[2022-12-31 09:02] VITALS: BP 117/66
[2022-12-31 16:53] VITALS: BP 113/67
[2022-12-31] MEDS ORDERED: QUEtiapine FUMARATE 200 MG TABLET PO SCH (21:00)
[2022-12-31] MEDS: MELATONIN 5 MG TABLET PO SCH (21:53)
[2022-12-31] MEDS: LORazepam 2 MG TABLET PO PRN (21:54)
[2022-12-31 22:07] VITALS: BP 109/63
[2023-01-01 08:57] VITALS: BP 140/84
[2023-01-01] MEDS: NALTREXONE HCL 50 MG TABLET PO SCH (09:18)
[2023-01-01] MEDS: DIVALPROEX SODIUM 500 MG ER TABLET PO SCH ×3 (09:18→16:23)
[2023-01-01] MEDS: OMEGA-3/DHA/EPA/FISH OIL 1,000 MG CAPSULE PO SCH (09:18)
[2023-01-01] MEDS: OMEPRAZOLE 20 MG CAPSULE PO SCH ×2 (09:18→16:05)
[2023-01-01] MEDS: FINASTERIDE 5 MG TABLET PO SCH ×2 (09:18→16:06)
[2023-01-01] MEDS: MULTIVITAMINS WITH MINERALS, THERAPEUTIC TABLET PO SCH (09:18)
[2023-01-01] MEDS: APIXABAN 5 MG TABLET PO SCH ×2 (09:18→16:05)
[2023-01-01] MEDS: DULoxetine HCL 30 MG CAPSULE PO SCH (09:18)
[2023-01-01] MEDS: BACITRACIN 28 GM OINTMENT TP SCH ×2 (09:19→16:06)
[2023-01-01] MEDS: HYDROCORTISONE 1% 30 GM OINTMENT TP SCH ×2 (09:20→16:23)
[2023-01-01 16:23] VITALS: BP 147/86
[2023-01-01] MEDS: QUEtiapine FUMARATE 300 MG TABLET PO SCH (21:05)
[2023-01-01] MEDS: MELATONIN 5 MG TABLET PO SCH (21:05)
[2023-01-01 21:37] VITALS: BP 115/67
[2023-01-02] MEDS: APIXABAN 5 MG TABLET PO SCH ×2 (10:03→18:13)
[2023-01-02] MEDS: HYDROCORTISONE 1% 30 GM OINTMENT TP SCH ×2 (10:03→18:13)
[2023-01-02] MEDS: FINASTERIDE 5 MG TABLET PO SCH ×2 (10:03→18:13)
[2023-01-02] MEDS: BACITRACIN 28 GM OINTMENT TP SCH ×2 (10:04→18:13)
[2023-01-02] MEDS: NALTREXONE HCL 50 MG TABLET PO SCH (10:05)
[2023-01-02] MEDS: OMEPRAZOLE 20 MG CAPSULE PO SCH ×2 (10:05→18:13)
[2023-01-02] MEDS: DULoxetine HCL 30 MG CAPSULE PO SCH (10:06)
[2023-01-02] MEDS: DIVALPROEX SODIUM 500 MG ER TABLET PO SCH ×3 (10:06→18:13)
[2023-01-02] MEDS: OMEGA-3/DHA/EPA/FISH OIL 1,000 MG CAPSULE PO SCH (10:07)
[2023-01-02] MEDS: MULTIVITAMINS WITH MINERALS, THERAPEUTIC TABLET PO SCH (10:09)
[2023-01-02 18:39] VITALS: BP 115/64
[2023-01-02 20:41] VITALS: BP 119/68
[2023-01-02] MEDS: MELATONIN 5 MG TABLET PO SCH (20:55)
[2023-01-02] MEDS: QUEtiapine FUMARATE 300 MG TABLET PO SCH (20:55)
[2023-01-03 06:48] LABS: COVID AG,FIA SOURCE NASAL SWAB
[2023-01-03 08:30] VITALS: BP 104/62
[2023-01-03] MEDS: DULoxetine HCL 30 MG CAPSULE PO SCH (08:55)
[2023-01-03] MEDS: NALTREXONE HCL 50 MG TABLET PO SCH (08:56)
[2023-01-03] MEDS: FINASTERIDE 5 MG TABLET PO SCH ×2 (08:56→17:36)
[2023-01-03] MEDS: OMEPRAZOLE 20 MG CAPSULE PO SCH ×2 (08:56→17:36)
[2023-01-03] MEDS: OMEGA-3/DHA/EPA/FISH OIL 1,000 MG CAPSULE PO SCH (08:56)
[2023-01-03] MEDS: DIVALPROEX SODIUM 500 MG ER TABLET PO SCH ×3 (08:56→17:36)
[2023-01-03] MEDS: BACITRACIN 28 GM OINTMENT TP SCH ×2 (08:57→17:36)
[2023-01-03] MEDS: MULTIVITAMINS WITH MINERALS, THERAPEUTIC TABLET PO SCH (08:57)
[2023-01-03] MEDS: HYDROCORTISONE 1% 30 GM OINTMENT TP SCH ×2 (08:57→17:36)
[2023-01-03] MEDS: APIXABAN 5 MG TABLET PO SCH ×2 (08:57→17:36)
[2023-01-03 16:18] VITALS: BP 99/69
[2023-01-03] MEDS: MELATONIN 5 MG TABLET PO SCH (20:48)
[2023-01-03] MEDS: QUEtiapine FUMARATE 300 MG TABLET PO SCH (20:49)
[2023-01-03] MEDS: LORazepam 2 MG TABLET PO PRN (20:49)
[2023-01-03 20:59] VITALS: BP 127/74
[2023-01-04 08:00] VITALS: BP 99/56
[2023-01-04] MEDS: HYDROCORTISONE 1% 30 GM OINTMENT TP SCH ×2 (09:00→17:37)
[2023-01-04] MEDS: BACITRACIN 28 GM OINTMENT TP SCH ×2 (09:00→17:37)
[2023-01-04] MEDS: DULoxetine HCL 30 MG CAPSULE PO SCH (09:28)
[2023-01-04] MEDS: DIVALPROEX SODIUM 500 MG ER TABLET PO SCH ×3 (09:28→17:37)
[2023-01-04] MEDS: OMEGA-3/DHA/EPA/FISH OIL 1,000 MG CAPSULE PO SCH (09:28)
[2023-01-04] MEDS: APIXABAN 5 MG TABLET PO SCH ×2 (09:29→17:37)
[2023-01-04] MEDS: OMEPRAZOLE 20 MG CAPSULE PO SCH ×2 (09:29→17:37)
[2023-01-04] MEDS: FINASTERIDE 5 MG TABLET PO SCH ×2 (09:29→17:37)
[2023-01-04] MEDS: MULTIVITAMINS WITH MINERALS, THERAPEUTIC TABLET PO SCH (09:29)
[2023-01-04] MEDS: NALTREXONE HCL 50 MG TABLET PO SCH (09:29)
[2023-01-04 17:56] VITALS: BP 105/66
[2023-01-04] MEDS: QUEtiapine FUMARATE 300 MG TABLET PO SCH (20:48)
[2023-01-04] MEDS: MELATONIN 5 MG TABLET PO SCH (20:48)
[2023-01-04 22:09] VITALS: BP 106/65
[2023-01-05 08:30] VITALS: BP 106/67
[2023-01-05] MEDS: DIVALPROEX SODIUM 500 MG ER TABLET PO SCH ×3 (08:37→16:28)
[2023-01-05] MEDS: OMEGA-3/DHA/EPA/FISH OIL 1,000 MG CAPSULE PO SCH (08:37)
[2023-01-05] MEDS: NALTREXONE HCL 50 MG TABLET PO SCH (08:37)
[2023-01-05] MEDS: OMEPRAZOLE 20 MG CAPSULE PO SCH ×2 (08:37→16:28)
[2023-01-05] MEDS: APIXABAN 5 MG TABLET PO SCH ×2 (08:38→16:28)
[2023-01-05] MEDS: FINASTERIDE 5 MG TABLET PO SCH ×2 (08:38→16:28)
[2023-01-05] MEDS: DULoxetine HCL 60 MG CAPSULE PO SCH (08:38)
[2023-01-05] MEDS: MULTIVITAMINS WITH MINERALS, THERAPEUTIC TABLET PO SCH (08:38)
[2023-01-05] MEDS: BACITRACIN 28 GM OINTMENT TP SCH ×2 (08:43→17:00)
[2023-01-05] MEDS: HYDROCORTISONE 1% 30 GM OINTMENT TP SCH ×2 (08:44→17:00)
[2023-01-05 17:17] VITALS: BP 104/61
[2023-01-05 20:52] VITALS: BP 107/65
[2023-01-05] MEDS: MELATONIN 5 MG TABLET PO SCH (21:02)
[2023-01-05] MEDS: QUEtiapine FUMARATE 200 MG TABLET PO SCH (21:03)
[2023-01-05] MEDS: LORazepam 2 MG TABLET PO PRN (21:04)
[2023-01-06] MEDS: FINASTERIDE 5 MG TABLET PO SCH ×2 (08:24→16:33)
[2023-01-06] MEDS: OMEPRAZOLE 20 MG CAPSULE PO SCH ×2 (08:24→16:34)
[2023-01-06] MEDS: DIVALPROEX SODIUM 500 MG ER TABLET PO SCH ×3 (08:24→16:33)
[2023-01-06] MEDS: OMEGA-3/DHA/EPA/FISH OIL 1,000 MG CAPSULE PO SCH (08:24)
[2023-01-06] MEDS: MULTIVITAMINS WITH MINERALS, THERAPEUTIC TABLET PO SCH (08:24)
[2023-01-06] MEDS: NALTREXONE HCL 50 MG TABLET PO SCH (08:24)
[2023-01-06] MEDS: DULoxetine HCL 60 MG CAPSULE PO SCH (08:24)
[2023-01-06] MEDS: APIXABAN 5 MG TABLET PO SCH ×2 (08:25→16:34)
[2023-01-06] MEDS: BACITRACIN 28 GM OINTMENT TP SCH ×2 (08:32→16:34)
[2023-01-06] MEDS: HYDROCORTISONE 1% 30 GM OINTMENT TP SCH ×2 (08:32→16:34)
[2023-01-06 09:53] VITALS: BP 105/60
[2023-01-06] MEDS: MELATONIN 5 MG TABLET PO SCH (20:53)
[2023-01-06] MEDS: QUEtiapine FUMARATE 200 MG TABLET PO SCH (20:53)
[2023-01-06 21:16] VITALS: BP 125/68
[2023-01-07] MEDS: MULTIVITAMINS WITH MINERALS, THERAPEUTIC TABLET PO SCH (08:30)
[2023-01-07] MEDS: NALTREXONE HCL 50 MG TABLET PO SCH (08:30)
[2023-01-07] MEDS: APIXABAN 5 MG TABLET PO SCH ×2 (08:30→16:52)
[2023-01-07] MEDS: OMEGA-3/DHA/EPA/FISH OIL 1,000 MG CAPSULE PO SCH (08:30)
[2023-01-07] MEDS: DIVALPROEX SODIUM 500 MG ER TABLET PO SCH ×3 (08:30→16:52)
[2023-01-07] MEDS: FINASTERIDE 5 MG TABLET PO SCH ×2 (08:30→16:52)
[2023-01-07] MEDS: OMEPRAZOLE 20 MG CAPSULE PO SCH ×2 (08:30→16:52)
[2023-01-07] MEDS: DULoxetine HCL 60 MG CAPSULE PO SCH (08:30)
[2023-01-07] MEDS: BACITRACIN 28 GM OINTMENT TP SCH ×2 (08:33→16:53)
[2023-01-07] MEDS: HYDROCORTISONE 1% 30 GM OINTMENT TP SCH ×2 (08:33→16:53)
[2023-01-07 09:24] VITALS: BP 107/62
[2023-01-07] MEDS: MELATONIN 5 MG TABLET PO SCH (20:57)
[2023-01-07] MEDS: QUEtiapine FUMARATE 200 MG TABLET PO SCH (20:57)
[2023-01-07 21:41] VITALS: BP 92/60
[2023-01-08] MEDS: APIXABAN 5 MG TABLET PO SCH ×2 (08:53→16:45)
[2023-01-08] MEDS: FINASTERIDE 5 MG TABLET PO SCH ×2 (08:54→16:40)
[2023-01-08] MEDS: DIVALPROEX SODIUM 500 MG ER TABLET PO SCH ×3 (09:00→16:45)
[2023-01-08] MEDS: MULTIVITAMINS WITH MINERALS, THERAPEUTIC TABLET PO SCH (09:00)
[2023-01-08] MEDS: DULoxetine HCL 60 MG CAPSULE PO SCH (09:00)
[2023-01-08] MEDS: NALTREXONE HCL 50 MG TABLET PO SCH (09:00)
[2023-01-08] MEDS: HYDROCORTISONE 1% 30 GM OINTMENT TP SCH ×2 (09:01→16:46)
[2023-01-08] MEDS: BACITRACIN 28 GM OINTMENT TP SCH ×2 (09:01→16:45)
[2023-01-08] MEDS: OMEPRAZOLE 20 MG CAPSULE PO SCH ×2 (09:02→16:45)
[2023-01-08] MEDS: OMEGA-3/DHA/EPA/FISH OIL 1,000 MG CAPSULE PO SCH (09:03)
[2023-01-08 09:16] VITALS: BP 123/74
[2023-01-08 20:49] VITALS: BP 152/84
[2023-01-08] MEDS: QUEtiapine FUMARATE 200 MG TABLET PO SCH (20:56)
[2023-01-08] MEDS: MELATONIN 5 MG TABLET PO SCH (20:56)
[2023-01-08] MEDS ORDERED: DULO-113 PO (21:46)
[2023-01-08] MEDS ORDERED: DIVA500T69 PO (21:46)
[2023-01-08] MEDS ORDERED: OMEG-135 PO (21:46)
[2023-01-08] MEDS ORDERED: QUET200T30 PO (21:46)
[2023-01-08] MEDS ORDERED: MELA5TAB40 PO (21:46)
[2023-01-08] MEDS ORDERED: NALT50TA PO (21:46)
[2023-01-09 08:00] VITALS: BP 106/55
[2023-01-09] MEDS: MULTIVITAMINS WITH MINERALS, THERAPEUTIC TABLET PO SCH (08:29)
[2023-01-09] MEDS: DIVALPROEX SODIUM 500 MG ER TABLET PO SCH ×3 (08:29→16:43)
[2023-01-09] MEDS: DULoxetine HCL 60 MG CAPSULE PO SCH (08:29)
[2023-01-09] MEDS: NALTREXONE HCL 50 MG TABLET PO SCH (08:29)
[2023-01-09] MEDS: OMEPRAZOLE 20 MG CAPSULE PO SCH ×2 (08:32→16:43)
[2023-01-09] MEDS: OMEGA-3/DHA/EPA/FISH OIL 1,000 MG CAPSULE PO SCH (08:32)
[2023-01-09] MEDS: APIXABAN 5 MG TABLET PO SCH ×2 (08:33→16:43)
[2023-01-09] MEDS: FINASTERIDE 5 MG TABLET PO SCH ×2 (08:33→16:43)
[2023-01-09] MEDS: HYDROCORTISONE 1% 30 GM OINTMENT TP SCH ×2 (08:34→17:15)
[2023-01-09] MEDS: BACITRACIN 28 GM OINTMENT TP SCH ×2 (08:34→17:15)
[2023-01-09] MEDS: MELATONIN 5 MG TABLET PO SCH (20:47)
[2023-01-09] MEDS: QUEtiapine FUMARATE 200 MG TABLET PO SCH (20:49)
[2023-01-09 22:22] VITALS: BP 138/77
[2023-01-10 08:26] VITALS: BP 104/67
[2023-01-10] MEDS: MULTIVITAMINS WITH MINERALS, THERAPEUTIC TABLET PO SCH (08:58)
[2023-01-10] MEDS: OMEGA-3/DHA/EPA/FISH OIL 1,000 MG CAPSULE PO SCH (08:58)
[2023-01-10] MEDS: FINASTERIDE 5 MG TABLET PO SCH ×2 (08:59→16:28)
[2023-01-10] MEDS: NALTREXONE HCL 50 MG TABLET PO SCH (08:59)
[2023-01-10] MEDS: OMEPRAZOLE 20 MG CAPSULE PO SCH ×2 (08:59→16:28)
[2023-01-10] MEDS: APIXABAN 5 MG TABLET PO SCH ×2 (08:59→16:28)
[2023-01-10] MEDS: DIVALPROEX SODIUM 500 MG ER TABLET PO SCH ×3 (08:59→16:28)
[2023-01-10] MEDS: DULoxetine HCL 60 MG CAPSULE PO SCH (08:59)
[2023-01-10] MEDS: HYDROCORTISONE 1% 30 GM OINTMENT TP SCH ×2 (09:02→16:30)
[2023-01-10] MEDS: BACITRACIN 28 GM OINTMENT TP SCH ×2 (09:02→16:30)
[2023-01-10 16:05] VITALS: BP 116/74
[2023-01-10] MEDS: QUEtiapine FUMARATE 200 MG TABLET PO SCH (20:19)
[2023-01-10] MEDS: MELATONIN 5 MG TABLET PO SCH (20:20)
[2023-01-10 22:04] VITALS: BP 123/83
[2023-01-11] MEDS: MULTIVITAMINS WITH MINERALS, THERAPEUTIC TABLET PO SCH (08:32)
[2023-01-11] MEDS: APIXABAN 5 MG TABLET PO SCH ×2 (08:32→16:33)
[2023-01-11] MEDS: DULoxetine HCL 60 MG CAPSULE PO SCH (08:32)
[2023-01-11] MEDS: NALTREXONE HCL 50 MG TABLET PO SCH (08:32)
[2023-01-11] MEDS: OMEGA-3/DHA/EPA/FISH OIL 1,000 MG CAPSULE PO SCH (08:32)
[2023-01-11] MEDS: OMEPRAZOLE 20 MG CAPSULE PO SCH ×2 (08:32→16:33)
[2023-01-11] MEDS: DIVALPROEX SODIUM 500 MG ER TABLET PO SCH ×3 (08:32→16:33)
[2023-01-11] MEDS: HYDROCORTISONE 1% 30 GM OINTMENT TP SCH ×2 (08:33→16:34)
[2023-01-11] MEDS: FINASTERIDE 5 MG TABLET PO SCH ×2 (08:33→16:33)
[2023-01-11] MEDS: BACITRACIN 28 GM OINTMENT TP SCH ×2 (08:33→16:34)
[2023-01-11 08:49] VITALS: BP 116/60
[2023-01-11] MEDS: MELATONIN 5 MG TABLET PO SCH (20:08)
[2023-01-11] MEDS: QUEtiapine FUMARATE 200 MG TABLET PO SCH (20:08)
[2023-01-11 22:32] VITALS: BP 143/82
[2023-01-12 08:59] VITALS: BP 99/55
[2023-01-12] MEDS: OMEGA-3/DHA/EPA/FISH OIL 1,000 MG CAPSULE PO SCH (09:21)
[2023-01-12] MEDS: MULTIVITAMINS WITH MINERALS, THERAPEUTIC TABLET PO SCH (09:21)
[2023-01-12] MEDS: DIVALPROEX SODIUM 500 MG ER TABLET PO SCH ×3 (09:21→17:41)
[2023-01-12] MEDS: NALTREXONE HCL 50 MG TABLET PO SCH (09:21)
[2023-01-12] MEDS: DULoxetine HCL 60 MG CAPSULE PO SCH (09:21)
[2023-01-12] MEDS: OMEPRAZOLE 20 MG CAPSULE PO SCH ×2 (09:22→17:41)
[2023-01-12] MEDS: APIXABAN 5 MG TABLET PO SCH ×2 (09:23→17:41)
[2023-01-12] MEDS: FINASTERIDE 5 MG TABLET PO SCH ×2 (09:24→17:42)
[2023-01-12] MEDS: HYDROCORTISONE 1% 30 GM OINTMENT TP SCH ×2 (11:47→17:42)
[2023-01-12] MEDS: BACITRACIN 28 GM OINTMENT TP SCH ×2 (11:47→17:42)
[2023-01-12 20:39] VITALS: BP 137/75
[2023-01-12] MEDS: MELATONIN 5 MG TABLET PO SCH (20:46)
[2023-01-12] MEDS: QUEtiapine FUMARATE 200 MG TABLET PO SCH (20:47)
[2023-01-13] MEDS: OMEPRAZOLE 20 MG CAPSULE PO SCH ×2 (08:20→16:45)
[2023-01-13] MEDS: MULTIVITAMINS WITH MINERALS, THERAPEUTIC TABLET PO SCH (08:21)
[2023-01-13] MEDS: FINASTERIDE 5 MG TABLET PO SCH ×2 (08:21→16:45)
[2023-01-13] MEDS: DULoxetine HCL 60 MG CAPSULE PO SCH (08:22)
[2023-01-13] MEDS: NALTREXONE HCL 50 MG TABLET PO SCH (08:22)
[2023-01-13] MEDS: APIXABAN 5 MG TABLET PO SCH ×2 (08:22→16:45)
[2023-01-13] MEDS: DIVALPROEX SODIUM 500 MG ER TABLET PO SCH ×3 (08:22→16:45)
[2023-01-13] MEDS: OMEGA-3/DHA/EPA/FISH OIL 1,000 MG CAPSULE PO SCH (08:22)
[2023-01-13] MEDS: BACITRACIN 28 GM OINTMENT TP SCH ×2 (08:23→16:45)
[2023-01-13] MEDS: HYDROCORTISONE 1% 30 GM OINTMENT TP SCH ×2 (08:23→16:46)
[2023-01-13 08:30] VITALS: BP 109/50
[2023-01-13] MEDS: QUEtiapine FUMARATE 200 MG TABLET PO SCH (20:30)
[2023-01-13] MEDS: MELATONIN 5 MG TABLET PO SCH (20:31)
[2023-01-13 22:08] VITALS: BP 96/56
[2023-01-14] MEDS: OMEGA-3/DHA/EPA/FISH OIL 1,000 MG CAPSULE PO SCH (08:28)
[2023-01-14] MEDS: APIXABAN 5 MG TABLET PO SCH ×2 (08:28→16:32)
[2023-01-14] MEDS: FINASTERIDE 5 MG TABLET PO SCH ×2 (08:28→16:32)
[2023-01-14] MEDS: DIVALPROEX SODIUM 500 MG ER TABLET PO SCH ×3 (08:28→16:32)
[2023-01-14] MEDS: OMEPRAZOLE 20 MG CAPSULE PO SCH ×2 (08:28→16:31)
[2023-01-14] MEDS: NALTREXONE HCL 50 MG TABLET PO SCH (08:28)
[2023-01-14] MEDS: DULoxetine HCL 60 MG CAPSULE PO SCH (08:29)
[2023-01-14] MEDS: MULTIVITAMINS WITH MINERALS, THERAPEUTIC TABLET PO SCH (08:29)
[2023-01-14 09:00] VITALS: BP 112/67
[2023-01-14] MEDS: BACITRACIN 28 GM OINTMENT TP SCH ×2 (09:21→16:32)
[2023-01-14] MEDS: HYDROCORTISONE 1% 30 GM OINTMENT TP SCH ×2 (09:22→16:32)
[2023-01-14] MEDS: MELATONIN 5 MG TABLET PO SCH (20:40)
[2023-01-14] MEDS: QUEtiapine FUMARATE 200 MG TABLET PO SCH (20:40)
[2023-01-14 20:51] VITALS: BP 115/71
[2023-01-15 08:00] VITALS: BP 138/84
[2023-01-15] MEDS: OMEGA-3/DHA/EPA/FISH OIL 1,000 MG CAPSULE PO SCH (08:25)
[2023-01-15] MEDS: OMEPRAZOLE 20 MG CAPSULE PO SCH (08:25)
[2023-01-15] MEDS: APIXABAN 5 MG TABLET PO SCH (08:26)
[2023-01-15] MEDS: FINASTERIDE 5 MG TABLET PO SCH (08:26)
[2023-01-15] MEDS: MULTIVITAMINS WITH MINERALS, THERAPEUTIC TABLET PO SCH (08:26)
[2023-01-15] MEDS: DULoxetine HCL 60 MG CAPSULE PO SCH (08:26)
[2023-01-15] MEDS: DIVALPROEX SODIUM 500 MG ER TABLET PO SCH ×2 (08:26→12:47)
[2023-01-15] MEDS: NALTREXONE HCL 50 MG TABLET PO SCH (08:26)
[2023-01-15] MEDS: BACITRACIN 28 GM OINTMENT TP SCH (08:36)
[2023-01-15] MEDS: HYDROCORTISONE 1% 30 GM OINTMENT TP SCH (08:36)
== END 2023-01-15 15:15 | disposition home or self-care (01) | DRG 750 ==
LOC: EMS 12:42 → B2S 17:04 → 3EI 12-22 21:45
PROVIDERS: ADMIT Psychiatry & Neurology Psychiatry; ATTEND Psychiatry & Neurology Psychiatry
DX: F25.1 Schizoaffective disorder, depressive type (principal); R45.851 Suicidal ideations; E78.5 Hyperlipidemia, unspecified; F17.210 Nicotine dependence, cigarettes, uncomplicated; Z20.822 Contact with and (suspected) exposure to COVID-19; I25.10 Atherosclerotic heart disease of native coronary artery without angina pectoris; F19.10 Other psychoactive substance abuse, uncomplicated; I10 Essential (primary) hypertension; I73.9 Peripheral vascular disease, unspecified; J44.9 Chronic obstructive pulmonary disease, unspecified; F60.0 Paranoid personality disorder; F10.20 Alcohol dependence, uncomplicated; Z79.01 Long term (current) use of anticoagulants; Z79.899 Other long term (current) drug therapy; Z88.8 Allergy status to other drugs, medicaments and biological substances
CPT/HCPCS: 80053; 80061; 80164; 80307; 83036; 84439; 84443; 85025; 86592; 87081; 99285; G0480; Q9967

== ENCOUNTER 2023-01-21 20:58 | Inpatient (IN) | payer MEDICAID ==
[~2023-01-21] VITALS: Ht 170.2 cm; Wt 82.1 kg
[~2023-01-21 20:58] MED LIST changes: -ATOR40TA28 PO; -CARV6.2534 PO; -DIVA-112 PO; +DIVA500T69 PO; +DULO-113 PO; -LEVO25TA9 PO; +MELA5TAB40 PO; +NALT50TA PO; +OMEG-135 PO; -PANT40TA54 PO; +QUET200T30 PO; -QUET300T19 PO
[2023-01-22 00:22] LABS: BASOPHILS % (AUTO) 0.8 % (0.0-2.0); EOSINOPHILS % (AUTO) 2.9 % (1.0-6.0); HEMATOCRIT 32.6 % (41-53); LYMPHOCYTES # (AUTO) 2.1 K/uL (1.0-4.8); LYMPHOCYTES % (AUTO) 23.6 % (22.0-44.0); MEAN CORPUSCULAR HGB CONC 33.8 G/dL (31.0-37.0); MEAN CORPUSCULAR VOLUME 95 fL (80-100); MONOCYTES # (AUTO) 1.5 K/uL (0.1-1.0); MONOCYTES % (AUTO) 16.9 % (2.0-9.0); NEUTROPHILS % (AUTO) 55.8 % (40.0-70.0); PLATELET COUNT (AUTO) 257 K/uL (150-450); RED BLOOD CELL COUNT(AUTO) 3.45 MIL/uL (4.50-5.90); RED CELL DISTRIBUTION WIDTH 16.5 % (11.5-14.5)
[2023-01-22 00:32] LABS: ANION GAP 6 mmol/L (8-16); CALCIUM, TOTAL 8.7 mg/dL (8.8-10.5); CARBON DIOXIDE 28 mmol/L (22-29); CHLORIDE 104 mmol/L (98-107); CREATININE 1.74 mg/dL (0.60-1.30); GLOMERULAR FILTR. RATE CALC 40 mL/min (>60); GLUCOSE,RANDOM 103 mg/dL (70-110); POTASSIUM 4.4 mmol/L (3.5-5.1); SODIUM SERUM 138 mmol/L (136-145)
[2023-01-22 00:37] LABS: ALANINE AMINOTRANSFERASE 11 U/L (12-78); ALBUMIN 2.8 g/dL (3.4-5.0); ALKALINE PHOSPHATASE 100 U/L (46-116); ASPARTATE AMINOTRANSFERASE 16 U/L (15-37); BILIRUBIN,TOTAL 0.1 mg/dL (0.1-1.0); TOTAL PROTEIN, SERUM 6.8 g/dL (6.4-8.2)
[2023-01-22 02:50] LABS: COVID AG,FIA SOURCE NASAL SWAB
[2023-01-22 04:24] VITALS: BP 132/68
[2023-01-22] MEDS: LORazepam 2 MG TABLET PO PRN ×2 (04:30→21:27)
[2023-01-22 05:42] LABS: APPEARANCE,URINE CLEAR (CLEAR); BILIRUBIN,URINE NEGATIVE (NEGATIVE); GLUCOSE, URINE (UA) NEGATIVE (NEGATIVE); KETONES,URINE NEGATIVE (NEGATIVE); LEUKOCYTE ESTERASE ,URINE NEGATIVE (NEGATIVE); NITRATE,URINE NEGATIVE (NEGATIVE); OCCULT BLOOD,URINE SMALL (NEGATIVE); PH,URINE 5.5 (5.0-8.0); PROTEIN,URINE NEGATIVE (NEGATIVE); SPECIFIC GRAVITIY, URINE 1.012 (1.003-1.030); UROBILINOGEN,URINE <=1.0 mg/dL (<=1.0)
[2023-01-22 05:49] LABS: AMPHET/METH SCREEN,URINE NEGATIVE (NEGATIVE); BARBITURATE SCREEN, URINE NEGATIVE (NEGATIVE); BENZODIAZEPINES SCREEN,URINE NEGATIVE (NEGATIVE); CANNABINOID SCREEN,URINE NEGATIVE (NEGATIVE); COCAINE SCREEN,URINE NEGATIVE (NEGATIVE); METHADONE SCREEN, URINE NEGATIVE (NEGATIVE); OPIATE SCREEN,URINE NEGATIVE (NEGATIVE); PHENCYCLIDINE SCREEN,URINE NEGATIVE (NEGATIVE)
[2023-01-22 05:58] LABS: BACTERIA,URINE None Seen /HPF (None Seen); SQUAMOUS EPITHELIAL CELL,UR Few /LPF (None Seen); WBC,URINE None Seen /HPF (0-5)
[2023-01-22] MEDS ORDERED: GuaiFENesin/D-METHORPHAN [SUGAR-FREE] 200-20MG/10 ML SYRUP UDCUP PO PRN (06:15)
[2023-01-22] MEDS ORDERED: DOCUSATE SODIUM 100 MG CAPSULE PO PRN (06:15)
[2023-01-22] MEDS ORDERED: ACETAMINOPHEN 325 MG TABLET PO PRN (06:15)
[2023-01-22] MEDS ORDERED: CloNIDine HCL 0.1 MG TABLET PO PRN (06:15)
[2023-01-22] MEDS ORDERED: MAG HYDROX/AL HYDROX/SIMETH ES 30 ML SUSPENSION UDCUP PO PRN (06:15)
[2023-01-22] MEDS ORDERED: MAGNESIUM HYDROXIDE SUSPENSION 30 ML UDCUP PO PRN (06:15)
[2023-01-22] MEDS ORDERED: PETROLATUM,WHITE 28 GM JELLY TP PRN (06:15)
[2023-01-22] MEDS ORDERED: LOPERAMIDE HCL 2 MG CAPSULE PO PRN (06:15)
[2023-01-22] MEDS ORDERED: IBUPROFEN 400 MG TABLET PO PRN (06:15)
[2023-01-22] MEDS ORDERED: ONDANSETRON HCL 4 MG TABLET PO PRN (06:15)
[2023-01-22] MEDS ORDERED: ALBUTEROL SULFATE HFA 90 MCG/PUFF 8 GM INHALER IH PRN (06:15)
[2023-01-22] MEDS ORDERED: NICOTINE 14 MG/24 HOUR PATCH TD PRN (06:15)
[2023-01-22 08:25] VITALS: BP 101/53
[2023-01-22] MEDS: OMEGA-3/DHA/EPA/FISH OIL 1,000 MG CAPSULE PO SCH (08:39)
[2023-01-22] MEDS: FINASTERIDE 5 MG TABLET PO SCH (08:39)
[2023-01-22] MEDS: NALTREXONE HCL 50 MG TABLET PO SCH (17:53)
[2023-01-22] MEDS: DIVALPROEX SODIUM 500 MG ER TABLET PO SCH (17:53)
[2023-01-22] MEDS: DULoxetine HCL 60 MG CAPSULE PO SCH (17:53)
[2023-01-22] MEDS: MELATONIN 5 MG TABLET PO SCH (20:10)
[2023-01-22] MEDS: QUEtiapine FUMARATE 200 MG TABLET PO SCH (20:10)
[2023-01-22 20:18] VITALS: BP 121/77
[2023-01-22] MEDS: ZOLPIDEM TARTRATE 10 MG TABLET PO PRN (21:16)
[2023-01-22] MEDS: HALOPERIDOL 5 MG TABLET PO PRN (21:27)
[2023-01-23] MEDS: DIVALPROEX SODIUM 500 MG ER TABLET PO SCH ×3 (08:25→16:42)
[2023-01-23] MEDS: DULoxetine HCL 60 MG CAPSULE PO SCH (08:25)
[2023-01-23] MEDS: APIXABAN 5 MG TABLET PO SCH ×2 (08:25→16:42)
[2023-01-23] MEDS: FINASTERIDE 5 MG TABLET PO SCH (08:25)
[2023-01-23] MEDS: NALTREXONE HCL 50 MG TABLET PO SCH (08:26)
[2023-01-23] MEDS: OMEGA-3/DHA/EPA/FISH OIL 1,000 MG CAPSULE PO SCH (08:26)
[2023-01-23 08:46] VITALS: BP 149/82
[2023-01-23] MEDS: HALOPERIDOL 5 MG TABLET PO PRN (16:42)
[2023-01-23] MEDS: QUEtiapine FUMARATE 200 MG TABLET PO SCH (20:19)
[2023-01-23] MEDS: MELATONIN 5 MG TABLET PO SCH (20:19)
[2023-01-23 20:39] VITALS: BP 121/66
[2023-01-23] MEDS: ZOLPIDEM TARTRATE 10 MG TABLET PO PRN (21:35)
[2023-01-24 09:06] VITALS: BP 94/58
[2023-01-24] MEDS: APIXABAN 5 MG TABLET PO SCH ×2 (09:27→16:34)
[2023-01-24] MEDS: DIVALPROEX SODIUM 500 MG ER TABLET PO SCH ×3 (09:27→16:34)
[2023-01-24] MEDS: FINASTERIDE 5 MG TABLET PO SCH (09:27)
[2023-01-24] MEDS: CARVEDILOL 3.125 MG TABLET PO SCH ×2 (09:27→16:34)
[2023-01-24] MEDS: OMEGA-3/DHA/EPA/FISH OIL 1,000 MG CAPSULE PO SCH (09:28)
[2023-01-24] MEDS: NALTREXONE HCL 50 MG TABLET PO SCH (09:28)
[2023-01-24] MEDS: DULoxetine HCL 60 MG CAPSULE PO SCH (09:29)
[2023-01-24] MEDS: QUEtiapine FUMARATE 200 MG TABLET PO SCH (22:00)
[2023-01-24] MEDS: MELATONIN 5 MG TABLET PO SCH (22:01)
[2023-01-24 22:11] VITALS: BP 125/68
[2023-01-25] MEDS: APIXABAN 5 MG TABLET PO SCH ×2 (08:53→17:05)
[2023-01-25] MEDS: OMEGA-3/DHA/EPA/FISH OIL 1,000 MG CAPSULE PO SCH (08:53)
[2023-01-25] MEDS: NALTREXONE HCL 50 MG TABLET PO SCH (08:53)
[2023-01-25] MEDS: FINASTERIDE 5 MG TABLET PO SCH (08:53)
[2023-01-25] MEDS: DIVALPROEX SODIUM 500 MG ER TABLET PO SCH ×3 (08:53→17:05)
[2023-01-25] MEDS: CARVEDILOL 3.125 MG TABLET PO SCH ×2 (08:54→17:05)
[2023-01-25] MEDS: DULoxetine HCL 60 MG CAPSULE PO SCH (08:55)
[2023-01-25 15:09] VITALS: BP 139/76
[2023-01-25] MEDS ORDERED: QUET200T30 PO (18:43)
[2023-01-25] MEDS ORDERED: DIVA500T69 PO (18:43)
[2023-01-25] MEDS ORDERED: MELA5TAB40 PO (18:43)
[2023-01-25] MEDS ORDERED: DULO-113 PO (18:43)
[2023-01-25] MEDS ORDERED: OMEG-135 PO (18:43)
[2023-01-25] MEDS ORDERED: NALT50TA PO (18:43)
[2023-01-25] MEDS: MELATONIN 5 MG TABLET PO SCH (21:04)
[2023-01-25] MEDS: QUEtiapine FUMARATE 200 MG TABLET PO SCH (21:04)
[2023-01-25 21:55] VITALS: BP 120/60
[2023-01-26] MEDS: DULoxetine HCL 60 MG CAPSULE PO SCH (09:37)
[2023-01-26] MEDS: APIXABAN 5 MG TABLET PO SCH (09:38)
[2023-01-26] MEDS: NALTREXONE HCL 50 MG TABLET PO SCH (09:38)
[2023-01-26] MEDS: CARVEDILOL 3.125 MG TABLET PO SCH (09:38)
[2023-01-26] MEDS: FINASTERIDE 5 MG TABLET PO SCH (09:38)
[2023-01-26] MEDS: DIVALPROEX SODIUM 500 MG ER TABLET PO SCH ×2 (09:38→12:38)
[2023-01-26] MEDS: OMEGA-3/DHA/EPA/FISH OIL 1,000 MG CAPSULE PO SCH (09:38)
[2023-01-26 09:52] VITALS: BP 136/71
[2023-01-26] MEDS ORDERED: CARV3 PO ×2 (12:31→23:37)
[2023-01-26] MEDS ORDERED: FINA-27 PO (23:37)
[2023-01-26] MEDS ORDERED: APIX5TAB PO (23:37)
== END 2023-01-26 13:05 | disposition home or self-care (01) | DRG 750 ==
LOC: EMS 20:59 → 3EC 01-22 03:12 → 3EI 01-23 17:42
PROVIDERS: ADMIT Psychiatry & Neurology Psychiatry; ATTEND Psychiatry & Neurology Psychiatry
DX: F25.1 Schizoaffective disorder, depressive type (principal); R45.851 Suicidal ideations; F32.2 Major depressive disorder, single episode, severe without psychotic features; E03.9 Hypothyroidism, unspecified; E78.5 Hyperlipidemia, unspecified; F10.20 Alcohol dependence, uncomplicated; Z20.822 Contact with and (suspected) exposure to COVID-19; I12.9 Hypertensive chronic kidney disease with stage 1 through stage 4 chronic kidney disease, or unspecified chronic kidney disease; G47.00 Insomnia, unspecified; N18.32 Chronic kidney disease, stage 3b; D64.9 Anemia, unspecified; N40.0 Benign prostatic hyperplasia without lower urinary tract symptoms; K21.9 Gastro-esophageal reflux disease without esophagitis; I73.9 Peripheral vascular disease, unspecified; I25.10 Atherosclerotic heart disease of native coronary artery without angina pectoris; Z87.891 Personal history of nicotine dependence; Z95.5 Presence of coronary angioplasty implant and graft; Z79.899 Other long term (current) drug therapy; Z79.01 Long term (current) use of anticoagulants
CPT/HCPCS: 80053; 80307; 81001; 85025; 87081; 99285; G0480; Q9967

== ENCOUNTER 2023-02-09 14:24 | Inpatient (IN) | payer MEDICAID ==
[~2023-02-09] VITALS: Ht 170.2 cm; Wt 86.2 kg
[~2023-02-09 14:24] MED LIST changes: +CARV3 PO
[2023-02-09 15:10] LABS: COVID AG,FIA SOURCE NASOPHARYNGEAL
[2023-02-09 15:11] LABS: BASOPHILS % (AUTO) 0.5 % (0.0-2.0); EOSINOPHILS % (AUTO) 9.5 % (1.0-6.0); HEMATOCRIT 32.9 % (41-53); LYMPHOCYTES # (AUTO) 3.2 K/uL (1.0-4.8); LYMPHOCYTES % (AUTO) 31.4 % (22.0-44.0); MEAN CORPUSCULAR HEMOGLOBIN 31.3 pg (26.0-34.0); MEAN CORPUSCULAR HGB CONC 33.5 G/dL (31.0-37.0); MEAN CORPUSCULAR VOLUME 94 fL (80-100); MONOCYTES # (AUTO) 0.8 K/uL (0.1-1.0); MONOCYTES % (AUTO) 8.3 % (2.0-9.0); NEUTROPHILS % (AUTO) 50.3 % (40.0-70.0); PLATELET COUNT (AUTO) 289 K/uL (150-450); RED BLOOD CELL COUNT(AUTO) 3.52 MIL/uL (4.50-5.90)
[2023-02-09 15:19] LABS: ANION GAP 12 mmol/L (8-16); CALCIUM, TOTAL 8.5 mg/dL (8.8-10.5); CARBON DIOXIDE 25 mmol/L (22-29); CHLORIDE 103 mmol/L (98-107); CREATININE 1.82 mg/dL (0.60-1.30); GLOMERULAR FILTR. RATE CALC 38 mL/min (>60); GLUCOSE,RANDOM 117 mg/dL (70-110); POTASSIUM 3.6 mmol/L (3.5-5.1); SODIUM SERUM 140 mmol/L (136-145)
[2023-02-09 15:25] LABS: ALANINE AMINOTRANSFERASE 11 U/L (12-78); ALBUMIN 2.8 g/dL (3.4-5.0); ALKALINE PHOSPHATASE 97 U/L (46-116); ASPARTATE AMINOTRANSFERASE 19 U/L (15-37); BILIRUBIN,TOTAL 0.2 mg/dL (0.1-1.0)
[2023-02-09 15:28] LABS: VALPROIC ACID < 3 mcg/mL (50-100)
[2023-02-09] MEDS ORDERED: MAGNESIUM HYDROXIDE SUSPENSION 30 ML UDCUP PO PRN (18:30)
[2023-02-09] MEDS ORDERED: MAG HYDROX/AL HYDROX/SIMETH ES 30 ML SUSPENSION UDCUP PO PRN (18:30)
[2023-02-09] MEDS ORDERED: LOPERAMIDE HCL 2 MG CAPSULE PO PRN (18:30)
[2023-02-09] MEDS ORDERED: ACETAMINOPHEN 325 MG TABLET PO PRN (18:30)
[2023-02-09] MEDS ORDERED: GuaiFENesin/D-METHORPHAN [SUGAR-FREE] 200-20MG/10 ML SYRUP UDCUP PO PRN (18:30)
[2023-02-09] MEDS ORDERED: QUEtiapine FUMARATE 100 MG TABLET PO PRN (18:30)
[2023-02-09] MEDS ORDERED: HydrOXYzine PAMOATE 50 MG CAPSULE PO PRN (18:30)
[2023-02-09] MEDS ORDERED: ZOLPIDEM TARTRATE 10 MG TABLET PO PRN (18:30)
[2023-02-09] MEDS ORDERED: CYANOCOBALAMIN 1,000 MCG/ML VIAL IM ONE (18:30)
[2023-02-09] MEDS ORDERED: DIAZEPAM 10 MG TABLET PO PRN (18:30)
[2023-02-09] MEDS ORDERED: PROMETHAZINE HCL 25 MG TABLET PO PRN (18:30)
[2023-02-09 19:17] LABS: AMPHET/METH SCREEN,URINE NEGATIVE (NEGATIVE); BARBITURATE SCREEN, URINE NEGATIVE (NEGATIVE); BENZODIAZEPINES SCREEN,URINE NEGATIVE (NEGATIVE); CANNABINOID SCREEN,URINE POSITIVE (NEGATIVE); COCAINE SCREEN,URINE NEGATIVE (NEGATIVE); METHADONE SCREEN, URINE NEGATIVE (NEGATIVE); OPIATE SCREEN,URINE NEGATIVE (NEGATIVE); PHENCYCLIDINE SCREEN,URINE NEGATIVE (NEGATIVE)
[2023-02-09] MEDS: MELATONIN 5 MG TABLET PO SCH (21:15)
[2023-02-09] MEDS: DIVALPROEX SODIUM 500 MG ER TABLET PO SCH (21:16)
[2023-02-09] MEDS: QUEtiapine FUMARATE 100 MG TABLET PO SCH (21:16)
[2023-02-09] MEDS: THIAMINE 100 MG TABLET PO SCH (21:16)
[2023-02-10] VITALS (12 sets, daily range): BP systolic 118–175; BP diastolic 62–94; PULSE 80–88; RESP 16–19; TEMP 97.8–98.2; O2SAT 95–99
[2023-02-10] MEDS: DIAZEPAM 10 MG TABLET PO SCH ×4 (06:33→21:04)
[2023-02-10] MEDS ORDERED: DIAZEPAM 10 MG TABLET PO PRN (07:00)
[2023-02-10 07:47] LABS: HEMOGLOBIN A1C 5.5 % (3.8-5.6)
[2023-02-10 07:55] LABS: CHOL/HDL RATIO 5.6 (4.2-7.3); CHOLESTEROL 271 mg/dL (131-200); FREE T4 (FREE THYROXINE) 0.52 ng/dL (0.76-1.46); HDL CHOLESTEROL 48 mg/dL (40-60); THYROID STIMULATING HORMONE 3.66 uIU/mL (0.36-3.74); TRIGLYCERIDES 440 mg/dL (15-150)
[2023-02-10] MEDS: THIAMINE 100 MG TABLET PO SCH ×2 (08:30→17:17)
[2023-02-10] MEDS: GABAPENTIN 100 MG CAPSULE PO SCH ×4 (08:30→21:05)
[2023-02-10] MEDS: DULoxetine HCL 20 MG CAPSULE PO SCH (08:31)
[2023-02-10] MEDS: MULTIVITAMINS WITH MINERALS, THERAPEUTIC TABLET PO SCH (08:31)
[2023-02-10] MEDS: DIVALPROEX SODIUM 500 MG ER TABLET PO SCH ×3 (08:31→17:17)
[2023-02-10] MEDS: NALTREXONE HCL 50 MG TABLET PO SCH (08:32)
[2023-02-10] MEDS: FOLIC ACID 1 MG TABLET PO SCH (08:32)
[2023-02-10] MEDS: OMEGA-3/DHA/EPA/FISH OIL 1,000 MG CAPSULE PO SCH (08:32)
[2023-02-10] MEDS ORDERED: GABAPENTIN 100 MG CAPSULE PO SCH ×2 (09:00)
[2023-02-10] MEDS ORDERED: PALIPERIDONE PALMITATE 234 MG/1.5 ML SYRINGE IM ONE (09:00)
[2023-02-10] MEDS ORDERED: METOPROLOL TARTRATE 25 MG TABLET PO ONE (18:00)
[2023-02-10] MEDS: QUEtiapine FUMARATE 100 MG TABLET PO SCH (21:05)
[2023-02-10] MEDS: MELATONIN 5 MG TABLET PO SCH (21:05)
[2023-02-11] VITALS (7 sets, daily range): BP systolic 115–144; BP diastolic 64–82; PULSE 64–74; RESP 16–18; TEMP 97.2–98; O2SAT 96–98
[2023-02-11] MEDS: OMEGA-3/DHA/EPA/FISH OIL 1,000 MG CAPSULE PO SCH (09:02)
[2023-02-11] MEDS: NALTREXONE HCL 50 MG TABLET PO SCH (09:02)
[2023-02-11] MEDS: MULTIVITAMINS WITH MINERALS, THERAPEUTIC TABLET PO SCH (09:02)
[2023-02-11] MEDS: GABAPENTIN 100 MG CAPSULE PO SCH ×4 (09:02→20:57)
[2023-02-11] MEDS: THIAMINE 100 MG TABLET PO SCH ×2 (09:02→16:54)
[2023-02-11] MEDS: METOPROLOL TARTRATE 25 MG TABLET PO SCH ×2 (09:03→16:54)
[2023-02-11] MEDS: DIAZEPAM 10 MG TABLET PO SCH ×3 (09:03→16:54)
[2023-02-11] MEDS: DULoxetine HCL 20 MG CAPSULE PO SCH (09:03)
[2023-02-11] MEDS: FOLIC ACID 1 MG TABLET PO SCH (09:03)
[2023-02-11] MEDS: DIVALPROEX SODIUM 500 MG ER TABLET PO SCH ×3 (09:04→16:55)
[2023-02-11] MEDS: MELATONIN 5 MG TABLET PO SCH (20:53)
[2023-02-11] MEDS: QUEtiapine FUMARATE 200 MG TABLET PO SCH (20:55)
[2023-02-12] MEDS ORDERED: DIAZEPAM 5 MG TABLET PO PRN (07:00)
[2023-02-12 08:03] VITALS: BP 107/65; PULSE 68; RESP 17; TEMP 97.7; O2SAT 96
[2023-02-12] MEDS: GABAPENTIN 100 MG CAPSULE PO SCH ×4 (08:28→20:05)
[2023-02-12] MEDS: DIVALPROEX SODIUM 500 MG ER TABLET PO SCH ×3 (08:28→16:25)
[2023-02-12] MEDS: OMEGA-3/DHA/EPA/FISH OIL 1,000 MG CAPSULE PO SCH (08:28)
[2023-02-12] MEDS: THIAMINE 100 MG TABLET PO SCH ×2 (08:28→16:26)
[2023-02-12] MEDS: DULoxetine HCL 20 MG CAPSULE PO SCH (08:28)
[2023-02-12] MEDS: MULTIVITAMINS WITH MINERALS, THERAPEUTIC TABLET PO SCH (08:28)
[2023-02-12] MEDS: NALTREXONE HCL 50 MG TABLET PO SCH (08:28)
[2023-02-12] MEDS: FOLIC ACID 1 MG TABLET PO SCH (08:28)
[2023-02-12] MEDS: METOPROLOL TARTRATE 25 MG TABLET PO SCH ×2 (08:28→16:25)
[2023-02-12 08:44] VITALS: BP 107/65; PULSE 68; RESP 17; TEMP 97.7; O2SAT 96
[2023-02-12] MEDS ORDERED: DIAZEPAM 5 MG TABLET PO SCH (09:00)
[2023-02-12 16:20] VITALS: BP 120/67; PULSE 69; RESP 17; TEMP 98.4; O2SAT 96
[2023-02-12] MEDS ORDERED: LOPERAMIDE HCL 2 MG CAPSULE PO PRN (18:30)
[2023-02-12 20:00] VITALS: BP 148/85; PULSE 74; RESP 18; TEMP 98.4; O2SAT 98
[2023-02-12] MEDS: QUEtiapine FUMARATE 200 MG TABLET PO SCH (20:05)
[2023-02-12] MEDS: MELATONIN 5 MG TABLET PO SCH (20:06)
[2023-02-13] MEDS ORDERED: DIAZEPAM 5 MG TABLET PO PRN (07:00)
[2023-02-13 08:16] VITALS: BP 100/60; PULSE 85; RESP 17; TEMP 97.5; O2SAT 100
[2023-02-13] MEDS: GABAPENTIN 100 MG CAPSULE PO SCH ×4 (09:16→20:07)
[2023-02-13] MEDS: METOPROLOL TARTRATE 25 MG TABLET PO SCH ×2 (09:16→16:42)
[2023-02-13] MEDS: FOLIC ACID 1 MG TABLET PO SCH (09:16)
[2023-02-13] MEDS: MULTIVITAMINS WITH MINERALS, THERAPEUTIC TABLET PO SCH (09:16)
[2023-02-13] MEDS: NALTREXONE HCL 50 MG TABLET PO SCH (09:16)
[2023-02-13] MEDS: DIVALPROEX SODIUM 500 MG ER TABLET PO SCH ×3 (09:16→16:42)
[2023-02-13] MEDS: OMEGA-3/DHA/EPA/FISH OIL 1,000 MG CAPSULE PO SCH (09:16)
[2023-02-13] MEDS: DULoxetine HCL 20 MG CAPSULE PO SCH (09:17)
[2023-02-13] MEDS: THIAMINE 100 MG TABLET PO SCH ×2 (09:17→16:41)
[2023-02-13 10:44] VITALS: BP 100/60; PULSE 85; RESP 17; TEMP 97.7; O2SAT 100
[2023-02-13 16:38] VITALS: BP 120/70; PULSE 83; RESP 18; TEMP 98; O2SAT 96
[2023-02-13] MEDS: QUEtiapine FUMARATE 200 MG TABLET PO SCH (20:07)
[2023-02-13] MEDS: MELATONIN 5 MG TABLET PO SCH (20:07)
[2023-02-13 20:46] VITALS: BP 109/68; PULSE 74; RESP 17; TEMP 98.4; O2SAT 98
[2023-02-13 20:47] VITALS: BP 109/68; PULSE 74; RESP 17; TEMP 98.4; O2SAT 98
[2023-02-14 08:10] VITALS: BP 108/62; PULSE 70; RESP 17; TEMP 97.4; O2SAT 95
[2023-02-14] MEDS: FOLIC ACID 1 MG TABLET PO SCH (08:58)
[2023-02-14] MEDS: GABAPENTIN 100 MG CAPSULE PO SCH ×4 (08:58→20:16)
[2023-02-14] MEDS: METOPROLOL TARTRATE 25 MG TABLET PO SCH ×2 (08:58→16:28)
[2023-02-14] MEDS: NALTREXONE HCL 50 MG TABLET PO SCH (08:58)
[2023-02-14] MEDS: MULTIVITAMINS WITH MINERALS, THERAPEUTIC TABLET PO SCH (08:58)
[2023-02-14] MEDS: DULoxetine HCL 20 MG CAPSULE PO SCH (08:58)
[2023-02-14] MEDS: OMEGA-3/DHA/EPA/FISH OIL 1,000 MG CAPSULE PO SCH (08:58)
[2023-02-14] MEDS: DIVALPROEX SODIUM 500 MG ER TABLET PO SCH ×3 (08:58→16:28)
[2023-02-14] MEDS: THIAMINE 100 MG TABLET PO SCH ×2 (08:58→16:28)
[2023-02-14] MEDS ORDERED: PALIPERIDONE PALMITATE 156 MG/ML SYRINGE IM ONE (09:00)
[2023-02-14 09:03] VITALS: BP 108/62; PULSE 70; RESP 17; TEMP 97.7; O2SAT 96
[2023-02-14 16:25] VITALS: BP 124/76; PULSE 84; RESP 16
[2023-02-14 20:05] VITALS: BP 121/73; PULSE 81; RESP 16; TEMP 97.5; O2SAT 99
[2023-02-14] MEDS: MELATONIN 5 MG TABLET PO SCH (20:16)
[2023-02-14] MEDS: QUEtiapine FUMARATE 200 MG TABLET PO SCH (20:16)
[2023-02-15 08:00] VITALS: BP 110/64; PULSE 72; RESP 16; TEMP 98; O2SAT 99
[2023-02-15] MEDS: OMEGA-3/DHA/EPA/FISH OIL 1,000 MG CAPSULE PO SCH (09:07)
[2023-02-15] MEDS: METOPROLOL TARTRATE 25 MG TABLET PO SCH ×2 (09:07→17:01)
[2023-02-15] MEDS: THIAMINE 100 MG TABLET PO SCH ×2 (09:07→17:00)
[2023-02-15] MEDS: FOLIC ACID 1 MG TABLET PO SCH (09:07)
[2023-02-15] MEDS: NALTREXONE HCL 50 MG TABLET PO SCH (09:08)
[2023-02-15] MEDS: GABAPENTIN 100 MG CAPSULE PO SCH ×4 (09:08→20:20)
[2023-02-15] MEDS: DIVALPROEX SODIUM 500 MG ER TABLET PO SCH ×3 (09:08→17:00)
[2023-02-15] MEDS: DULoxetine HCL 20 MG CAPSULE PO SCH (09:08)
[2023-02-15] MEDS: MULTIVITAMINS WITH MINERALS, THERAPEUTIC TABLET PO SCH (09:08)
[2023-02-15 17:01] VITALS: BP 110/68; PULSE 100; RESP 18
[2023-02-15] MEDS: QUEtiapine FUMARATE 200 MG TABLET PO SCH (20:20)
[2023-02-15] MEDS: MELATONIN 5 MG TABLET PO SCH (20:20)
[2023-02-15] MEDS ORDERED: GABAPENTIN 300 MG CAPSULE PO PRN (21:30)
[2023-02-15 21:50] VITALS: BP 112/69; PULSE 78; RESP 18; TEMP 98.3; O2SAT 97
[2023-02-16 08:18] VITALS: BP 113/63; PULSE 75; RESP 17; TEMP 98.6; O2SAT 96
[2023-02-16] MEDS: MULTIVITAMINS WITH MINERALS, THERAPEUTIC TABLET PO SCH (08:54)
[2023-02-16] MEDS: OMEGA-3/DHA/EPA/FISH OIL 1,000 MG CAPSULE PO SCH (08:54)
[2023-02-16] MEDS: DULoxetine HCL 20 MG CAPSULE PO SCH (08:54)
[2023-02-16] MEDS: NALTREXONE HCL 50 MG TABLET PO SCH (08:54)
[2023-02-16] MEDS: DIVALPROEX SODIUM 500 MG ER TABLET PO SCH ×3 (08:55→16:42)
[2023-02-16] MEDS: THIAMINE 100 MG TABLET PO SCH ×2 (08:55→16:42)
[2023-02-16] MEDS: METOPROLOL TARTRATE 25 MG TABLET PO SCH ×2 (08:55→16:42)
[2023-02-16] MEDS: GABAPENTIN 100 MG CAPSULE PO SCH ×4 (08:55→20:40)
[2023-02-16] MEDS: FOLIC ACID 1 MG TABLET PO SCH (08:55)
[2023-02-16 16:43] VITALS: BP 114/70; PULSE 85; RESP 18; TEMP 98.5; O2SAT 99
[2023-02-16] MEDS: ROSUVASTATIN CALCIUM 10 MG TABLET PO SCH (20:39)
[2023-02-16] MEDS: MELATONIN 5 MG TABLET PO SCH (20:40)
[2023-02-16] MEDS: QUEtiapine FUMARATE 200 MG TABLET PO SCH (20:40)
[2023-02-16] MEDS ORDERED: QUEtiapine FUMARATE 200 MG TABLET PO SCH (21:00)
[2023-02-16 22:40] VITALS: BP 132/74; PULSE 64; RESP 17; TEMP 98.5; O2SAT 98
[2023-02-17 08:19] VITALS: BP 106/60; PULSE 71; RESP 19; TEMP 98.3; O2SAT 97
[2023-02-17] MEDS: GABAPENTIN 100 MG CAPSULE PO SCH ×4 (08:47→20:14)
[2023-02-17] MEDS: THIAMINE 100 MG TABLET PO SCH ×2 (08:48→16:51)
[2023-02-17] MEDS: MULTIVITAMINS WITH MINERALS, THERAPEUTIC TABLET PO SCH (08:48)
[2023-02-17] MEDS: DIVALPROEX SODIUM 500 MG ER TABLET PO SCH ×3 (08:48→16:51)
[2023-02-17] MEDS: OMEGA-3/DHA/EPA/FISH OIL 1,000 MG CAPSULE PO SCH (08:48)
[2023-02-17] MEDS: FOLIC ACID 1 MG TABLET PO SCH (08:48)
[2023-02-17] MEDS: METOPROLOL TARTRATE 25 MG TABLET PO SCH ×2 (08:49→16:51)
[2023-02-17] MEDS: NALTREXONE HCL 50 MG TABLET PO SCH (08:49)
[2023-02-17] MEDS: DULoxetine HCL 20 MG CAPSULE PO SCH (08:49)
[2023-02-17 20:06] VITALS: BP 122/68; PULSE 80; RESP 19; TEMP 98.2; O2SAT 100
[2023-02-17] MEDS: MELATONIN 5 MG TABLET PO SCH (20:14)
[2023-02-17] MEDS: QUEtiapine FUMARATE 200 MG TABLET PO SCH (20:15)
[2023-02-17] MEDS: ROSUVASTATIN CALCIUM 10 MG TABLET PO SCH (20:15)
[2023-02-18 08:14] VITALS: BP 107/61; PULSE 75; RESP 17; TEMP 98.4; O2SAT 96
[2023-02-18] MEDS: FOLIC ACID 1 MG TABLET PO SCH (09:22)
[2023-02-18] MEDS: NALTREXONE HCL 50 MG TABLET PO SCH (09:22)
[2023-02-18] MEDS: MULTIVITAMINS WITH MINERALS, THERAPEUTIC TABLET PO SCH (09:22)
[2023-02-18] MEDS: DIVALPROEX SODIUM 500 MG ER TABLET PO SCH ×3 (09:22→16:50)
[2023-02-18] MEDS: THIAMINE 100 MG TABLET PO SCH (09:22)
[2023-02-18] MEDS: METOPROLOL TARTRATE 25 MG TABLET PO SCH ×2 (09:22→16:50)
[2023-02-18] MEDS: OMEGA-3/DHA/EPA/FISH OIL 1,000 MG CAPSULE PO SCH (09:22)
[2023-02-18] MEDS: DULoxetine HCL 20 MG CAPSULE PO SCH (09:22)
[2023-02-18] MEDS: GABAPENTIN 100 MG CAPSULE PO SCH ×4 (09:23→20:27)
[2023-02-18 20:21] VITALS: BP 127/64; PULSE 79; RESP 18; TEMP 98.2; O2SAT 98
[2023-02-18] MEDS: MELATONIN 5 MG TABLET PO SCH (20:27)
[2023-02-18] MEDS: ROSUVASTATIN CALCIUM 10 MG TABLET PO SCH (20:28)
[2023-02-18] MEDS ORDERED: QUEtiapine FUMARATE 300 MG TABLET PO SCH (21:00)
[2023-02-19] MEDS: METOPROLOL TARTRATE 25 MG TABLET PO SCH ×2 (08:21→16:37)
[2023-02-19] MEDS: FOLIC ACID 1 MG TABLET PO SCH (08:21)
[2023-02-19] MEDS: GABAPENTIN 100 MG CAPSULE PO SCH ×4 (08:21→20:38)
[2023-02-19 08:22] VITALS: RESP 17
[2023-02-19] MEDS: OMEGA-3/DHA/EPA/FISH OIL 1,000 MG CAPSULE PO SCH (08:22)
[2023-02-19] MEDS: DIVALPROEX SODIUM 500 MG ER TABLET PO SCH ×3 (08:22→16:37)
[2023-02-19] MEDS: DULoxetine HCL 20 MG CAPSULE PO SCH (08:22)
[2023-02-19] MEDS: MULTIVITAMINS WITH MINERALS, THERAPEUTIC TABLET PO SCH (08:22)
[2023-02-19] MEDS: NALTREXONE HCL 50 MG TABLET PO SCH (08:22)
[2023-02-19 16:35] VITALS: BP 127/84; PULSE 86; RESP 18; TEMP 97.6; O2SAT 99
[2023-02-19 20:13] VITALS: BP 111/73; PULSE 81; RESP 18; TEMP 98.2; O2SAT 97
[2023-02-19] MEDS: QUEtiapine FUMARATE 200 MG TABLET PO SCH (20:37)
[2023-02-19] MEDS: MELATONIN 5 MG TABLET PO SCH (20:38)
[2023-02-19] MEDS: ROSUVASTATIN CALCIUM 10 MG TABLET PO SCH (20:38)
[2023-02-20 08:17] VITALS: BP 119/81; PULSE 86; RESP 18; TEMP 97.9
[2023-02-20] MEDS: MULTIVITAMINS WITH MINERALS, THERAPEUTIC TABLET PO SCH (08:40)
[2023-02-20] MEDS: DULoxetine HCL 20 MG CAPSULE PO SCH (08:40)
[2023-02-20] MEDS: OMEGA-3/DHA/EPA/FISH OIL 1,000 MG CAPSULE PO SCH (08:41)
[2023-02-20] MEDS: METOPROLOL TARTRATE 25 MG TABLET PO SCH ×2 (08:41→16:40)
[2023-02-20] MEDS: DIVALPROEX SODIUM 500 MG ER TABLET PO SCH ×3 (08:41→16:40)
[2023-02-20] MEDS: NALTREXONE HCL 50 MG TABLET PO SCH (08:41)
[2023-02-20] MEDS: GABAPENTIN 100 MG CAPSULE PO SCH ×4 (08:41→20:35)
[2023-02-20 16:38] VITALS: BP 114/64; RESP 18
[2023-02-20] MEDS: ROSUVASTATIN CALCIUM 10 MG TABLET PO SCH (20:33)
[2023-02-20] MEDS: QUEtiapine FUMARATE 200 MG TABLET PO SCH (20:34)
[2023-02-20] MEDS: MELATONIN 5 MG TABLET PO SCH (20:35)
[2023-02-20 20:56] VITALS: BP 104/62; PULSE 81; RESP 18; TEMP 98.3; O2SAT 98
[2023-02-21 08:13] VITALS: BP 139/86; PULSE 95; RESP 18; TEMP 97.9
[2023-02-21] MEDS: DULoxetine HCL 20 MG CAPSULE PO SCH (08:24)
[2023-02-21] MEDS: DIVALPROEX SODIUM 500 MG ER TABLET PO SCH ×3 (08:24→16:20)
[2023-02-21] MEDS: METOPROLOL TARTRATE 25 MG TABLET PO SCH ×2 (08:25→16:20)
[2023-02-21] MEDS: GABAPENTIN 100 MG CAPSULE PO SCH ×4 (08:25→20:40)
[2023-02-21] MEDS: OMEGA-3/DHA/EPA/FISH OIL 1,000 MG CAPSULE PO SCH (08:25)
[2023-02-21] MEDS: NALTREXONE HCL 50 MG TABLET PO SCH (08:25)
[2023-02-21] MEDS: MULTIVITAMINS WITH MINERALS, THERAPEUTIC TABLET PO SCH (08:25)
[2023-02-21 16:10] VITALS: BP 114/70; PULSE 77; RESP 18; TEMP 97.8; O2SAT 95
[2023-02-21 20:07] VITALS: BP 116/70; PULSE 73; RESP 18; TEMP 97.9; O2SAT 97
[2023-02-21] MEDS: MELATONIN 5 MG TABLET PO SCH (20:42)
[2023-02-21] MEDS: ROSUVASTATIN CALCIUM 10 MG TABLET PO SCH (20:42)
[2023-02-21] MEDS: QUEtiapine FUMARATE 200 MG TABLET PO SCH (20:43)
[2023-02-22] MEDS: OMEGA-3/DHA/EPA/FISH OIL 1,000 MG CAPSULE PO SCH (08:15)
[2023-02-22] MEDS: DIVALPROEX SODIUM 500 MG ER TABLET PO SCH ×3 (08:15→16:49)
[2023-02-22] MEDS: NALTREXONE HCL 50 MG TABLET PO SCH (08:16)
[2023-02-22] MEDS: DULoxetine HCL 20 MG CAPSULE PO SCH (08:16)
[2023-02-22] MEDS: GABAPENTIN 100 MG CAPSULE PO SCH ×4 (08:16→20:36)
[2023-02-22] MEDS: MULTIVITAMINS WITH MINERALS, THERAPEUTIC TABLET PO SCH (08:16)
[2023-02-22] MEDS: METOPROLOL TARTRATE 25 MG TABLET PO SCH ×2 (08:16→16:49)
[2023-02-22 08:26] VITALS: BP 106/60; PULSE 78; RESP 18; TEMP 98; O2SAT 95
[2023-02-22 16:49] VITALS: BP 126/76; PULSE 74; RESP 18; TEMP 98.3; O2SAT 97
[2023-02-22 20:11] VITALS: BP 144/84; PULSE 72; RESP 18; TEMP 98.3; O2SAT 95
[2023-02-22] MEDS: MELATONIN 5 MG TABLET PO SCH (20:36)
[2023-02-22] MEDS: ROSUVASTATIN CALCIUM 10 MG TABLET PO SCH (20:37)
[2023-02-22] MEDS: QUEtiapine FUMARATE 200 MG TABLET PO SCH (20:37)
[2023-02-23] MEDS ORDERED: GABA-1216 PO (07:54)
[2023-02-23] MEDS ORDERED: QUET200T30 PO (07:54)
[2023-02-23] MEDS ORDERED: DULO20CA71 PO (07:54)
[2023-02-23] MEDS ORDERED: OMEG-135 PO (07:54)
[2023-02-23] MEDS ORDERED: DIVA500T69 PO (07:54)
[2023-02-23] MEDS ORDERED: MELA5TAB40 PO (07:54)
[2023-02-23] MEDS ORDERED: NALT50TA PO (07:54)
[2023-02-23] MEDS: METOPROLOL TARTRATE 25 MG TABLET PO SCH (08:14)
[2023-02-23] MEDS: DIVALPROEX SODIUM 500 MG ER TABLET PO SCH (08:14)
[2023-02-23] MEDS: NALTREXONE HCL 50 MG TABLET PO SCH (08:14)
[2023-02-23] MEDS: DULoxetine HCL 20 MG CAPSULE PO SCH (08:14)
[2023-02-23] MEDS: OMEGA-3/DHA/EPA/FISH OIL 1,000 MG CAPSULE PO SCH (08:14)
[2023-02-23] MEDS: MULTIVITAMINS WITH MINERALS, THERAPEUTIC TABLET PO SCH (08:14)
[2023-02-23 08:23] VITALS: BP 106/69; PULSE 84; RESP 19; TEMP 97.9
[2023-02-23] MEDS: GABAPENTIN 100 MG CAPSULE PO SCH (08:59)
[2023-02-23] MEDS ORDERED: QUEtiapine FUMARATE 200 MG TABLET PO SCH (21:00)
== END 2023-02-23 09:00 | disposition home or self-care (01) | DRG 750 ==
LOC: EMS 14:37 → UNDOADMIN 20:00 → 3EI 20:00 → B2S 02-10 00:01
PROVIDERS: ADMIT Psychiatry & Neurology Psychiatry; ATTEND Psychiatry & Neurology Psychiatry
DX: F25.1 Schizoaffective disorder, depressive type (principal); D64.9 Anemia, unspecified; Z20.822 Contact with and (suspected) exposure to COVID-19; E03.9 Hypothyroidism, unspecified; E78.5 Hyperlipidemia, unspecified; F10.20 Alcohol dependence, uncomplicated; I12.9 Hypertensive chronic kidney disease with stage 1 through stage 4 chronic kidney disease, or unspecified chronic kidney disease; I25.10 Atherosclerotic heart disease of native coronary artery without angina pectoris; K21.9 Gastro-esophageal reflux disease without esophagitis; N18.32 Chronic kidney disease, stage 3b; N40.0 Benign prostatic hyperplasia without lower urinary tract symptoms; Z79.899 Other long term (current) drug therapy; Z95.5 Presence of coronary angioplasty implant and graft; Z88.8 Allergy status to other drugs, medicaments and biological substances
CPT/HCPCS: 80053; 80061; 80164; 80307; 83036; 84439; 84443; 85025; 87081; 99285; G0480; Q9967

== ENCOUNTER 2023-08-16 13:57 | Emergency (ER) | payer MEDICAID ==
[~2023-08-16] VITALS: Ht 175.3 cm; Wt 89.0 kg
[~2023-08-16 13:57] MED LIST changes: -APIX5TAB PO; -CARV3 PO; -FINA-27 PO; +GABA-1181 PO; -MELA5TAB40 PO; -NALT50TA PO; -OMEG-135 PO; +QUET200T PO; -QUET200T30 PO; +TAMS0.4C94 PO
[2023-08-16 14:07] VITALS: BP 115/71; PULSE 100; RESP 16; TEMP 98.3
[2023-08-16] MEDS ORDERED: DIPH50CA37 PO (14:59)
[2023-08-16] MEDS ORDERED: PERM59LI8 TP (14:59)
== END 2023-08-16 15:20 | disposition home or self-care (01) ==
LOC: EMS 14:07
DX: B85.0 Pediculosis due to Pediculus humanus capitis (principal); F25.9 Schizoaffective disorder, unspecified; F31.9 Bipolar disorder, unspecified; F17.210 Nicotine dependence, cigarettes, uncomplicated; F12.90 Cannabis use, unspecified, uncomplicated; F15.90 Other stimulant use, unspecified, uncomplicated
CPT/HCPCS: 99281; Z7502

== ENCOUNTER 2023-10-04 16:27 | Inpatient (IN) | payer MEDICAID ==
[~2023-10-04] VITALS: Ht 175.3 cm; Wt 80.2 kg
[~2023-10-04 16:27] MED LIST changes: +DIPH50CA37 PO; +PERM59LI8 TP
[2023-10-04 19:07] LABS: BASOPHILS % (AUTO) 1.2 % (0.0-2.0); EOSINOPHILS % (AUTO) 0.9 % (1.0-6.0); HEMATOCRIT 50.5 % (41-53); HEMOGLOBIN 16.9 g/dL (13.5-17.5); LYMPHOCYTES # (AUTO) 3.1 K/uL (1.0-4.8); MEAN CORPUSCULAR HEMOGLOBIN 33.5 pg (26.0-34.0); MEAN CORPUSCULAR HGB CONC 33.4 G/dL (31.0-37.0); MEAN CORPUSCULAR VOLUME 100 fL (80-100); MONOCYTES # (AUTO) 1.2 K/uL (0.1-1.0); MONOCYTES % (AUTO) 14.6 % (2.0-9.0); NEUTROPHILS # (AUTO) 3.5 K/uL (1.8-7.7); NEUTROPHILS % (AUTO) 44.3 % (40.0-70.0); PLATELET COUNT (AUTO) 334 K/uL (150-450); RED BLOOD CELL COUNT(AUTO) 5.04 MIL/uL (4.50-5.90); RED CELL DISTRIBUTION WIDTH 14.8 % (11.5-14.5)
[2023-10-04 19:26] LABS: ALBUMIN 3.3 g/dL (3.4-5.0); BILIRUBIN,TOTAL 0.3 mg/dL (0.1-1.0); CALCIUM, TOTAL 9.4 mg/dL (8.8-10.5); CREATININE 1.36 mg/dL (0.60-1.30); POTASSIUM 4.4 mmol/L (3.5-5.1); TOTAL PROTEIN, SERUM 7.2 g/dL (6.4-8.2)
[2023-10-04 19:38] LABS: RBC MORPHOLOGY COMMENT ABNORMAL RBC MORPH
[2023-10-04] MEDS: ACETAMINOPHEN 500 MG TABLET PO ONE (22:42)
[2023-10-04] MEDS ORDERED: LOPERAMIDE HCL 2 MG CAPSULE PO PRN ×2 (22:45)
[2023-10-04] MEDS ORDERED: TUBERCULIN, PURIFIED PROTEIN DERIVATIVE 5 TU/0.1 ML SYRINGE ID ONE (22:45)
[2023-10-04] MEDS ORDERED: MAG HYDROX/ALUMINUM HYD/SIMETH ES 30 ML SUSPENSION UDCUP PO PRN (22:45)
[2023-10-04] MEDS ORDERED: MAGNESIUM HYDROXIDE SUSPENSION 30 ML UDCUP PO PRN (22:45)
[2023-10-04] MEDS ORDERED: HydrOXYzine PAMOATE 50 MG CAPSULE PO PRN (22:45)
[2023-10-04] MEDS ORDERED: LORazepam 2 MG TABLET PO PRN ×2 (22:45)
[2023-10-04] MEDS ORDERED: PROMETHAZINE HCL 25 MG TABLET PO PRN (22:45)
[2023-10-04] MEDS ORDERED: ZOLPIDEM TARTRATE 10 MG TABLET PO PRN (22:45)
[2023-10-04] MEDS ORDERED: ACETAMINOPHEN 325 MG TABLET PO PRN (22:45)
[2023-10-04] MEDS ORDERED: OLANZapine 5 MG RAPDIS TABLET PO PRN (22:45)
[2023-10-04] MEDS ORDERED: GuaiFENesin/D-METHORPHAN [SUGAR-FREE] 200-20MG/10 ML SYRUP UDCUP PO PRN (22:45)
[2023-10-04 22:57] LABS: COVID AG,FIA SOURCE NASAL SWAB
[2023-10-04 23:19] LABS: SARS-COV2 (COVID) ANTIGEN,FIA Negative (Negative)
[2023-10-04 23:26] LABS: BASOPHILS % (AUTO) 1.2 % (0.0-2.0); EOSINOPHILS % (AUTO) 1.2 % (1.0-6.0); HEMATOCRIT 46.2 % (41-53); HEMOGLOBIN 15.4 g/dL (13.5-17.5); LYMPHOCYTES # (AUTO) 2.2 K/uL (1.0-4.8); LYMPHOCYTES % (AUTO) 27.3 % (22.0-44.0); MEAN CORPUSCULAR HEMOGLOBIN 33.1 pg (26.0-34.0); MEAN CORPUSCULAR HGB CONC 33.3 G/dL (31.0-37.0); MEAN CORPUSCULAR VOLUME 100 fL (80-100); MONOCYTES # (AUTO) 1.1 K/uL (0.1-1.0); MONOCYTES % (AUTO) 12.9 % (2.0-9.0); NEUTROPHILS # (AUTO) 4.7 K/uL (1.8-7.7); NEUTROPHILS % (AUTO) 57.4 % (40.0-70.0); PLATELET COUNT (AUTO) 367 K/uL (150-450); RED BLOOD CELL COUNT(AUTO) 4.64 MIL/uL (4.50-5.90); RED CELL DISTRIBUTION WIDTH 14.9 % (11.5-14.5); WHITE BLOOD COUNT (AUTO) 8.2 K/uL (4.5-11.0)
[2023-10-04 23:34] LABS: CALCIUM, TOTAL 9.4 mg/dL (8.8-10.5); CREATININE 1.49 mg/dL (0.60-1.30); POTASSIUM 4.3 mmol/L (3.5-5.1)
[2023-10-04 23:42] LABS: TROPONIN I-HIGH SENSITIVITY 29 ng/L (<76)
[2023-10-04 23:53] LABS: ALBUMIN 3.4 g/dL (3.4-5.0); BILIRUBIN,TOTAL 0.5 mg/dL (0.1-1.0); TOTAL PROTEIN, SERUM 7.3 g/dL (6.4-8.2)
[2023-10-05] VITALS (8 sets, daily range): BP systolic 125–153; BP diastolic 70–85; PULSE 70–99; RESP 17–20; TEMP 96.9–97.9; O2SAT 87–99
[2023-10-05 04:42] LABS: HEMOGLOBIN A1C 5.1 % (3.8-5.6)
[2023-10-05 04:51] LABS: CHOL/HDL RATIO 2.6 (4.2-7.3); FREE T4 (FREE THYROXINE) 0.67 ng/dL (0.76-1.46); THYROID STIMULATING HORMONE 4.14 uIU/mL (0.36-3.74)
[2023-10-05] MEDS ORDERED: LORazepam 2 MG TABLET PO PRN (07:00)
[2023-10-05 07:25] LABS: APPEARANCE,URINE CLEAR (CLEAR); BILIRUBIN,URINE NEGATIVE (NEGATIVE); COLOR,URINE YELLOW (YELLOW); GLUCOSE, URINE (UA) NEGATIVE (NEGATIVE); LEUKOCYTE ESTERASE ,URINE MODERATE (NEGATIVE); NITRATE,URINE NEGATIVE (NEGATIVE); OCCULT BLOOD,URINE SMALL (NEGATIVE); PROTEIN,URINE 30-70 mg/dL (NEGATIVE); SPECIFIC GRAVITIY, URINE 1.023 (1.003-1.030)
[2023-10-05 07:32] LABS: ALCOHOL, URINE DRUG SCREEN NEGATIVE (NEGATIVE); AMPHET/METH SCREEN,URINE POSITIVE (NEGATIVE); BARBITURATE SCREEN, URINE NEGATIVE (NEGATIVE); BENZODIAZEPINES SCREEN,URINE NEGATIVE (NEGATIVE); CANNABINOID SCREEN,URINE POSITIVE (NEGATIVE); COCAINE SCREEN,URINE NEGATIVE (NEGATIVE); METHADONE SCREEN, URINE NEGATIVE (NEGATIVE); OPIATE SCREEN,URINE NEGATIVE (NEGATIVE); PHENCYCLIDINE SCREEN,URINE NEGATIVE (NEGATIVE)
[2023-10-05 07:38] LABS: BACTERIA,URINE Few /HPF (None Seen)
[2023-10-05] MEDS: MULTIVITAMINS WITH MINERALS, THERAPEUTIC TABLET PO SCH (08:26)
[2023-10-05] MEDS: FOLIC ACID 1 MG TABLET PO SCH (08:27)
[2023-10-05] MEDS: NALTREXONE HCL 50 MG TABLET PO SCH (08:28)
[2023-10-05] MEDS: THIAMINE 100 MG TABLET PO SCH (08:28)
[2023-10-05] MEDS: GABAPENTIN 300 MG CAPSULE PO SCH (08:28)
[2023-10-05] MEDS: CYANOCOBALAMIN 1,000 MCG/ML VIAL IM ONE (08:28)
[2023-10-05] MEDS: DULoxetine HCL 20 MG CAPSULE PO SCH (08:28)
[2023-10-05] MEDS: LORazepam 2 MG TABLET PO SCH (08:28)
[2023-10-05] MEDS: OMEGA-3/DHA/EPA/FISH OIL 1,000 MG CAPSULE PO SCH (08:28)
[2023-10-05] MEDS: ATORVASTATIN CALCIUM 10 MG TABLET PO SCH (20:54)
[2023-10-05] MEDS: DIVALPROEX SODIUM 500 MG ER TABLET PO SCH (20:54)
[2023-10-05] MEDS: QUEtiapine FUMARATE 200 MG TABLET PO SCH (20:54)
[2023-10-05] MEDS: MELATONIN 5 MG TABLET PO SCH (20:54)
[2023-10-06 03:12] VITALS: BP 135/69; PULSE 75; RESP 19; TEMP 97.2; TEMP 97.6; O2SAT 98
[2023-10-06 06:54] VITALS: BP 143/94; PULSE 71; RESP 18; TEMP 96.8; O2SAT 97
[2023-10-06] MEDS: ASPIRIN 81 MG DR TABLET PO SCH (06:55)
[2023-10-06] MEDS: TAMSULOSIN HCL 0.4 MG CAPSULE PO SCH (09:50)
[2023-10-06 10:15] VITALS: BP 130/74; PULSE 76; RESP 18; TEMP 96.1
[2023-10-06 19:30] VITALS: BP 132/74; PULSE 83; RESP 18; TEMP 97.5; O2SAT 98
[2023-10-06 20:55] VITALS: BP 132/74; PULSE 83; RESP 18; TEMP 97.5
[2023-10-06] MEDS: QUEtiapine FUMARATE 200 MG TABLET PO SCH (21:08)
[2023-10-06 22:49] VITALS: RESP 18
[2023-10-07 00:01] VITALS: RESP 18
[2023-10-07 02:30] VITALS: RESP 18
[2023-10-07 04:30] VITALS: RESP 18
[2023-10-07] MEDS ORDERED: LORazepam 1 MG TABLET PO PRN (07:00)
[2023-10-07 07:31] LABS: GLUCOMETER DEV NAME(LOC) 3E.C; GLUCOSE,POINT OF CARE 124 MG/DL (70-110)
[2023-10-07 08:00] VITALS: BP 142/76; PULSE 88; RESP 18; TEMP 97
[2023-10-07] MEDS ORDERED: DULoxetine HCL 30 MG CAPSULE PO SCH (09:00)
[2023-10-07] MEDS ORDERED: LORazepam 1 MG TABLET PO SCH (09:00)
[2023-10-08] MEDS ORDERED: LORazepam 1 MG TABLET PO PRN (07:00)
[2023-10-08] MEDS ORDERED: QUET400T13 PO (15:25)
[2023-10-08] MEDS ORDERED: DOCU100C33 PO (21:45)
[2023-10-08] MEDS ORDERED: FAMO10TA39 PO (21:46)
[2023-10-08] MEDS ORDERED: HEPA500018 SQ (21:50)
[2023-10-08] MEDS ORDERED: ACET-784 PO (21:51)
[2023-10-08] MEDS ORDERED: ALBU2.5V39 NEB (21:51)
[2023-10-08] MEDS ORDERED: ONDA4VIA60 IVP (21:53)
== END 2023-10-07 08:09 | disposition short-term general hospital (02) | DRG 750 ==
LOC: EMS 16:32 → 3EI 10-05 09:55
PROVIDERS: ADMIT Psychiatry & Neurology Psychiatry; ATTEND Psychiatry & Neurology Psychiatry
PROC: GZHZZZZ Group Psychotherapy (ICD-10-PCS; principal; 2023-10-05)
PROC: GZ51ZZZ Individual Psychotherapy, Behavioral (ICD-10-PCS; 2023-10-05)
DX: F25.9 Schizoaffective disorder, unspecified (principal); R45.851 Suicidal ideations; F17.200 Nicotine dependence, unspecified, uncomplicated; I73.9 Peripheral vascular disease, unspecified; Y90.6 Blood alcohol level of 120-199 mg/100 ml; F10.229 Alcohol dependence with intoxication, unspecified; F12.20 Cannabis dependence, uncomplicated; F15.20 Other stimulant dependence, uncomplicated; K29.20 Alcoholic gastritis without bleeding; Z20.822 Contact with and (suspected) exposure to COVID-19; N40.0 Benign prostatic hyperplasia without lower urinary tract symptoms; N18.9 Chronic kidney disease, unspecified; J44.9 Chronic obstructive pulmonary disease, unspecified; I25.10 Atherosclerotic heart disease of native coronary artery without angina pectoris; Z95.5 Presence of coronary angioplasty implant and graft; Z55.9 Problems related to education and literacy, unspecified; Z59.9 Problem related to housing and economic circumstances, unspecified; Z63.9 Problem related to primary support group, unspecified; Z65.3 Problems related to other legal circumstances; Z79.899 Other long term (current) drug therapy
CPT/HCPCS: 71045; 74018; 80053; 80061; 80307; 81001; 82550; 82962; 83036; 83880; 84439; 84443; 84484; 85025; 86592; 87081; 87086; 87186; 93005; 99285; G0480; J3420; Q9967; 36415-L1; 36415-TC

== ENCOUNTER 2023-10-08 14:53 | Inpatient (IN) | payer MEDICAID ==
[~2023-10-08] VITALS: Ht 175.3 cm; Wt 84.3 kg
[2023-10-08] MEDS ORDERED: QUET400T13 PO (15:25)
[2023-10-08] MEDS ORDERED: LORazepam 2 MG TABLET PO PRN (15:30)
[2023-10-08] MEDS ORDERED: OLANZapine 5 MG RAPDIS TABLET PO PRN (15:30)
[2023-10-08] MEDS ORDERED: ZOLPIDEM TARTRATE 10 MG TABLET PO PRN (15:30)
[2023-10-08] MEDS ORDERED: MAG HYDROX/ALUMINUM HYD/SIMETH ES 30 ML SUSPENSION UDCUP PO PRN (16:45)
[2023-10-08] MEDS ORDERED: LOPERAMIDE HCL 2 MG CAPSULE PO PRN (16:45)
[2023-10-08] MEDS ORDERED: HydrOXYzine PAMOATE 50 MG CAPSULE PO PRN (16:45)
[2023-10-08] MEDS ORDERED: QUEtiapine FUMARATE 100 MG TABLET PO PRN (16:45)
[2023-10-08] MEDS ORDERED: GuaiFENesin/D-METHORPHAN [SUGAR-FREE] 200-20MG/10 ML SYRUP UDCUP PO PRN (16:45)
[2023-10-08] MEDS ORDERED: ACETAMINOPHEN 325 MG TABLET PO PRN (16:45)
[2023-10-08] MEDS ORDERED: MAGNESIUM HYDROXIDE SUSPENSION 30 ML UDCUP PO PRN (16:45)
[2023-10-08] MEDS ORDERED: PROMETHAZINE HCL 25 MG TABLET PO PRN (16:45)
[2023-10-08] MEDS: GABAPENTIN 300 MG CAPSULE PO SCH (21:00)
[2023-10-08] MEDS: QUEtiapine FUMARATE 100 MG TABLET PO SCH (21:00)
[2023-10-08] MEDS: MELATONIN 5 MG TABLET PO SCH (21:00)
[2023-10-08] MEDS ORDERED: DOCU100C33 PO (21:45)
[2023-10-08] MEDS ORDERED: FAMO10TA39 PO (21:46)
[2023-10-08] MEDS ORDERED: HEPA500018 SQ (21:50)
[2023-10-08] MEDS ORDERED: ALBU2.5V39 NEB (21:51)
[2023-10-08] MEDS ORDERED: ACET-784 PO (21:51)
[2023-10-08] MEDS ORDERED: ONDA4VIA60 IVP (21:53)
[2023-10-08 23:15] VITALS: BP 148/90; PULSE 96; RESP 18; TEMP 97.7
[2023-10-09] MEDS ORDERED: -PHARMACY VACCINE NOTE- MISC ONE (00:15)
[2023-10-09] MEDS: DULoxetine HCL 20 MG CAPSULE PO SCH (09:28)
[2023-10-09] MEDS: OMEGA-3/DHA/EPA/FISH OIL 1,000 MG CAPSULE PO SCH (09:28)
[2023-10-09] MEDS: THIAMINE 100 MG TABLET PO SCH (09:28)
[2023-10-09] MEDS: NALTREXONE HCL 50 MG TABLET PO SCH (09:28)
[2023-10-09] MEDS: FAMOTIDINE 20 MG TABLET PO SCH (09:28)
[2023-10-09] MEDS: MULTIVITAMINS WITH MINERALS, THERAPEUTIC TABLET PO SCH (09:28)
[2023-10-09] MEDS: DOCUSATE SODIUM 100 MG CAPSULE PO SCH (09:29)
[2023-10-09] MEDS: FOLIC ACID 1 MG TABLET PO SCH (09:29)
[2023-10-09] MEDS: PERMETHRIN 1% 60 ML LOTION TP ONE (15:27)
[2023-10-09] MEDS: DIVALPROEX SODIUM 500 MG ER TABLET PO SCH (21:04)
[2023-10-09 23:22] VITALS: BP 157/93; PULSE 98; RESP 19; TEMP 97.8
[2023-10-10 10:02] VITALS: BP 134/71; PULSE 85; RESP 18; TEMP 97.7
[2023-10-10 20:51] VITALS: BP 134/83; PULSE 86; RESP 18; TEMP 97.8
[2023-10-11 09:42] VITALS: BP 113/74; PULSE 80; RESP 18; TEMP 97.8
[2023-10-11] MEDS: QUEtiapine FUMARATE 100 MG TABLET PO SCH (20:27)
[2023-10-11 21:38] VITALS: BP 145/78; PULSE 94; RESP 18; TEMP 97.9
[2023-10-12 06:31] LABS: CHOL/HDL RATIO 3.3 (4.2-7.3)
[2023-10-12] MEDS: DULoxetine HCL 20 MG CAPSULE PO SCH (08:29)
[2023-10-12 10:55] VITALS: BP 120/66; PULSE 103; RESP 18; TEMP 97.7
[2023-10-12 20:54] VITALS: BP 131/76; PULSE 86; RESP 18; TEMP 97.8
[2023-10-13 10:09] VITALS: BP 128/63; PULSE 87; RESP 18; TEMP 97.4
[2023-10-13] MEDS ORDERED: NALT50TA33 PO (19:09)
[2023-10-13] MEDS ORDERED: DULO20CA71 PO (19:09)
[2023-10-13] MEDS ORDERED: QUET100T34 PO (19:09)
[2023-10-13] MEDS ORDERED: MELA5TAB40 PO (19:09)
[2023-10-13] MEDS ORDERED: DIVA500T69 PO (19:09)
[2023-10-13] MEDS ORDERED: OMEG-135 PO (19:09)
[2023-10-13] MEDS ORDERED: GABA-1181 PO (19:09)
[2023-10-13 20:40] VITALS: BP 116/72; PULSE 84; RESP 18; TEMP 97.8
[2023-10-14 08:00] VITALS: BP 143/75; PULSE 81; RESP 16; TEMP 97.6
== END 2023-10-14 10:30 | disposition home or self-care (01) | DRG 750 ==
LOC: 3EI 20:30
PROVIDERS: ADMIT Psychiatry & Neurology Psychiatry; ATTEND Psychiatry & Neurology Psychiatry
PROC: GZHZZZZ Group Psychotherapy (ICD-10-PCS; principal; 2023-10-11)
PROC: GZ56ZZZ Individual Psychotherapy, Supportive (ICD-10-PCS; 2023-10-11)
DX: F25.1 Schizoaffective disorder, depressive type (principal); R45.851 Suicidal ideations; Z91.148 Patient's other noncompliance with medication regimen for other reason; E78.5 Hyperlipidemia, unspecified; I25.10 Atherosclerotic heart disease of native coronary artery without angina pectoris; F19.20 Other psychoactive substance dependence, uncomplicated; N40.0 Benign prostatic hyperplasia without lower urinary tract symptoms; K86.1 Other chronic pancreatitis; I73.9 Peripheral vascular disease, unspecified; Z60.8 Other problems related to social environment; Z55.9 Problems related to education and literacy, unspecified; Z56.0 Unemployment, unspecified; Z59.9 Problem related to housing and economic circumstances, unspecified; Z63.9 Problem related to primary support group, unspecified; Z65.3 Problems related to other legal circumstances
CPT/HCPCS: 80061; 87081; Q9967

== ENCOUNTER 2024-01-07 15:40 | Inpatient (IN) | payer MEDICAID ==
[~2024-01-07] VITALS: Ht 170.2 cm; Wt 87.5 kg
[~2024-01-07 15:40] MED LIST changes: -DIPH50CA37 PO; +DOCU100C33 PO; -DULO-113 PO; +DULO20CA71 PO; +FAMO10TA39 PO; +MELA5TAB40 PO; +NALT50TA33 PO; +OMEG-135 PO; -PERM59LI8 TP; -QUET200T PO; +QUET300T2 PO; -TAMS0.4C94 PO
[2024-01-07] MEDS ORDERED: OLANZapine 5 MG RAPDIS TABLET PO PRN (18:00)
[2024-01-07 19:54] LABS: APPEARANCE,URINE HAZY (CLEAR); BILIRUBIN,URINE NEGATIVE (NEGATIVE); COLOR,URINE YELLOW (YELLOW); GLUCOSE, URINE (UA) NEGATIVE (NEGATIVE); KETONES,URINE NEGATIVE (NEGATIVE); LEUKOCYTE ESTERASE ,URINE LARGE (NEGATIVE); NITRATE,URINE POSITIVE (NEGATIVE); OCCULT BLOOD,URINE MODERATE (NEGATIVE); PROTEIN,URINE 30-70 mg/dL (NEGATIVE); SPECIFIC GRAVITIY, URINE 1.013 (1.003-1.030); UROBILINOGEN,URINE <=1.0 mg/dL (<=1.0)
[2024-01-07] MEDS: QUEtiapine FUMARATE 100 MG TABLET PO ONE ×2 (19:58→20:03)
[2024-01-07 20:14] LABS: BASOPHILS % (AUTO) 0.6 % (0.0-2.0); EOSINOPHILS % (AUTO) 2.1 % (1.0-6.0); HEMATOCRIT 38.4 % (41-53); HEMOGLOBIN 13.2 g/dL (13.5-17.5); LYMPHOCYTES # (AUTO) 1.5 K/uL (1.0-4.8); LYMPHOCYTES % (AUTO) 18.8 % (22.0-44.0); MEAN CORPUSCULAR HEMOGLOBIN 33.9 pg (26.0-34.0); MEAN CORPUSCULAR HGB CONC 34.3 G/dL (31.0-37.0); MEAN CORPUSCULAR VOLUME 99 fL (80-100); MONOCYTES # (AUTO) 1.4 K/uL (0.1-1.0); MONOCYTES % (AUTO) 17.2 % (2.0-9.0); NEUTROPHILS # (AUTO) 4.9 K/uL (1.8-7.7); NEUTROPHILS % (AUTO) 61.3 % (40.0-70.0); PLATELET COUNT (AUTO) 264 K/uL (150-450); RED BLOOD CELL COUNT(AUTO) 3.88 MIL/uL (4.50-5.90)
[2024-01-07 20:18] LABS: BACTERIA,URINE Many /HPF (None Seen); WBC,URINE Full Field /HPF (0-5)
[2024-01-07 20:26] LABS: CALCIUM, TOTAL 8.6 mg/dL (8.8-10.5); CREATININE 1.47 mg/dL (0.60-1.30); POTASSIUM 3.7 mmol/L (3.5-5.1)
[2024-01-07 21:25] LABS: COVID AG,FIA SOURCE NASAL SWAB
[2024-01-07 21:31] LABS: SARS-COV2 (COVID) ANTIGEN,FIA Negative (Negative)
[2024-01-07] MEDS: CEPHALEXIN MONOHYDRATE 500 MG CAPSULE PO ONE (22:49)
[2024-01-07] MEDS: LEVOFLOXACIN 500 MG TABLET PO ONE (22:52)
[2024-01-08 04:31] VITALS: BP 115/70; PULSE 89; RESP 18; TEMP 97.1; O2SAT 96
[2024-01-08] MEDS ORDERED: CloNIDine HCL 0.1 MG TABLET PO PRN (06:00)
[2024-01-08] MEDS ORDERED: ONDANSETRON HCL 4 MG TABLET PO PRN (06:00)
[2024-01-08] MEDS ORDERED: BACITRACIN 28 GM OINTMENT TP PRN (06:00)
[2024-01-08] MEDS ORDERED: PETROLATUM,WHITE 28 GM JELLY TP PRN (06:00)
[2024-01-08] MEDS ORDERED: BENZOCAINE/MENTHOL LOZENGE PO PRN (06:00)
[2024-01-08] MEDS ORDERED: MAG HYDROX/ALUMINUM HYD/SIMETH ES 30 ML SUSPENSION UDCUP PO PRN (06:00)
[2024-01-08] MEDS ORDERED: ALBUTEROL SULFATE HFA 90 MCG/PUFF 8 GM INHALER IH PRN (06:00)
[2024-01-08] MEDS ORDERED: LOPERAMIDE HCL 2 MG CAPSULE PO PRN (06:00)
[2024-01-08] MEDS ORDERED: OMEPRAZOLE 20 MG CAPSULE PO PRN (06:00)
[2024-01-08] MEDS ORDERED: MAGNESIUM HYDROXIDE SUSPENSION 30 ML UDCUP PO PRN (06:00)
[2024-01-08] MEDS ORDERED: DOCUSATE SODIUM 100 MG CAPSULE PO PRN (06:00)
[2024-01-08] MEDS: CEPHALEXIN MONOHYDRATE 500 MG CAPSULE PO SCH (08:51)
[2024-01-08 09:17] VITALS: BP 101/56; PULSE 87; RESP 18; TEMP 97.3; O2SAT 98
[2024-01-08] MEDS: DULoxetine HCL 20 MG CAPSULE PO SCH (17:51)
[2024-01-08 18:48] VITALS: RESP 18
[2024-01-08] MEDS: ACETAMINOPHEN 325 MG TABLET PO PRN (18:51)
[2024-01-08 19:51] VITALS: RESP 19
[2024-01-08 21:01] VITALS: BP 108/68; PULSE 84; RESP 18; TEMP 97.6; O2SAT 98
[2024-01-08] MEDS: QUEtiapine FUMARATE 300 MG TABLET PO SCH (21:04)
[2024-01-08] MEDS: DIVALPROEX SODIUM 500 MG DR TABLET PO SCH (21:04)
[2024-01-08] MEDS: MELATONIN 5 MG TABLET PO SCH (21:04)
[2024-01-08] MEDS: GABAPENTIN 300 MG CAPSULE PO SCH (21:15)
[2024-01-08] MEDS: ZOLPIDEM TARTRATE 10 MG TABLET PO PRN (22:18)
[2024-01-09 08:24] VITALS: BP 122/68; PULSE 89; RESP 18; TEMP 97.6; O2SAT 96
[2024-01-09] MEDS: MUPIROCIN CALCIUM 2% 22 GM OINTMENT NASAL SCH (08:26)
[2024-01-09 20:35] VITALS: BP 101/70; PULSE 79; RESP 18; TEMP 97.8; O2SAT 98
[2024-01-10 08:55] VITALS: BP 95/59; PULSE 86; RESP 19; TEMP 97.7; O2SAT 98
[2024-01-10 20:39] VITALS: BP 141/79; PULSE 89; RESP 18; TEMP 98.6; O2SAT 95
[2024-01-11 09:42] VITALS: BP 121/55; PULSE 78; RESP 19; TEMP 97.8; O2SAT 98
[2024-01-11] MEDS: QUEtiapine FUMARATE 200 MG TABLET PO SCH (21:23)
[2024-01-11 21:26] VITALS: BP 128/73; PULSE 78; RESP 18; TEMP 97; O2SAT 97
[2024-01-12 09:19] VITALS: BP 126/76; PULSE 87; RESP 18; TEMP 97.7; O2SAT 96
[2024-01-12 09:20] VITALS: BP 126/76; PULSE 87; RESP 18; TEMP 97.7; O2SAT 96
[2024-01-12] MEDS: PHENYLEPHRINE/SHK LV/MIN OIL/PET 57 GM OINTMENT TP PRN (18:46)
[2024-01-12 20:31] VITALS: BP 115/58; PULSE 80; RESP 18; TEMP 97.1; O2SAT 96
[2024-01-13 08:51] VITALS: BP 130/65; PULSE 80; RESP 18; TEMP 97.2; O2SAT 98
[2024-01-13 20:05] VITALS: BP 135/73; PULSE 86; RESP 18; TEMP 97.4
[2024-01-14 09:59] VITALS: BP 128/67; PULSE 75; RESP 18; TEMP 97.8; O2SAT 97
[2024-01-14 21:21] VITALS: BP 109/61; PULSE 81; RESP 18; TEMP 97.4; O2SAT 96
[2024-01-15 08:15] VITALS: BP 113/64; PULSE 85; RESP 18; TEMP 97.3; O2SAT 100
[2024-01-15] MEDS: LORazepam 2 MG TABLET PO PRN (14:31)
[2024-01-15 21:31] VITALS: RESP 18
[2024-01-16 10:08] VITALS: BP 113/60; PULSE 80; RESP 16; TEMP 97.6; O2SAT 99
[2024-01-16 20:10] VITALS: BP 126/68; PULSE 81; RESP 18; TEMP 97.8; O2SAT 95
[2024-01-17 08:51] VITALS: BP 121/74; PULSE 83; RESP 18; TEMP 97.3; O2SAT 97
[2024-01-17 20:02] VITALS: BP 127/68; PULSE 87; RESP 19; TEMP 97.5; O2SAT 98
[2024-01-18 09:27] VITALS: PULSE 69; RESP 18; TEMP 96.5; O2SAT 100
[2024-01-18 13:04] VITALS: BP 107/69; PULSE 95; RESP 18; TEMP 98.6; O2SAT 95
[2024-01-18 20:21] VITALS: BP 123/74; PULSE 91; RESP 18; TEMP 97.5; O2SAT 98
[2024-01-19 08:00] VITALS: BP 114/70; RESP 18; TEMP 97.6
[2024-01-19 12:11] VITALS: BP 133/74; PULSE 94; RESP 18; TEMP 98.4
[2024-01-19] MEDS: IBUPROFEN 600 MG TABLET PO PRN (12:11)
[2024-01-19 13:11] VITALS: BP 118/69; PULSE 89; RESP 18; TEMP 98
[2024-01-19 21:13] VITALS: BP 114/77; PULSE 90; RESP 16; TEMP 97.9; O2SAT 98
[2024-01-20] MEDS: MUPIROCIN CALCIUM 2% 22 GM OINTMENT NASAL SCH (08:56)
[2024-01-20 15:37] VITALS: BP 131/71; PULSE 87; RESP 18; TEMP 98.9; O2SAT 95
[2024-01-20 23:10] VITALS: BP 128/78; PULSE 85; RESP 18; TEMP 98.7; O2SAT 98
[2024-01-21 10:35] VITALS: BP 116/66; PULSE 80; RESP 20; TEMP 97.5; O2SAT 96
[2024-01-21] MEDS ORDERED: QUET200T PO (11:28)
[2024-01-21] MEDS ORDERED: MELA5TAB40 PO (11:29)
[2024-01-21] MEDS ORDERED: MUPI1OIN5 TP (11:34)
== END 2024-01-21 17:50 | disposition home or self-care (01) | DRG 750 ==
LOC: EMS 16:18 → 3EI 01-08 01:01
PROVIDERS: ADMIT Psychiatry & Neurology Psychiatry; ATTEND Psychiatry & Neurology Psychiatry
PROC: GZ51ZZZ Individual Psychotherapy, Behavioral (ICD-10-PCS; principal; 2024-01-09)
PROC: GZ56ZZZ Individual Psychotherapy, Supportive (ICD-10-PCS; 2024-01-09)
DX: F25.1 Schizoaffective disorder, depressive type (principal); R45.851 Suicidal ideations; E03.9 Hypothyroidism, unspecified; E78.5 Hyperlipidemia, unspecified; F10.229 Alcohol dependence with intoxication, unspecified; F41.9 Anxiety disorder, unspecified; G47.00 Insomnia, unspecified; Z20.822 Contact with and (suspected) exposure to COVID-19; I73.9 Peripheral vascular disease, unspecified; I10 Essential (primary) hypertension; K21.9 Gastro-esophageal reflux disease without esophagitis; K62.89 Other specified diseases of anus and rectum; N39.0 Urinary tract infection, site not specified; N40.0 Benign prostatic hyperplasia without lower urinary tract symptoms; K59.00 Constipation, unspecified; F41.0 Panic disorder [episodic paroxysmal anxiety]; Z87.891 Personal history of nicotine dependence; Z88.8 Allergy status to other drugs, medicaments and biological substances
CPT/HCPCS: 80048; 81001; 85025; 87081; 87086; 87186; 93971; 99285; G0480; Q9967

== ENCOUNTER 2024-02-04 16:22 | Inpatient (IN) | payer MEDICAID ==
[~2024-02-04] VITALS: Ht 172.7 cm; Wt 82.4 kg
[~2024-02-04 16:22] MED LIST changes: -DOCU100C33 PO; -FAMO10TA39 PO; +MUPI1OIN5 TP; -NALT50TA33 PO; -OMEG-135 PO; +QUET200T PO; -QUET300T2 PO
[2024-02-04] MEDS ORDERED: HALOPERIDOL 5 MG TABLET PO PRN (18:45)
[2024-02-04 20:35] LABS: BASOPHILS % (AUTO) 1.3 % (0.0-2.0); EOSINOPHILS % (AUTO) 6.9 % (1.0-6.0); HEMATOCRIT 41.3 % (41-53); HEMOGLOBIN 14.3 g/dL (13.5-17.5); LYMPHOCYTES # (AUTO) 2.3 K/uL (1.0-4.8); LYMPHOCYTES % (AUTO) 37.8 % (22.0-44.0); MEAN CORPUSCULAR HGB CONC 34.6 G/dL (31.0-37.0); MEAN CORPUSCULAR VOLUME 98 fL (80-100); MONOCYTES # (AUTO) 0.8 K/uL (0.1-1.0); MONOCYTES % (AUTO) 14.1 % (2.0-9.0); NEUTROPHILS # (AUTO) 2.4 K/uL (1.8-7.7); NEUTROPHILS % (AUTO) 39.9 % (40.0-70.0); PLATELET COUNT (AUTO) 259 K/uL (150-450); RED BLOOD CELL COUNT(AUTO) 4.21 MIL/uL (4.50-5.90); RED CELL DISTRIBUTION WIDTH 14.4 % (11.5-14.5)
[2024-02-04 20:53] LABS: CALCIUM, TOTAL 9.9 mg/dL (8.8-10.5); CREATININE 1.38 mg/dL (0.60-1.30); POTASSIUM 4.1 mmol/L (3.5-5.1)
[2024-02-04] MEDS: LORazepam 2 MG TABLET PO ONE (21:17)
[2024-02-04] MEDS: QUEtiapine FUMARATE 100 MG TABLET PO ONE (21:17)
[2024-02-04 22:14] LABS: COVID AG,FIA SOURCE NASAL SWAB
[2024-02-04 22:34] LABS: APPEARANCE,URINE CLEAR (CLEAR); BILIRUBIN,URINE NEGATIVE (NEGATIVE); COLOR,URINE LIGHT YELLOW (YELLOW); GLUCOSE, URINE (UA) NEGATIVE (NEGATIVE); KETONES,URINE NEGATIVE (NEGATIVE); LEUKOCYTE ESTERASE ,URINE NEGATIVE (NEGATIVE); NITRATE,URINE NEGATIVE (NEGATIVE); PROTEIN,URINE 30-70 mg/dL (NEGATIVE); SPECIFIC GRAVITIY, URINE 1.012 (1.003-1.030); UROBILINOGEN,URINE <=1.0 mg/dL (<=1.0)
[2024-02-04 22:36] LABS: OCCULT BLOOD,URINE NEGATIVE (NEGATIVE)
[2024-02-04 22:42] LABS: SARS-COV2 (COVID) ANTIGEN,FIA Negative (Negative)
[2024-02-05] VITALS (8 sets, daily range): BP systolic 120–150; BP diastolic 70–86; PULSE 85–99; RESP 15–19; TEMP 97.5–98; O2SAT 95–100
[2024-02-05] MEDS: -PHARMACY VACCINE NOTE- MISC ONE (07:08)
[2024-02-05] MEDS: LORazepam 2 MG TABLET PO PRN (12:37)
[2024-02-05] MEDS ORDERED: PETROLATUM,WHITE 28 GM JELLY TP PRN (15:15)
[2024-02-05] MEDS ORDERED: BENZOCAINE/MENTHOL LOZENGE PO PRN (15:15)
[2024-02-05] MEDS ORDERED: CloNIDine HCL 0.1 MG TABLET PO PRN (15:15)
[2024-02-05] MEDS ORDERED: ONDANSETRON HCL 4 MG TABLET PO PRN (15:15)
[2024-02-05] MEDS ORDERED: ACETAMINOPHEN 325 MG TABLET PO PRN (15:15)
[2024-02-05] MEDS ORDERED: IBUPROFEN 600 MG TABLET PO PRN (15:15)
[2024-02-05] MEDS ORDERED: BACITRACIN 28 GM OINTMENT TP PRN (15:15)
[2024-02-05] MEDS ORDERED: MAGNESIUM HYDROXIDE SUSPENSION 30 ML UDCUP PO PRN (15:15)
[2024-02-05] MEDS ORDERED: ALBUTEROL SULFATE HFA 90 MCG/PUFF 8 GM INHALER IH PRN (15:15)
[2024-02-05] MEDS ORDERED: LOPERAMIDE HCL 2 MG CAPSULE PO PRN (15:15)
[2024-02-05] MEDS ORDERED: DOCUSATE SODIUM 100 MG CAPSULE PO PRN (15:15)
[2024-02-05] MEDS ORDERED: OMEPRAZOLE 20 MG CAPSULE PO PRN (15:15)
[2024-02-05] MEDS ORDERED: MAG HYDROX/ALUMINUM HYD/SIMETH ES 30 ML SUSPENSION UDCUP PO PRN (15:15)
[2024-02-05] MEDS: LISINOPRIL 10 MG TABLET PO SCH (16:27)
[2024-02-05] MEDS: TAMSULOSIN HCL 0.4 MG CAPSULE PO SCH (16:28)
[2024-02-05] MEDS: ZOLPIDEM TARTRATE 10 MG TABLET PO PRN (20:08)
[2024-02-06 01:15] VITALS: BP 141/80; PULSE 84; RESP 16; TEMP 97.8
[2024-02-06 05:06] VITALS: BP 118/75; PULSE 88; RESP 16; TEMP 97.9
[2024-02-06] MEDS: TOLTERODINE TARTRATE 2 MG TABLET PO SCH (08:29)
[2024-02-06 09:51] VITALS: BP 136/70; PULSE 80; RESP 18; TEMP 97.9; O2SAT 100
[2024-02-06] MEDS: ETHYL ALCOHOL 62% ANTISEPTIC NASAL SANITIZER 0.6 ML AMPUL NASAL SCH (10:45)
[2024-02-06 20:25] VITALS: BP 130/89; PULSE 98; TEMP 98; O2SAT 97
[2024-02-06] MEDS: CHLORHEXIDINE GLUCONATE 2% TOWELETTE [2'S/6'S] TP SCH (20:34)
[2024-02-06] MEDS: QUEtiapine FUMARATE 200 MG TABLET PO SCH (20:46)
[2024-02-07 09:17] VITALS: BP 113/68; PULSE 84; RESP 17; TEMP 97.4; O2SAT 97
[2024-02-07] MEDS: DIVALPROEX SODIUM 500 MG DR TABLET PO SCH (09:49)
[2024-02-07 20:58] VITALS: BP 128/110; PULSE 103; RESP 16; TEMP 97.5; O2SAT 95
[2024-02-08 08:37] VITALS: BP 106/60; PULSE 78; RESP 18; TEMP 97.9; O2SAT 97
[2024-02-08] MEDS ORDERED: DIVA-112 PO (10:29)
[2024-02-08] MEDS ORDERED: LISI-893 PO (10:31)
[2024-02-08] MEDS ORDERED: TAMS0.4C94 PO (10:36)
[2024-02-08] MEDS ORDERED: TOLT2TAB2 PO (10:38)
== END 2024-02-08 13:53 | disposition home or self-care (01) | DRG 750 ==
LOC: EMS 16:22 → B2S 02-05 00:38
PROVIDERS: ADMIT Psychiatry & Neurology Psychiatry; ATTEND Psychiatry & Neurology Psychiatry
DX: F25.1 Schizoaffective disorder, depressive type (principal); R45.851 Suicidal ideations; Z91.148 Patient's other noncompliance with medication regimen for other reason; E03.9 Hypothyroidism, unspecified; E78.5 Hyperlipidemia, unspecified; F10.229 Alcohol dependence with intoxication, unspecified; F19.10 Other psychoactive substance abuse, uncomplicated; F41.9 Anxiety disorder, unspecified; Z20.822 Contact with and (suspected) exposure to COVID-19; G47.00 Insomnia, unspecified; I10 Essential (primary) hypertension; I73.9 Peripheral vascular disease, unspecified; K21.9 Gastro-esophageal reflux disease without esophagitis; N40.0 Benign prostatic hyperplasia without lower urinary tract symptoms; Z91.048 Other nonmedicinal substance allergy status; Z87.891 Personal history of nicotine dependence; Z79.899 Other long term (current) drug therapy
CPT/HCPCS: 80048; 80164; 81003; 85025; 87081; G0480

== ENCOUNTER 2024-02-18 14:16 | Emergency (ER) | payer MEDICAID ==
[~2024-02-18] VITALS: Ht 170.2 cm; Wt 81.8 kg
[~2024-02-18 14:16] MED LIST changes: +DIVA-112 PO; -DIVA500T69 PO; -DULO20CA71 PO; -GABA-1181 PO; +LISI-893 PO; -MELA5TAB40 PO; -MUPI1OIN5 TP; +TAMS0.4C94 PO; +TOLT2TAB2 PO
[2024-02-18 14:35] VITALS: TEMP 98.9
[2024-02-18] MEDS: SODIUM CHLORIDE 0.9% 1,000 ML IV ONE (16:55)
[2024-02-18] MEDS: FAMOTIDINE 20 MG/2 ML VIAL IVP ONE (16:55)
[2024-02-18 17:08] LABS: ANION GAP 16 mmol/L (8-16); CALCIUM, TOTAL 9.8 mg/dL (8.8-10.5); CARBON DIOXIDE 23 mmol/L (22-29); CHLORIDE 99 mmol/L (98-107); CREATININE 1.19 mg/dL (0.60-1.30); GLOMERULAR FILTR. RATE CALC > 60 mL/min (>60); GLUCOSE,RANDOM 84 mg/dL (70-110); POTASSIUM 4.4 mmol/L (3.5-5.1); SODIUM SERUM 138 mmol/L (136-145); UREA NITROGEN, BLOOD 16 mg/dL (7-18)
[2024-02-18 17:16] LABS: ALANINE AMINOTRANSFERASE 18 U/L (12-78); ALBUMIN 3.5 g/dL (3.4-5.0); ALKALINE PHOSPHATASE 109 U/L (46-116); ASPARTATE AMINOTRANSFERASE 29 U/L (15-37); BILIRUBIN,TOTAL 0.6 mg/dL (0.1-1.0); LIPASE 65 U/L (16-77); TOTAL PROTEIN, SERUM 7.9 g/dL (6.4-8.2)
[2024-02-18 17:35] LABS: TROPONIN I-HIGH SENSITIVITY 29 ng/L (<76)
[2024-02-18 18:16] LABS: BASOPHILS % (AUTO) 0.9 % (0.0-2.0); EOSINOPHILS % (AUTO) 1.2 % (1.0-6.0); HEMATOCRIT 43.4 % (41-53); HEMOGLOBIN 14.6 g/dL (13.5-17.5); LYMPHOCYTES # (AUTO) 1.6 K/uL (1.0-4.8); LYMPHOCYTES % (AUTO) 16.6 % (22.0-44.0); MEAN CORPUSCULAR HEMOGLOBIN 33.6 pg (26.0-34.0); MEAN CORPUSCULAR HGB CONC 33.7 G/dL (31.0-37.0); MEAN CORPUSCULAR VOLUME 100 fL (80-100); MONOCYTES % (AUTO) 10.7 % (2.0-9.0); NEUTROPHILS # (AUTO) 6.8 K/uL (1.8-7.7); NEUTROPHILS % (AUTO) 70.6 % (40.0-70.0); RED BLOOD CELL COUNT(AUTO) 4.35 MIL/uL (4.50-5.90); RED CELL DISTRIBUTION WIDTH 14.2 % (11.5-14.5); WHITE BLOOD COUNT (AUTO) 9.7 K/uL (4.5-11.0)
[2024-02-18 18:39] LABS: PLATELET COUNT (AUTO) 299 K/uL (150-450)
[2024-02-18 20:30] VITALS: BP 138/84; PULSE 71; RESP 18
[2024-02-18] MEDS ORDERED: FAMO20 PO (21:22)
[2024-02-18] MEDS: QUEtiapine FUMARATE 100 MG TABLET PO ONE (21:26)
== END 2024-02-19 02:34 | disposition home or self-care (01) ==
LOC: EMS 14:39
DX: R10.13 Epigastric pain (principal); K29.20 Alcoholic gastritis without bleeding; F10.10 Alcohol abuse, uncomplicated; F31.9 Bipolar disorder, unspecified; F20.9 Schizophrenia, unspecified; F17.210 Nicotine dependence, cigarettes, uncomplicated; F12.90 Cannabis use, unspecified, uncomplicated; F15.90 Other stimulant use, unspecified, uncomplicated
CPT/HCPCS: 99285; 96374; 76705; 96361; 80053; 83690; 84484; 85025; 36415; 93005; J3490; J7030

== ENCOUNTER 2024-08-18 10:51 | Emergency (ER) | payer MEDICAID ==
[~2024-08-18] VITALS: Ht 172.7 cm; Wt 75.0 kg
[~2024-08-18 10:51] MED LIST changes: +CIME800T PO; -DIVA-112 PO; -LISI-893 PO; -QUET200T PO; +QUET400T13 PO; -TOLT2TAB2 PO
[2024-08-18 11:11] VITALS: TEMP 98.1
[2024-08-18 13:05] VITALS: BP 116/61; PULSE 76; RESP 20; O2SAT 100
[2024-08-18] MEDS: KETOROLAC TROMETHAMINE 60 MG/2 ML VIAL IM ONE (13:19)
[2024-08-18] MEDS: CIPROFLOXACIN HCL 250 MG TABLET PO ONE (13:19)
[2024-08-18] MEDS: CEPHALEXIN MONOHYDRATE 500 MG CAPSULE PO ONE (14:22)
[2024-08-18] MEDS ORDERED: CEPH-558 PO (14:54)
[2024-08-18 19:51] LABS: GLUCOMETER DEV NAME(LOC) ERT.6; GLUCOSE,POINT OF CARE 95 MG/DL (70-110)
== END 2024-08-18 15:22 | disposition home or self-care (01) ==
LOC: EMS 10:51
DX: M79.605 Pain in left leg (principal); F25.1 Schizoaffective disorder, depressive type; F17.210 Nicotine dependence, cigarettes, uncomplicated; R73.9 Hyperglycemia, unspecified; Z91.51 Personal history of suicidal behavior; Z98.890 Other specified postprocedural states
CPT/HCPCS: 99283; 82962; 96372; J1885

== ENCOUNTER 2024-09-23 23:59 | Emergency (ER) | payer MEDICAID ==
[~2024-09-23] VITALS: Ht 172.7 cm; Wt 84.1 kg
[~2024-09-23 23:59] MED LIST changes: +CEPH-558 PO
[2024-09-24 00:08] VITALS: TEMP 97.1
[2024-09-24 00:39] LABS: BASOPHILS % (AUTO) 0.8 % (0.0-2.0); EOSINOPHILS % (AUTO) 6.1 % (1.0-6.0); HEMOGLOBIN 13.2 g/dL (13.5-17.5); LYMPHOCYTES # (AUTO) 1.6 K/uL (1.0-4.8); LYMPHOCYTES % (AUTO) 18.4 % (22.0-44.0); MEAN CORPUSCULAR HEMOGLOBIN 33.7 pg (26.0-34.0); MEAN CORPUSCULAR HGB CONC 34.8 G/dL (31.0-37.0); MEAN CORPUSCULAR VOLUME 97 fL (80-100); MONOCYTES # (AUTO) 1.4 K/uL (0.1-1.0); MONOCYTES % (AUTO) 16.2 % (2.0-9.0); NEUTROPHILS % (AUTO) 58.5 % (40.0-70.0); PLATELET COUNT (AUTO) 334 K/uL (150-450); RED BLOOD CELL COUNT(AUTO) 3.93 MIL/uL (4.50-5.90); RED CELL DISTRIBUTION WIDTH 12.8 % (11.5-14.5); WHITE BLOOD COUNT (AUTO) 8.6 K/uL (4.5-11.0)
[2024-09-24 00:46] LABS: ANION GAP 7 mmol/L (8-16); CALCIUM, TOTAL 9.1 mg/dL (8.8-10.5); CARBON DIOXIDE 30 mmol/L (22-29); CHLORIDE 103 mmol/L (98-107); CREATININE 1.27 mg/dL (0.60-1.30); GLOMERULAR FILTR. RATE CALC 57 mL/min (>60); GLUCOSE,RANDOM 103 mg/dL (70-110); POTASSIUM 4.1 mmol/L (3.5-5.1); SODIUM SERUM 140 mmol/L (136-145); UREA NITROGEN, BLOOD 18 mg/dL (7-18)
[2024-09-24 00:58] LABS: COVID AG,FIA SOURCE NASAL SWAB
[2024-09-24 01:19] LABS: AMPHET/METH SCREEN,URINE NEGATIVE (NEGATIVE); BARBITURATE SCREEN, URINE NEGATIVE (NEGATIVE); BENZODIAZEPINES SCREEN,URINE NEGATIVE (NEGATIVE); CANNABINOID SCREEN,URINE NEGATIVE (NEGATIVE); COCAINE SCREEN,URINE NEGATIVE (NEGATIVE); METHADONE SCREEN, URINE NEGATIVE (NEGATIVE); OPIATE SCREEN,URINE NEGATIVE (NEGATIVE); PHENCYCLIDINE SCREEN,URINE NEGATIVE (NEGATIVE); SARS-COV2 (COVID) ANTIGEN,FIA Negative (Negative)
[2024-09-24 01:19] LABS: ALCOHOL, BLOOD (SERUM) < 3 mg/dL (0-10)
[2024-09-24 01:20] LABS: ALCOHOL, URINE DRUG SCREEN NEGATIVE (NEGATIVE)
[2024-09-24] MEDS: LORazepam 1 MG TABLET PO ONE (01:39)
[2024-09-24] MEDS: QUEtiapine FUMARATE 100 MG TABLET PO ONE (01:40)
[2024-09-24 04:00] VITALS: BP 110/71; PULSE 71; RESP 16; O2SAT 97
== END 2024-09-24 ==
LOC: EMS 09-24 00:20
DX: R45.1 Restlessness and agitation (principal); I10 Essential (primary) hypertension; F31.9 Bipolar disorder, unspecified; F17.210 Nicotine dependence, cigarettes, uncomplicated; Z20.822 Contact with and (suspected) exposure to COVID-19
CPT/HCPCS: 99284; 87426; 80048; 85025; 36415; 80307; G0480; 99283

== ENCOUNTER 2024-10-28 13:58 | Emergency (ER) | payer MEDICAID ==
[~2024-10-28] VITALS: Ht 170.2 cm; Wt 86.4 kg
[2024-10-28] MEDS: SODIUM CHLORIDE 0.9% 1,000 ML IV ONE (15:05)
[2024-10-28 15:44] LABS: BASOPHILS % (AUTO) 0.7 % (0.0-2.0); EOSINOPHILS % (AUTO) 1.6 % (1.0-6.0); HEMATOCRIT 40.9 % (41-53); HEMOGLOBIN 13.8 g/dL (13.5-17.5); LYMPHOCYTES # (AUTO) 1.3 K/uL (1.0-4.8); LYMPHOCYTES % (AUTO) 15.6 % (22.0-44.0); MEAN CORPUSCULAR HEMOGLOBIN 32.8 pg (26.0-34.0); MEAN CORPUSCULAR HGB CONC 33.8 G/dL (31.0-37.0); MEAN CORPUSCULAR VOLUME 97 fL (80-100); MONOCYTES # (AUTO) 0.8 K/uL (0.1-1.0); MONOCYTES % (AUTO) 9.9 % (2.0-9.0); NEUTROPHILS % (AUTO) 72.2 % (40.0-70.0); PLATELET COUNT (AUTO) 388 K/uL (150-450); RED BLOOD CELL COUNT(AUTO) 4.22 MIL/uL (4.50-5.90); RED CELL DISTRIBUTION WIDTH 14.1 % (11.5-14.5); WHITE BLOOD COUNT (AUTO) 8.3 K/uL (4.5-11.0)
[2024-10-28 15:52] LABS: ANION GAP 7 mmol/L (8-16); CALCIUM, TOTAL 8.9 mg/dL (8.8-10.5); CARBON DIOXIDE 30 mmol/L (22-29); CHLORIDE 102 mmol/L (98-107); CREATININE 1.07 mg/dL (0.60-1.30); GLOMERULAR FILTR. RATE CALC > 60 mL/min (>60); GLUCOSE,RANDOM 91 mg/dL (70-110); POTASSIUM 4.3 mmol/L (3.5-5.1); SODIUM SERUM 139 mmol/L (136-145); UREA NITROGEN, BLOOD 12 mg/dL (7-18)
[2024-10-28 16:02] LABS: LIPASE 37 U/L (16-77); TROPONIN I-HIGH SENSITIVITY 12 ng/L (<76)
[2024-10-28 16:13] LABS: ALCOHOL, BLOOD (SERUM) 73 mg/dL (0-10)
[2024-10-28 16:17] LABS: ALBUMIN 3.3 g/dL (3.4-5.0); BILIRUBIN,DIRECT 0.1 mg/dL (0.00-0.20); BILIRUBIN,TOTAL 0.3 mg/dL (0.1-1.0)
[2024-10-28] MEDS: FAMOTIDINE 20 MG/2 ML VIAL IVP ONE (16:18)
[2024-10-28 17:16] LABS: APPEARANCE,URINE CLEAR (CLEAR); BILIRUBIN,URINE NEGATIVE (NEGATIVE); COLOR,URINE LIGHT YELLOW (YELLOW); GLUCOSE, URINE (UA) NEGATIVE (NEGATIVE); KETONES,URINE NEGATIVE (NEGATIVE); LEUKOCYTE ESTERASE ,URINE NEGATIVE (NEGATIVE); NITRATE,URINE NEGATIVE (NEGATIVE); OCCULT BLOOD,URINE TRACE (NEGATIVE); PH,URINE 6.5 (5.0-8.0); PROTEIN,URINE 30-70 mg/dL (NEGATIVE); SPECIFIC GRAVITIY, URINE 1.012 (1.003-1.030); UROBILINOGEN,URINE <=1.0 mg/dL (<=1.0)
[2024-10-28 17:24] LABS: PH,URINE DRUG SCREEN 6.5 (5.0-8.0)
[2024-10-28 17:29] LABS: ALCOHOL, URINE DRUG SCREEN POSITIVE (NEGATIVE); AMPHET/METH SCREEN,URINE POSITIVE (NEGATIVE); BARBITURATE SCREEN, URINE NEGATIVE (NEGATIVE); BENZODIAZEPINES SCREEN,URINE NEGATIVE (NEGATIVE); CANNABINOID SCREEN,URINE POSITIVE (NEGATIVE); COCAINE SCREEN,URINE NEGATIVE (NEGATIVE); METHADONE SCREEN, URINE NEGATIVE (NEGATIVE); OPIATE SCREEN,URINE NEGATIVE (NEGATIVE); PHENCYCLIDINE SCREEN,URINE NEGATIVE (NEGATIVE)
[2024-10-28 17:47] LABS: BACTERIA,URINE Rare /HPF (None Seen); SQUAMOUS EPITHELIAL CELL,UR Few /LPF (None Seen); WBC,URINE 0-2 /HPF (0-5)
[2024-10-28] MEDS ORDERED: FAMO20 PO (18:01)
[2024-10-28 18:10] VITALS: BP 142/80; PULSE 90; RESP 16; TEMP 98.3; O2SAT 96
[2024-10-28] MEDS ORDERED: ACETAMINOPHEN 325 MG TABLET PO ONE (18:45)
[2024-10-29 06:40] LABS: GLUCOMETER DEV NAME(LOC) ER.7; GLUCOSE,POINT OF CARE 89 MG/DL (70-110)
== END 2024-10-28 18:40 | disposition home or self-care (01) ==
LOC: EMS 13:58
DX: K29.20 Alcoholic gastritis without bleeding (principal); F10.20 Alcohol dependence, uncomplicated; F15.10 Other stimulant abuse, uncomplicated; F31.9 Bipolar disorder, unspecified; F20.9 Schizophrenia, unspecified; I10 Essential (primary) hypertension; F17.210 Nicotine dependence, cigarettes, uncomplicated; R73.9 Hyperglycemia, unspecified; Z90.49 Acquired absence of other specified parts of digestive tract; Z91.51 Personal history of suicidal behavior; Z98.890 Other specified postprocedural states
CPT/HCPCS: 99285; 96374; 76705; 96361; 80048; 80076; 81001; 82962; 83690; 84484; 85025; 36415; 93005; 80307; G0480; J3490; J7030

== ENCOUNTER 2025-06-23 10:58 | Inpatient (IN) | payer MEDICARE, MEDICAID ==
[~2025-06-23] VITALS: Ht 170.2 cm; Wt 82.1 kg
[~2025-06-23 10:58] MED LIST changes: -CEPH-558 PO; -CIME800T PO; +FAMO20 PO
[2025-06-23 11:49] LABS: PLATELET COUNT (AUTO) 248 K/uL (150-450); RED BLOOD CELL COUNT(AUTO) 4.76 MIL/uL (4.50-5.90); RED CELL DISTRIBUTION WIDTH 14.7 % (11.5-14.5); WHITE BLOOD COUNT (AUTO) 7.6 K/uL (4.5-11.0)
[2025-06-23 11:59] LABS: CALCIUM, TOTAL 9.0 mg/dL (8.8-10.5); CREATININE 1.57 mg/dL (0.60-1.30); GLOMERULAR FILTR. RATE CALC 45.0 mL/min (>60); GLUCOSE,RANDOM 117.0 mg/dL (70-110); SODIUM SERUM 135.0 mmol/L (136-145); UREA NITROGEN, BLOOD 15.0 mg/dL (7-18)
[2025-06-23 12:03] LABS: ASPARTATE AMINOTRANSFERASE 25.0 U/L (15-37); TOTAL PROTEIN, SERUM 7.3 g/dL (6.4-8.2)
[2025-06-23 13:45] LABS: ALCOHOL, URINE DRUG SCREEN NEGATIVE (NEGATIVE); AMPHET/METH SCREEN,URINE NEGATIVE (NEGATIVE); BARBITURATE SCREEN, URINE NEGATIVE (NEGATIVE); CANNABINOID SCREEN,URINE POSITIVE (NEGATIVE); COCAINE SCREEN,URINE NEGATIVE (NEGATIVE); METHADONE SCREEN, URINE NEGATIVE (NEGATIVE)
[2025-06-23 13:58] LABS: PH,URINE DRUG SCREEN 6.0 (5.0-8.0)
[2025-06-23 14:10] LABS: APPEARANCE,URINE CLEAR (CLEAR); GLUCOSE, URINE (UA) NEGATIVE (NEGATIVE); LEUKOCYTE ESTERASE ,URINE NEGATIVE (NEGATIVE); NITRATE,URINE NEGATIVE (NEGATIVE); OCCULT BLOOD,URINE NEGATIVE (NEGATIVE); SPECIFIC GRAVITIY, URINE 1.009 (1.003-1.030)
[2025-06-23 16:17] LABS: COVID AG,FIA SOURCE NPH
[2025-06-23 16:44] LABS: SARS-COV2 (COVID) ANTIGEN,FIA Negative (Negative)
[2025-06-23 22:00] VITALS: BP 144/79; PULSE 74; RESP 18; TEMP 98.4; O2SAT 96
[2025-06-23] MEDS: ZOLPIDEM TARTRATE 10 MG TABLET PO PRN (23:00)
[2025-06-24] MEDS ORDERED: INFLUENZA VIRUS VACCINE TVS (6MO+) 2025-26/PF 45 MCG/0.5 ML SYRINGE IM. ONE (04:00)
[2025-06-24] MEDS ORDERED: PNEUMOCOCCAL VACCINE POLYVALENT 0.5 ML SYRINGE [PPSV23] IM. ONE (04:00)
[2025-06-24] MEDS ORDERED: ALBUTEROL SULFATE HFA 90 MCG/PUFF 8 GM INHALER IH PRN (06:00)
[2025-06-24] MEDS ORDERED: LOPERAMIDE HCL 2 MG CAPSULE PO PRN (06:00)
[2025-06-24] MEDS ORDERED: ONDANSETRON 4 MG TABLET PO PRN (06:00)
[2025-06-24] MEDS ORDERED: IBUPROFEN 400 MG TABLET PO PRN (06:00)
[2025-06-24] MEDS ORDERED: MAG HYDROX/ALUMINUM HYD/SIMETH ES 30 ML SUSPENSION UDCUP PO PRN (06:00)
[2025-06-24] MEDS ORDERED: PETROLATUM,WHITE 28 GM JELLY TP PRN (06:00)
[2025-06-24] MEDS ORDERED: DOCUSATE SODIUM 100 MG CAPSULE PO PRN (06:00)
[2025-06-24] MEDS ORDERED: NICOTINE 14 MG/24 HOUR PATCH TD PRN (06:00)
[2025-06-24] MEDS ORDERED: GuaiFENesin/D-METHORPHAN [SUGAR-FREE] 200-20MG/10 ML SYRUP UDCUP PO PRN (06:00)
[2025-06-24] MEDS: TAMSULOSIN HCL 0.4 MG CAPSULE PO SCH (07:19)
[2025-06-24 08:52] VITALS: BP 145/80; PULSE 85; RESP 18; TEMP 98.3; O2SAT 95
[2025-06-24 20:34] VITALS: BP 143/84; PULSE 79; RESP 18; TEMP 97.8; O2SAT 99
[2025-06-25 08:14] VITALS: BP 118/69; PULSE 65; RESP 16; TEMP 99.1; O2SAT 95
[2025-06-25 08:55] LABS: CHOL/HDL RATIO 3.4 (4.2-7.3); LDL CHOL (CALC.) 74.0 mg/dL (0-130)
[2025-06-25 20:22] VITALS: BP 129/86; PULSE 88; RESP 18; TEMP 98.3; O2SAT 95
[2025-06-26 08:05] VITALS: BP 109/88; PULSE 66; RESP 18; TEMP 97.9; O2SAT 95
[2025-06-26 21:21] VITALS: BP 113/67; PULSE 71; RESP 16; TEMP 98.2; O2SAT 96
[2025-06-27 08:12] VITALS: BP 120/72; PULSE 70; RESP 18; TEMP 98.3; O2SAT 95
[2025-06-27] MEDS: MAGNESIUM HYDROXIDE SUSPENSION 30 ML UDCUP PO PRN (17:04)
[2025-06-27 20:18] VITALS: BP 124/74; PULSE 90; RESP 18; TEMP 98.6; O2SAT 98
[2025-06-28 08:39] VITALS: BP 111/79; PULSE 81; RESP 18; TEMP 97.2; O2SAT 96
[2025-06-28 08:55] LABS: APPEARANCE,URINE CLEAR (CLEAR); GLUCOSE, URINE (UA) NEGATIVE (NEGATIVE); LEUKOCYTE ESTERASE ,URINE NEGATIVE (NEGATIVE); NITRATE,URINE NEGATIVE (NEGATIVE); OCCULT BLOOD,URINE NEGATIVE (NEGATIVE); PH,URINE DRUG SCREEN 6.5 (5.0-8.0); SPECIFIC GRAVITIY, URINE 1.011 (1.003-1.030)
[2025-06-28 09:11] LABS: ALCOHOL, URINE DRUG SCREEN NEGATIVE (NEGATIVE); AMPHET/METH SCREEN,URINE NEGATIVE (NEGATIVE); BARBITURATE SCREEN, URINE NEGATIVE (NEGATIVE); CANNABINOID SCREEN,URINE POSITIVE (NEGATIVE); COCAINE SCREEN,URINE NEGATIVE (NEGATIVE); METHADONE SCREEN, URINE NEGATIVE (NEGATIVE)
[2025-06-28 22:29] VITALS: BP 99/60; PULSE 91; RESP 18; TEMP 97.9
[2025-06-29 08:25] VITALS: BP 123/77; PULSE 89; RESP 19; TEMP 97.7; O2SAT 95
[2025-06-29 20:14] VITALS: BP 137/92; PULSE 62; RESP 17; TEMP 98.3; O2SAT 95
[2025-06-30 08:20] VITALS: BP 112/58; PULSE 81; RESP 17; TEMP 98.1; O2SAT 98
[2025-06-30 20:39] VITALS: BP 121/86; PULSE 65; RESP 18; TEMP 98; O2SAT 95
[2025-07-01 08:42] VITALS: BP 133/80; PULSE 85; RESP 19; TEMP 98.4; O2SAT 98
[2025-07-01] MEDS ORDERED: QUET200T30 PO (19:29)
[2025-07-01] MEDS ORDERED: TAMS0.4C94 PO (19:29)
[2025-07-01 20:09] VITALS: BP 141/85; PULSE 94; RESP 18; TEMP 98.3; O2SAT 98
[2025-07-02 03:58] VITALS: BP 128/78; PULSE 67; RESP 18; TEMP 98.3; O2SAT 97
[2025-07-02] MEDS: ACETAMINOPHEN 325 MG TABLET PO PRN (03:58)
[2025-07-02 04:58] VITALS: RESP 18
[2025-07-02 08:00] VITALS: BP 132/87; PULSE 79; RESP 18; TEMP 97; O2SAT 97
== END 2025-07-02 07:55 | disposition home or self-care (01) | DRG 885 ==
LOC: EMS 11:05 → B2X 19:35
PROVIDERS: ADMIT Psychiatry & Neurology Child & Adolescent Psychiatry; ATTEND Psychiatry & Neurology Child & Adolescent Psychiatry
PROC: GZ58ZZZ Individual Psychotherapy, Cognitive-Behavioral (ICD-10-PCS; 2025-06-24)
PROC: GZ56ZZZ Individual Psychotherapy, Supportive (ICD-10-PCS; 2025-06-24)
PROC: GZHZZZZ Group Psychotherapy (ICD-10-PCS; principal; 2025-06-28)
DX: F25.1 Schizoaffective disorder, depressive type (principal); N18.9 Chronic kidney disease, unspecified; R45.851 Suicidal ideations; E66.9 Obesity, unspecified; I12.9 Hypertensive chronic kidney disease with stage 1 through stage 4 chronic kidney disease, or unspecified chronic kidney disease; F12.10 Cannabis abuse, uncomplicated; F10.10 Alcohol abuse, uncomplicated; F31.9 Bipolar disorder, unspecified; Z20.822 Contact with and (suspected) exposure to COVID-19; F17.200 Nicotine dependence, unspecified, uncomplicated; N40.0 Benign prostatic hyperplasia without lower urinary tract symptoms; Y90.0 Blood alcohol level of less than 20 mg/100 ml; Z79.899 Other long term (current) drug therapy; Z68.28 Body mass index [BMI] 28.0-28.9, adult
CPT/HCPCS: 51702; 80053; 80061; 80307; 81003; 83036; 84443; 85025; G0480